=== PATIENT | male | born 1940 | race Caucasian/White ===

== ENCOUNTER 2017-06-01 12:03 | Day surgery (SDC) | payer OTHER, MEDICARE ==
[2017-05-09 10:53] VITALS: BMI 32.0
--- NOTE | 2017-05-09 11:21 | PAT Medication Instructions ---
Service Date May 09, 2017. Current Home Medication List Allopurinol (Zyloprim), 100 MG PO QAM Aspirin Enteric Coated (Ecotrin Or Generic *), 81 MG PO QPM Atenolol (Tenormin), 12.5 MG PO QPM Hydrochlorothiazide (Hctz *), 25 MG PO QAM Latanoprost 0.005% Oph (Xalatan 0.005% Oph), 1 DROP OPR HS Lisinopril (Zestril), 20 MG PO QPM Potassium Citrate (Urocit-K), Unknown Dose PO QAM Ranitidine (Zantac), 150 MG PO PRN PRN for Indigestion Simvastatin (Zocor), 40 MG PO QPM Sulindac (Sulindac), 200 MG PO QAM PRN for RN [eye drop ], 1 DROP OPR BID Medication Instructions For Your Scheduled Surgery - Hold the following medications 24 hours prior to surgery: Lisinopril (Zestril), 20 MG PO QPM Aspirin Enteric Coated (Ecotrin Or Generic *), 81 MG PO QPM (per surgeons instructions) - Hold the following medications the morning of surgery: Sulindac (Sulindac), 200 MG PO QAM PRN (otherwise okay to continue per surgeon) Hydrochlorothiazide (Hctz *), 25 MG PO QAM Potassium Citrate (Urocit-K), Unknown Dose PO QAM - Take the following medications the morning of surgery with a sip of water OTHERWISE NOTHING TO EAT OR DRINK AFTER MIDNIGHT: Allopurinol (Zyloprim), 100 MG PO QAM Ranitidine (Zantac), 150 MG PO PRN PRN for Indigestion - Take the following medications as scheduled the night before surgery: [eye drop ], 1 DROP OPR BID Atenolol (Tenormin), 12.5 MG PO QPM Simvastatin (Zocor), 40 MG PO QPM Latanoprost 0.005% Oph (Xalatan 0.005% Oph), 1 DROP OPR HS If you have any questions please call us at [phone] or [phone] or [phone]
--- NOTE | 2017-05-09 11:54 | DIAGNOSTIC IMAGING REPORT ---
TWO VIEW CHEST CLINICAL HISTORY: Preoperative examination. FINDINGS: PA and lateral chest radiographs are compared to study dated 06/06/2016. The cardiomediastinal silhouette is unremarkable. There is atherosclerotic calcification of the thoracic aorta. Chronic interstitial thickening is unchanged. The lungs and pleural spaces are clear. There is no pneumothorax. The skeletal structures are osteopenic. Degenerative change is seen throughout the thoracic spine. A right shoulder arthroplasty is noted. IMPRESSION: No active disease in the chest. Electronically signed by: Bala Adrian M.D. 05/09/2017 11:52 AM Dictated Date/Time: 05/09/2017 11:52 AM
[2017-05-09 11:55] LABS: BASO % 0.9 %; BASO ABS # 0.06 K/uL (0-0.2); COMPLETE YES; EOS % 3.8 %; HEMATOCRIT 45.8 % (42-52); IG% 0.2 %; LYMPH % 39.2 %; LYMPH ABS # 2.51 K/uL (1.2-3.4); MEAN CELL VOLUME 95.4 fL (80-100); MEAN CORPUSCULAR HEMOGLOBIN 32.5 pg (25-34); MEAN CORPUSCULAR HGB CONC 34.1 g/dl (32-36); MEAN PLATELET VOLUME 9.8 fL (7.4-10.4); NEUT % 47.9 %; PLATELET COUNT 167 K/uL (130-400)
[2017-05-09 11:58] LABS: URINE APPEARANCE CLEAR (CLEAR); URINE BILIRUBIN NEG (NEG); URINE COLOR YELLOW; URINE EPITHELIAL CELL AUTO 0-5 /lpf (0-5); URINE NITRITE NEG (NEG); UROBILINOGEN NEG (NEG)
[2017-05-09 11:59] LABS: MANUAL MICROSCOPIC REQUIRED? NO; REVIEW REQ? NO
[2017-05-09 12:16] LABS: BUN/CREATININE RATIO 21.7 (10-20); CALCIUM 9.5 mg/dl (8.5-10.1); CREATININE 1.3 mg/dl (0.60-1.40); POTASSIUM 4.2 mmol/L (3.5-5.1)
[~2017-06-01] VITALS: Ht 185.4 cm; Wt 112.2 kg
[~2017-06-01 12:03] MED LIST: ALLO100T PO; ASPEC81 PO; ATEN-173 PO; CEFAZOLIN 2000 MG/60 ML D5W IV SCH; CLN200 PO; HYDC25 PO; LACTATED RINGER'S 1000ML 500 ML IV SCH; LATA0.009 OPR; LISI-725 PO; POTA1080 PO; SIMV40TA2 PO; ZNTT/150 PO; eye drop OPR
[2017-06-01 12:35] VITALS: BMI 32.0
[2017-06-01 12:46] VITALS: Ht 185.4 cm; Wt 112.2 kg
--- NOTE | 2017-06-01 14:03 | History & Physical Bridge Note ---
H&P Re-Evaluation Bridge Note: I have examined the patient, reviewed the History & Physical and in the interval since the performance of the History & Physical I have noted the following changes of clinical significance: No changes noted
--- NOTE | 2017-06-01 14:04 | History and Physical ---
History & Physical Date Jun 01, 2017. Chief Complaint Chronic back pain History of Present Illness The patient is a 76 year old male with complaints of Past Medical/Surgical History Medical Problems: (1) Rotator cuff arthropathy Additional History Hepatic Disease: No Endocrine Disorder: No Kidney Disease: No Hypertension: Yes Heart Disease: No Bleeding Tendencies: No Infectious Diseases: No Allergies Coded Allergies: Latex (Verified Allergy, Severe, red rash, blisters, 06/01/17) Oxycodone (Verified Adverse Reaction, Severe, severe n/v, 05/09/17) Ibuprofen (Verified Adverse Reaction, Mild, NAUSEA, 07/07/16) Uncoded Allergies: BACK BRACE (Allergy, Severe, rash, 05/09/17) back brace/binder used following temporary stimulator implant by Dr. Young - patient reports got severe rash around where binder/brace was located - needed prednisone to treat Home Medications Scheduled Allopurinol (Zyloprim), 100 MG PO QAM Aspirin Enteric Coated (Ecotrin Or Generic *), 81 MG PO QPM Atenolol (Tenormin), 12.5 MG PO QPM Hydrochlorothiazide (Hctz *), 25 MG PO QAM Lisinopril (Zestril), 20 MG PO QPM Potassium Citrate (Urocit-K), Unknown Dose PO QAM Simvastatin (Zocor), 40 MG PO QPM [eye drop ], 1 DROP OPR BID Scheduled PRN Ranitidine (Zantac), 150 MG PO PRN PRN for Indigestion Sulindac (Sulindac), 200 MG PO QAM PRN for RN Physical Examination Skin: warm/dry, no rash Eyes: normal inspection, EOMI, sclerae normal ENT: normal ENT inspection, pharynx normal Head: normocephalic, atraumatic Neck: supple, no adenopathy, trachea midline Respiratory/Chest: lungs clear, normal breath sounds, no respiratory distress Cardiovascular: regular rate, rhythm, no edema, no murmur Abdomen / GI: normal bowel sounds, non tender Back: normal inspection Extremities: normal inspection, normal range of motion Neurologic/Psych: no motor/sensory deficits, alert, normal reflexes, oriented x 3 Diagnosis Chronic back pain Plan of Treatment Placement of spinal cord stimulator
[2017-06-01] MEDS ORDERED: MIDAZOLAM HCL 1 MG/ML 2ML VIAL ONE (14:08)
[2017-06-01] MEDS ORDERED: FENTANYL CITRATE INJ 50 MCG/1 ML 2 ML VIAL ONE (14:08)
[2017-06-01] MEDS ORDERED: BUPIVACAINE/EPINEPHRINE 0.5% MPF 1:200,000 10 ML VIAL ONE (14:30)
[2017-06-01] MEDS ORDERED: HYDROmorphone INJ 2 MG/ML SYR/VIAL ONE (14:51)
[2017-06-01] MEDS ORDERED: LIDOCAINE HCL 2% 2 ML VIAL (20MG/ML) ONE (15:06)
[2017-06-01] MEDS ORDERED: DEXAMETHASONE SOD INJ 4 MG/ML VIAL ONE (15:06)
[2017-06-01] MEDS ORDERED: NEOSTIGMINE METHYLSULFATE 1 MG/ML 10ML VIAL ONE (15:07)
[2017-06-01] MEDS ORDERED: PROPOFOL IV EMULSION 10 MG/ML 20 ML VIAL IV ONE (15:07)
[2017-06-01] MEDS ORDERED: GLYCOPYRROLATE INJ 0.2 MG/ML VIAL ONE (15:07)
[2017-06-01] MEDS ORDERED: ROCURONIUM BROMIDE 10 MG/ML 5 ML VIAL ONE (15:07)
[2017-06-01] MEDS ORDERED: ONDANSETRON INJ 2 MG/ML 2 ML VIAL ONE (15:07)
[2017-06-01] MEDS ORDERED: FLOSEAL HEMOSTATIC MATRIX 5ML TOP ONE (15:35)
[2017-06-01] MEDS ORDERED: HYDR-5688 PO (15:36)
--- NOTE | 2017-06-01 15:37 | Discharge Instructions ---
Discharge Instructions Date of Service Jun 01, 2017. Admission Reason for Admission: Lumbar Post Laminectomy Syndrome Discharge Discharge Diagnosis / Problem: chronic back pain Discharge Goals Goal(s): Improve function Activity Recommendations Activity Limitations: per Instructions/Follow-up section . Instructions / Follow-Up Instructions / Follow-Up ACTIVITY RECOMMENDATIONS: SELF CARE INSTRUCTIONS AFTER A LAMINECTOMY 1. No prolonged sitting (less than 30 minutes for the first 3 weeks after surgery). 2. No bending, lifting more than 5 pounds, or twisting (roll like a log when turning in bed). 3. You may shower 3 days after surgery if no drainage from wound. Thoroughly dry wound. Do not soak in the tub. 4. Please walk as much as you can for exercise. Gradually increase the distance that you walk as your endurance increases. 5. You may drive in 7-10 days if you are comfortable and no longer requiring pain medications. SPECIAL CARE INSTRUCTIONS: VERY IMPORTANT TO READ AND REVIEW A. Your surgical incision has been closed with a cosmetic suture under the skin that will dissolve in about 6 weeks. In 14 days, you can use a pair of clean scissors and cut the suture that is left outside of the skin at the ends of your incision. B. Complications are uncommon, but please contact us if you have any signs or symptoms of: 1. wound infection (fever higher than 102.5 degrees F, redness, separation of wound, drainage, or increasing pain from the incision) 2. blood clots in legs (pain, swelling, redness and warmth in legs) 3. urinary tract infection (fever higher than 102.5 degrees, burning upon urination or increased frequency of urination) 4. nerve problems (inability to walk on your toes or heels, numbness, loss of bowel or bladder control) 5. any other symptoms that concern you. C. Please call the office at if you have any concerns or questions about your operation or recovery. MANAGING PAIN AFTER SPINAL SURGERY 1. Narcotic medication is intended for short-term use and will be provided for surgical pain. Surgical pain usually lasts for a period of 4-6 weeks. Narcotic medication includes Percocet, Vicodin, Darvocet, Tylenol #3 or Lortab. 2. Longer-term pain is more appropriately treated with non-narcotic medication such as Tylenol ES. 3. Muscle spasm is not appropriately treated with narcotics. Muscle relaxers such as Soma, Flexeril or Skelaxin can be used along with Tylenol ES. 4. Remember that we all live with some "aches and pains". This is not unusual or uncommon after an injury or as we get older. 5. We will provide appropriate medication within the normal guidelines of their prescribed use. We will also be very cautious and aware of potential abuse and extended duration of patients' medication needs. 6. Please allow 2-3 days to process refills. Prescriptions will not be mailed but must be picked up at the office. FOLLOW UP VISIT: Keep your scheduled follow-up appointment. Any questions, please call the office at . Current Hospital Diet Patient's current hospital diet: Discharge Diet Recommended Diet: Regular Diet Procedures Procedures Performed: Placement of spinal cord stimulator Pending Studies Studies pending at discharge: no Medical Emergencies . Who to Call and When: Medical Emergencies: If at any time you feel your situation is an emergency, please call 911 immediately. . Non-Emergent Contact Non-Emergency issues call your: Primary Care Provider . "Provider Documentation" section prepared by Naresh Chaves. . VTE Core Measure Inpt VTE Proph given/why not?: Rito Torres, SCD's
--- NOTE | 2017-06-01 15:43 | [facility] Operative Report ---
Operative Report Operative Date Jun 01, 2017. Pre-Operative Diagnosis Chronic back pain Post-Operative Diagnosis saem as preop Procedure(s) Performed #1 T10 laminotomy. #2 placement of 16-lead dorsal column centimeter paddle # 3 implantation of a returnable battery. Surgeon Dr. Chaves Director Of It Operations Surgeon(s) Henri Rothman PA-C Estimated Blood Loss 100 ML Findings None Specimens none Description of Procedure Patient was met with preoperatively case discussed all questions are dressed with a point patient was taken back to the operative suite after undergoing successful intubation placed in a prone position the Keshawn table on a Kurtis frame. The thoracal lumbar spines prepped draped nostril fashion. Sharp dissection decisions Bovie cautery performed onto an exposing the interlaminar space at T10 11. A midline laminotomy was created at T10. I then successfully placed a 16-lead dorsal column centimeter paddle proximally. Verified our position to lie between the T8 and T10 pedicle centrally. I then tied the leads into place. A pocket was created of the left flank. The leads were passed to this pocket via trocar. Attached the battery. The battery was tested to ensure appropriate function. The battery was then buried in the pocket. Incisions were then copiously irrigated and closed with 2 Vicryl in the fascia for Monocryl for final skin closure. Steri-Strips sterile dressing placed patient we can taken to PACU stable condition. I attest to the content of the Intraoperative Record and any orders documented therein. Any exceptions are noted below.
[2017-06-01] MEDS ORDERED: HYDROCODONE/ACETAMOPHEN 5/325MG TAB PO PRN (15:45)
[2017-06-01] MEDS ORDERED: HYDROmorphone INJ 1 MG/ML SYR IV PRN ×2 (15:45)
[2017-06-01] MEDS ORDERED: ACETAMINOPHEN 325 MG TAB PO PRN ×2 (15:45)
[2017-06-01] MEDS ORDERED: ACETAMINOPHEN 650 MG SUPP PR PRN ×2 (15:45)
[2017-06-01] MEDS ORDERED: BACITRACIN 50000 UNIT VIAL ONE (15:45)
--- NOTE | 2017-06-01 15:49 | DIAGNOSTIC IMAGING REPORT ---
SPINE ONE VIEW, ANY LEVEL HISTORY: Back pain. Stimulator placement.. FLUOROSCOPY TIME: 5.4 seconds. FINDINGS: Intraoperative fluoroscopy was provided for the lumbar spine. 1 fluoroscopic spot images were obtained. IMPRESSION: Fluoroscopy provided for a spine bio stimulator placement. The above report was generated using voice recognition software. It may contain grammatical, syntax or spelling errors. Electronically signed by: Pa Tan M.D. 06/01/2017 3:48 PM Dictated Date/Time: 06/01/2017 3:47 PM
[2017-06-01] MEDS ORDERED: FENTANYL CITRATE INJ 50 MCG/1 ML 2 ML VIAL IV PRN (16:00)
[2017-06-01] MEDS ORDERED: ATROPINE SULFATE 0.1 MG/ML 5ML SYR IV PRN (16:00)
[2017-06-01] MEDS ORDERED: ONDANSETRON INJ 2 MG/ML 2 ML VIAL IV PRN (16:00)
[2017-06-01] MEDS ORDERED: EpHEDrine SULFATE INJ 50 MG/ML AMP IV PRN (16:00)
[2017-06-01] MEDS ORDERED: MEPERIDINE HCL 25 MG/ML CARP ONE (16:12)
[2017-06-01] MEDS ORDERED: HydrALAZINE HCL 20 MG/ML VIAL ONE (16:12)
[2017-06-01] MEDS ORDERED: NURSING VERBAL MED ORDER ONE (16:15)
--- NOTE | 2017-06-01 16:33 | Anesthesiology Progress Note ---
Anesthesia Post Op Note Date & Time Jun 01, 2017 at 16:33 Vital Signs Pain Intensity: 0 Vital Signs Past 12 Hours Date Time Temp Pulse Resp B/P (MAP) Pulse Ox O2 Delivery O2 Flow Rate FiO2 06/01/17 16:23 63 16 06/01/17 16:23 68 16 100 06/01/17 16:21 182/94 06/01/17 16:18 61 20 06/01/17 16:18 67 20 98 06/01/17 16:16 202/100 06/01/17 16:13 65 17 06/01/17 16:13 67 17 100 06/01/17 16:10 197/96 06/01/17 16:08 66 17 179/109 97 06/01/17 16:08 66 17 06/01/17 16:06 188/96 06/01/17 16:04 181/95 06/01/17 16:03 36.3 64 16 181/95 100 Mask 10 06/01/17 16:03 63 19 149/128 100 06/01/17 16:03 63 19 Notes Mental Status: alert / awake / arousable, participated in evaluation Pt Amnestic to Procedure: Yes Nausea / Vomiting: adequately controlled Pain: adequately controlled Airway Patency, RR, SpO2: stable & adequate BP & HR: stable & adequate Hydration State: stable & adequate Anesthetic Complications: no major complications apparent
[2017-06-01 16:55] VITALS: BP 176/90; PULSE 66; TEMP 36.8; O2SAT 94
[2017-06-01 17:25] VITALS: BP 180/86; PULSE 71; TEMP 36.8; O2SAT 93
[2017-06-01 17:55] VITALS: BP 164/84; PULSE 71; TEMP 36.8; O2SAT 93
--- NOTE | 2017-06-06 13:13 | EDITING REQUIRED CODING QUERY ---
SUPPORTING DIAGNOSIS NEEDED DATE OF SERVICE: 06/01/17 A supporting diagnosis is required for the test/procedure performed on this patient in order for us to be reimbursed by the patient's insurance. Please provide a supporting diagnosis for the following test/procedure listed below next to the test name along with your signature. *If there is no additional diagnosis for this patient that would support the following test/procedure please document that below next to the test/procedure. SUPPORTING DIAGNOSIS NEEDED: On the History & Physical you stated that the patient had back pain: *What was the cause of the back pain: post-laminectomy syndrome disc disease other *What was the cause of the Chronic pain: due to trauma due to postprocedural pain other Provider Signature: Date: Thank you Mable Hay [facility] Information Management Once completed, please kindly fax back to [phone] For questions please call [phone]
== END 2017-06-01 18:10 | disposition home or self-care (01) ==
LOC: C.ACU 12:03
PROVIDERS: ATTEND Orthopaedic Surgery Orthopaedic Surgery of the Spine
DX: M96.1 Postlaminectomy syndrome, not elsewhere classified (principal); M54.5 Low back pain; G89.28 Other chronic postprocedural pain; M54.40 Lumbago with sciatica, unspecified side; M47.814 Spondylosis without myelopathy or radiculopathy, thoracic region; I10 Essential (primary) hypertension; E78.00 Pure hypercholesterolemia, unspecified; Z96.659 Presence of unspecified artificial knee joint; Z96.649 Presence of unspecified artificial hip joint; Z96.619 Presence of unspecified artificial shoulder joint; G47.33 Obstructive sleep apnea (adult) (pediatric); K21.9 Gastro-esophageal reflux disease without esophagitis; Z87.442 Personal history of urinary calculi

== ENCOUNTER → 2017-10-02 | Outpatient (CLI) | payer OTHER, MEDICARE ==
[~2017-10-02] MED LIST changes: -CEFAZOLIN 2000 MG/60 ML D5W IV SCH; -LACTATED RINGER'S 1000ML 500 ML IV SCH; -LATA0.009 OPR; +RANI150T85 PO; -ZNTT/150 PO
--- NOTE | 2017-10-02 12:38 | DIAGNOSTIC IMAGING REPORT ---
KUB HISTORY: Follow-up study in a patient with nephrolithiasis. N20.0 [id number] COMPARISON: K be 09/22/2016. FINDINGS: The bowel gas pattern is non-obstructive. There is no organomegaly. Evaluate battery pack overlies the left kidney which limits evaluation for nephrolithiasis. No urolith identified. Stimulator leads overlie the thoracic spine extending superiorly outside the [id number]. Probable phleboliths of the pelvis. Left hip arthroplasty. At least moderate right hip osteoarthritis. Multilevel degenerative changes of the spine. Left hip arthroplasty. No pneumoperitoneum or pneumatosis. No fracture. IMPRESSION: No definite renal or ureteral calculi identified. Electronically signed by: Julian Smalls M.D. 10/02/2017 12:37 PM Dictated Date/Time: 10/02/2017 12:35 PM
[2017-10-02 13:48] LABS: BLOOD UREA NITROGEN 18 mg/dl (7-18); CALCIUM 9.3 mg/dl (8.5-10.1); CARBON DIOXIDE 29 mmol/L (21-32); GLUCOSE 124 mg/dl (70-99); POTASSIUM 3.9 mmol/L (3.5-5.1); SODIUM 139 mmol/L (136-145); URIC ACID 6.3 mg/dl (2.6-7.2)
== END | disposition home or self-care (01) ==
LOC: C.RAD 11:32
PROVIDERS: ATTEND Urology
DX: N20.0 Calculus of kidney (principal); N40.1 Benign prostatic hyperplasia with lower urinary tract symptoms

== ENCOUNTER 2018-02-05 09:34 | Inpatient (IN) | payer OTHER, MEDICARE ==
[2018-01-15 09:51] VITALS: BMI 34.0
--- NOTE | 2018-01-15 10:13 | PAT Medication Instructions ---
Service Date Jan 15, 2018. Current Home Medication List Allopurinol (Zyloprim), 100 MG PO QAM Aspirin (Aspirin Ec), 81 MG PO QPM Atenolol (Tenormin), 12.5 MG PO QPM Dorzolamide Hcl-Timolol Maleat (Cosopt Oph), 1 DROPS OPR BID Hydrochlorothiazide (Hctz), 25 MG PO QAM Lisinopril (Zestril), 20 MG PO QPM Sildenafil Citrate (Viagra), 100 MG PO PRN Simvastatin (Zocor), 40 MG PO QPM Sulindac (Sulindac), 200 MG PO BID [Potassium Citrate], 1 TAB PO QAM Medication Instructions For Your Scheduled Surgery - Check with surgeon for instructions: Sulindac (Sulindac), 200 MG PO BID - Hold the following medications 24 hours prior to surgery: Lisinopril (Zestril), 20 MG PO QPM - Hold the following medications the morning of surgery: [Potassium Citrate], 1 TAB PO QAM Sildenafil Citrate (Viagra), 100 MG PO PRN Hydrochlorothiazide (Hctz), 25 MG PO QAM - Take the following medications the morning of surgery with a sip of water: Allopurinol (Zyloprim), 100 MG PO QAM Dorzolamide Hcl-Timolol Maleat (Cosopt Oph), 1 DROPS OPR BID - Take the following medications as scheduled the night before surgery: Sildenafil Citrate (Viagra), 100 MG PO PRN (if needed) Simvastatin (Zocor), 40 MG PO QPM Dorzolamide Hcl-Timolol Maleat (Cosopt Oph), 1 DROPS OPR BID Aspirin (Aspirin Ec), 81 MG PO QPM Atenolol (Tenormin), 12.5 MG PO QPM If you have any questions please call us at [phone] or [phone] or [phone]
[2018-01-15 11:03] LABS: BASO % 0.6 %; BASO ABS # 0.05 K/uL (0-0.2); EOS % 2.3 %; HEMOGLOBIN 15.1 g/dL (14.0-18.0); IG# 0.02 K/uL (0.00-0.02); LYMPH % 26.9 %; LYMPH ABS # 2.31 K/uL (1.2-3.4); MEAN CELL VOLUME 96.1 fL (80-100); MEAN CORPUSCULAR HGB CONC 34.3 g/dl (32-36); MEAN PLATELET VOLUME 9.6 fL (7.4-10.4); MONO % 4.5 %; MONO ABS # 0.39 K/uL (0.11-0.59); NEUT % 65.5 %; NEUT ABS # 5.63 K/uL (1.4-6.5); PLATELET COUNT 190 K/uL (130-400); RED CELL DISTRIBUTION WIDTH CV 13.7 % (11.5-14.5); RED CELL DISTRIBUTION WIDTH SD 48.5 fL (36.4-46.3)
[2018-01-15 11:13] LABS: PTT PATIENT 24.8 SECONDS (21.0-31.0)
[2018-01-15 11:25] LABS: CALCIUM 9.2 mg/dl (8.5-10.1); CREATININE 1.32 mg/dl (0.60-1.40); POTASSIUM 4.5 mmol/L (3.5-5.1)
--- NOTE | 2018-02-04 19:24 | HISTORY & PHYSICAL EXAMINATION ---
DATE OF ADMISSION: 02/05/2018 CHIEF COMPLAINT: Primary osteoarthritis of the right hip. HISTORY OF PRESENT ILLNESS: Leonel is a pleasant 77-year-old male who has been dealing with a several year history of increasing right hip pain. The left hip replaced by Dr. Dawn 4 years ago in 2013 and he did well with that. Unfortunately, he is having a lot of right hip pain. X-rays and clinical examination or diagnostics for primary osteoarthritis of the right hip and after failing conservative treatment, he is elected to proceed with a right total hip arthroplasty. PAST MEDICAL HISTORY: Significant for osteoarthritis and hypertension. PAST SURGICAL HISTORY: Significant for a left total hip arthroplasty [place] [address] Dawn, a left total knee arthroplasty by Dr. Burns, a right reverse shoulder arthroplasty in June [address] Alejandro and a spinal cord stimulator placement in May 2017. ALLERGIES: None. MEDICATIONS: Include atenolol, Zocor, lisinopril and aspirin. FAMILY HISTORY: Denies. SOCIAL HISTORY: He is , lives in a house with some stairs and he rents the upstairs room to his granddaughter who can help take care of him. REVIEW OF SYSTEMS: He complains mostly of right hip pain. All other pertinent review of systems is negative. PHYSICAL EXAMINATION: CONSTITUTIONAL: Awake, alert and oriented, in no apparent distress. He is very pleasant. HEENT: Pupils are equal, round, reactive to light. Extraocular movements are intact. Oral mucosa pink and moist. HEART: Regular rate per radial pulse. LUNGS: [place] symmetrically bilaterally with no audible breath sounds. ABDOMEN: Soft, nontender, nondistended. MUSCULOSKELETAL: On physical examination of his hip, his leg lengths are equal. He does walk with a slightly antalgic gait. He has reproducible groin pain with forced internal and external rotation of the hip. Mild pain over the greater trochanteric bursa. He is neurovascularly intact. IMAGING DATA: X-rays of the right hip do show advanced osteoarthritis with joint space narrowing, osteophyte formation and [id number] articulation. IMPRESSION: Primary osteoarthritis of the right hip. PLAN: We will proceed with an anterior right total hip arthroplasty. Postoperatively, he will be kept overnight in the hospital for postoperative medical management. We will use aspirin for DVT prophylaxis.
[~2018-02-05] VITALS: Ht 185.4 cm; Wt 116.6 kg
[2018-02-05] VITALS (8 sets, daily range): BP systolic 131–157; BP diastolic 78–89; PULSE 64–89; TEMP 36.5–36.8; O2SAT 95–100; Ht 185.4 cm; Wt 116.6 kg
[~2018-02-05 09:34] MED LIST changes: -ASPEC81 PO; +ASPI81TA28 PO; +BUPIVACAINE 0.5 % 5 MG/1 ML PF 10ML VIAL ONE; +DORZ1SOL6 OPR; -HYDC25 PO; +HYDR25TA4 PO; +LACTATED RINGER'S 1000ML IV SCH; -POTA1080 PO; +POTASSIUM CITRATE PO; -RANI150T85 PO; +ROPIVACAINE 5MG/ML 30 ML 150 MG, BUPIVACAINE 0.5% MPF INJ 30 ML, EpINEphrine HCL INJ 0.... INFIL SCH; +SILD100T PO; -eye drop OPR
[2018-02-05] MEDS: FAMOTIDINE 20 MG TAB PO SCH ×2 (10:51→16:01)
[2018-02-05] MEDS: GABAPENTIN 300 MG CAP PO SCH ×2 (10:51→16:00)
[2018-02-05] MEDS: ACETAMINOPHEN 500 MG TAB PO SCH ×2 (10:51→16:01)
[2018-02-05] MEDS: LACTATED RINGER'S 1000ML 1,000 ML IV SCH ×2 (10:52→16:00)
[2018-02-05] MEDS ORDERED: EpHEDrine SULFATE INJ 50 MG/ML AMP IV PRN (11:45)
[2018-02-05] MEDS ORDERED: FENTANYL CITRATE INJ 50 MCG/1 ML 2 ML VIAL IV PRN (11:45)
[2018-02-05] MEDS ORDERED: ATROPINE SULFATE 0.1 MG/ML 5ML SYR IV PRN (11:45)
[2018-02-05] MEDS ORDERED: ONDANSETRON INJ 2 MG/ML 2 ML VIAL IV PRN ×2 (11:45→14:30)
[2018-02-05] MEDS ORDERED: MIDAZOLAM HCL 1 MG/ML 2ML VIAL ONE (11:56)
[2018-02-05] MEDS ORDERED: PROPOFOL IV EMULSION 10 MG/ML 20 ML VIAL IV ONE (11:56)
[2018-02-05] MEDS ORDERED: DEXAMETHASONE SOD INJ 4 MG/ML VIAL ONE (11:56)
[2018-02-05] MEDS ORDERED: LIDOCAINE HCL 2% 2 ML VIAL (20MG/ML) ONE (11:56)
[2018-02-05] MEDS ORDERED: ONDANSETRON INJ 2 MG/ML 2 ML VIAL ONE (11:56)
[2018-02-05] MEDS ORDERED: FENTANYL CITRATE INJ 50 MCG/1 ML 2 ML VIAL ONE ×2 (11:56→13:42)
[2018-02-05] MEDS ORDERED: BACITRACIN 50000 UNIT VIAL ONE (12:13)
[2018-02-05] MEDS ORDERED: ORTHO JOINT ANESTHETIC ONE (12:13)
[2018-02-05] MEDS: TRANEXAMIC ACID INJ 1,000 MG x 2 Bags IV SCH ×4 (12:20→16:00)
[2018-02-05] MEDS: CEFAZOLIN 2000MG IV PUSH 15 ML IV SCH ×3 (12:26→16:01)
--- NOTE | 2018-02-05 14:19 | [facility] Post Operative Brief Note ---
Immediate Operative Summary Operative Date Feb 05, 2018. Pre-Operative Diagnosis Primary Osteoarthritis of the Right Hip Post-Operative Diagnosis Same as preoperative. Procedure(s) Performed Right Total Anterior Hip Arthroplasty, Uncemented Surgeon Dr. Joni Alejandro Director Of Promotions Surgeon(s) Andrez Chavez PA-C Estimated Blood Loss 250ml Findings Consistent with Post-Op Diagnosis Specimens A.) Right Femoral Head Anesthesia Type General Complication(s) none Disposition Disposition: Recovery Room / PACU
[2018-02-05] MEDS ORDERED: MoRPHine SULFATE 2 MG/ML CARP IV PRN (14:30)
[2018-02-05] MEDS ORDERED: MAGNESIUM HYDROXIDE SUSP 30 ML UDC PO PRN (14:30)
[2018-02-05] MEDS ORDERED: BISACODYL 10 MG SUPP PR PRN (14:30)
[2018-02-05] MEDS ORDERED: SOD PHOSPHATE/SOD BIPHOSPHATE ENEMA 132 ML BTL PR PRN (14:30)
[2018-02-05] MEDS ORDERED: METOCLOPRAMIDE HCL INJ 5 MG/ML 2 ML VIAL IV PRN (14:30)
--- NOTE | 2018-02-05 14:44 | DIAGNOSTIC IMAGING REPORT ---
R HIP UNILATERAL 1 VIEW CLINICAL HISTORY: 77 years-old Male presenting with RT ANTERIOR HIP. TECHNIQUE: 2 fluoroscopic image(s) recorded as part of an intraoperative procedure. COMPARISON: 01/02/2018. FINDINGS/IMPRESSION: Interval total right hip arthroplasty. No malalignment. No gross hardware complication. Please see surgical report for further details. Fluoroscopy dosage (mGy): 5.90. Fluoroscopy time: 38.5 seconds. Number of fluoroscopic spot images: 0. Electronically signed by: Carrillo Lino M.D. 02/05/2018 2:43 PM Dictated Date/Time: 02/05/2018 2:42 PM
--- NOTE | 2018-02-05 15:02 | Anesthesiology Progress Note ---
Anesthesia Post Op Note Date & Time Feb 05, 2018 at 15:02 Vital Signs Pain Intensity: 0 Vital Signs Past 12 Hours Date Time Temp Pulse Resp B/P (MAP) Pulse Ox O2 Delivery O2 Flow Rate FiO2 02/05/18 15:00 81 16 132/89 99 4 02/05/18 14:50 79 16 150/95 99 Oxymask 10 02/05/18 14:40 79 12 184/109 99 Oxymask 10 02/05/18 14:31 37.1 80 12 160/64 100 Oxymask 10 02/05/18 10:20 36.8 64 18 157/84 95 Room Air Notes Mental Status: alert / awake / arousable, participated in evaluation Pt Amnestic to Procedure: Yes Nausea / Vomiting: adequately controlled Pain: adequately controlled Airway Patency, RR, SpO2: stable & adequate BP & HR: stable & adequate Hydration State: stable & adequate Anesthetic Complications: no major complications apparent
--- NOTE | 2018-02-05 15:08 | OPERATIVE REPORT ---
DATE OF OPERATION: 02/05/2018 PREOPERATIVE DIAGNOSIS: Primary osteoarthritis of the right hip. POSTOPERATIVE DIAGNOSIS: Same. PROCEDURE: Right anterior total hip arthroplasty. SURGEON: Dr. Joni Alejandro. SUPERVISING AIRPLANE PILOT: Max Chavez PA-C, whose assistance was necessary for retraction and closure. ANESTHESIA: General. COMPLICATIONS: None. CONDITION: Stable to PACU. IMPLANTS USED: I used a [employer] Taperloc total hip arthroplasty system with a size 14 press-fit Taperloc standard offset stem, a 58 mm G7 cup, a 40 mm neutral E-poly liner, a 40 mm head with a +3 neck and a 6.5 x 30 mm screw. INDICATIONS: Leonel is a pleasant 77-year-old male who presented to my office with chronic right hip pain. X-rays and clinical examination were diagnostic for primary osteoarthritis of the right hip. After failing conservative treatment, he elected to undergo a right total hip arthroplasty. OPERATION AND FINDINGS: On 02/05/2018, he arrived at [facility] for the above procedure. He was seen in preoperative holding and the operative extremity was identified and signed. He was given a preoperative antibiotic and taken back to the operating room, laid on table in supine position prone under general anesthesia. He did not get a spinal anesthetic because of a spine stimulator. The right leg was then placed in a purist leg positioner. The right hip was then prepped and draped in sterile fashion. Time-out was done and the patient and extremity was properly identified. An anterior approach was used. Dissection was taken down through the fascia and the tensor muscle belly was retracted laterally and the rectus was retracted medially. The circumflex vessels were ligated. The capsule was then incised and tagged for later repair. The femoral neck was then resected. The head was removed. Time was spent doing a complete circumferential labral release of the acetabulum. Sequential reaming of the acetabulum up to a 57 reamer was done. This gave good circumferential bleeding bone. The final reamings were done under fluoroscopy to ensure appropriate version. A 58 mm G7 cup was then impacted into place and was able to get an excellent pressfit. A single 30 mm screw was placed and a neutral E-poly liner was snapped into place. The surrounding soft tissues were then injected with 100 mL of an orthopedic pain control cocktail. The proximal femur was then exposed. Sequential broaching up to a size 14 broach was done. A standard head and neck assembly were applied. The hip was reduced and fluoroscopic images showed appropriate sizing of the components, but slight shortening of the leg. The hip was then dislocated. The broach was removed. The final size 14 standard offset pressfit stem was then impacted into place. A 40 mm ceramic head with a +3 neck was then impacted in place. The hip was then reduced. Final fluoroscopic images showed anatomic alignment. The wound was then irrigated with 3 L normal saline solution bacitracin. The capsule was then closed with #1 Vicryl suture. The fascia was closed with #1 PDS. Skin was closed with 2-0 Vicryl and roland. A Prevena VAC dressing was placed. He was then extubated, transferred to a litter and taken to the postanesthesia care unit in stable condition. He tolerated the procedure well. I attest to the content of the Intraoperative Record and any orders documented therein. Any exception s are noted below.
--- NOTE | 2018-02-05 16:51 | DIAGNOSTIC IMAGING REPORT ---
SINGLE VIEW PELVIS; SINGLE VIEW RIGHT HIP CLINICAL HISTORY: Postoperative examination. FINDINGS: 2 AP portable views of the hips and pelvis with 2 crosstable lateral portable views of the right hip are obtained. No prior studies are available for comparison at the time of dictation. A bipolar right hip arthroplasty is in near-anatomic alignment. A single cortical lag screw transfixes the acetabular cup. No acute fracture is identified. There are expected postoperative changes overlying the right hip including skin clips, subcutaneous gas, a surgical drain, and soft tissue swelling. A left hip arthroplasty is in place. IMPRESSION: Expected postoperative findings status post right hip arthroplasty. No acute fracture is seen. Electronically signed by: Bala Adrian M.D. 02/05/2018 4:49 PM Dictated Date/Time: 02/05/2018 4:49 PM
[2018-02-05] MEDS: SODIUM CHLORIDE 0.9% 1000ML 1,000 ML IV SCH (17:05)
[2018-02-05] MEDS: KETOROLAC TROMETHAMINE 15 MG/ML VIAL IV. SCH (17:51)
[2018-02-05] MEDS: CEFAZOLIN IV 2,000 MG in SYRINGE 0 ML IV SCH (20:29)
[2018-02-05] MEDS: LISINOPRIL 20 MG TAB PO SCH (20:30)
[2018-02-05] MEDS: ASPIRIN 325 MG ECTAB PO SCH (20:30)
[2018-02-05] MEDS: DOCUSATE SODIUM 100 MG CAP PO SCH (20:31)
[2018-02-05] MEDS: SIMVASTATIN 40 MG TAB PO SCH (20:32)
[2018-02-05] MEDS: SENNA 8.6 MG TAB PO SCH (20:32)
[2018-02-05] MEDS ORDERED: NURSING VERBAL MED ORDER ONE (21:30)
[2018-02-06] MEDS: KETOROLAC TROMETHAMINE 15 MG/ML VIAL IV. SCH ×2 (00:26→05:40)
[2018-02-06] MEDS: SODIUM CHLORIDE 0.9% 1000ML 1,000 ML IV SCH ×2 (02:22→12:16)
[2018-02-06] MEDS: CEFAZOLIN IV 2,000 MG in SYRINGE 0 ML IV SCH (04:12)
[2018-02-06 04:15] VITALS: BP 116/70; PULSE 74; TEMP 36.6; O2SAT 93
[2018-02-06 06:45] LABS: HEMATOCRIT 38.2 % (42-52); MEAN CELL VOLUME 96.2 fL (80-100); MEAN CORPUSCULAR HEMOGLOBIN 32.7 pg (25-34); MEAN PLATELET VOLUME 9.5 fL (7.4-10.4); PLATELET COUNT 171 K/uL (130-400); RED CELL DISTRIBUTION WIDTH CV 13.3 % (11.5-14.5); RED CELL DISTRIBUTION WIDTH SD 46.7 fL (36.4-46.3)
[2018-02-06 07:11] LABS: BASO % 0.1 %; BASO ABS # 0.01 K/uL (0-0.2); IG# 0.03 K/uL (0.00-0.02); LYMPH % 9.6 %; LYMPH ABS # 1.24 K/uL (1.2-3.4); MONO % 6.7 %; MONO ABS # 0.87 K/uL (0.11-0.59); NEUT % 83.4 %; NEUT ABS # 10.75 K/uL (1.4-6.5)
[2018-02-06 07:26] LABS: CALCIUM 8.5 mg/dl (8.5-10.1); CREATININE 1.76 mg/dl (0.60-1.40)
--- NOTE | 2018-02-06 08:35 | PROGRESS NOTE ---
DATE: CHIEF COMPLAINT: Status post right total hip arthroplasty, postoperative day number 1. PROGRESS: Leonel was seen and examined at bedside today. Overall, he is doing fairly well. He was sitting up in a chair at bedside. He was able to ambulate around the room last night. He has mild soreness in the hip, but it is not bad. He has no complaints. PHYSICAL EXAMINATION: RIGHT HIP: Prevena VAC dressing is to suction. His leg lengths are equal. He has active dorsiflexion and plantar flexion of his right ankle. Sensation is intact throughout. LABORATORY DATA: He has an H and H today of 13.0 and 38.2. His glucose is 126. His creatinine is 1.76. X-rays postoperatively of the right hip show the prosthesis to be in anatomic alignment without any evidence of fracture, dislocation, or loosening. IMPRESSION: Status post right total hip arthroplasty, postoperative day number 1. PLAN: Overall, he is doing very well. I will stop the ketorolac because of the slight rise in his creatinine. He can be up and ambulating well with physical therapy. We will continue aspirin for DVT prophylaxis. [facility] tomorrow.
[2018-02-06] MEDS: MULTIVITAMIN TAB PO SCH (08:42)
[2018-02-06] MEDS: ASPIRIN 325 MG ECTAB PO SCH ×2 (08:42→20:29)
[2018-02-06] MEDS: ALLOPURINOL 100 MG TAB PO SCH (08:43)
[2018-02-06] MEDS: DOCUSATE SODIUM 100 MG CAP PO SCH ×2 (08:43→20:29)
[2018-02-06] MEDS: HYDROCHLOROTHIAZIDE 25 MG TAB PO SCH (08:43)
[2018-02-06] MEDS: HYDROCODONE/ACETAMIN 5/325MG TAB PO PRN ×3 (08:52→22:53)
[2018-02-06] MEDS ORDERED: DORZOLAMIDE/TIMOLOL 22.3/6.8MG/ML 10 ML BTL OPR SCH (09:00)
[2018-02-06 09:13] VITALS: BP 127/70; PULSE 67; TEMP 36.7; O2SAT 95
--- NOTE | 2018-02-06 10:54 | Anesthesiology Progress Note ---
Anesthesia Post Op Note Date & Time Feb 06, 2018 at 10:53 Vital Signs Vital Signs Past 12 Hours Date Time Temp Pulse Resp B/P (MAP) Pulse Ox O2 Delivery O2 Flow Rate FiO2 02/06/18 09:13 36.7 67 18 127/70 (89) 95 Room Air 02/06/18 06:50 Room Air 02/06/18 04:15 36.6 74 16 116/70 (85) 93 Room Air 02/06/18 00:25 Room Air 02/05/18 23:28 36.5 78 16 144/78 (100) 95 Notes Mental Status: alert / awake / arousable, participated in evaluation Pt Amnestic to Procedure: Yes Nausea / Vomiting: adequately controlled Pain: adequately controlled Airway Patency, RR, SpO2: stable & adequate BP & HR: stable & adequate Hydration State: stable & adequate Anesthetic Complications: no major complications apparent
[2018-02-06 12:04] VITALS: BP 125/74; PULSE 61; TEMP 36.4; O2SAT 96
[2018-02-06 15:40] VITALS: BP 138/81; PULSE 72; TEMP 36.6; O2SAT 97
[2018-02-06] MEDS: DORZOLAMIDE HCL 2% OPH SOLN 10 ML BTL OPR SCH ×2 (15:59→20:29)
[2018-02-06] MEDS: TIMOLOL MALEATE 0.5% OP SOLN 5 ML BTL OPR SCH ×2 (15:59→20:29)
[2018-02-06 20:30] VITALS: BP 145/79; PULSE 75
[2018-02-06] MEDS: SENNA 8.6 MG TAB PO SCH (20:59)
[2018-02-06] MEDS: SIMVASTATIN 40 MG TAB PO SCH (20:59)
[2018-02-06] MEDS: LISINOPRIL 20 MG TAB PO SCH (20:59)
[2018-02-06 23:48] VITALS: BP 138/77; PULSE 71; TEMP 36.7; O2SAT 98
[2018-02-07] MEDS: HYDROCODONE/ACETAMIN 5/325MG TAB PO PRN ×3 (07:26→22:38)
[2018-02-07] MEDS ORDERED: HYDR-5688 PO (07:32)
--- NOTE | 2018-02-07 08:04 | Discharge Instructions ---
Discharge Instructions Date of Service Feb 07, 2018. Admission Reason for Admission: Right Hip Degenerative Joint Disease Discharge Discharge Diagnosis / Problem: SAME ABOVE Discharge Goals Goal(s): Decrease discomfort, Improve function, Increase independence Activity Recommendations Activity Limitations: as noted below Lifting Limitations: gradually increase as tolerated Exercise/Sports Limitations: gradually increase as tolerated Driving or Machine Use: WHEN AMBULATING INDEPENDENTLY AND OFF OF PAIN MEDICATION . Instructions / Follow-Up Instructions / Follow-Up Activity and Therapy Recommendations: * If you are using [facility] then Physical Therapy will be provided until they feel you are ready to start Outpatient Physical Therapy. If you are not using a Home Health agency then Outpatient Physical Therapy should start about 3-5 days from your day of surgery. Therapy will last about 3-6 weeks * You were shown a series of exercises in the hospital. Do these exercises three times each day including the exercises you were shown in physical therapy. * Get up and walk several times each day.~ For the first four weeks, try not to stand or walk for more than one hour at a time. If you do stand or walk for more than one hour, you will not hurt anything, but your leg will likely swell.~ ~ * As you feel comfortable, you may change from the walker or crutches to a cane and~then to independent walking. Medications: * Narcotic You will likely be sent home from the hospital with a prescription for the narcotic pain medication that worked best throughout your stay. * Aspirin Most patients will be required to take Aspirin 325mg twice a day for 6 weeks after surgery. This is obtained [id number] and a prescription is not necessary. * Other medications may be prescribed for specific circumstances. If you have any questions, please call the office at . * Resume previous home medications unless otherwise instructed TEDs/Elastic Stockings: The white elastic stockings help limit swelling and prevent blood clots from forming in your legs. The more you wear them, the more they work. Wear them for six weeks. Dressing Care: You will likely have a purple VAC dressing after surgery. This dressing will keep the incision dry and promote early healing. After about 8 days the batteries will wear out and the VAC will lose suction. Simply remove the dressing at that time and throw everything away, including the small suction machine. Then, you may leave the roland open to air or cover them with a dry dressing so they do not rub on your pants. The roland will be removed at your 2 week follow-up appointment. Showering: You may shower immediately with the purple VAC dressing. Let the shower spray hit your opposite side and slowly pat the plastic dry. Do not soak the dressing. After the dressing is removed you may shower normally with the roland exposed. Let soapy water run over the roland and pat them dry. Things To Watch For: * Drainage from the incision site that occurs more than one week after your surgery. * Increased redness at the incision site. * Fever above 102 degrees Fahrenheit. * Unusual chest pain or shortness of breath. * Call [facility] at with any of the above problems Follow-Up Visit: Follow-up with Dr. Alejandro 2 weeks after your day of surgery. An appointment was probably scheduled when you signed-up for surgery in the office. If you have any questions call Office Instructions: More detailed instructions as well as Frequently Asked Questions were provided in a folder by our office when you signed-up for surgery. Please review these instructions when you get home. If you have any further questions or concerns, please feel free to call the office at [phone] Current Hospital Diet Patient's current hospital diet: Regular Diet Discharge Diet Recommended Diet: Regular Diet Fluid Restriction: None Procedures Procedures Performed: Right Total Anterior Hip Arthroplasty, Uncemented Pending Studies Studies pending at discharge: no Medical Emergencies . Who to Call and When: Medical Emergencies: If at any time you feel your situation is an emergency, please call 911 immediately. . Non-Emergent Contact Non-Emergency issues call your: Primary Care Provider Call Non-Emergent contact if: you have a fever, temperature is above 101.5 . "Provider Documentation" section prepared by Max Chavez. .
[2018-02-07] MEDS: TIMOLOL MALEATE 0.5% OP SOLN 5 ML BTL OPR SCH ×2 (08:42→20:49)
[2018-02-07] MEDS: DORZOLAMIDE HCL 2% OPH SOLN 10 ML BTL OPR SCH ×2 (08:42→20:49)
[2018-02-07] MEDS: ALLOPURINOL 100 MG TAB PO SCH (08:43)
[2018-02-07] MEDS: MULTIVITAMIN TAB PO SCH (08:43)
[2018-02-07] MEDS: HYDROCHLOROTHIAZIDE 25 MG TAB PO SCH (08:43)
[2018-02-07] MEDS: ASPIRIN 325 MG ECTAB PO SCH ×2 (09:13→20:51)
[2018-02-07] MEDS: DOCUSATE SODIUM 100 MG CAP PO SCH ×2 (09:13→20:51)
[2018-02-07 15:02] VITALS: BP 120/71; PULSE 76; TEMP 36.8; O2SAT 96
[2018-02-07 16:00] VITALS: O2SAT 96
--- NOTE | 2018-02-07 16:41 | Discharge Summary ---
Orthopedic Discharge Summary Admission Date/Reason Feb 05, 2018 at 11:15 Right Hip Degenerative Joint Disease. Discharge Date/Disposition Feb 07, 2018 Rehab Diagnosis Principal Diagnosis: RIGHT HIP DEGENERATIVE JOINT DISEASE Procedure(s) Performed RIGHT ANTERIOR TOTAL HIP ARTHROPLASTY Consultations NONE Medication Reconciliation New Medications: Hydrocodone/Acetaminophen 5MG/325MG (Spurgeon 5MG/325MG) Tab 1 TABLET PO Q6 PRN for Pain, #60 TAB PRN PAIN Continued Medications: Allopurinol (Zyloprim) 100 Mg Tab 100 MG PO QAM for 200 Days, #200 TAB Aspirin (Aspirin Ec) 81 Mg Tab 81 MG PO QPM Atenolol (Tenormin) 25 Mg Tab 12.5 MG PO QPM, 0 Refills Dorzolamide Hcl-Timolol Maleat (Cosopt Oph) 1 Aysha Aysha 1 DROPS OPR BID, #10 ML 3 Refills Hydrochlorothiazide (Hctz) 25 Mg Tab 25 MG PO QAM, TAB Lisinopril (Zestril) 20 Mg Tab 20 MG PO QPM, 0 Refills Sildenafil Citrate (Viagra) 100 Mg Tab 100 MG PO PRN, TAB Simvastatin (Zocor) 40 Mg Tab 40 MG PO QPM, 0 Refills Sulindac (Sulindac) 200 Mg Tab 200 MG PO BID [Potassium Citrate] () 1 TAB PO QAM Admission Physical Exam As per Admitting History & Physical. Hospital Course Leonel is a pleasant 77-year-old male who presented to the office with chronic right groin pain. X-rays and clinical examination were diagnostic for primary osteoarthritis of the right hip. After failing conservative treatment, he elected to undergo a right total hip arthroplasty. On 02/05/2018 he arrived at [facility] and underwent a right total hip replacement without complications. He was given Ancef for antibiotic prophylaxis. It was done through a direct anterior approach. Postoperatively, he was placed on Aspirin 325mg BID for DVT prophylaxis. Hospital course was uneventful. On postop day #1 his H\T\H was stable as well as his vital signs. He was ambulating well with physical therapy. His pain was controlled with oral medication. On postop day #2 he was sitting in his chair ready to be discharged to [facility]. His pain was controlled with oral medication. He had mild muscle discomfort from therapy the previous day. He was tolerating therapy well, and was walking around the nurses station comfortably. He was given printed discharge instructions. He is to take ASA 325mg BID as well as wear his ELIJAH stocking for DVT prophylaxis. He was given a script for oral pain medication. He will be discharged to [facility] once there is a bed available. He is to return to the office in 10-14 days post- operatively. He can call the office at [phone] if he has any questions or concerns. Discharge Instructions Please refer to the electronic Patient Visit Report (Discharge Instructions) for additional information.
--- NOTE | 2018-02-07 17:51 | PROGRESS NOTE ---
DATE: 02/07/2018 CHIEF COMPLAINT: Status post anterior total hip arthroplasty postop day #2. PROGRESS: Leonel was seen and examined at bedside today. Overall, he is doing very well. He has been ambulating well with physical therapy. He has had some soreness in his hip, it is not too bad. He was scheduled to go to [facility] today but they were unable to take him. PHYSICAL EXAMINATION: HIP: The Prevena VAC dressing is to suction. He is sitting comfortably in the chair. His leg lengths are equal. IMPRESSION: Status post right total hip arthroplasty postop day #2. PLAN: Will continue aspirin for DVT prophylaxis. He can be up and ambulating. We will wait for discharge to [facility] tomorrow.
[2018-02-07] MEDS: SENNA 8.6 MG TAB PO SCH (20:51)
[2018-02-07] MEDS: SIMVASTATIN 40 MG TAB PO SCH (20:51)
[2018-02-07] MEDS: LISINOPRIL 20 MG TAB PO SCH (20:51)
[2018-02-07 22:46] VITALS: BP 144/81; PULSE 75; TEMP 36.7; O2SAT 95
[2018-02-08 07:30] VITALS: BP 108/67; PULSE 81; TEMP 36.8; O2SAT 94
[2018-02-08] MEDS: ASPIRIN 325 MG ECTAB PO SCH (08:35)
[2018-02-08] MEDS: DORZOLAMIDE HCL 2% OPH SOLN 10 ML BTL OPR SCH (08:35)
[2018-02-08] MEDS: ALLOPURINOL 100 MG TAB PO SCH (08:35)
[2018-02-08] MEDS: DOCUSATE SODIUM 100 MG CAP PO SCH (08:35)
[2018-02-08] MEDS: MULTIVITAMIN TAB PO SCH (08:35)
[2018-02-08] MEDS: TIMOLOL MALEATE 0.5% OP SOLN 5 ML BTL OPR SCH (08:35)
[2018-02-08] MEDS: HYDROCHLOROTHIAZIDE 25 MG TAB PO SCH (08:35)
[2018-02-08] MEDS: HYDROCODONE/ACETAMIN 5/325MG TAB PO PRN (11:18)
[2018-02-08 11:22] VITALS: BP 108/67; PULSE 81; TEMP 36.8; O2SAT 94
--- NOTE | 2018-02-08 17:58 | PROGRESS NOTE ---
DATE: 02/08/2018 CHIEF COMPLAINT: Status post right total hip arthroplasty, postop day #3. PROGRESS: Leonel was seen and examined at bedside today. Overall, he is doing very well. He is up walking around easily with a walker. He has mild soreness in his hip, but it is not bad. He has no complaints. PHYSICAL EXAMINATION: Examination of the right hip, the Prevena VAC dressing is to suction. His leg lengths are equal. He is neurovascularly intact. IMPRESSION: Status post right total hip arthroplasty postop day #3. PLAN: At this point, we are just waiting for rehab placement. He should have a bed available at [facility] later today. He is orthopedically stable for discharge. He will continue aspirin for DVT prophylaxis.
== END 2018-02-08 13:30 | DRG 470 ==
LOC: C.ACU 09:34 → C.3E 11:15 → ENRESERV 15:26
PROVIDERS: ADMIT Orthopaedic Surgery; ATTEND Orthopaedic Surgery
PROC: 0SR904Z Replacement of Right Hip Joint with Ceramic on Polyethylene Synthetic Substitute, Open Approach (ICD-10-PCS; principal; 2018-02-05 13:00)
DX: M16.11 Unilateral primary osteoarthritis, right hip (principal); I10 Essential (primary) hypertension; Z96.642 Presence of left artificial hip joint; Z96.652 Presence of left artificial knee joint; Z96.611 Presence of right artificial shoulder joint; Z96.89 Presence of other specified functional implants

== ENCOUNTER → 2018-06-04 | Outpatient (CLI) | payer OTHER, MEDICARE ==
[~2018-06-04] MED LIST changes: -BUPIVACAINE 0.5 % 5 MG/1 ML PF 10ML VIAL ONE; +HYDR-5688 PO; -LACTATED RINGER'S 1000ML IV SCH; -ROPIVACAINE 5MG/ML 30 ML 150 MG, BUPIVACAINE 0.5% MPF INJ 30 ML, EpINEphrine HCL INJ 0.... INFIL SCH
[2018-06-04 13:17] LABS: BLOOD UREA NITROGEN 30 mg/dl (7-18); CREATININE 1.49 mg/dl (0.60-1.40)
== END | disposition home or self-care (01) ==
LOC: C.LABPBG 09:11
PROVIDERS: ATTEND Orthopaedic Surgery
DX: S46.019A Strain of muscle(s) and tendon(s) of the rotator cuff of unspecified shoulder, initial encounter (principal); X58.XXXA Exposure to other specified factors, initial encounter

== ENCOUNTER → 2018-06-17 | Outpatient (CLI) | payer OTHER, MEDICARE ==
[2018-06-17 12:30] LABS: BASO ABS # 0.09 K/uL (0-0.2); EOS % 16.5 %; EOS ABS # 1.49 K/uL (0-0.5); HEMATOCRIT 43.4 % (42-52); HEMOGLOBIN 14.7 g/dL (14.0-18.0); IG# 0.02 K/uL (0.00-0.02); LYMPH % 33.6 %; LYMPH ABS # 3.03 K/uL (1.2-3.4); MEAN CELL VOLUME 92.7 fL (80-100); MEAN CORPUSCULAR HEMOGLOBIN 31.4 pg (25-34); MEAN CORPUSCULAR HGB CONC 33.9 g/dl (32-36); MONO % 6.5 %; MONO ABS # 0.59 K/uL (0.11-0.59); NEUT % 42.2 %; NEUT ABS # 3.81 K/uL (1.4-6.5); PLATELET COUNT 182 K/uL (130-400); RED CELL DISTRIBUTION WIDTH CV 14.3 % (11.5-14.5); RED CELL DISTRIBUTION WIDTH SD 47.8 fL (36.4-46.3); WHITE BLOOD COUNT 9.03 K/uL (4.8-10.8)
[2018-06-17 12:45] LABS: BLOOD UREA NITROGEN 22 mg/dl (7-18); CALCIUM 9.2 mg/dl (8.5-10.1); CARBON DIOXIDE 28 mmol/L (21-32); CREATININE 1.29 mg/dl (0.60-1.40); GLUCOSE 103 mg/dl (70-99); POTASSIUM 3.8 mmol/L (3.5-5.1); SODIUM 138 mmol/L (136-145)
== END | disposition home or self-care (01) ==
LOC: C.CPL 09:22
PROVIDERS: ATTEND Orthopaedic Surgery
DX: Z01.812 Encounter for preprocedural laboratory examination (principal); Z01.810 Encounter for preprocedural cardiovascular examination; M75.122 Complete rotator cuff tear or rupture of left shoulder, not specified as traumatic

== ENCOUNTER 2020-10-15 17:54 | Inpatient (IN) ==
[2020-10-15] MEDS ORDERED: fentaNYL citrate 100 MCG/2 ML VIAL IV STA ×2 (20:10→22:22)
--- NOTE | 2020-10-15 20:16 | Emergency Department Note ---
Impression & Plan Fall, Closed fracture of radial styloid, Multiple fractures of ribs of left side ED Provider Note Provider: Reed Messer MD DATE OF SERVICE:10/15/2020 CHIEF COMPLAINT: Fall HISTORY OF PRESENT ILLNESS: Patient is a 80-year-old male with a history of PE/DVT on Coumadin, hypertension, arthritis presenting today after a fall. Occurred around 2 PM this afternoon. Patient states he was out cleaning up the driveway implying to his camp when he slipped on the ground and fell on his left side. Patient denies prodromal symptoms of syncope, chest pain, shortness of breath, palpitations. Patient denies loss of consciousness states he does not believe he hit his head. Patient states healing predominately on his left wrist and left chest wall having significant pain in the left chest wall and left upper abdomen. Denies nausea. Patient states pain is worse with deep breath. Denies any right-sided symptoms or pain in the abdomen or chest. Denies significant injury to the lower extremities or into the right upper arm. Patient states that he scraped his left knee yesterday but denies significant pain here. Patient does report some discomfort of his left wrist but states he is able to move it and denies any numbness in the extremities at this time. Patient does not take anything for pain at home. Patient states he is on Coumadin. Patient denies visual change or nausea or vomiting. Patient states the pain is fairly severe and again worse with touch of the left chest wall and left upper abdomen or deep breath. REVIEW OF SYSTEMS: A total of 10 review of systems was obtained and negative except as stated above in the HPI. PAST MEDICAL HISTORY: As noted above MEDICATIONS: Reviewed home medications SOCIAL HISTORY: , non-smoker PHYSICAL EXAM: GENERAL: alert and oriented sitting in wheelchair appears uncomfortable Head: normocephalic and atraumatic EYES: No injection, discharge or icterus. NECK: Trachea midline without significant posterior midline tenderness ENT: Mucous membranes pink and moist. Pharynx without erythema or exudate. LUNGS: Airway patent. No retractions. Breath sounds clear but limited inspiration secondary to pain HEART: Regular mildly tachycardic rate and rhythm. Left chest wall pain is noted without crepitus ABDOMEN: Soft with some tenderness in the left upper quadrant but not peritoneal diffusely. BACK: No significant thoracic midline tenderness but tenderness over the left flank. SKIN: Acyanotic, warm, dry. There is no bruising over the abdomen or chest wall. No significant bruising of the left upper extremity. Partially healed abrasion over the left knee. EXTREMITIES: Patient with a slight abrasion over the left knee but no sig nificant tenderness and well-healed prior midline surgical scar. Patient left wrist with some slight left radial head tenderness but able to range fairly well without significant snuffbox tenderness. Soft left forearm compartments. NEUROLOGICAL: No focal deficits. No aphasia. No facial droop or slurred speech. Normal strength and tone in the extremities. Sensation to gross touch normal. EK bpm appears to be in normal sinus rhythm although the significant artifact from spinal stimulator present. No significant ectopy is noted with narrow QRS complexes. No obvious ST elevation but significant limitations in evaluation secondary to artifact. monitor worker: Per my order cardiac monitoring is obtained and shows normal sinus rhythm at 95 bpm PDMP was checked without noted issue. GCS 15. Patient's laboratory studies and imaging reviewed. Differential includes Fracture, dislocation, contusion, intra-abdominal, pneumothorax, intrathoracic, intracranial, neurologic, compartment syndrome, rhabdomyolysis, as well as other pathologies. IMPRESSION/MEDICAL DECISION MAKING: Patient presents after a subsequent chemical fall landing on his left wrist and left chest wall and left upper abdomen. Is on blood thinner. Denies striking his head or LOC but some concern given traumatic mechanism in the anticoagulation CT of the head and cervical spine were completed as well as CT of the chest and abdomen pelvis to look for traumatic injuries. Basic labs were obtained including INR. Lower suspicion at this time for acute ACS. I doubt acute PE given anticoagulation status and does not seem consistent acute aortic dissection. X-ray of left wrist was obtained although low suspicion for fracture at this time as he is moving it quite well. No evidence of compartment syndrome in the left forearm. No significant evidence of injury to the lower extremities aside slight abrasion overlying the left knee and do not feel we need x-rays at this time and the patient was in agreement. Given initially some fentanyl for pain control here with mild to moderate effect of improvement. Laboratory studies with borderline leukocyte is 11.1 but no significant anemia. INR therapeutic at 2.2. Kidney function somewhat elevated compared to recent baseline 1.66 today but no evidence of significant hepatic dysfunction and no troponin elevation. EKG of limited help due to artifact from spinal stimulator. Left wrist questions and age-indeterminate radial styloid fracture given his tenderness here will splint. CT the head and cervical spine without acute traumatic injury noted per radiology report. CT report of the chest abdomen pelvis shows approximately 5 left-sided rib fractures with trace hemothorax. No pneumothorax. No other significant intra-abdominal bleeding noted per the rad iology report. Patient is significant pain given multiple doses of fentanyl as well as some Tylenol here. Discussed with him given his age and significant pain further observation here overnight and patient agreed with this. Incentive spirometry ordered. Hospitalist contacted. DIAGNOSIS: Fall, left-sided chest pain, left radial styloid fracture, multiple left rib fractures DISPOSITION: Hospitalist will evaluate Patient was agreeable with this plan. 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 oxycodone AdvReac Severe severe n/v Verified 10/15/20 22:28 ibuprofen AdvReac Mild NAUSEA Verified 10/15/20 22:28 Home Meds Home Medications Medication Instructions Recorded Confirmed lisinopril 20 mg PO DAILY #0 06/26/08 07/13/20 simvastatin 40 mg PO DAILY #0 06/26/08 07/13/20 sulindac 200 mg PO BID #0 06/06/16 07/13/20 hydrochlorothiazide 25 mg PO DAILY #0 tab 01/15/18 07/13/20 sildenafil 100 mg PO DAILY #0 tab 01/15/18 07/13/20 brimonidine 1 drp OPR BID 03/22/20 07/13/20 duloxetine 30 mg PO DAILY 03/22/20 07/13/20 glucosamine-chondroitin [Osteo 2 tab PO DAILY PRN 03/22/20 07/13/20 Bi-Flex] losartan 100 mg PO DAILY 03/22/20 07/13/20 warfarin 4 mg tablet 4 mg PO DAILY 05/06/20 07/13/20 Previous Rx's Medication Instructions Recorded potassium citrate 10 mEq (1,080 1,080 mg PO DAILY #90 tab 11/06/19 mg) tablet,extended release allopurinol 100 mg tablet 100 mg PO BID #180 tab 05/06/20 finasteride 5 mg tablet 5 mg PO DAILY #90 tab 05/06/20 finasteride 5 mg tablet 5 mg PO DAILY #90 tab 05/06/20 amoxicillin-pot clavulanate 1 tab PO BID #10 tab 06/24/20 [Augmentin] Results & Data (ED) Vital Signs Vital Signs - 24 hr 10/15/20 17:56 Temperature 36.5 C Temperature Source Oral Pulse Rate 110 H Respiratory Rate 20 Blood Pressure 132/83 Blood Pressure Mean 99 Pulse Oximetry 96 Oxygen Delivery Method Room Air Sepsis Recent Fever Within 48 Hours No Sepsis New/Unexplained Change in Mental Status No Sepsis Action Taken by Nursing No Action Required Laboratory Data Result diagrams: 10/15/20 20:40 10/15/20 20:40 Lab Results 10/15/20 10/15/20 10/15/20 Range/Units 20:40 20:40 20:40 WBC 11.18 H (4.8-10.8) K/uL RBC 4.67 L (4.7-6.1) M/uL Hgb 14.7 (14.0-18.0) g/dL Hct 44.4 (42-52) % MCV 95.1 (80-100) fL MCH 31.5 (25-34) pg MCHC 33.1 (32-36) g/dL RDW Std Deviation 50.4 H (36.4-46.3) fL RDW Coeff of Francesco 14.5 (11.5-14.5) % Plt Count 236 (130-400) K/uL MPV 9.5 (7.4-10.4) fL Immature Gran % (Auto) 0.4 % Neut % (Auto) 68.8 % Lymph % (Auto) 19.3 % Cobb % (Auto) 11.1 % Eos % (Auto) 0.2 % Baso % (Auto) 0.2 % Neut # (Auto) 7.70 H (1.4-6.5) K/uL Lymph # (Auto) 2.16 (1.2-3.4) K/uL Cobb # (Auto) 1.24 H (0.11-0.59) K/uL Eos # (Auto) 0.02 (0-0.5) K/uL Baso # (Auto) 0.02 (0-0.2) K/uL Immature Gran # (Auto) 0.04 H (0.00-0.02) K/uL PT 22.5 H (9.0-12.0) Seconds INR 2.2 H (0.9-1.1) Sodium 142 (136-145) mmol/L Potassium 4.0 (3.5-5.1) mmol/L Chloride 109 H (98-107) mmol/L Carbon Dioxide 27 (21-32) mmol/L Anion Gap 6.0 (3-11) BUN 31 H (7-18) mg/dl Creatinine 1.66 H (0.6-1.4) mg/dl Est Cr Clr Drug Dosing 39.4 ml/min Est GFR ( Amer) 44.1 Est GFR (Non-Af Amer) 38.1 BUN/Creatinine Ratio 18.4 (10-20) Glucose 104 H (70-99) mg/dl Calcium 9.5 (8.5-10.1) mg/dl Total Bilirubin 0.4 (0.2-1) mg/dl AST 28 (15-37) U/L ALT 38 (12-78) U/L Alkaline Phosphatase 78 (45-117) U/L Troponin I < 0.015 (0-0.045) ng/ml Total Protein 8.0 (6.4-8.2) gm/dl Albumin 4.3 (3.4-5.0) gm/dl Globulin 3.7 (2.5-4.0) gm/dl Albumin/Globulin Ratio 1.2 (0.9-2) Administered Medications Discontinued Medications Fentanyl Citrate (Fentanyl Citrate 100 Mcg/2 Ml Vial) 50 mcg IV NOW STA Stop: 10/15/20 20:11 Last Admin: 10/15/20 20:41 Dose: 50 mcg Documented by: [id number] Ioversol (Ioversol 100ml) 93 ml IV ONCE ONE Stop: 10/15/20 21:16 Last Admin: 10/15/20 21:16 Dose: 93 ml Documented by: [id number] Discharge Plan Visit Data Chief Complaint: Rib Injury/Pain Stated Complaint: RIB PAIN ED Provider: Reed Messer Discharge Problem: Fall, Closed fracture of radial styloid, Multiple fractures of ribs of left side Forms Stand Alone Forms: My [facility] [place] [employer] Prescriptions Prescriptions: No Action simvastatin 40 mg Tablet 40 mg PO HS Qty: 0 RF: 0 allopurinol 100 mg tablet 100 mg PO BID Qty: 180 RF: 3 finasteride 5 mg tablet 5 mg PO DAILY Qty: 90 RF: 3 warfarin [Coumadin] 4 mg tablet 4 mg PO DAILY RF: 0 losartan 100 mg tablet 100 mg PO HS RF: 0 duloxetine 30 mg capsule,delayed release(DR/EC) 30 mg PO DAILY RF: 0 warfarin 5 mg tablet See Rx Instructions .ROUTE .COMPLEX RF: 0 furosemide 20 mg tablet 20 mg PO DAILY PRN (Reason: Edema) RF: 0 timolol maleate 0.5 % drops 1 drp OPR QAM RF: 0 Discharge Problem: Fall Qualifiers: Encounter type: initial encounter Qualified Code(s): W19.XXXA - Unspecified fall, initial encounter Closed fracture of radial styloid Qualifiers: Encounter type: initial encounter Fracture alignment: nondisplaced Laterality: left Qualified Code(s): S52.515A - Nondisplaced fracture of left radial styloid process, initial encounter for closed fracture Multiple fractures of ribs of left side Qualifiers: Encounter type: initial encounter Fracture type: closed Qualified Code(s): S22.42XA - Multiple fractures of ribs, left side, initial encounter for closed fracture
[2020-10-15 20:50] LABS: Basophils # (auto) 0.02 K/uL (0-0.2); Basophils % (auto) 0.2 %; Eosinophils # (auto) 0.02 K/uL (0-0.5); Eosinophils % (auto) 0.2 %; Hematocrit (blood only) 44.4 % (42-52); Hemoglobin 14.7 g/dL (14.0-18.0); Immature Granulocytes # (auto) 0.04 K/uL (0.00-0.02); Immature Granulocytes % (auto) 0.4 %; Lymphocytes # (auto) 2.16 K/uL (1.2-3.4); Lymphocytes % (auto) 19.3 %; Mean Corpuscular Hemoglobin 31.5 pg (25-34); Mean Corpuscular Hgb Conc 33.1 g/dL (32-36); Mean Corpuscular Volume 95.1 fL (80-100); Mean Platelet Volume 9.5 fL (7.4-10.4); Monocytes # (auto) 1.24 K/uL (0.11-0.59); Monocytes % (auto) 11.1 %; Neutrophils % (auto) 68.8 %; Platelet Count 236 K/uL (130-400); RDW Coefficient of Variation 14.5 % (11.5-14.5); RDW Standard Deviation 50.4 fL (36.4-46.3); Red Blood Count 4.67 M/uL (4.7-6.1); White Blood Count 11.18 K/uL (4.8-10.8)
--- NOTE | 2020-10-15 20:59 | XRay Report ---
XR wrist LT min 3V routine CLINICAL HISTORY: Left wrist pain status post trauma COMPARISON: DISCUSSION: There is chondrocalcinosis. There are moderately advanced arthritic changes the level the first carpal metacarpal joint. There is a suspected age-indeterminate radial styloid fracture. IMPRESSION: 1. Degenerative changes with chondrocalcinosis 2. Suspected age-indeterminate radial styloid fracture. Correlation with the patient's site of pain i s advocated ACT 112: Negative or not required by law. Electronically signed by: Jon Grant M.D. 10/15/2020 8:58 PM
[2020-10-15 21:07] LABS: INR 2.2 (0.9-1.1); Prothrombin Time 22.5 Seconds (9.0-12.0)
[2020-10-15 21:14] LABS: Alanine Aminotransferase 38 U/L (12-78); Albumin Level 4.3 gm/dl (3.4-5.0); Aspartate Aminotransferase 28 U/L (15-37); BUN Creatinine Ratio 18.4 (10-20); Blood Urea Nitrogen 31 mg/dl (7-18); Calcium 9.5 mg/dl (8.5-10.1); Carbon Dioxide 27 mmol/L (21-32); Chloride 109 mmol/L (98-107); Creatinine Clr Calc Pharmacy 39.4 ml/min; Est GFR (African American) 44.1; Est GFR (Non-African American) 38.1; Glucose 104 mg/dl (70-99); Sodium 142 mmol/L (136-145)
[2020-10-15] MEDS ORDERED: OPTIRAY 320 100ml IV ONE (21:15)
[2020-10-15 21:18] LABS: Albumin Globulin Ratio 1.2 (0.9-2); Alkaline Phosphatase 78 U/L (45-117); Bilirubin,Total 0.4 mg/dl (0.2-1); Globulin 3.7 gm/dl (2.5-4.0); Troponin I < 0.015 ng/ml (0-0.045)
--- NOTE | 2020-10-15 21:51 | CT Scan Report ---
CT head/brain wo con CLINICAL HISTORY: 80 years-old Male with fall on coumadin. Acute head and neck trauma status post fa ll TECHNIQUE: Multiple axial CT images of the head were obtained without contrast. A dose lowering tech nique was utilized adhering to the principles of ALARA. COMPARISON: CT cervical spine of same day, head CT 03/16/2007. FINDINGS: No acute intracranial hemorrhage, midline shift, intracranial mass, hydrocephalus, territorial ischem ia or abnormal extra-axial collection. Progressive age-related involutional changes with patchy white matter hypodensities suggestive of chronic microvascular ischemic disease. The calvarium is intact. Right-sided scleral banding. Prior bilateral lens replacement. The paranasal sinuses, mastoid air cells, and middle ear cavities are clear. IMPRESSION: No acute intracranial abnormality or calvarial fracture. ACT 112: Negative or not required by law. The above report was generated using voice recognition software. It may contain grammatical, syntax o r spelling errors. Electronically signed by: Julian Smalls M.D. 10/15/2020 9:50 PM
--- NOTE | 2020-10-15 21:59 | CT Scan Report ---
CT cervical spine wo con CLINICAL HISTORY: 80 years-old Male with fall. Acute head and neck injury status post fall COMPARISON: CT cervical spine 03/16/2007 TECHNIQUE: Multiple axial CT images of the cervical spine were obtained without contrast. A dose low ering technique was utilized adhering to the principles of ALARA. FINDINGS: Demineralized appearance the bones. Progressively worsened degenerative changes include multilevel in tervertebral disc space narrowing, moderate to severe at C5-C6, C6-C7 and C7-T1 with moderate spondyl itic spurring and posterior disc osteophyte complex formations also noted at these levels. There is s evere multilevel facet arthrosis with bony fusion of the facets at T2-C4. Partial bony fusion involve s the C3-C4 vertebral bodies. Grade 1 anterolisthesis C4 on C5 is likely on a degenerative basis. Sev ere degeneration at C1-C2. No acute fracture or subluxation. No pneumothorax. No paravertebral edema. Calcified plaque of the carotid bulbs. IMPRESSION: No acute fracture or subluxation. ACT 112: Negative or not required by law. The above report was generated using voice recognition software. It may contain grammatical, syntax o r spelling errors. Electronically signed by: Julian Smalls M.D. 10/15/2020 9:57 PM
--- NOTE | 2020-10-15 22:15 | CT Scan Report ---
CHEST CT WITH CONTRAST; CT ABDOMEN AND PELVIS WITH IV CONTRAST ONLY CT DOSE: 5363.72 mGy.cm HISTORY: Acute left-sided chest and abdominal pain status post fall fall, L chest pain TECHNIQUE: Multiaxial CT images of the chest, abdomen and pelvis were performed following the IV admi nistration of 93 cc of Optiray 320. A dose lowering technique was utilized adhering to the principl es of DIANDRA. COMPARISON: CT abdomen and pelvis 03/22/2020, 09/04/2011. FINDINGS: . CT CHEST: Mild cardiomegaly. Extensive coronary artery calcifications. Mild myocardial thinning of the left precious tricular apex. No thoracic aortic aneurysm or acute aortic injury. No mediastinal hematoma. Unremarka ble pulmonary artery. Respiratory motion artifact and upper extremity positioning limits the study. N o large thyroid nodule or adenopathy. Trace left pleural effusion. There is no pneumothorax. Multiple subpleural bleb formation of the lung apices with mild dependent bibasilar atelectasis. The central airways are patent. Unremarkable soft tissues. A spinal stimulator device is noted overlying the central canal at the lev el of T8-T9. The imaged portion of the leads appear intact. Small right shoulder joint effusion with arthroplasty. Degenerative changes of the spine and left shoulder. There are clinical acute nondispla nubia fractures of the lateral left fifth, sixth and seventh ribs. Acute nondisplaced fractures are als o noted involving the lateral left eighth and ninth ribs. No acute displaced rib fracture identified. CT ABDOMEN/PELVIS: No pneumatosis or pneumoperitoneum. Streak artifact from bilateral hip arthroplasties limits evaluati on of the pelvis. The spleen, pancreas, glands, and gallbladder appear unremarkable. Probable hepatic steatosis. Right hemidiaphragmatic elevation. Patency of the hepatic and portal veins. Nonspecific bilateral perinephric stranding. No hydronephrosis. 10 mm intermediate hypodensity of the posterior inferior pole right kidney is stable from comparison and is technically indeterminate, pos sibly reflective of a complex cyst. In retrospect, this previously measured approximately 4 mm in 201 1. Visualized urinary bladder is unremarkable. Calcifications of the prostate. No aortic aneurysm or adenopathy. No retroperitoneal hematoma. No bowel obstruction or bowel wall thickening. Colonic diverticulosis. The appendix is not diagnostic ally visualized. No secondary signs of acute appendicitis. Diastases recti with tiny fat filled periu mbilical hernia. Unremarkable soft tissues. Acute left-sided rib fractures as above. Spinal stimulato r leads appear intact. IMPRESSION: 1. Acute nondisplaced left-sided rib fractures as above. 2. No pneumothorax or acute solid organ injury. 3. Trace left-sided hemothorax. 4. Additional findings as above. ACT 112: Negative or not required by law. Electronically signed by: Julian Smalls M.D. 10/15/2020 10:13 PM
[2020-10-15] MEDS ORDERED: ACETAMINOPHEN 500 MG TAB PO STA (22:22)
[2020-10-15] MEDS ORDERED: LIDOCAINE 5% 1 PATCH TD ONE ×2 (22:44→23:00)
[2020-10-15 22:46] LABS: Magnesium 2.1 mg/dl (1.8-2.4)
[2020-10-15 22:56] LABS: Creatine Kinase 277 U/L (39-308)
[2020-10-15] MEDS ORDERED: TERAZOSIN HCL 1 MG CAP PO ONE (23:11)
[2020-10-15] MEDS ORDERED: HYDROmorphone INJ 0.5 MG/0.5 ML SYR IV STA (23:35)
[2020-10-15] MEDS ORDERED: PROMETHAZINE HCL 6.25 MG in SODIUM CHLORIDE 0.9% 50 ML IV PRN (23:36)
--- NOTE | 2020-10-15 23:37 | History & Physical Report ---
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 Traumatic left wrist pain Hypertensive urgency secondary discomfort CAD status post stent/PVD as per records hyperlipidemia on statin Rx ARF on CRI past tobacco abuse Medical telemetry Appropriate to hold Coumadin for now given traumatic hemothorax. Follow H&H, may need INR reversal if with significant hemoglobin drop. Will request a.m. provider to touchbase with either Pulmonology or [facility] CT surgery regarding follow-up evaluation/management of hemothorax and timing of anticoagulation resumption. Analgesia Lidoderm patch Facilitate nighttime Terazosin Consider amlodipine if BP still uncontrolled while ARB and spironolactone on hold due to kidney dysfunction Baseline UA, monitor creatinine response to IVF Appropriate to hold ARB, spironolactone until creatinine back to baseline DVT prophylaxis. SCDs if INR less than 2 while Coumadin on hold RE hemothorax Full code Text document was generated using [employer] voice recognition software. It may contain grammatical or spelling errors. Kindly contact undersigned for clarification of any documentation item in qu estion. History of Present Illness Chief Complaint: Fall, left-sided chest pain, L wrist pain Primary Care Provider: Maday Arzate DO History obtained from patient and records. Medical history significant for saddle PE on Coumadin, CAD status post stent, PVD as per records, hypertension, hyperlipidemia, CRI (baseline creatinine 1.4), past tobacco abuse. Last confinement 2017 under orthopedic service for elective right total hip arthroplasty. Patient was clearing out the snow at [facility] today when he slipped on the ground falling on the left side. Pleuritic left-sided chest pain with shortness of breath without hemoptysis post fall. Patient also noted achy left wrist pain. No head trauma, no LOC. Patient brought to the ER for evaluation. 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 ibuprofen AdvReac Mild NAUSEA Verified 10/15/20 22:28 oxycodone AdvReac Mild upset Verified 10/16/20 05:37 stomach Home Medications Medication Instructions Recorded Confirmed Type simvastatin 40 mg PO HS #0 06/26/08 10/15/20 History duloxetine 30 mg PO DAILY 03/22/20 10/15/20 History losartan 100 mg PO HS 03/22/20 10/15/20 History allopurinol 100 mg tablet 100 mg PO BID #180 tab 05/06/20 10/15/20 Rx furosemide 20 mg PO DAILY PRN 10/15/20 10/15/20 History spironolactone 25 mg PO DAILY 10/15/20 10/15/20 History terazosin 2 mg PO DAILY 10/15/20 10/15/20 History timolol maleate 1 drp OPR QAM 10/15/20 10/15/20 History warfarin See Rx Instructions .ROUTE .COMPLEX 10/15/20 10/15/20 History Past Med/Surg History Medical History (Updated 10/16/20 @ 02:47 by Jass Salvador MD) Dyslipidemia HTN (hypertension) Surgical History S/P insertion of spinal cord stimulator Status post left hip replacement Status post replacement of right shoulder joint Status post total left knee replacement Social History Smoking Status: Former smoker Hx Alcohol Use: No Hx Substance Use: No Preferred Language: Georgian Communication Ability: Effective Life Care Planner Required: No Beliefs That Will Affect Care: None marital status: / Current Living Situation: Alone current occupational status: retired Other Information That Helps Us Care for You: No Feels Safe at Home: Yes Safety Concerns: Feels Safe At This Time Assistive Devices: None Review of Systems Review of Systems: As per HPI, all 10 systems reviewed, all other ROS negative Physical Exam Physical Exam: GENERAL: Slightly uncomfortable, pleasant, no respiratory distress SKIN: Normal color, warm HEENT: [place] palpebral conjunctivae, no ptosis, dry buccal mucosa NECK : Supple, no tenderness CHEST : Decreased breath sounds, left chest wall tenderness HEART : RRR, no obvious murmurs ABDOMEN: Some distention, nontender EXTREMITIES : No LE swelling/tenderness, splint over left forearm, no other conspicuous deformities noted NEUROLOGIC : Coherent, no facial asymmetry, no other gross focality Results & Data Results & Data ([facility]) Vital Signs (Past 12 Hours) Vital Signs Temp Pulse Pulse Resp BP BP Pulse Ox 10/15/20 22:47 79 18 185/122 H 97 10/15/20 17:56 36.5 C 110 H 20 132/83 96 Laboratory Results Laboratory Results WBC 11.18 K/uL (4.8-10.8) H 10/15/20 20:40 RBC 4.67 M/uL (4.7-6.1) L 10/15/20 20:40 Hgb 14.7 g/dL (14.0-18.0) 10/15/20 20:40 Hct 44.4 % (42-52) 10/15/20 20:40 MCV 95.1 fL (80-100) 10/15/20 20:40 MCH 31.5 pg (25-34) 10/15/20 20:40 MCHC 33.1 g/dL (32-36) 10/15/20 20:40 RDW Std Deviation 50.4 fL (36.4-46.3) H 10/15/20 20:40 RDW Coeff of Francesco 14.5 % (11.5-14.5) 10/15/20 20:40 Plt Count 236 K/uL (130-400) 10/15/20 20:40 MPV 9.5 fL (7.4-10.4) 10/15/20 20:40 Immature Gran % (Auto) 0.4 % 10/15/20 20:40 Neut % (Auto) 68.8 % 10/15/20 20:40 Lymph % (Auto) 19.3 % 10/15/20 20:40 [place] % (Auto) 11.1 % 10/15/20 20:40 Eos % (Auto) 0.2 % 10/15/20 20:40 Baso % (Auto) 0.2 % 10/15/20 20:40 Neut # (Auto) 7.70 K/uL (1.4-6.5) H 10/15/20 20:40 Lymph # (Auto) 2.16 K/uL (1.2-3.4) 10/15/20 20:40 [place] # (Auto) 1.24 K/uL (0.11-0.59) H 10/15/20 20:40 Eos # (Auto) 0.02 K/uL (0-0.5) 10/15/20 20:40 Baso # (Auto) 0.02 K/uL (0-0.2) 10/15/20 20:40 Immature Gran # (Auto) 0.04 K/uL (0.00-0.02) H 10/15/20 20:40 PT 22.5 Seconds (9.0-12.0) H 10/15/20 20:40 INR 2.2 (0.9-1.1) H 10/15/20 20:40 Sodium 142 mmol/L (136-145) 10/15/20 20:40 Potassium 4.0 mmol/L (3.5-5.1) 10/15/20 20:40 Chloride 109 mmol/L (98-107) H 10/15/20 20:40 Carbon Dioxide 27 mmol/L (21-32) 10/15/20 20:40 Anion Gap 6.0 (3-11) 10/15/20 20:40 BUN 31 mg/dl (7-18) H 10/15/20 20:40 Creatinine 1.66 mg/dl (0.6-1.4) H 10/15/20 20:40 Est Cr Clr Drug Dosing 39.4 ml/min 10/15/20 20:40 Est GFR ( Amer) 44.1 10/15/20 20:40 Est GFR (Non-Af Amer) 38.1 10/15/20 20:40 BUN/Creatinine Ratio 18.4 (10-20) 10/15/20 20:40 Glucose 104 mg/dl (70-99) H 10/15/20 20:40 Calcium 9.5 mg/dl (8.5-10.1) 10/15/20 20:40 Magnesium 2.1 mg/dl (1.8-2.4) 10/15/20 20:40 Total Bilirubin 0.4 mg/dl (0.2-1) 10/15/20 20:40 AST 28 U/L (15-37) 10/15/20 20:40 ALT 38 U/L (12-78) 10/15/20 20:40 Alkaline Phosphatase 78 U/L (45-117) 10/15/20 20:40 Total Creatine Kinase 277 U/L (39-308) 10/15/20 20:40 Troponin I < 0.015 ng/ml (0-0.045) 10/15/20 20:40 Total Protein 8.0 gm/dl (6.4-8.2) 10/15/20 20:40 Albumin 4.3 gm/dl (3.4-5.0) 10/15/20 20:40 Globulin 3.7 gm/dl (2.5-4.0) 10/15/20 20:40 Albumin/Globulin Ratio 1.2 (0.9-2) 10/15/20 20:40 Procalcitonin < 0.05 ng/ml (0-0.5) 10/15/20 20:40 TSH 6.510 uIu/ml (0.300-4.500) H 10/15/20 20:40 SARS-CoV-2 Ag (Rapid) Negative (Negative) 10/15/[address] head: No acute intracranial abnormality or calvarial fracture. CT cervical spine: No acute fracture or subluxation. CT chest: 1. Acute nondisplaced left-sided rib fractures as above. 2. No pneumothorax or acute solid organ injury. 3. Trace left-sided hemothorax. CT abdomen pelvis: No pneumatosis or pneumoperitoneum. Streak artifact from bilateral hip arthroplasties limits evaluation of the pelvis. The spleen, pancreas, glands, and gallbladder appear unremarkable. Probable hepatic steatosis. Right hemidiaphragmatic elevation. Patency of the hepatic and portal veins. Nonspecific bilateral perinephric stranding. No hydronephrosis. 10 mm intermediate hypodensity of the posterior inferior pole right kidney is stable from comparison and is technically indeterminate, possibly reflective of a complex cyst. In retrospect, this previously measured approximately 4 mm in 2011. Visualized urinary bladder is unremarkable. Calcifications of the prostate. No aortic aneurysm or adenopathy. No retroperitoneal hematoma. No bowel obstruction or bowel wall thickening. Colonic diverticulosis. The appendix is not diagnostically visualized. No secondary signs of acute appendicitis. Diastases recti with tiny fat filled periumbilical hernia. Unremarkable soft tissues. Acute left-sided rib fractures as above. Spinal stimulator leads appear intact. Left wrist x-ray: 1. Degenerative changes with chondrocalcinosis 2. Suspected age-indeterminate radial styloid fracture. Correlation with the patient's site of pain is advocated EKG pending at time of dictation
[2020-10-16 00:45] LABS: Hematocrit (blood only) 44.7 % (42-52); Hemoglobin 14.7 g/dL (14.0-18.0)
[2020-10-16] MEDS ORDERED: SODIUM CHLORIDE 0.45 % 1,000 ML IV ONE (00:51)
[2020-10-16] MEDS ORDERED: HYDROmorphone INJ 0.5 MG/0.5 ML SYR IV PRN ×2 (02:33→05:38)
[2020-10-16] MEDS ORDERED: ACETAMINOPHEN 325 MG TAB PO PRN (02:33)
[2020-10-16] MEDS ORDERED: amLODIPine BESYLATE 5 MG TAB PO ONE (04:39)
[2020-10-16] MEDS ORDERED: HYDROmorphone INJ 0.5 MG/0.5 ML SYR IV STA (05:37)
[2020-10-16 07:03] LABS: Basophils # (auto) 0.02 K/uL (0-0.2); Basophils % (auto) 0.2 %; Eosinophils # (auto) 0.05 K/uL (0-0.5); Eosinophils % (auto) 0.6 %; Hematocrit (blood only) 41.2 % (42-52); Hemoglobin 13.6 g/dL (14.0-18.0); Immature Granulocytes # (auto) 0.04 K/uL (0.00-0.02); Immature Granulocytes % (auto) 0.5 %; Lymphocytes # (auto) 1.87 K/uL (1.2-3.4); Lymphocytes % (auto) 21.6 %; Mean Corpuscular Hemoglobin 31.3 pg (25-34); Mean Corpuscular Volume 94.9 fL (80-100); Mean Platelet Volume 9.2 fL (7.4-10.4); Monocytes # (auto) 0.73 K/uL (0.11-0.59); Monocytes % (auto) 8.4 %; Neutrophils # (auto) 5.95 K/uL (1.4-6.5); Neutrophils % (auto) 68.7 %; Platelet Count 179 K/uL (130-400); RDW Coefficient of Variation 14.3 % (11.5-14.5); RDW Standard Deviation 49.8 fL (36.4-46.3); Red Blood Count 4.34 M/uL (4.7-6.1); White Blood Count 8.66 K/uL (4.8-10.8)
[2020-10-16 07:35] LABS: BUN Creatinine Ratio 23.4 (10-20); Calcium 8.6 mg/dl (8.5-10.1); Est GFR (Non-African American) 55.3; Potassium 3.9 mmol/L (3.5-5.1)
[2020-10-16 07:55] LABS: INR 1.9 (0.9-1.1); Partial Thromboplastin Ratio 1.3; Partial Thromboplastin Time 35.9 Seconds (21.0-31.0); Prothrombin Time 19.6 Seconds (9.0-12.0)
[2020-10-16] MEDS ORDERED: PNEUMOCOCCAL ADMINISTRATION CHARGE ONE (08:00)
[2020-10-16] MEDS ORDERED: PNEUMOCOCCAL POLYSACCHARIDES 25 MCG/0.5 ML VIAL/SYR IM ONE (08:00)
[2020-10-16] MEDS: ACETAMINOPHEN 325 MG TAB PO SCH ×2 (10:22→17:00)
[2020-10-16] MEDS: TIMOLOL MALEATE 0.5% OP SOLN 5 ML BTL OPR SCH (10:23)
[2020-10-16] MEDS: allopurinoL 100 MG TAB PO SCH ×2 (10:24→21:52)
[2020-10-16] MEDS: DULoxetine HCL 30 MG CAP PO SCH (10:24)
--- NOTE | 2020-10-16 10:45 | Electrocardiogram Report ---
Test Reason : Blood Pressure : / mmHG Vent. Rate : 084 BPM Atrial Rate : 084 BPM P-R Int : 334 ms QRS Dur : 170 ms QT Int : 614 ms P-R-T Axes : 030 253 210 degrees QTc Int : 725 ms Poor data quality, interpretation may be adversely affected Sinus rhythm Confirmed by Alonso Krause ([id number]) on 10/16/2020 10:45:25 AM Referred By: REFERRED SELF Confirmed By:Corey Krause
[2020-10-16 13:16] LABS: Hematocrit (blood only) 42.5 % (42-52); Hemoglobin 14.2 g/dL (14.0-18.0)
--- NOTE | 2020-10-16 13:31 | Orthopedic Consultation ---
Date of Consultation October 16, 2020 Assessment & Plan (1) Closed fracture of radial styloid: This can be treated in the provided removable thumb spica wrist extension brace. I instructed him to use it for 2-3 weeks, as needed for comfort. He can take off when at rest and perform gentle range of motion. This can essentially be treated like a high-grade sprain. I told him to evaluate response to the brace and rest over the next 6 weeks. If he has persistent symptoms, he can follow-up with us as an outpatient. Follow- up and [place] placed in the discharge instructions. Please contact for any further issues. Present on Admission?: Yes History of Present Illness Reason for Consultation: Left wrist injury Attending Physician: Tyler House MD History of Present Illness 80-year-old male sustained a fall onto a clenched left fist when he also sustained a traumatic hemopneumothorax and rib fractures. Reports his left wrist has been mildly painful. He does not think he has any reduced motion. He states that it feels like he "stoved it". He denies any numbness or tingling. Denies any progressive swelling since admission. Denies any previous history of injuries to this wrist. Allergies Allergy/AdvReac Type Severity Reaction Status Date / Time latex Allergy Severe red rash, Verified 10/15/20 22:28 blisters adhesive Allergy Intermediate RASH FROM Verified 10/15/20 22:28 TAPE APPLIED FOR 7 DAYS. ibuprofen AdvReac Mild NAUSEA Verified 10/15/20 22:28 oxycodone AdvReac Mild upset Verified 10/16/20 05:37 stomach Home Medications Medication Instructions Recorded Confirmed Type simvastatin 40 mg PO HS #0 06/26/08 10/15/20 History duloxetine 30 mg PO DAILY 03/22/20 10/15/20 History losartan 100 mg PO HS 03/22/20 10/15/20 History allopurinol 100 mg tablet 100 mg PO BID #180 tab 05/06/20 10/15/20 Rx furosemide 20 mg PO DAILY PRN 10/15/20 10/15/20 History spironolactone 25 mg PO DAILY 10/15/20 10/15/20 History terazosin 2 mg PO DAILY 10/15/20 10/15/20 History timolol maleate 1 drp OPR QAM 10/15/20 10/15/20 History warfarin See Rx Instructions .ROUTE .COMPLEX 10/15/20 10/15/20 History Patient History Medical History Dyslipidemia HTN (hypertension) Surgical History S/P insertion of spinal cord stimulator Status post left hip replacement Status post replacement of right shoulder joint Status post total left knee replacement Social History Smoking Status: Former smoker Hx Alcohol Use: No Hx Substance Use: No Preferred Language: Icelandic Communication Ability: Effective Industrial Relations Counselor Required: No Beliefs That Will Affect Care: None marital status: Single Current Living Situation: Alone current occupational status: retired Other Information That Helps Us Care for You: No Feels Safe at Home: Yes Safety Concerns: Feels Safe At This Time Assistive Devices: Denture - Upper, Denture - Lower and Glasses Review of Systems Review of Systems: All systems reviewed & are unremarkable except as noted in HPI & below Physical Exam Physical Exam: Left upper extremity: There was a thumb spica wrist extension brace in place that was removed. The skin is intact. There is no evidence of ecchymosis or edema. He has near full active range of motion of his wrist with pain on terminal extension and radial deviation. He has mild tenderness over the radial styloid. He has no tenderness over Vaughn's tubercle nor the ulnar styloid. There is no crepitus on passive range of motion. He can make it composite fist and has 5 out of 5 strength. Sensation is grossly intact to light touch in the fingers are well-perfused. Constitutional: well developed and well nourished; no acute distress and not intoxicated appearing ENMT: external ear and nose normal, oropharynx normal Respiratory: normal respiratory effort; no respiratory distress Cardiovascular: Extremities: normal capillary refill; no edema Skin: no rashes, warm and dry Psychiatric: A+Ox3, euthymic affect Results & Data ([facility]) Vital Signs (Past 12 Hours) Vital Signs Temp Pulse Pulse Resp BP BP Pulse Ox 10/16/20 11:42 73 10/16/20 11:34 36.7 C 65 20 144/83 H 96 10/16/20 09:26 36.3 C L 80 20 167/81 H 97 12/19/20 08:31 86 22 130/93 95 10/16/20 05:02 75 15 141/94 H 94 10/16/20 04:59 36.5 C 91 H 20 141/94 H 94 10/16/20 03:03 73 18 182/102 H 97 10/16/20 01:57 83 18 150/84 H 93 Diagnostic Findings Left wrist x-rays: AP lateral oblique views were evaluated and agree with the radiologist. There is evidence of chondrocalcinosis throughout the joint. There is subtle peripheral cortical disruption of the radial styloid. He is only mild tenderness in this area. This is certainly a stable fracture. There is no intra-articular involvement. PG Care Time/CCT Total # of Minutes Spent Total Time Spent with Patient: Total time spent is greater than 50% in coordination of care (as documented) at patient's floor/unit and/or counseling patient: Coding Level of Care Code 59213 Initial Inpt Care Lvl 3 Diagnoses Closed fracture of radial styloid S52.515A Encounter type: initial encounter Fracture alignment: nondisplaced Laterality: left (1) Closed fracture of radial styloid Encounter type: initial encounter Fracture alignment: nondisplaced Laterality: left Qualified Code(s): S52.515A - Nondisplaced fracture of left radial styloid process, initial encounter for closed fracture
[2020-10-16 14:10] LABS: Appearance Urine Clear (Clear); Bacteria Urine Automated Negative (Negative); Bilirubin Urine Negative (Negative); Blood Urine Trace (Negative); Color Urine Yellow; Epithelial Cell Urine Auto 20-30 /lpf (0-5); Glucose Urine UA Negative (Negative); Ketones Urine Negative (Negative); Leukocyte Esterase Urine 2+ (Negative); Nitrite Urine Negative (Negative); Protein Urine Negative (Negative); RBC Urine Automated 0-4 /hpf (0-4); Specific Gravity Urine 1.031 (1.000-1.030); Urobilinogen Urine Negative (Negative); WBC Urine Automated >30 /hpf (0-5)
[2020-10-16] MEDS: traMADol HCL 50 MG TABLET PO PRN (15:23)
--- NOTE | 2020-10-16 19:50 | Hospitalist Progress Note ---
Date of Service October 16, 2020 Assessment & Plan (1) Hemothorax on left: Left rib fractures: 5-9 Incentive spirometry Continue Tylenol, as needed Dilaudid Possible hemothorax, on Coumadin for saddle PE history/DVT history Hemoglobin stable Chest x-ray this admission trace left-sided pleural effusion, no pneumothorax INR 1.9, hold Coumadin Repeat H&H tomorrow Pulmonary service consulted Left forearm pain X-ray: Possible age-indeterminate radial fracture? Ortho consulted CAD No cardiac symptoms Hypertension Resume losartan Hold spironolactone Acute renal failure on CKD stage III Resolved with IV fluids DVT prophylaxis. SCDs if INR less than 2 while Coumadin on hold RE hemothorax Full code Admission and Anticipated Discharge Date Admission Date: October 15, 2020 Subjective Follow-up for left ribs fracture, status post fall, etc. Seen resting in bedside chair, comfortable, no distress States he feels somewhat improved compared to yesterday Still having left rib pain, but no shortness of breath or cough or hemoptysis Still having pain on the right wrist area but able to move fingers fully, no tingling or numbness No headache, dizziness, nausea vomiting, chest pain, abdominal pain, nausea vomiting or problems with urination or bowel movement No other pain in his body Review of Systems Review of Systems: All systems reviewed & are unremarkable except as noted in Subjective Physical Exam Physical Exam: General- oriented x 3, not in distress, speaks in sentences with no effort or accessory muscle use Head- atraumatic Eyes- PERRL, EOMI, anicteric ENT- oropharynx clear Neck- supple, no JVD, no adenopathy, no thyromegaly; carotids +2/2, no bruits appreciated Lungs- clear to auscultation bilaterally, no rales/wheezes Positive tenderness on the lateral aspect of the left ribs 5-9 Heart- normal rate, regular rhythm; no murmur, no gallop, no rub appreciated Abdomen- normal bowel sounds, nondistended, soft, nontender, no masses or hepatosplenomegaly Extremities- Left forearm on a splint-no edema/warmth/tenderness in the hand, range of motion with wrist and fingers no pretibial edema, no calf tenderness; peripheral pulses intact Neuro- alert, oriented x 3; CN 2-12 grossly intact; motor 5/5 bilaterally;sensation 100% on all extremities; no other gross focal neurologic deficits Skin- warm & dry Results & Data Results & Data ([facility]) Vital Signs (Past 12 Hours) Vital Signs Temp Pulse Pulse Resp BP Pulse Ox 10/16/20 18:54 36.7 C 79 20 136/71 93 10/16/20 16:53 80 10/16/20 15:52 36.3 C L 73 20 136/77 94 10/16/20 11:42 73 10/16/20 11:34 36.7 C 65 20 144/83 H 96 10/16/20 09:26 36.3 C L 80 20 167/81 H 97 10/16/20 08:31 86 22 130/93 95 Laboratory Results Laboratory Results - last 24 hr 10/15/20 10/15/20 10/15/20 20:40 20:40 20:40 WBC 11.18 H RBC 4.67 L Hgb 14.7 Hct 44.4 MCV 95.1 MCH 31.5 MCHC 33.1 RDW Std Deviation 50.4 H RDW Coeff of Francesco 14.5 Plt Count 236 MPV 9.5 Immature Gran % (Auto) 0.4 Neut % (Auto) 68.8 Lymph % (Auto) 19.3 [place] % (Auto) 11.1 Eos % (Auto) 0.2 Baso % (Auto) 0.2 Neut # (Auto) 7.70 H Lymph # (Auto) 2.16 [place] # (Auto) 1.24 H Eos # (Auto) 0.02 Baso # (Auto) 0.02 Immature Gran # (Auto) 0.04 H PT 22.5 H INR 2.2 H APTT PTT Ratio Sodium 142 Potassium 4.0 Chloride 109 H Carbon Dioxide 27 Anion Gap 6.0 BUN 31 H Creatinine 1.66 H Est Cr Clr Drug Dosing 39.4 Est GFR ( Amer) 44.1 Est GFR (Non-Af Amer) 38.1 BUN/Creatinine Ratio 18.4 Glucose 104 H Calcium 9.5 Magnesium 2.1 Total Bilirubin 0.4 AST 28 ALT 38 Alkaline Phosphatase 78 Total Creatine Kinase 277 Troponin I < 0.015 Total Protein 8.0 Albumin 4.3 Globulin 3.7 Albumin/Globulin Ratio 1.2 Procalcitonin TSH 6.510 H Urine Color Urine Appearance Urine pH Ur Specific [place] Urine Protein Urine Glucose (UA) Urine Ketones Urine Blood Urine Nitrite Urine Bilirubin Urine Urobilinogen Ur Leukocyte Esterase Urine WBC (Auto) Urine RBC (Auto) U Hyaline Cast (Auto) U Epithel Cells (Auto) Urine Bacteria (Auto) SARS-CoV-2 Ag (Rapid) Blood Type Antibody Screen 10/15/20 10/15/20 10/16/20 20:40 Unknown 00:16 WBC RBC Hgb Hct MCV MCH MCHC RDW Std Deviation RDW Coeff of Francesco Plt Count MPV Immature Gran % (Auto) Neut % (Auto) Lymph % (Auto) [place] % (Auto) Eos % (Auto) Baso % (Auto) Neut # (Auto) Lymph # (Auto) [place] # (Auto) Eos # (Auto) Baso # (Auto) Immature Gran # (Auto) PT INR APTT PTT Ratio Sodium Potassium Chloride Carbon Dioxide Anion Gap BUN Creatinine Est Cr Clr Drug Dosing Est GFR ( Amer) Est GFR (Non-Af Amer) BUN/Creatinine Ratio Glucose Calcium Magnesium Total Bilirubin AST ALT Alkaline Phosphatase Total Creatine Kinase Troponin I Total Protein Albumin Globulin Albumin/Globulin Ratio Procalcitonin < 0.05 TSH Urine Color Urine Appearance Urine pH Ur Specific [place] Urine Protein Urine Glucose (UA) Urine Ketones Urine Blood Urine Nitrite Urine Bilirubin Urine Urobilinogen Ur Leukocyte Esterase Urine WBC (Auto) Urine RBC (Auto) U Hyaline Cast (Auto) U Epithel Cells (Auto) Urine Bacteria (Auto) SARS-CoV-2 Ag (Rapid) Negative Blood Type O Positive Antibody Screen NEGATIVE 10/16/20 10/16/20 10/16/20 00:16 06:52 06:52 WBC 8.66 RBC 4.34 L Hgb 14.7 13.6 L Hct 44.7 41.2 L MCV 94.9 MCH 31.3 MCHC 33.0 RDW Std Deviation 49.8 H RDW Coeff of Francesco 14.3 Plt Count 179 MPV 9.2 Immature Gran % (Auto) 0.5 Neut % (Auto) 68.7 Lymph % (Auto) 21.6 [place] % (Auto) 8.4 Eos % (Auto) 0.6 Baso % (Auto) 0.2 Neut # (Auto) 5.95 Lymph # (Auto) 1.87 [place] # (Auto) 0.73 H Eos # (Auto) 0.05 Baso # (Auto) 0.02 Immature Gran # (Auto) 0.04 H PT INR APTT PTT Ratio Sodium 138 Potassium 3.9 Chloride 109 H Carbon Dioxide 24 Anion Gap 5.0 BUN 29 H Creatinine 1.22 D Est Cr Clr Drug Dosing 63.0 Est GFR ( Amer) 64.0 Est GFR (Non-Af Amer) 55.3 BUN/Creatinine Ratio 23.4 H Glucose 123 H Calcium 8.6 Magnesium Total Bilirubin AST ALT Alkaline Phosphatase Total Creatine Kinase Troponin I Total Protein Albumin Globulin Albumin/Globulin Ratio Procalcitonin TSH Urine Color Urine Appearance Urine pH Ur Specific [place] Urine Protein Urine Glucose (UA) Urine Ketones Urine Blood Urine Nitrite Urine Bilirubin Urine Urobilinogen Ur Leukocyte Esterase Urine WBC (Auto) Urine RBC (Auto) U Hyaline Cast (Auto) U Epithel Cells (Auto) Urine Bacteria (Auto) SARS-CoV-2 Ag (Rapid) Blood Type Antibody Screen 10/16/20 10/16/20 10/16/20 06:52 12:52 Unknown WBC RBC Hgb 14.2 Hct 42.5 MCV MCH MCHC RDW Std Deviation RDW Coeff of Francesco Plt Count MPV Immature Gran % (Auto) Neut % (Auto) Lymph % (Auto) [place] % (Auto) Eos % (Auto) Baso % (Auto) Neut # (Auto) Lymph # (Auto) [place] # (Auto) Eos # (Auto) Baso # (Auto) Immature Gran # (Auto) PT 19.6 H INR 1.9 H APTT 35.9 H PTT Ratio 1.3 Sodium Potassium Chloride Carbon Dioxide Anion Gap BUN Creatinine Est Cr Clr Drug Dosing Est GFR ( Amer) Est GFR (Non-Af Amer) BUN/Creatinine Ratio Glucose Calcium Magnesium Total Bilirubin AST ALT Alkaline Phosphatase Total Creatine Kinase Troponin I Total Protein Albumin Globulin Albumin/Globulin Ratio Procalcitonin TSH Urine Color Yellow Urine Appearance Clear Urine pH 5.0 Ur Specific [place] 1.031 H Urine Protein Negative Urine Glucose (UA) Negative Urine Ketones Negative Urine Blood Trace H Urine Nitrite Negative Urine Bilirubin Negative Urine Urobilinogen Negative Ur Leukocyte Esterase 2+ H Urine WBC (Auto) >30 H Urine RBC (Auto) 0-4 U Hyaline Cast (Auto) 1-5 U Epithel Cells (Auto) 20-30 H Urine Bacteria (Auto) Negative SARS-CoV-2 Ag (Rapid) Blood Type Antibody Screen
--- NOTE | 2020-10-16 19:51 | XRay Report ---
SINGLE VIEW CHEST CLINICAL HISTORY: Follow-up hemothorax. FINDINGS: An AP, portable, upright chest radiograph is compared to study dated 10/13/2019 and correla ang with chest CT dated 10/15/2020. The heart is enlarged noting atherosclerotic calcification of the thoracic aorta. The pulmonary vasculature is noncongested. There is trace pleural fluid left lung ba se with left basilar atelectasis. The right lung appears clear. No pneumothorax is seen. The skeletal structures are osteopenic. No left-sided rib fractures are not well-visualized. Intrathecal leads pr oject over the thoracic spine. A right shoulder arthroplasty is in place. IMPRESSION: 1. Trace pleural fluid is seen at the left lung base with associated left basilar atelectasis. 2. Cardiomegaly without radiographic evidence of congestive failure. ACT 112: Negative or not required by law. Electronically signed by: Bala Adrian M.D. 10/16/2020 7:50 PM
[2020-10-16] MEDS ORDERED: SIMVASTATIN 40 MG TAB PO SCH (21:00)
[2020-10-16] MEDS ORDERED: LOSARTAN POTASSIUM 50 MG TAB PO SCH (21:00)
[2020-10-16] MEDS ORDERED: LIDOCAINE 5% 1 PATCH TD SCH (21:00)
[2020-10-16] MEDS ORDERED: TERAZOSIN HCL 1 MG CAP PO SCH (21:00)
[2020-10-17] MEDS: ACETAMINOPHEN 325 MG TAB PO SCH ×3 (01:07→16:21)
[2020-10-17] MEDS: traMADol HCL 50 MG TABLET PO PRN ×3 (01:32→16:21)
[2020-10-17] MEDS: allopurinoL 100 MG TAB PO SCH (09:36)
[2020-10-17] MEDS: DULoxetine HCL 30 MG CAP PO SCH (09:36)
[2020-10-17] MEDS: TIMOLOL MALEATE 0.5% OP SOLN 5 ML BTL OPR SCH (09:37)
[2020-10-17 11:51] LABS: Basophils # (auto) 0.01 K/uL (0-0.2); Basophils % (auto) 0.1 %; Eosinophils # (auto) 0.11 K/uL (0-0.5); Eosinophils % (auto) 1.4 %; Hematocrit (blood only) 43.1 % (42-52); Hemoglobin 14.2 g/dL (14.0-18.0); Immature Granulocytes # (auto) 0.02 K/uL (0.00-0.02); Immature Granulocytes % (auto) 0.2 %; Lymphocytes # (auto) 1.86 K/uL (1.2-3.4); Lymphocytes % (auto) 23.2 %; Mean Corpuscular Hemoglobin 31.4 pg (25-34); Mean Corpuscular Hgb Conc 32.9 g/dL (32-36); Mean Corpuscular Volume 95.4 fL (80-100); Mean Platelet Volume 9.3 fL (7.4-10.4); Monocytes # (auto) 0.63 K/uL (0.11-0.59); Monocytes % (auto) 7.8 %; Neutrophils % (auto) 67.3 %; Platelet Count 195 K/uL (130-400); RDW Coefficient of Variation 14.5 % (11.5-14.5); RDW Standard Deviation 50.8 fL (36.4-46.3); Red Blood Count 4.52 M/uL (4.7-6.1); White Blood Count 8.03 K/uL (4.8-10.8)
[2020-10-17 12:20] LABS: INR 1.5 (0.9-1.1); Prothrombin Time 15.2 Seconds (9.0-12.0)
[2020-10-17 12:28] LABS: BUN Creatinine Ratio 24.9 (10-20); Calcium 8.9 mg/dl (8.5-10.1); Est GFR (Non-African American) 44.8
--- NOTE | 2020-10-17 13:53 | XRay Report ---
XR chest 1V portable HISTORY: 80 years-old Male follow up hemothorax follow-up study in a patient with left-sided pleural effusion COMPARISON: Chest radiograph 10/16/2020 TECHNIQUE: Portable AP view of the chest FINDINGS: Cardiac silhouette is mildly enlarged, unchanged. Chronic interstitial coarsening. No pneumothorax. T race left pleural effusion is unchanged along with mild subsegmental bibasilar densities. Right shoul marissa total joint arthroplasty Degenerative changes of the spine and left shoulder. Partially imaged sp inal stimulator leads appear unremarkable. IMPRESSION: 1. Unchanged trace left pleural effusion with mild bibasilar densities suggestive of atelectasis. 2. Cardiomegaly. ACT 112: Negative or not required by law. The above report was generated using voice recognition software. It may contain grammatical, syntax o r spelling errors. Electronically signed by: Julian Smalls M.D. 10/17/2020 1:52 PM
--- NOTE | 2020-10-17 15:01 | Pulmonary Consultation ---
Date of Consultation October 17, 2020 Assessment & Plan (1) Hemothorax on left: It appears that the patient has a trace hemothorax on the left likely related to the trauma of the fall. I doubt that the hemothorax represents injury to the intercostal arteries. Likely, this may be hemothorax related to pulmonary contusion. The effusion is too small to consider evacuation with thoracentesis or chest tube drainage. Serial chest x-rays did not demonstrate increase in size of effusion. I would recommend adequate pain control to prevent splinting and atelectasis. He is using his incentive spirometer frequently. Recommend ambulation as tolerated. He should be evaluated by PT and OT. He may be a fall risk. I will defer the decision for further anticoagulation with warfarin to the primary team. It is unclear why he has still on anticoagulation at this time as this DVT and PE, per my understanding, was a singular event. Some thought can be considered to stopping anticoagulation at this time and monitoring his symptoms. He does appear to have extensive lower extremity edema of unclear etiology. (2) Multiple fractures of ribs of left side: Encounter type: initial encounter Fracture type: closed Qualified Code(s): S22.42XA - Multiple fractures of ribs, left side, initial encounter for closed fracture (3) History of DVT (deep vein thrombosis): (4) History of pulmonary embolism: (5) On warfarin therapy: History of Present Illness Reason for Consultation: Traumatic hemothorax Requesting Physician: Dr. Antonio Attending Physician: Tyler House MD History of Present Illness 80-year-old male with a past medical history of osteoarthritis, glaucoma, hypertension, moderate obstructive sleep apnea and history of pulm onary embolism on Coumadin presenting to the hospital on 10/15/2020 due to a fall. Patient notes that he slipped on ice while camping and fell on his left side. He noted pain and shortness of breath after the fall. He also had a wrist on the left side that was causing him discomfort. He was evaluated by orthopedic surgery and was determined to have a closed fracture of the radial styloid. CT chest on presentation demonstrated acute nondisplaced left-sided rib fractures and a trace left-sided hemothorax. Serial chest x-rays demonstrated trace left pleural effusion with atelectasis. INR on admission was 2.2 and is currently 1.5. Hemoglobin has been stable and is currently 14.2. Platelet count is also stable. 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 He has been on warfarin ever since that time. I am not certain what work-up has been completed to evaluate for a hypercoagulable state. He was previously a smoker and quit at the age of 29. 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 He lives in apartment with a brother who was in his 50s and has Down syndrome. Allergies Allergy/AdvReac Type Severity Reaction Status Date / Time latex Allergy Severe red rash, Verified 10/15/20 22:28 blisters adhesive Allergy Intermediate RASH FROM Verified 10/15/20 22:28 TAPE APPLIED FOR 7 DAYS. ibuprofen AdvReac Mild NAUSEA Verified 10/15/20 22:28 oxycodone AdvReac Mild upset Verified 10/16/20 05:37 stomach Home Medications Medication Instructions Recorded Confirmed Type simvastatin 40 mg PO HS #0 06/26/08 10/15/20 History duloxetine 30 mg PO DAILY 03/22/20 10/15/20 History losartan 100 mg PO HS 03/22/20 10/15/20 History allopurinol 100 mg tablet 100 mg PO BID #180 tab 05/06/20 10/15/20 Rx furosemide 20 mg PO DAILY PRN 10/15/20 10/15/20 History spironolactone 25 mg PO DAILY 10/15/20 10/15/20 History terazosin 2 mg PO DAILY 10/15/20 10/15/20 History timolol maleate 1 drp OPR QAM 10/15/20 10/15/20 History warfarin See Rx Instructions .ROUTE .COMPLEX 10/15/20 10/15/20 History Patient History Medical History (Updated 10/17/20 @ 14:57 by Damon Blas MD) Dyslipidemia History of DVT (deep vein thrombosis) History of pulmonary embolism HTN (hypertension) On warfarin therapy Surgical History S/P insertion of spinal cord stimulator Status post left hip replacement Status post replacement of right shoulder joint Status post total left knee replacement Social History Smoking Status: Former smoker Hx Alcohol Use: No Hx Substance Use: No Preferred Language: Syriac Communication Ability: Effective [place] Required: No Beliefs That Will Affect Care: None marital status: Single Current Living Situation: Alone current occupational status: retired Other Information That Helps Us Care for You: No Feels Safe at Home: Yes Safety Concerns: Feels Safe At This Time Assistive Devices: Denture - Upper, Denture - Lower and Glasses Review of Systems Review of Systems: All systems reviewed & are unremarkable except as noted in HPI & below Physical Exam Constitutional: WD/WN, vitals as above Eyes: PERRL, conjunctivae normal, anicteric sclerae ENMT: external ear and nose normal, oropharynx normal Neck: normal visual inspection Respiratory: normal respiratory effort, lungs clear to auscultation Cardiovascular: Rate/Rhythm: regular rate Heart Sounds: normal S1 and normal S2 Extremities: + edema Gastrointestinal (Abdomen): normal bowel sounds, soft, nontender, no hepatosplenomegaly Musculoskeletal: His left arm is in a splint. He has pain on palpation of the left anterior ribs. Skin: no rashes, warm and dry Neurologic: PERRL, EOMI, accommodation nl, no face palsy, no dysarthria Psychiatric: A+Ox3, euthymic affect Results & Data Results & Data ([facility]) Vital Signs (Past 12 Hours) Vital Signs Temp Pulse Pulse Resp BP BP Pulse Ox 10/17/20 11:54 97.9 F 80 20 108/63 91 10/17/20 08:00 78 10/17/20 07:56 97.7 F 73 20 100/63 93 10/17/20 04:24 98.4 F 84 20 95/61 L 94 I reviewed the vital signs, labs and imaging PG Care Time/CCT Total # of Minutes Spent Total Time Spent with Patient: Total time spent is greater than 50% in coordination of care (as documented) at patient's floor/unit and/or counseling patient: Coding Level of Care Code 65770 Inpt Consult Level 5 Diagnoses Hemothorax on left J94.2 Multiple fractures of ribs of left side S22.42XA Encounter type: initial encounter Fracture type: closed History of DVT (deep vein thrombosis) Z86.718 History of pulmonary embolism Z86.711 On warfarin therapy Z79.01
--- NOTE | 2020-10-20 18:03 | Hospitalist Progress Note ---
Date of Service delayed entry date of service 10/17/20 October 20, 2020 Assessment & Plan (1) Hemothorax on left: Left rib fractures: 5-9 pain improving Incentive spirometry Continue Tylenol, as needed Dilaudid Possible hemothorax, on Coumadin for saddle PE history/DVT history Hemoglobin stable Chest x-ray this admission trace left-sided pleural effusion, no pneumothorax INR 1.9, Coumadin held H&H stable, CXR stable Pulmonary service consulted- no further interventions, may resume coumadin recommend to d/c coumadin as patient's remote PE was apparently provoked follows with [facility] Pulmonary service Left Radial Styloid Fracture Ortho consulted, recommendations: "This can be treated in the provided removable thumb spica wrist extension brace. I instructed him to use it for 2-3 weeks, as needed for comfort. He can take off when at rest and perform gentle range of motion. This can essentially be treated like a high-grade sprain. I told him to evaluate response to the brace and rest over the next 6 weeks. If he has persistent symptoms, he can follow-up with us as an outpatient. Follow- up and [place] placed in the discharge instructions." CAD No cardiac symptoms Hypertension Resume losartan, spironolactone Acute renal failure on CKD stage III Resolved with IV fluids Disposition d/c home ff up with PCP in 1 week ff up with Pulm in 1 week Admission and Anticipated Discharge Date Admission Date: October 15, 2020 Subjective ff up for rib fractures, etc seen resting in bedside chair, comfortable not in distress rib pain well controlled no dyspnea, cough, hemoptysis R wrist pain also improving denies headache, dizziness, abdominal pain no any other pain in his body no other symptoms states that he is ready and would like to be discharged Review of Systems Review of Systems: All systems reviewed & are unremarkable except as noted in Subjective Physical Exam Physical Exam: General- oriented x 3, not in distress, speaks in sentences with no effort or accessory muscle use Eyes- anicteric Neck- no JVD Lungs- clear breath sounds bilaterally no wheezing no crackles Heart- normal rate, regular rhythm; no murmurs Abdomen- normal bowel sounds, nondistended, soft, nontender Extremities- no pretibial edema, no calf tenderness R forearm: wrist in place, no edema/erythema/warmth full ROM Neuro- alert, oriented x 3; no gross focal neurologic deficits Skin- warm & dry Results & Data Results & Data ([facility]) Laboratory Results all noted and reviewed
--- NOTE | 2020-10-20 18:07 | Discharge Summary ---
Date of Service October 20, 2020 Admission HPI Per Admitting Provider History obtained from patient and records. Medical history significant for saddle PE on Coumadin, CAD status post stent, PVD as per records, hypertension, hyperlipidemia, CRI (baseline creatinine 1.4), past tobacco abuse. Last confinement 2017 under orthopedic service for elective right total hip arthroplasty. Patient was clearing out the snow at [facility] today when he slipped on the ground falling on the left side. Pleuritic left-sided chest pain with shortness of breath without hemoptysis post fall. Patient also noted achy left wrist pain. No head trauma, no LOC. Patient brought to the ER for evaluation. 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 Admission Exam Per Admitting Provider GENERAL: Slightly uncomfortable, pleasant, no respiratory distress SKIN: Normal color, warm HEENT: [place] palpebral conjunctivae, no ptosis, dry buccal mucosa NECK : Supple, no tenderness CHEST : Decreased breath sounds, left chest wall tenderness HEART : RRR, no obvious murmurs ABDOMEN: Some distention, nontender EXTREMITIES : No LE swelling/tenderness, splint over left forearm, no other conspicuous deformities noted NEUROLOGIC : Coherent, no facial asymmetry, no other gross focality Principal Diagnosis Left Rib Fractures 5- 9 Left Wrist Fracture s/p Fall Discharge Exam General- oriented x 3, not in distress, speaks in sentences with no effort or accessory muscle use Eyes- anicteric Neck- no JVD Lungs- clear breath sounds bilaterally no wheezing no crackles Heart- normal rate, regular rhythm; no murmurs Abdomen- normal bowel sounds, nondistended, soft, nontender Extremities- no pretibial edema, no calf tenderness R forearm: wrist in place, no edema/erythema/warmth full ROM Neuro- alert, oriented x 3; no gross focal neurologic deficits Skin- warm & dry Discharge Data Allergies Allergy/AdvReac Type Severity Reaction Status Date / Time latex Allergy Severe red rash, Verified 10/15/20 22:28 blisters adhesive Allergy Intermediate RASH FROM Verified 10/15/20 22:28 TAPE APPLIED FOR 7 DAYS. ibuprofen AdvReac Mild NAUSEA Verified 10/15/20 22:28 oxycodone AdvReac Mild upset Verified 10/16/20 05:37 stomach Consultations 10/15/20 22:31 ED Decision to Admit Stat 10/16/20 02:33 Consult Orthopedic Surgery Routine 10/16/20 09:01 Consult Pulmonology Routine Ordered Studies 10/15/20 20:09 CT CHEST: Mild cardiomegaly. Extensive coronary artery calcifications. Mild myocardial thinning of the left ventricular apex. No thoracic aortic aneurysm or acute aortic injury. No mediastinal hematoma. Unremarkable pulmonary artery. Respiratory motion artifact and upper extremity positioning limits the study. No large thyroid nodule or adenopathy. Trace left pleural effusion. There is no pneumothorax. Multiple subpleural bleb formation of the lung apices with mild dependent bibasilar atelectasis. The central airways are patent. Unremarkable soft tissues. A spinal stimulator device is noted overlying the central canal at the level of T8-T9. The imaged portion of the leads appear intact. Small right shoulder joint effusion with arthroplasty. Degenerative changes of the spine and left shoulder. There are clinical acute nondisplaced fractures of the lateral left fifth, sixth and seventh ribs. Acute nondisplaced fractures are also noted involving the lateral left eighth and ninth ribs. No acute displaced rib fracture identified. CT ABDOMEN/PELVIS: No pneumatosis or pneumoperitoneum. Streak artifact from bilateral hip arthroplasties limits evaluation of the pelvis. The spleen, pancreas, glands, and gallbladder appear unremarkable. Probable hepatic steatosis. Right hemidiaphragmatic elevation. Patency of the hepatic and portal veins. Nonspecific bilateral perinephric stranding. No hydronephrosis. 10 mm intermediate hypodensity of the posterior inferior pole right kidney is stable from comparison and is technically indeterminate, possibly reflective of a complex cyst. In retrospect, this previously measured approximately 4 mm in 2011. Visualized urinary bladder is unremarkable. Calcifications of the prostate. No aortic aneurysm or adenopathy. No retroperitoneal hematoma. No bowel obstruction or bowel wall thickening. Colonic diverticulosis. The appe ndix is not diagnostically visualized. No secondary signs of acute appendicitis. Diastases recti with tiny fat filled periumbilical hernia. Unremarkable soft tissues. Acute left-sided rib fractures as above. Spinal stimulator leads appear intact. IMPRESSION: 1. Acute nondisplaced left-sided rib fractures as above. 2. No pneumothorax or acute solid organ injury. 3. Trace left-sided hemothorax. 4. Additional findings as above. CT cervical spine wo con Stat Demineralized appearance the bones. Progressively worsened degenerative changes include multilevel intervertebral disc space narrowing, moderate to severe at C5-C6, C6-C7 and C7-T1 with moderate spondylitic spurring and posterior disc osteophyte complex formations also noted at these levels. There is severe multilevel facet arthrosis with bony fusion of the facets at T2-C4. Partial bony fusion involves the C3-C4 vertebral bodies. Grade 1 anterolisthesis C4 on C5 is likely on a degenerative basis. Severe degeneration at C1-C2. No acute fracture or subluxation. No pneumothorax. No paravertebral edema. Calcified plaque of the carotid bulbs. IMPRESSION: No acute fracture or subluxation. CT head/brain wo con Stat No acute intracranial hemorrhage, midline shift, intracranial mass, hydrocephalus, territorial ischemia or abnormal extra-axial collection. Progressive age-related involutional changes with patchy white matter hypodensities suggestive of chronic microvascular ischemic disease. The calvarium is intact. Right-sided scleral banding. Prior bilateral lens replacement. The paranasal sinuses, mastoid air cells, and middle ear cavities are clear. IMPRESSION: No acute intracranial abnormality or calvarial fracture. Hospital Course (1) Hemothorax on left: Left rib fractures: 5-9 pain improving Incentive spirometry Continue Tylenol, as needed Dilaudid Possible hemothorax, on Coumadin for saddle PE history/DVT history Hemoglobin stable Chest x-ray this admission trace left-sided pleural effusion, no pneumothorax INR 1.9, Coumadin held H&H stable, CXR stable Pulmonary service consulted- no further interventions, may resume coumadin recommend to d/c coumadin as patient's remote PE was apparently provoked follows with [facility] Pulmonary service Left Radial Styloid Fracture Ortho consulted, recommendations: "This can be treated in the provided removable thumb spica wrist extension brace. I instructed him to use it for 2-3 weeks, as needed for comfort. He can take off when at rest and perform gentle range of motion. This can essentially be treated like a high-grade sprain. I told him to evaluate response to the brace and rest over the next 6 weeks. If he has persistent symptoms, he can follow-up with us as an outpatient. Follow- up and Wild placed in the discharge instructions." Abnormal CT abdomen/Pelvis findings please refer to full report above 10 mm intermediate hypodensity of the posterior inferior pole right kidney is stable from comparison and is technically indeterminate, possibly reflective of a complex cyst. In retrospect, this previously measured approximately 4 mm in 2010. -- further work up and management as outpatient CAD No cardiac symptoms Hypertension Resume losartan, spironolactone Acute renal failure on CKD stage III Resolved with IV fluids Disposition d/c home ff up with PCP in 1 week ff up with Pulm in 1 week Total Time Total Time Spent Total Time Spent (In Minutes): > 30 minutes Discharge Plan Discharge Items Patient Disposition: Home - Self-Care Reason For Visit: HEMOTHORAX,HTN URGENCY Discharge Diagnosis: LEFT RIB FRACTURES - 5 TO 9 RIGHT WRIST FRACTURE Activity: Resume your previous activity Activity Comment: Gradually as tolerated Lifting: Wait until after follow-up appointment Exercise/Sports: Wait until after follow-up appointment Driving/Machine Use: NO DRIVING UNTIL RE-EVALUATED BY PRIMARY CARE PHYSICIAN Non-emergency contact: Primary Care Provider Call non-emergency contact if: you have any medication questions, your symptoms worsen, your pain is not controlled, your pain is worsening, your pain is unusual for you, your pain is concerning for you and you have a fever Follow-up/Referrals: Ray Hull MD [Surgeon] - Maday Arzate DO [Primary Care Provider] - Diet: Heart Healthy Addtl Attending Provider Instructions: Continue to use the Incentive Spirometry frequently at home. Ambulate frequently but please be careful. Please review your medication list and follow instructions carefully. Tramadol- for pain control Tylenol- for pain control Take pain medications as prescribed. Do not take more than 3,000mg of Tylenol per day. Do not drive while taking Tramadol if it makes you drowsy. Resume your usual coumadin dosing starting tomorrow. [facility] will be calling you soon for the appointment. Proceed to the ER immediately if you sustain any head trauma, even if you do not have any symptoms. Do not wait. Left wrist: The left wrist should be treated like a sprain. The provided removable brace should be used for comfort. It is recommended to use for all activities for 2-3 weeks, depending on level of pain. If pain persists past 6 weeks, please present to the orthopedic clinic for further care. Call your Primary Care Physician or return to the ER immediately if you are having worsening of symptoms including chest pain, shortness of breath, cough, fever/chills, increasing arm or leg swelling. Follow up with Primary Care Physician next week. The clinic will be calling you for an appointment. Follow up with Orthopedic Doctor in 4 weeks. Pending Studies at Discharge: No Stand-Alone Forms: [facility], Smoking Cessation Medications and DC Order Prescriptions: New tramadol 50 mg Tablet 50 mg PO Q4H PRN (Reason: pain) Qty: 15 RF: 0 Continued simvastatin 40 mg Tablet 40 mg PO HS Qty: 0 RF: 0 allopurinol 100 mg tablet 100 mg PO BID Qty: 180 RF: 3 losartan 100 mg tablet 100 mg PO HS RF: 0 duloxetine 30 mg capsule,delayed release(DR/EC) 30 mg PO DAILY RF: 0 warfarin 5 mg tablet See Rx Instructions .ROUTE .COMPLEX RF: 0 furosemide 20 mg tablet 20 mg PO DAILY PRN (Reason: Edema) RF: 0 timolol maleate 0.5 % drops 1 drp OPR QAM RF: 0 spironolactone 25 mg tablet 25 mg PO DAILY RF: 0 terazosin 2 mg capsule 2 mg PO DAILY RF: 0 Discharge Orders: Discharge Order (Routine); Ordered 10/17/20 Ordered By: Tyler House Admission Data Admit Date/Time: 10/15/20 23:41 Attending Provider: Tyler House Admit Provider: Jass Salvador Primary Care Provider: Maday Arzate Other Providers: Damon Blas ; Ray Hull Other Interventions: Discharge Summary Assessment (RN) Last Done: 10/17/20 16:26
== END 2020-10-17 17:52 | disposition home or self-care (01) | DRG 183 ==
LOC: ED 17:54 → EDINP 23:41 → 2N 10-16 06:05

== ENCOUNTER 2021-03-04 05:03 | Observation (INO) ==
--- NOTE | 2021-01-28 11:48 | PAT Medication Instructions ---
Medication Instructions Date of Service January 28, 2021 Home Medications Medication Instructions Recorded allopurinol 100 mg tablet 100 mg PO BID #180 tab 01/18/21 finasteride 5 mg tablet 5 mg PO DAILY #90 tab 01/18/21 simvastatin 40 mg PO HS losartan 100 mg PO HS timolol maleate 1 drp OPR QAM warfarin See Rx Instructions allopurinol 100 mg tablet 100 mg PO BID finasteride 5 mg tablet 5 mg PO DAILY duloxetine 30 mg PO QAM omeprazole 20 mg PO DAILY PRN ASK your prescriber and surgeon warfarin See Rx Instructions Take morning of surgery With a small sip of water, OTHERWISE NOTHING TO EAT OR DRINK AFTER MIDNIGHT: allopurinol 100 mg tablet 100 mg PO BID finasteride 5 mg tablet 5 mg PO DAILY duloxetine 30 mg PO QAM omeprazole 20 mg PO DAILY PRN (if needed) timolol maleate 1 drp OPR QAM Take evening before surgery simvastatin 40 mg PO HS losartan 100 mg PO HS allopurinol 100 mg tablet 100 mg PO BID Other Notes If you have any questions please call us at [phone] or [phone] or [phone] or [phone]
--- NOTE | 2021-02-01 09:25 | Anesthesiology Consultation ---
Date of Service February 01, 2021 Assessment & Plan (1) Encounter for pre-operative examination: COVID Status: As of 02/01 assessment, patient denies travel to endemic area, known exposure/sick contacts, or symptoms of COVID19. Patient instructed that they and their household members must follow strict social distancing guidelines, wear a mask in public and avoid travel/events/gatherings for 14 days prior to surgery. Preoperative COVID19 testing to be completed prior to surgery per surgeon's arrangements (pt aware, 02/28). Patient made aware to self-isolate as much as possible between COVID testing and surgery. Patient is fully vaccinated. Patient has a spinal cord stimulator. Discussed plan of care will most likely be general anesthesia with regional nerve block. At [facility], patient was unable to fully turn off his spinal cord stimulator with his remote. When stimulator was turned down to the lowest setting, able to get normal EKG. Patient was advised to contact spinal cord stimulator company and inquire about inability to turn off stimulator/possible malfunction. Aware to bring remote AM DOS. Chart Review Chart Review: Acceptable Risk for Surgery and Patient seen in Pre Admission Testing Teaching & Discussion Instructed NPO after midnight before surgery, except medications with 15 cc of water. Medication instructions provided according to the [facility] guidelines. History Surgery Operation Date: 03/04/21 09:00 Proposed Procedures p Right Total Knee Arthroplasty - Joni Alejandro, Height/Weight Height: 6 ft 2 in Weight: 117.9 kg Allergies Allergy/AdvReac Type Severity Reaction Status Date / Time adhesive Allergy Intermediate RASH FROM Verified 01/19/21 12:18 TAPE APPLIED FOR 7 DAYS. latex Allergy Intermediate red rash, Verified 01/19/21 12:18 blisters ibuprofen AdvReac Mild NAUSEA Verified 01/19/21 12:18 oxycodone AdvReac Mild upset Verified 01/19/21 12:18 stomach Medications Home Medications Medication Instructions Recorded Confirmed Last Taken simvastatin 40 mg PO HS #0 06/26/08 01/19/21 10/14/20 losartan 100 mg PO HS 03/22/20 01/19/21 10/14/20 timolol maleate 1 drp OPR QAM 10/15/20 01/19/21 10/15/20 warfarin See Rx Instructions .ROUTE .COMPLEX 10/15/20 01/19/21 10/15/20 allopurinol 100 mg tablet 100 mg PO BID #180 tab 01/18/21 01/19/21 Unknown finasteride 5 mg tablet 5 mg PO DAILY #90 tab 01/18/21 01/19/21 Unknown duloxetine 30 mg PO QAM 01/19/21 01/19/21 Unknown omeprazole 20 mg PO DAILY PRN 01/19/21 01/19/21 Unknown Past Medical History Medical History BPH (benign prostatic hyperplasia) Degenerative disc disease Dyslipidemia GERD (gastroesophageal reflux disease) Glaucoma History of DVT (deep vein thrombosis) 2 YEARS AGO (REASON FOR COUMADIN) ? REASON FOR DVT History of kidney stones History of pulmonary embolism 2 YEARS AGO (REASON FOR COUMADIN) HTN (hypertension) Hx of fracture of rib September 2020 broke five ribs falling on ice. No longer hurting. On warfarin therapy Osteoarthritis Sleep apnea NO DEVICE (COULD NOT WEAR DEVICE) Exercise / Class Metabolic Activity II 4-5 Yardwork/Stairs/Walk up hill Past Family History Family History Other No family history of adverse response to anesthesia Past Surgical History Surgical History H/O eye surgery RT [facility] FOR [facility] History of colonoscopy History of esophagogastroduodenoscopy (EGD) History of heart artery stent 2000>1 STENT PLACED AT [facility] (FOLLOWED BY DR. SOTELO) History of tooth extraction History of total hip arthroplasty RT/LEFT History of total knee replacement LEFT History of total shoulder replacement RT Hx of cystoscopy WITH STENTS S/P insertion of spinal cord stimulator BACK STIMULATOR (AWARE TO BRING REMOTE) Past Anesthesia History No Hx of Anesthesia Complications and No Family Hx of Anesthesia Complications History of PONV No Hx of PONV and No Hx of Motion Sickness Social History Smoking Status: Former smoker tobacco type: cigarettes Do You Dip or Chew Tobacco: No Smoking End Date: QUIT AT AGE 29 Hx Alcohol Use: No Hx Substance Use: No Review of Systems Pt denies any recent chest pain, shortness of breath, palpitations, cough, fever, URI, or uncontrolled acid reflux. Physical Exam Vital Signs BP: 137/84 P: 65bpm SPO2: 95% RA T: 98.2 F R: 16 ENMT Mouth: + dentures and + edentulous Thyromental Distance: > or= 3.5 Finger Breadths Mallampati Class: I Neck normal visual inspection; neck extension not limited Respiratory normal respiratory effort, lungs clear to auscultation Cardiovascular RRR, no murmur, no edema Testing Laboratory Results 02/01/21 09:52 02/01/21 09:52 PT 19.2 Seconds (9.0-12.0) H 02/01/21 09:52 INR 2.0 (0.9-1.1) H 02/01/21 09:52 APTT 34.4 Seconds (21.0-31.0) H 02/01/21 09:52 Blood Type O Positive 02/01/21 09:52 Antibody Screen NEGATIVE 02/01/21 09:52 Electrocardiogram Date: 02/01/21 Findings: + NSR @ (62bpm) Chest X-Ray Date: 10/15/20 FINDINGS: Cardiac silhouette is mildly enlarged, unchanged. Chronic interstitial coarsen ing. No pneumothorax. Trace left pleural effusion is unchanged along with mild subsegmental bibasilar densities. Right shoulder total joint arthroplasty Degenerative changes of the spine and left shoulder. Partially imaged spinal stimulator leads appear unremarkable. IMPRESSION: 1. Unchanged trace left pleural effusion with mild bibasilar densities suggestive of atelectasis. 2. Cardiomegaly.
[2021-02-01 11:20] LABS: Partial Thromboplastin Ratio 1.3; Partial Thromboplastin Time 34.4 Seconds (21.0-31.0); Prothrombin Time 19.2 Seconds (9.0-12.0)
[2021-02-01 11:35] LABS: Basophils # (auto) 0.04 K/uL (0-0.2); Basophils % (auto) 0.6 %; Eosinophils # (auto) 0.21 K/uL (0-0.5); Eosinophils % (auto) 3.1 %; Hematocrit (blood only) 40.6 % (42-52); Hemoglobin 13.5 g/dL (14.0-18.0); Immature Granulocytes # (auto) 0.01 K/uL (0.00-0.02); Immature Granulocytes % (auto) 0.1 %; Lymphocytes # (auto) 2.06 K/uL (1.2-3.4); Lymphocytes % (auto) 30.5 %; Mean Corpuscular Hemoglobin 32.7 pg (25-34); Mean Corpuscular Hgb Conc 33.3 g/dL (32-36); Mean Corpuscular Volume 98.3 fL (80-100); Mean Platelet Volume 9.4 fL (7.4-10.4); Monocytes # (auto) 0.64 K/uL (0.11-0.59); Monocytes % (auto) 9.5 %; Neutrophils # (auto) 3.79 K/uL (1.4-6.5); Neutrophils % (auto) 56.2 %; Platelet Count 197 K/uL (130-400); RDW Coefficient of Variation 14.5 % (11.5-14.5); RDW Standard Deviation 52.3 fL (36.4-46.3); Red Blood Count 4.13 M/uL (4.7-6.1); White Blood Count 6.75 K/uL (4.8-10.8)
[2021-02-01 11:42] LABS: BUN Creatinine Ratio 16.6 (10-20); Calcium 8.8 mg/dl (8.5-10.1); Creatinine Clr Calc Pharmacy 61.8 ml/min; Est GFR (African American) 60.4; Est GFR (Non-African American) 52.1; Potassium 4.4 mmol/L (3.5-5.1)
--- NOTE | 2021-02-01 14:41 | Electrocardiogram Report ---
Test Reason : Blood Pressure : / mmHG Vent. Rate : 062 BPM Atrial Rate : 062 BPM P-R Int : 160 ms QRS Dur : 086 ms QT Int : 442 ms P-R-T Axes : 059 -10 039 degrees QTc Int : 448 ms Normal sinus rhythm Normal ECG When compared with ECG of 15-OCT-2020 20:25, No significant change Confirmed by Tyler Culver ([id number]) on 02/01/2021 2:41:31 PM Referred By: Joni Alejandro Confirmed By:Tyler Culver
[2021-03-04 05:56] LABS: INR 1.1 (0.9-1.1); Partial Thromboplastin Ratio 1.2; Partial Thromboplastin Time 30.8 Seconds (21.0-31.0); Prothrombin Time 10.7 Seconds (9.0-12.0)
[2021-03-04] MEDS ORDERED: ACETAMINOPHEN 500 MG TAB PO SCH (06:00)
[2021-03-04] MEDS ORDERED: ceFAZolin 2000MG 2,000 MG/15 ML SYR IV SCH (06:00)
[2021-03-04] MEDS ORDERED: LR 60ML/HR IV SCH (06:00)
[2021-03-04] MEDS ORDERED: dexAMETHasone 4 MG TAB PO SCH (06:00)
[2021-03-04] MEDS ORDERED: TRANEXAMIC ACID 1,000 MG **IV Intra-op IV SCH (06:00)
[2021-03-04] MEDS ORDERED: GABAPENTIN 300 MG CAP PO SCH (06:00)
[2021-03-04] MEDS ORDERED: ROPIVACAINE 0.5% HCL/PF 150 MG, BUPIVACAINE 0.75% MPF 20 ML, EPINEPHrine 30MG/30ML (OR ... INSTIL SCH (06:00)
[2021-03-04] MEDS ORDERED: LR 500ML BOLUS IV SCH (06:00)
[2021-03-04] MEDS ORDERED: FAMOTIDINE 20 MG TAB PO SCH (06:00)
[2021-03-04] MEDS ORDERED: TRANEXAMIC ACID 1,000 MG **IV Pre-op IV SCH (06:00)
[2021-03-04] MEDS ORDERED: BUPIVACAINE 0.5 % 5 MG/1 ML PF 10ML VIAL ONE ×2 (06:12)
--- NOTE | 2021-03-04 06:18 | History & Physical Report ---
Date of Service March 04, 2021 Assessment & Plan (1) Right knee DJD: We will proceed with a right total knee arthroplasty. Postoperatively we will start him back on Coumadin for DVT prophylaxis and keep him overnight for postoperative medical management. [facility] plans [facility] discharge. History of Present Illness Chief Complaint: Osteoarthritis right knee. Primary Care Provider: Maday Arzate DO Leonel is a pleasant 80-year-old male who is been dealing with chronic increasing right knee pain. X-rays and clinical examination have been diagnostic for advanced osteoarthritis of the right knee. After failing extensive conservative treatment, he has elected to proceed with a right total knee arthroplasty. He does have a history of a left knee replacement done by Dr. Burns about 6 years ago.. Allergies Allergy/AdvReac Type Severity Reaction Status Date / Time adhesive Allergy Intermediate RASH FROM Verified 03/04/21 05:30 TAPE APPLIED FOR 7 DAYS. latex Allergy Intermediate red rash, Verified 03/04/21 05:30 blisters ibuprofen AdvReac Mild NAUSEA Verified 03/04/21 05:30 oxycodone AdvReac Mild upset Verified 03/04/21 05:30 stomach Home Medications Medication Instructions Recorded Confirmed Type simvastatin 40 mg PO HS #0 06/26/08 03/04/21 History losartan 100 mg PO HS 03/22/20 03/04/21 History timolol maleate 1 drp OPR QAM 10/15/20 03/04/21 History warfarin See Rx Instructions .ROUTE .COMPLEX 10/15/20 03/04/21 History allopurinol 100 mg tablet 100 mg PO BID #180 tab 01/18/21 03/04/21 Rx duloxetine 30 mg PO QAM 01/19/21 03/04/21 History omeprazole 20 mg PO DAILY PRN 01/19/21 03/04/21 History finasteride [Proscar] 5 mg PO DAILY 03/04/21 03/04/21 History Past Med/Surg History Medical History BPH (benign prostatic hyperplasia) Degenerative disc disease Dyslipidemia GERD (gastroesophageal reflux disease) Glaucoma History of DVT (deep vein thrombosis) 2 YEARS AGO (REASON FOR COUMADIN) ? REASON FOR DVT History of kidney stones History of pulmonary embolism 2 YEARS AGO (REASON FOR COUMADIN) HTN (hypertension) Hx of fracture of rib September 2020 broke five ribs falling on ice. No longer hurting. On warfarin therapy Osteoarthritis Sleep apnea NO DEVICE (COULD NOT WEAR DEVICE) Surgical History H/O eye surgery RT EYE FOR GLAU[facility] History of colonoscopy History of esophagogastroduodenoscopy (EGD) History of heart artery stent 2000>1 STENT PLACED AT [facility] (FOLLOWED BY DR. SOTELO) History of tooth extraction History of total hip arthroplasty RT/LEFT History of total knee replacement LEFT History of total shoulder replacement RT Hx of cystoscopy WITH STENTS S/P insertion of spinal cord stimulator BACK STIMULATOR (AWARE TO BRING REMOTE) Family History Other No family history of adverse response to anesthesia Social History Smoking Status: Former smoker Smoking End Date: QUIT AT AGE 29; Second Hand Exposure: No; Do You Dip or Chew Tobacco: No; Tobacco Cessation Education Requested by Patient: No Hx Alcohol Use: No Hx Substance Use: No Preferred Language: Turkmen Communication Ability: Effective 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 Physical Exam On physical examination the right knee, he has range of motion from 10 to 120 degrees. He has no instability. He has tenderness palpation over the distal femoral condyles and over the medial joint line.. Constitutional WD/WN, vitals as above Eyes PERRL, conjunctivae normal, anicteric sclerae ENMT external ear and nose normal, oropharynx normal Neck trachea midline, no thyromegaly Respiratory normal respiratory effort Cardiovascular RRR, no murmur, no edema Gastrointestinal (Abdomen) normal bowel sounds, soft, nontender, no hepatosplenomegaly Psychiatric A+Ox3, euthymic affect Results & Data Results & Data Laboratory Results . Diagnostic Findings X-rays of the right knee do show advanced osteoarthritis with joint space narrowing, osteophyte formation, and [id number] articulation. PG Care Time/CCT Total # of Minutes Spent Total Time Spent with Patient: Total time spent is greater than 50% in coordination of care (as documented) at patient's floor/unit and/or counseling patient: Coding Level of Care Code None Diagnoses Right knee DJD M17.11
[2021-03-04] MEDS ORDERED: ORTHO JOINT ANESTHETIC ONE (06:30)
[2021-03-04] MEDS ORDERED: PROPOFOL IV EMULSION 10 MG/ML 20 ML VIAL IV ONE (06:37)
[2021-03-04] MEDS ORDERED: LIDOCAINE HCL 2% 2 ML VIAL/AMP(20MG/ML) INFIL ONE (06:37)
[2021-03-04] MEDS ORDERED: fentaNYL citrate 100 MCG/2 ML VIAL ONE ×2 (06:37→07:29)
[2021-03-04] MEDS ORDERED: MIDAZOLAM HCL 1 MG/ML 2ML VIAL ONE (06:37)
[2021-03-04] MEDS ORDERED: ONDANSETRON INJ 2 MG/ML 2 ML VIAL ONE (06:37)
[2021-03-04] MEDS ORDERED: ONDANSETRON INJ 2 MG/ML 2 ML VIAL IV PRN ×2 (06:38→09:29)
[2021-03-04] MEDS ORDERED: ePHEDrine sulfate 50 MG/ML AMP IV PRN (06:38)
[2021-03-04] MEDS ORDERED: fentaNYL citrate 100 MCG/2 ML VIAL IV PRN (06:38)
[2021-03-04] MEDS ORDERED: ROPIVACAINE 0.5% 5 MG/ML 30 ML VIAL ONE (06:38)
[2021-03-04] MEDS ORDERED: ATROPINE SULFATE 0.1 MG/ML 10ML SYR IV PRN (06:38)
--- NOTE | 2021-03-04 08:11 | Operative Report ---
PG Post Operative Report Pre & Post Diagnosis Operation Date: 03/04/21 07:00 Pre-Op Diagnosis: Right Knee Degenerative Joint Disease Post-Op Diagnosis: Right Knee Degenerative Joint Disease I identified the patient and participated in the time-out.: Yes Procedure Operation Date: 03/04/21 07:00 Actual Procedures p Right Total Knee Arthroplasty, Cemented(Right) - Joni Alejandro DO Surgeon Joni Alejandro DO [employer] Joni Fried PAC Estimated Blood Loss 10 Findings Consistent with Post-Op Diagnosis Specimens Right femoral and tibial bone Complications none Disposition Disposition: Recovery Room Indications Leonel is a pleasant 80-year-old male who is been dealing with chronic increasing right knee pain. X-rays and clinical examination were diagnostic for advanced osteoarthritis of the right knee. After failing conservative treatment, he elec ang proceed with a right total knee arthroplasty. Description of Procedure Implants used: I used a [employer] Person[employer] total knee arthroplasty system with a size 10 standard femur, G tibia, 35 patella, and a size 11 medial congruent polyethylene bearing. All components were cemented in place with Simplex HV cement. Leonel arrived [facility] for the above procedure. He was seen in the preoperative holding area and the operative extremity was identified and signed. He was given a preoperative antibiotic, TXA, and an adductor nerve block. He was taken back to the operating room and laid on the table in supine position. He was given general anesthesia. The operative knee was then prepped and draped in sterile fashion. A timeout was done, and the patient and the operative extremity was properly identified. A midline incision was made directly over the patella. Dissection was taken down to the extensor mechanism. A subvastus arthrotomy was used. The medial retinaculum was released and the fat pad was mostly excised. The knee was flexed and the ACL, PCL, and meniscus were removed. A drill was sent down the center of the femoral canal followed by an intramedullary baljinder. Off that baljinder a distal femoral cutting block was placed. 9 mm was resected off the distal femur at 5 of valgus. A posterior referencing AP sizing guide was then placed on the distal femur. The femur measured to be a size 10. 2 drill holes were placed in 3 of external rotation. A 4-in-1 cutting block was then impacted into place. Anterior, posterior, and chamfer cuts were then made. The proximal tibia was then exposed. An external tibial alignment guide was placed. A tibial cut guide was then anchored in place and t he proximal tibia was then resected. The posterior aspect of the knee was then opened up and any additional meniscus fragments and osteophytes were removed. The tibia measured to be a size G. The tibial plate was then placed in the appropriate rotation and the tibia was drilled and punched. Trial components were then placed. I used a size 11 medial congruent polyethylene insert. The knee was brought through a full range of motion and felt to be stable. The peg holes for the femoral component were then drilled. The patella was then everted and 9 mm was resected off the posterior aspect of the patella. The patella measured to be a size 35. 3 peg holes were then drilled. A trial patella was placed. The knee was once again brought through a full range of motion and felt to be stable. Trial components were then removed. The surrounding soft tissues were injected with 100 cc of an orthopedic pain control cocktail. All components were then cemented into place with Simplex HV cement. The final polyethylene insert was then snapped into place. Once cement was dry the tourniquet was deflated. Hemostasis was obtained. A dilute betadyne lavage was then done for 3 minutes. The joint was then irrigated with normal saline solution. The subvastus arthrotomy was then closed with #1 Vicryl suture. The skin was closed with 2-0 Vicryl, 3-0V lock suture, and roland. A Silverlon and a soft compressive dressing were placed. He was then transferred to a hospital bed and taken to the postanesthesia care unit in stable condition. He tolerated the procedure well. Joni Fried PA-C, was present for the entire procedure. He was critical for patient positioning, prepping, draping, retraction exposure, wound closure and application of sterile dressing. I attest to the content of the Intraoperative Record and any orders documented therein. Any exceptions are noted below.
--- NOTE | 2021-03-04 08:54 | Anesthesiology Progress Note ---
Date of Service March 04, 2021 Anesthesia Post Procedure Vital Signs Vital Signs: Temp Pulse Pulse Resp BP Pulse Ox 03/04/21 08:50 97.7 F 88 14 136/90 97 03/04/21 08:40 88 14 144/91 H 97 03/04/21 08:30 85 14 157/95 H 96 03/04/21 08:23 97.9 F 86 14 158/119 H 98 03/04/21 05:38 98.2 F 81 20 167/97 H 97 Pain Intensity Right Knee: Pain Intensity: 0 Transfer of Care Handoff Completed per policy Notes Mental Status: alert / awake / arousable and participated in evaluation Patient Amnestic to Procedure: Yes Nausea / Vomiting: adequately controlled Pain: adequately controlled Airway Patency, RR, SpO2: stable & adequate BP & HR: stable & adequate Hydration State: stable & adequate Anesthetic Complications: no major complications apparent and Pt Satisfied with anesthetic care
--- NOTE | 2021-03-04 08:57 | XRay Report ---
XR knee RT 1 or 2V routine CLINICAL HISTORY: Surgical Post Op COMPARISON: Right knee radiographs February 01, 2021. FINDINGS: Alignment of the total right knee arthroplasty is anatomic. There is no periprosthetic fra cture. No unexpected radiopaque foreign bodies are present. There are skin roland. IMPRESSION: Expected findings following total right knee arthroplasty. ACT 112: Negative or not required by law. Electronically signed by: Noah Mary M.D. 03/04/2021 8:56 AM
[2021-03-04] MEDS ORDERED: oxyCODONE HCL IR 5 MG TAB (IMMEDIATE RELEASE) PO PRN (09:29)
[2021-03-04] MEDS ORDERED: bisacodyL 10 MG SUPP PR PRN (09:29)
[2021-03-04] MEDS ORDERED: HYDROmorphone INJ 0.5 MG/0.5 ML SYR IV PRN (09:29)
[2021-03-04] MEDS ORDERED: METOCLOPRAMIDE HCL INJ 5 MG/ML 2 ML VIAL IV PRN (09:29)
[2021-03-04] MEDS ORDERED: MAGNESIUM HYDROXIDE SUSP 30 ML UDC PO PRN (09:29)
[2021-03-04] MEDS ORDERED: NALOXONE HCL 0.4 MG/1 ML VIAL/CARP IV PRN (09:29)
[2021-03-04] MEDS: SODIUM CHLORIDE 0.9% 1000ML 1,000 ML IV SCH ×2 (09:45→18:24)
[2021-03-04] MEDS: FINASTERIDE 5 MG TAB PO SCH (10:50)
[2021-03-04] MEDS: DULoxetine HCL 30 MG CAP PO SCH (10:50)
[2021-03-04] MEDS: allopurinoL 100 MG TAB PO SCH ×2 (10:50→20:26)
[2021-03-04] MEDS: MULTIVITAMIN TAB PO SCH (10:51)
[2021-03-04] MEDS: DOCUSATE SODIUM 100 MG CAP PO SCH ×2 (10:51→20:26)
[2021-03-04] MEDS: ACETAMINOPHEN 500 MG TAB PO SCH ×2 (13:25→22:13)
[2021-03-04] MEDS: ceFAZolin 2000MG 2,000 MG/15 ML SYR IV SCH ×2 (13:26→22:13)
[2021-03-04] MEDS: WARFARIN SOD 5 MG TAB PO SCH (16:02)
[2021-03-04] MEDS ORDERED: SIMVASTATIN 40 MG TAB PO SCH (21:00)
[2021-03-04] MEDS ORDERED: LOSARTAN POTASSIUM 50 MG TAB PO SCH (21:00)
[2021-03-04] MEDS ORDERED: SENNA 8.6 MG TAB PO SCH (21:00)
[2021-03-05] MEDS: ACETAMINOPHEN 500 MG TAB PO SCH ×2 (05:26→12:46)
[2021-03-05 06:04] LABS: Hemoglobin 11.6 g/dL (14.0-18.0); Mean Corpuscular Hemoglobin 32.7 pg (25-34); Mean Corpuscular Hgb Conc 33.1 g/dL (32-36); Mean Corpuscular Volume 98.6 fL (80-100); Mean Platelet Volume 9.7 fL (7.4-10.4); Platelet Count 170 K/uL (130-400); RDW Coefficient of Variation 13.2 % (11.5-14.5); RDW Standard Deviation 47.6 fL (36.4-46.3); Red Blood Count 3.55 M/uL (4.7-6.1); White Blood Count 12.74 K/uL (4.8-10.8)
[2021-03-05 06:31] LABS: BUN Creatinine Ratio 19.6 (10-20); Calcium 8.4 mg/dl (8.5-10.1); Creatinine Clr Calc Pharmacy 59.7 ml/min; Est GFR (African American) 58.2; Est GFR (Non-African American) 50.2; Potassium 4.8 mmol/L (3.5-5.1)
[2021-03-05] MEDS: FINASTERIDE 5 MG TAB PO SCH (07:40)
[2021-03-05] MEDS: allopurinoL 100 MG TAB PO SCH (07:40)
[2021-03-05] MEDS: MULTIVITAMIN TAB PO SCH (07:40)
[2021-03-05] MEDS: DOCUSATE SODIUM 100 MG CAP PO SCH (07:40)
[2021-03-05] MEDS: DULoxetine HCL 30 MG CAP PO SCH (07:40)
--- NOTE | 2021-03-05 07:50 | Orthopedic Progress Note ---
Date of Service March 05, 2021 Assessment & Plan (1) Status post right knee replacement: Overall is doing well. Is not having too much pain in the knee. He will be seen by physical therapy today for ambulation and range of motion exercises. He is on Coumadin for DVT prophylaxis. The dressing can be changed after physical therapy today. [facility]. He will follow-up with orthopedics in 2 weeks. Be Carroll was seen and examined at bedside this morning. Overall is doing very well. He is having a little bit of soreness in the knee with sent to bed. He has been up and ambulating to the bathroom. He has no complaints.. Review of Systems All systems reviewed & are unremarkable except as noted in HPI & below. Physical Exam On physical examination of the right knee, the dressing is clean and dry. He is sit in a chair at bedside. He has active dorsiflexion and plantarflexion of his right ankle.. Results & Data Results & Data Laboratory Results . Diagnostic Findings Postoperative x-rays of the right knee show the prosthesis to be in anatomic alignment without any evidence of fracture, dislocation, or loosening. PG Care Time/CCT Total # of Minutes Spent Total Time Spent with Patient: Total time spent is greater than 50% in c oordination of care (as documented) at patient's floor/unit and/or counseling patient: Coding Level of Care Code 48259 Post Operative Follow-Up Diagnoses Status post right knee replacement Z96.651
--- NOTE | 2021-03-05 07:51 | Discharge Summary ---
Date of Service March 05, 2021 Admission HPI (Per Admitting) Leonel is a pleasant 80-year-old male who is been dealing with chronic increasing right knee pain. X-rays and clinical examination have been diagnostic for advanced osteoarthritis of the right knee. After failing extensive conservative treatment, he has elected to proceed with a right total knee arthroplasty. He does have a history of a left knee replacement done by Dr. Burns about 6 years ago.. Admission Exam (Per Admitting) On physical examination the right knee, he has range of motion from 10 to 120 degrees. He has no instability. He has tenderness palpation over the distal femoral condyles and over the medial joint line.. Principal Diagnosis Same as "Discharge Diagnosis" noted below under Discharge Instructions. Discharge Exam On physical examination of the right knee, the dressing is clean and dry. He is sit in a chair at bedside. He has active dorsiflexion and plantarflexion of his right ankle.. Discharge Data Procedures Performed Operation Date: 03/04/21 07:00 Actual Procedures p Right Total Knee Arthroplasty, Cemented(Right) - Joni Alejandro DO Ordered Studies 03/04/21 05:00 US - OR guided needle placemen Routine Hospital Course (1) Status post right knee replacement: On March 04, 2021 Glen arrived at [facility] and underwent a left total knee replacement without complication. He had a spinal anesthetic. Postoperatively he was started back on Coumadin for DVT prophylaxis and transferred to the general orthopedic floors. His hospital course was uneventful. On postop day #1 his vital signs were stable and his pain was well controlled. He was able to participate well with physical therapy doing ambulation and range of motion exercises. [facility]. He will follow-up with orthopedics in 2 weeks. PG Care Time/CCT Total # of Minutes Spent Total Time Spent with Patient: Total time spent is greater than 50% in coordination of care (as documented) at patient's floor/unit and/or counseling patient: Discharge Plan Discharge Items Patient Disposition: Transfer Inpatient Rehab Fac Reason For Visit: Right Knee Degenerative Joint Disease Discharge Diagnosis: Right knee replacement Activity: As commented below Non-emergency contact: Surgeon Call non-emergency contact if: your wound has increased redness and your wound has increased drainage Follow-up/Referrals: Maday Arzate DO [Primary Care Provider] - Diet: Regular Addtl Attending Provider Instructions: Activity and Therapy Recommendations: * If you are using [facility] then therapy will be provided at your home until they feel you have accomplished all of your goals. * If you are using [facility] then Physical Therapy will be provided until they feel you are ready to start Outpatient Physical Therapy. * If you are not using home therapy then Outpatient Physical Therapy should start about 3-5 days from your day of surgery. Therapy will last about 6-10 weeks * It is important not to put a pillow under your knee when you are relaxing or sleeping. It is just as important to make sure you are getting your knee perfectly straight as it is to regain your knee bend. * You were shown a series of exercises in the hospital. Do these exercises three times each day including the exercises you were shown in physical therapy. * Get up and walk several times each day. For the first four weeks, try not to stand or walk for more than one hour at a time. If you do stand or walk for more than one hour, you will not hurt anything, but your leg will likely swell. * As you feel comfortable, you may change from the walker or crutches to a cane and then to independent walking. Medications: * Narcotic You will likely be sent home from the hospital with a prescription for the narcotic pain medication that worked best throughout your stay. * Aspirin Most patients will be required to take Aspirin 81mg twice a day for 6 weeks after surgery. This is obtained [id number] and a prescription is not necessary. * Other medications may be prescribed for specific circumstances. If you have any questions, please call the office at . * Resume previous home medications unless otherwise instructed TEDs/Elastic Stockings: The white elastic stockings help limit swelling and prevent blood clots from forming in your legs.~ The more you wear them, the more they work. Wear them for six weeks. Dressing Care: You may change the dressing after physical therapy on postop day #1. Then do daily dry dressing changes. If the incision is not draining then you may leave the roland open to air. If there is a little bit of drainage or if the roland are getting stuck on your clothing then cover the incision with a dry dressing. The roland will be removed at your 2 week follow-up appointment. Showering: You may shower 5 days after the day of surgery. You may shower with the roland exposed. Let soapy water run over the roland and pat them dry. Do not scrub or soak the incision. Things To Watch For: * Drainage from the incision site that occurs more than one week after your surgery. * Increased redness at the incision site. * Fever above 102 degrees Fahrenheit. * Unusual chest pain or shortness of breath. * Call [facility] at with any of the above problems Follow-Up Visit: Follow-up with Dr. Alejandro's PA (Joni Fried) 2-3 weeks after your day of surgery. He will remove your roland and answer any questions. If you have any additional questions or concerns, Dr Alejandro is usually in the office at the same time and will be available An appointment was probably scheduled when you signed-up for surgery in the office. If you have any questions call Office Instructions: More detailed instructions as well as Frequently Asked Questions were provided in a folder by our office when you signed-up for surgery. Please review these instructions when you get home. If you have any further questions or concerns, please feel free to call the office at [phone] Pending Studies at Discharge: No Stand-Alone Forms: My [facility] Skilled Items Patient informed of condition?: Yes DNR: No Discharge Level of Care: Acute rehab Communicable Disease: No Discharge Prognosis: Improving Lines: None Urinary Catheter: No Medications and DC Order Prescriptions: New oxycodone 5 mg Tablet 5 mg PO Q4H PRN (Reason: pain) Qty: 40 RF: 0 Continued simvastatin 40 mg Tablet 40 mg PO HS Qty: 0 RF: 0 allopurinol 100 mg tablet 100 mg PO BID Qty: 180 RF: 3 losartan 100 mg tablet 100 mg PO HS RF: 0 omeprazole 20 mg Capsule,Delayed Release(Dr/Ec) 20 mg PO DAILY PRN (Reason: UPSET STOMACH) RF: 0 duloxetine 30 mg Capsule,Delayed Release(Dr/Ec) 30 mg PO QAM RF: 0 finasteride [Proscar] 5 mg tablet 5 mg PO DAILY RF: 0 warfarin 5 mg tablet See Rx Instructions .ROUTE .COMPLEX RF: 0 timolol maleate 0.5 % drops 1 drp OPR QAM RF: 0 Discharge Orders: Discharge Order (Routine); Ordered 03/05/21 Ordered By: Joni Alejandro Admission Data Admit Date/Time: 03/04/21 08:26 Attending Provider: Joni Alejandro Admit Provider: Joni Alejandro Primary Care Provider: Maday Arzate
[2021-03-05] MEDS ORDERED: TIMOLOL MALEATE 0.5% OP SOLN 5 ML BTL OP SCH (09:00)
[2021-03-05] MEDS: WARFARIN SOD 5 MG TAB PO SCH (15:17)
== END 2021-03-05 16:05 ==
LOC: 3E 05:03 → ASU 05:03

== ENCOUNTER 2022-03-24 19:30 | Observation (INO) ==
[2022-03-24] MEDS ORDERED: SODIUM CHLORIDE 0.9% 500 ML IV SCH (20:00)
--- NOTE | 2022-03-24 20:15 | Emergency Department Note ---
Impression & Plan Weakness, Falling, Acute head trauma, Slurred speech, Coagulopathy ED Provider Note NAME: CARL JACKSON AGE: 81 SEX: M : 1940 ARRIVES VIA: Ambulance INFORMANT: [Patient][son] ED PROVIDER(S): [Bala Cisneros MD] CHIEF COMPLAINT: Fall, weakness HISTORY OF PRESENT ILLNESS: The patient is an 81-year-old male who states that today, he felt weak. He fell once going up the stairs, he fell again in the shower. The second fall was because of weakness. His legs just gave out. He did strike his head but did not lose consciousness. The patient is on Coumadin. The son is at bedside, he felt his father had some slurred speech today. No confusion. No arm or leg weakness. The patient himself noticed his speech was a bit slurred as well. There has been no fever, no respiratory complaints. No chest pain or abdominal pain. He denies any real injuries from his falls except for a little bit of soreness to the back of his head. No urinary complaints. The patient did not have any sick contacts. Of note, the patient recently had what he thought was bronchitis. He was on steroids and an antibiotic. He just finished his meds within the last few days REVIEW OF SYSTEMS: See HPI for pertinent positives and negatives. A total of ten systems were reviewed and were otherwise negative. PMHx/PSHx: See Below SOCIAL HISTORY: See Below. PHYSICAL EXAM: GENERAL: Patient is in no acute distress. HEENT: No acute trauma, normocephalic atraumatic, mucous membranes dry, no nasal congestion, no scleral icterus. NECK: No stridor, no adenopathy, nontender cervical spine, trachea is midline. LUNGS: A few crackles at the left base, no wheezing, no respiratory distress, breath sounds equal. HEART: Slightly irregular rhythm, no obvious murmur, normal rate. ABDOMEN: Soft, nontender, bowel sounds positive, no peritonitis. EXTREMITIES: No cyanosis or edema, full range of motion of all the joints without pain or difficulty, no signs for acute trauma. NEUROLOGIC: Oriented x 3, no acute motor or sensory deficits, no focal weakness. No speech slur or facial droop. SKIN: No rash, no jaundice, no diaphoresis. DIFFERENTIAL DIAGNOSIS: Infection, dehydration, UTI, COVID-19, influenza, metabolic abnormality, hypo/hyperglycemia, electrolyte disturbance, anemia, hypoxia, cardiac sources, intracerebral event, toxicologic issues, stroke, TIA, as well as other pathologies. EMERGENCY DEPARTMENT COURSE/PROCEDURES: ECG: Indication was weakness. The ECG shows a normal sinus rhythm with a rate of 95. There is no ST elevation, no PVCs. The QTc is 477. Continuous Cardiac Monitoring: An order was placed for continuous cardiac monitoring. The monitor shows a rate of 95 with normal sinus rhythm. MEDICAL DECISION MAKING: There is a mild leukocytosis, this could be consistent with infection or from his recent steroid use. A very mild anemia was noted. Platelet count was normal. INR was 2.4, consistent with his Coumadin use. No renal failure or significant electrolyte abnormality. No liver enzyme elevation. ECG shows a normal sinus rhythm, no obvious ischemia. Cardiac enzyme testing x1 is not consistent with acute cardiac injury. The patient appeared to be in a euthyroid state. Urinalysis does not show infection. COVID, influenza and RSV test were negative. Chest x-ray does not show pneumonia or CHF. Brain CT shows no acute bleed or mass-effect. C-spine CT shows no acute fracture. On exam, there were no focal neurologic deficits. The patient was awake and interactive. He was not febrile or toxic. I did not notice any speech slur. Patient received IV saline, 1 L. He has been resting comfortably. The cause for his weakness and frequent falls is unclear. He does seem fatigued. He does live alone and I do not think he is safe for discharge. Further work-up and care in the hospital is warranted. I spoke with the patient and case management. The on-call hospitalist was consulted. Past Med/Surg History Medical History BPH (benign prostatic hyperplasia) Degenerative disc disease Dyslipidemia GERD (gastroesophageal reflux disease) Glaucoma History of DVT (deep vein thrombosis) 2 YEARS AGO (REASON FOR COUMADIN) ? REASON FOR DVT History of kidney stones History of pulmonary embolism 2 YEARS AGO (REASON FOR COUMADIN) HTN (hypertension) Hx of fracture of rib August/September 2020 broke five ribs falling on ice. No longer hurting. On warfarin therapy Osteoarthritis Sleep apnea NO DEVICE (COULD NOT WEAR DEVICE) Surgical History H/O eye surgery RT EYE FOR GLAUCOMA History of colonoscopy History of esophagogastroduodenoscopy (EGD) History of heart artery stent 2000>1 STENT PLACED AT [place] (FOLLOWED BY DR. SOTELO) History of tooth extraction History of total hip arthroplasty RT/LEFT History of total knee replacement LEFT History of total shoulder replacement RT Hx of cystoscopy WITH STENTS S/P insertion of spinal cord stimulator BACK STIMULATOR (AWARE TO BRING REMOTE) Status post right knee replacement (~02/2021) Family History Other No family history of adverse response to anesthesia Social History Smoking Status: Former smoker Second Hand Exposure: No; Hx Alcohol Use: No Hx Substance Use: No Preferred Language: Croatian Communication Ability: Effective Family Reunification Specialist Required: No Beliefs That Will Affect Care: None marital status: Single Current Living Situation: Alone current occupational status: retired Feels Safe at Home: Yes Assistive Devices: Denture - Lower and Walker Allergies Allergies Allergy/AdvReac Type Severity Reaction Status Date / Time adhesive Allergy Intermediate RASH FROM Verified 03/24/22 21:36 TAPE APPLIED FOR 7 DAYS. latex Allergy Intermediate red rash, Verified 03/24/22 21:36 blisters ibuprofen AdvReac Mild NAUSEA Verified 03/24/22 21:36 oxycodone AdvReac Mild upset Verified 03/24/22 21:36 stomach Home Meds Home Medications Medication Instructions Recorded Confirmed simvastatin 40 mg tablet 40 mg PO HS #0 06/26/08 03/24/22 losartan 100 mg tablet 100 mg PO HS 03/22/20 03/24/22 timolol maleate 0.5 % eye drops 1 drp OPR QAM 10/15/20 03/24/22 warfarin 5 mg tablet See Rx Instructions .ROUTE .COMPLEX 10/15/20 03/24/22 albuterol sulfate 90 mcg/actuation 2 puff INHALATION Q4 PRN 03/24/22 03/24/22 aerosol inhaler fluticasone furoate 200 1 ea INHALATION QAM 03/24/22 03/24/22 mcg-vilanterol 25 mcg/dose inhalation powder (Breo Ellipta) furosemide 20 mg tablet 20 mg PO QAM 03/24/22 03/24/22 levothyroxine 25 mcg tablet 25 mcg PO DAILYBB 03/24/22 03/24/22 terazosin 5 mg capsule 5 mg PO HS 03/24/22 03/24/22 venlafaxine 37.5 mg tablet 37.5 mg PO QAM 03/24/22 03/24/22 Previous Rx's Medication Instructions Recorded allopurinol 100 mg tablet 100 mg PO DAILY #90 tab 01/19/22 finasteride 5 mg tablet (Proscar) 5 mg PO DAILY #90 tab 01/19/22 Results & Data (ED) Vital Signs Vital Signs - 24 hr 03/24/22 19:38 03/24/22 20:16 Temperature 36.8 C Temperature Source Oral Pulse Rate 94 H 82 Respiratory Rate 18 18 Respiratory Effort / Characteristics Non-Labored Respiratory Depth Normal Blood Pressure 156/81 H Blood Pressure Mean 106 Blood Pressure Position Sitting Pulse Oximetry 95 96 Oxygen Delivery Method Room Air Room Air Sepsis Recent Fever Within 48 Hours No Sepsis New/Unexplained Change in Mental Status No Sepsis Action Taken by Nursing No Action Required Home Medications Current Medication List: was personally reviewed by me Laboratory Data Attestation: I reviewed the patient's lab results. Result diagrams: 03/24/22 20:20 03/24/22 20:20 Lab Results 03/24/22 03/24/22 03/24/22 Range/Units 20:15 20:20 20:20 WBC (4.8-10.8) K/uL RBC (4.7-6.1) M/uL Hgb (14.0-18.0) g/dL Hct (42-52) % MCV (80-100) fL MCH (25-34) pg MCHC (32-36) g/dL RDW Std Deviation (36.4-46.3) fL RDW Coeff of Francesco (11.5-14.5) % Plt Count (130-400) K/uL MPV (7.4-10.4) fL Immature Gran % (Auto) % Neut % (Auto) % Lymph % (Auto) % Dixon % (Auto) % Eos % (Auto) % Baso % (Auto) % Neut # (Auto) (1.4-6.5) K/uL Lymph # (Auto) (1.2-3.4) K/uL Dixon # (Auto) (0.11-0.59) K/uL Eos # (Auto) (0-0.5) K/uL Baso # (Auto) (0-0.2) K/uL Immature Gran # (Auto) (0.00-0.02) K/uL PT 24.0 H (9.0-12.0) Seconds INR 2.4 H (0.9-1.1) APTT 42.4 H (21.0-31.0) Seconds PTT Ratio 1.5 Sodium 137 (136-145) mmol/L Potassium 3.8 (3.5-5.1) mmol/L Chloride 105 (98-107) mmol/L Carbon Dioxide 24 (21-32) mmol/L Anion Gap 8 (3-11) BUN 25 H (6-23) mg/dl Creatinine 1.24 (0.6-1.4) mg/dl Est Cr Clr Drug Dosing Not Reportable Est GFR ( Amer) 62.4 ml/min Est GFR (Non-Af Amer) 53.8 ml/min BUN/Creatinine Ratio 20.2 H (10-20) Glucose 94 (70-99(Fasting)) mg/dl Calcium 9.0 (8.5-10.1) mg/dl Magnesium 1.9 (1.7-2.4) mg/dl Total Bilirubin 1.0 (0.2-1.0) mg/dl AST 19 (13-39) U/L ALT 26 (7-52) U/L Alkaline Phosphatase 60 (34-104) U/L Troponin I High Sens 15.6 (0-20) pg/ml Total Protein 6.5 (6.0-8.3) gm/dl Albumin 4.1 (3.4-5.0) gm/dl Globulin 2.4 L (2.5-4.0) gm/dl Albumin/Globulin Ratio 1.7 (0.9-2) TSH (0.300-4.500) uIu/ml Urine Color Urine Appearance (Clear) Urine pH (4.5-7.5) Ur Specific [place] (1.000-1.030) Urine Protein (Negative) Urine Glucose (UA) (Negative) Urine Ketones (Negative) Urine Blood (Negative) Urine Nitrite (Negative) Urine Bilirubin (Negative) Urine Urobilinogen (Negative) Ur Leukocyte Esterase (Negative) Urine WBC (Auto) (0-5) /hpf Urine RBC (Auto) (0-4) /hpf U Hyaline Cast (Auto) (0-5) /lpf U Epithel Cells (Auto) (0-5) /lpf Urine Bacteria (Auto) (Negative) SARS-CoV-2 (PCR) NEGATIVE (Negative) Influenza Type A (PCR) Negative (Neg) Influenza Type B (PCR) Negative (Neg) RSV (RT-PCR) Negative (Neg) 03/24/22 03/24/22 03/24/22 Range/Units 20:20 20:20 21:30 WBC 13.39 H (4.8-10.8) K/uL RBC 4.20 L (4.7-6.1) M/uL Hgb 13.4 L (14.0-18.0) g/dL Hct 40.8 L (42-52) % MCV 97.1 (80-100) fL MCH 31.9 (25-34) pg MCHC 32.8 (32-36) g/dL RDW Std Deviation 52.1 H (36.4-46.3) fL RDW Coeff of Francesco 14.6 H (11.5-14.5) % Plt Count 207 (130-400) K/uL MPV 9.3 (7.4-10.4) fL Immature Gran % (Auto) 0.3 % Neut % (Auto) 73.3 % Lymph % (Auto) 12.2 % Dixon % (Auto) 7.1 % Eos % (Auto) 6.9 % Baso % (Auto) 0.2 % Neut # (Auto) 9.82 H (1.4-6.5) K/uL Lymph # (Auto) 1.63 (1.2-3.4) K/uL Dixon # (Auto) 0.95 H (0.11-0.59) K/uL Eos # (Auto) 0.92 H (0-0.5) K/uL Baso # (Auto) 0.03 (0-0.2) K/uL Immature Gran # (Auto) 0.04 H (0.00-0.02) K/uL PT (9.0-12.0) Seconds INR (0.9-1.1) APTT (21.0-31.0) Seconds PTT Ratio Sodium (136-145) mmol/L Potassium (3.5-5.1) mmol/L Chloride (98-107) mmol/L Carbon Dioxide (21-32) mmol/L Anion Gap (3-11) BUN (6-23) mg/dl Creatinine (0.6-1.4) mg/dl Est Cr Clr Drug Dosing Est GFR ( Amer) ml/min Est GFR (Non-Af Amer) ml/min BUN/Creatinine Ratio (10-20) Glucose (70-99(Fasting)) mg/dl Calcium (8.5-10.1) mg/dl Magnesium (1.7-2.4) mg/dl Total Bilirubin (0.2-1.0) mg/dl AST (13-39) U/L ALT (7-52) U/L Alkaline Phosphatase (34-104) U/L Troponin I High Sens (0-20) pg/ml Total Protein (6.0-8.3) gm/dl Albumin (3.4-5.0) gm/dl Globulin (2.5-4.0) gm/dl Albumin/Globulin Ratio (0.9-2) TSH 1.159 (0.300-4.500) uIu/ml Urine Color Yellow Urine Appearance Clear (Clear) Urine pH 5.5 (4.5-7.5) Ur Specific [place] 1.019 (1.000-1.030) Urine Protein Negative (Negative) Urine Glucose (UA) Negative (Negative) Urine Ketones Trace H (Negative) Urine Blood 1+ H (Negative) Urine Nitrite Negative (Negative) Urine Bilirubin Negative (Negative) Urine Urobilinogen Negative (Negative) Ur Leukocyte Esterase 1+ H (Negative) Urine WBC (Auto) 5-10 H (0-5) /hpf Urine RBC (Auto) 5-10 H (0-4) /hpf U Hyaline Cast (Auto) 1-5 (0-5) /lpf U Epithel Cells (Auto) 10-20 H (0-5) /lpf Urine Bacteria (Auto) Negative (Negative) SARS-CoV-2 (PCR) (Negative) Influenza Type A (PCR) (Neg) Influenza Type B (PCR) (Neg) RSV (RT-PCR) (Neg) Administered Medications Discontinued Medications Sodium Chloride (Nss) 500 mls @ 999 mls/hr IV .Q31M EMILEE Stop: 03/24/22 20:30 Last Infusion: 03/24/22 21:01 Dose: 0 mls/hr Documented by: [id number] Admin: 03/24/22 20:17 Dose: 999 mls/hr Documented by: [id number] Sodium Chloride (Nss 1000ml) 500 mls @ 999 mls/hr IV .Q31M ONE Stop: 03/24/22 22:42 Last Infusion: 03/24/22 22:52 Dose: 0 mls/hr Documented by: [id number] Admin: 03/24/22 22:34 Dose: 999 mls/hr Documented by: [id number] Imaging Data Radiologist's Impression: Cervical Spine CT 03/24/22 19:56 CT OF THE CERVICAL SPINE WITHOUT CONTRAST CLINICAL HISTORY: fall COMPARISON STUDY: Cervical spine CT March 02, 2022. TECHNIQUE: Helical axial images of the cervical spine were obtained without IV contrast. Sagittal and coronal reconstructions were viewed. Automated exposure control was utilized for the study. A dose lowering technique was utilized adhering to the principles of ALARA. FINDINGS: Alignment of the cervical spine is anatomic. Vertebral body heights are maintained. No acute cervical spine fracture or subluxation is present. There is no prevertebral edema. Facet joints are intact. Severe multilevel facet arthrosis is noted. There is also severe multilevel disc space narrowing and osteophytosis. The appearance of the cervical spine is unchanged. Evaluation of the lower cervical spine is mildly compromised by artifact. IMPRESSION: Exam mildly compromised by artifact. No acute cervical spine fracture or subluxation. ACT 112: Negative or not required by law. Electronically signed by: Noah Mary M.D. 03/24/2022 8:[address] 03/24/22 19:56 CT OF THE HEAD WITHOUT CONTRAST CLINICAL HISTORY: fall, coumadin COMPARISON STUDY: Head CT March 02, 2022. CT DOSE: 1413.65 mGy.cm TECHNIQUE: Helical axial images of the head were obtained without IV contrast. Automated exposure control was utilized for the study. A dose lowering technique was utilized adhering to the principles of ALARA. FINDINGS: No acute intracranial hemorrhage, midline shift or mass effect is present. White matter hypodensities represent small vessel disease. The ventricular system is unremarkable. The basal cisterns are patent. No extra- axial collections are present. There are no findings to suggest acute dural sinus thrombosis or acute territorial infarct. No significant calvarial abnormalities are present. Visualized portions of the sinuses and mastoid air cells are clear. Right-sided scleral banding is noted. IMPRESSION: 1. No acute intracranial findings. 2. No acute calvarial fracture. ACT 112: Negative or not required by law. Electronically signed by: Noah Mary M.D. 03/24/2022 8:54 PM Chest X-Ray 03/24/22 19:57 XR chest 1V portable CLINICAL HISTORY: weakness COMPARISON STUDY: Chest CT October 15, 2020. Chest radiograph October 17, 2020. FINDINGS: Lung volumes are normal. Lungs are clear. There is no pneumothorax or pleural effusion. Cardiomegaly is noted. Mediastinal contours are normal. There is no evidence for pulmonary edema. Total right shoulder arthroplasty is partially imaged. IMPRESSION: No acute cardiopulmonary findings. Cardiomegaly. ACT 112: Negative or not required by law. Electronically signed by: Noah Mary M.D. 03/24/2022 8:23 PM Discharge Plan Visit Data Chief Complaint: Fall Stated Complaint: FALLS/HIT HEAD/FATIGUE ED Provider: Bala Cisneros Discharge Problem: Weakness, Falling, Acute head trauma, Slurred speech, Coagulopathy Patient Disposition: Admitted As Inpatient Condition: Fair Forms Stand Alone Forms: My [facility] Prescriptions Prescriptions: No Action simvastatin 40 mg Tablet 40 mg PO HS Qty: 0 RF: 0 finasteride [Proscar] 5 mg tablet 5 mg PO DAILY Qty: 90 RF: 3 allopurinol 100 mg tablet 100 mg PO DAILY Qty: 90 RF: 3 losartan 100 mg tablet 100 mg PO HS RF: 0 warfarin 5 mg tablet See Rx Instructions .ROUTE .COMPLEX RF: 0 timolol maleate 0.5 % drops 1 drp OPR QAM RF: 0 levothyroxine 25 mcg tablet 25 mcg PO DAILYBB RF: 0 furosemide 20 mg tablet 20 mg PO QAM RF: 0 venlafaxine 37.5 mg tablet 37.5 mg PO QAM RF: 0 albuterol sulfate 90 mcg/actuation HFA aerosol inhaler 2 puff INHALATION Q4 PRN (Reason: cough,sob,wheeze) RF: 0 Breo Ellipta 200-25 mcg/dose blister with device 1 ea INHALATION QAM RF: 0 terazosin 5 mg capsule 5 mg PO HS RF: 0 Referrals Referrals: Maday Arzate DO [Primary Care Provider] -
--- NOTE | 2022-03-24 20:25 | XRay Report ---
XR chest 1V portable CLINICAL HISTORY: weakness COMPARISON STUDY: Chest CT October 15, 2020. Chest radiograph October 17, 2020. FINDINGS: Lung volumes are normal. Lungs are clear. There is no pneumothorax or pleural effusion. Car diomegaly is noted. Mediastinal contours are normal. There is no evidence for pulmonary edema. Total right shoulder arthroplasty is partially imaged. IMPRESSION: No acute cardiopulmonary findings. Cardiomegaly. ACT 112: Negative or not required by law. Electronically signed by: Noah Mary M.D. 03/24/2022 8:23 PM
[2022-03-24 20:34] LABS: Basophils # (auto) 0.03 K/uL (0-0.2); Basophils % (auto) 0.2 %; Eosinophils # (auto) 0.92 K/uL (0-0.5); Eosinophils % (auto) 6.9 %; Hematocrit (blood only) 40.8 % (42-52); Hemoglobin 13.4 g/dL (14.0-18.0); Immature Granulocytes # (auto) 0.04 K/uL (0.00-0.02); Immature Granulocytes % (auto) 0.3 %; Lymphocytes # (auto) 1.63 K/uL (1.2-3.4); Lymphocytes % (auto) 12.2 %; Mean Corpuscular Hemoglobin 31.9 pg (25-34); Mean Corpuscular Hgb Conc 32.8 g/dL (32-36); Mean Corpuscular Volume 97.1 fL (80-100); Mean Platelet Volume 9.3 fL (7.4-10.4); Monocytes # (auto) 0.95 K/uL (0.11-0.59); Monocytes % (auto) 7.1 %; Neutrophils # (auto) 9.82 K/uL (1.4-6.5); Neutrophils % (auto) 73.3 %; Platelet Count 207 K/uL (130-400); RDW Coefficient of Variation 14.6 % (11.5-14.5); RDW Standard Deviation 52.1 fL (36.4-46.3); White Blood Count 13.39 K/uL (4.8-10.8)
[2022-03-24 20:45] LABS: INR 2.4 (0.9-1.1); Partial Thromboplastin Ratio 1.5; Partial Thromboplastin Time 42.4 Seconds (21.0-31.0)
--- NOTE | 2022-03-24 20:55 | CT Scan Report ---
CT OF THE HEAD WITHOUT CONTRAST CLINICAL HISTORY: fall, coumadin COMPARISON STUDY: Head CT March 02, 2022. CT DOSE: 1413.65 mGy.cm TECHNIQUE: Helical axial images of the head were obtained without IV contrast. Automated exposure con trol was utilized for the study. A dose lowering technique was utilized adhering to the principles o f ALARA. FINDINGS: No acute intracranial hemorrhage, midline shift or mass effect is present. White matter hyp odensities represent small vessel disease. The ventricular system is unremarkable. The basal cisterns are patent. No extra-axial collections are present. There are no findings to suggest acute dural sin us thrombosis or acute territorial infarct. No significant calvarial abnormalities are present. Visua lized portions of the sinuses and mastoid air cells are clear. Right-sided scleral banding is noted. IMPRESSION: 1. No acute intracranial findings. 2. No acute calvarial fracture. ACT 112: Negative or not required by law. Electronically signed by: Noah Mary M.D. 03/24/2022 8:54 PM
--- NOTE | 2022-03-24 20:59 | CT Scan Report ---
CT OF THE CERVICAL SPINE WITHOUT CONTRAST CLINICAL HISTORY: fall COMPARISON STUDY: Cervical spine CT March 02, 2022. TECHNIQUE: Helical axial images of the cervical spine were obtained without IV contrast. Sagittal a nd coronal reconstructions were viewed. Automated exposure control was utilized for the study. A do se lowering technique was utilized adhering to the principles of ALARA. FINDINGS: Alignment of the cervical spine is anatomic. Vertebral body heights are maintained. No acut e cervical spine fracture or subluxation is present. There is no prevertebral edema. Facet joints are intact. Severe multilevel facet arthrosis is noted. There is also severe multilevel disc space narr owing and osteophytosis. The appearance of the cervical spine is unchanged. Evaluation of the lower c ervical spine is mildly compromised by artifact. IMPRESSION: Exam mildly compromised by artifact. No acute cervical spine fracture or subluxation. ACT 112: Negative or not required by law. Electronically signed by: Noah Mary M.D. 03/24/2022 8:58 PM
[2022-03-24 21:01] LABS: Alanine Aminotransferase 26 U/L (7-52); Albumin Globulin Ratio 1.7 (0.9-2); Albumin Level 4.1 gm/dl (3.4-5.0); Alkaline Phosphatase 60 U/L (34-104); Anion Gap 8 (3-11); Aspartate Aminotransferase 19 U/L (13-39); BUN Creatinine Ratio 20.2 (10-20); Blood Urea Nitrogen 25 mg/dl (6-23); Carbon Dioxide 24 mmol/L (21-32); Chloride 105 mmol/L (98-107); Est GFR (African American) 62.4 ml/min; Est GFR (Non-African American) 53.8 ml/min; Globulin 2.4 gm/dl (2.5-4.0); Glucose 94 mg/dl (70-99(Fasting)); Magnesium 1.9 mg/dl (1.7-2.4); Potassium 3.8 mmol/L (3.5-5.1); Sodium 137 mmol/L (136-145); Total Protein 6.5 gm/dl (6.0-8.3)
[2022-03-24 21:07] LABS: Troponin I High Sensitivity 15.6 pg/ml (0-20)
[2022-03-24 21:21] LABS: Influenza A virus by PCR Negative (Neg); Influenza B virus by PCR Negative (Neg); RSV by PCR Negative (Neg); SARS CoV2 RNA(COVID-19) InHosp NEGATIVE (Negative)
[2022-03-24] MEDS ORDERED: SODIUM CHLORIDE 0.9% 1000ML 500 ML IV ONE (22:12)
[2022-03-24 22:22] LABS: Appearance Urine Clear (Clear); Bacteria Urine Automated Negative (Negative); Bilirubin Urine Negative (Negative); Blood Urine 1+ (Negative); Color Urine Yellow; Glucose Urine UA Negative (Negative); Ketones Urine Trace (Negative); Leukocyte Esterase Urine 1+ (Negative); Nitrite Urine Negative (Negative); Protein Urine Negative (Negative); Specific Gravity Urine 1.019 (1.000-1.030); Urobilinogen Urine Negative (Negative); pH Urine 5.5 (4.5-7.5)
[2022-03-25] MEDS ORDERED: SODIUM CHLORIDE 0.9% 1000ML 1,000 ML IV SCH (00:44)
[2022-03-25] MEDS ORDERED: PHARMACIST DISCHARGE MED REC CONSULT PRN (00:44)
[2022-03-25] MEDS ORDERED: NITROGLYCERIN SL 0.4 MG/TAB TAB SL PRN (00:44)
[2022-03-25] MEDS ORDERED: ALBUTEROL HFA 8 GM INHALER INH PRN (00:44)
[2022-03-25] MEDS ORDERED: ACETAMINOPHEN 325 MG TAB PO PRN (00:44)
[2022-03-25] MEDS: WARFARIN SOD 5 MG TAB PO SCH ×2 (01:30→16:53)
[2022-03-25] MEDS: cefTRIAXone SODIUM 2,000 MG in DEXTROSE 5% 50 ML IV SCH (01:45)
[2022-03-25] MEDS: LEVOTHYROXINE SODIUM 25 MCG TABLET PO SCH (06:00)
--- NOTE | 2022-03-25 06:17 | History and Physical Report ---
DATE OF ADMISSION: 03/24/2022. CHIEF COMPLAINT: Fall. HISTORY OF PRESENT ILLNESS: This is an 81-year-old male with past medical history significant for hyperlipidemia, obstructive sleep apnea, not using CPAP machine, history of moderate persistent asthma, atherosclerotic cardiovascular disease, history of CA, history of chronic diastolic congestive heart failure, hypertension, history of chronic saddle pulmonary embolism, history of CAD s/p stent, carotid artery plaque bilateral, GERD, chronic kidney disease stage III, osteoarthritis, history of glaucoma, Sicca syndrome, status post insertion of spinal cord stimulator, presents with falls. The patient fell a couple of times today, first was when he was camping he tripped and fell on the grass, and second when he was taking shower. He does not know how he fell in shower .Both the times he hit his head, first time on the grass and second time on the hard floor. Says has small bump on the back of the head, but no loss of consciousness. First time when he fell on the camp, his son says when he got up and was sitting he had a slurred speech for a brief period of time. Denies any dizziness. No blurred visions, no earache, no runny nose, no sore throat, no cough, no difficulty swallowing. Appetite is okay. No fevers, no chest pain, no shortness of breath. No nausea, no vomiting, no abdominal pain. Normal bowel and bladder movements. No blood in the stools or black stools, no hematuria, no burning micturition. Has chronic somewhat mild swelling in the legs. Currently, hemodynamically stable. ALLERGIES: OXYCODONE, TAPE, IBUPROFEN, LATEX. PAST MEDICAL HISTORY: As mentioned above. PAST SURGICAL HISTORY: Left knee arthroplasty, left hand carpal tunnel surgery, left heart catheterization, stent placement, colonoscopy, coronary artery dilatation, dental surgery, EGDs, surgery for varicoceole on the left, surgery for blocked lacrimal ducts bilaterally, foot surgery for left foot hammertoe, total hip replacement, repair of nasal septum, reverse total shoulder arthroplasty. MEDICATIONS: The patient is on albuterol 2 puffs inhalation q. 4 hours p.r.n., allopurinol 100 mg p.o. daily, finasteride 5 mg p.o. daily, Breo Ellipta one inhalation daily, furosemide 20 mg p.o. a.m., levothyroxine 25 mcg p.o. daily, losartan 100 mg p.o. at bedtime, simvastatin 40 mg p.o. at bedtime, terazosin 5 mg p.o. at bedtime, timolol maleate one drop ophthalmic in the a.m., venlafaxine 37.5 mg in the Am, Coumadin as directed. FAMILY HISTORY: Significant for brother has Down syndrome, heart disorder; mother has hypertension; brother has back surgeries; maternal grandmother has stroke. SOCIAL HISTORY: . Former smoker, who quit in 1968. Smoked half pack a day for 10 years. Alcohol rare, no drug use. REVIEW OF SYSTEMS: As per HPI. Rest of review of systems is negative. PHYSICAL EXAMINATION: GENERAL: The patient is alert and oriented, not in acute distress. VITAL SIGNS: Temperature 36.2, pulse 82, respiratory rate 18, blood pressure 156/81, oxygen 96% on room air. HEENT: Pupils equal, round and reactive to light. Oral mucosa somewhat dry. NECK: No JVD, no neck masses. CARDIOVASCULAR: S1 and S2 heard. Regular rate and rhythm. No murmur, no gallop. RESPIRATORY SYSTEM: Normal AP diameter. No accessory muscle use. No wheezing, no crackles. ABDOMEN: Soft. Bowel sounds are present, nontender, no distention. CENTRAL NERVOUS SYSTEM: Cranial nerves II through XII are grossly intact. Extraocular muscles intact. No facial droop. Power 5/5 in all extremities. Coordination of movements normal. No pronator drift. Sensation is intact. Position sense intact. EXTREMITIES: Bilateral pedal edema present, no erythema seen. LABORATORY: WBC 13.39, hemoglobin 13.4, hematocrit 40.8, platelets 207. PT 24, INR 2.4, APTT 24.4. Sodium 137, potassium 3.8, chloride 105, bicarb 24, BUN 25, creatinine 1.25, serum glucose 94, calcium 9, magnesium 1.9, total bilirubin 1, AST 19, ALT 26, alkaline phosphatase 60. Troponin I high sensitivity 15.6. TSH is 1.5. Urinalysis, +1 leukocyte esterase. SARS-CoV-2 PCR negative. Influenza A and B PCR negative. RSV PCR negative. IMAGING DATA: Chest x-ray, no acute cardiopulmonary findings. CT of the head without contrast, no acute findings. CT of cervical spine without contrast, no acute findings. EKG: Normal sinus rhythm at a rate of 95, possible left atrial enlargement. No acute ST changes seen. ASSESSMENT AND PLAN: This is an 81-year-old male who presents with frequent falls and questionable transient slurred speech. 1. Questionable transient slurred speech: Possible transient ischemic attack. Initial CT of the head is okay. Will do stroke workup with MRI scan, carotid Dopplers, echocardiogram,tele monitoring. Speech evaluation, neuro evaluation in the a.m. PT, OT evaluation. Closely monitor. The patient is on a statin, will start aspirin. Follow the results. 2. Frequent falls: Could be from transient ischemic attack, will check orthostatics. Follow the echocardiogram. Monitor in tele. Gentle fluids. Also could be possibly from urinary tract infection 3. Leukocytosis: Recently received prednisone for bronchitis, also possible urinary tract infection. Empirically started on Rocephin. Follow the urine cultures. 4. History of pulmonary embolism, on Coumadin. INR therapeutic. Follow the PT/INR. 5. History of benign prostatic hypertrophy: The patient is on finasteride and terazosin. 6. History of depression: On venlafaxine. 7. History of hyperlipidemia: On statin. 8. History of hypertension: On losartan and terazosin. Will monitor the blood pressure. 9. History of chronic diastolic congestive heart failure: On Lasix. Will monitor for volume overload. 10. Chronic kidney disease stage III: Presents with creatinine of 1.2. Will follow the labs. 11. History of coronary artery disease, status post stent: On statin and losartan. 12. History of sleep apnea: Noncompliant with CPAP. During the stay in the hospital, may do a nocturnal pulse ox study. 13. History of moderate persistent asthma, currently stable: Continue his albuterol. 14. History of carotid stenosis: Follow the carotid Doppler. 15. Deep venous thrombosis prophylaxis: Placed on sequential compression devices. DISPOSITION: Closely monitor in the med tele. PT/OT prior to discharge. Social service to help with discharge planning. Job ID: [id number] [facility]
[2022-03-25 06:38] LABS: Basophils # (auto) 0.04 K/uL (0-0.2); Basophils % (auto) 0.3 %; Eosinophils # (auto) 1.01 K/uL (0-0.5); Eosinophils % (auto) 8.4 %; Hematocrit (blood only) 37.8 % (42-52); Hemoglobin 12.2 g/dL (14.0-18.0); Immature Granulocytes # (auto) 0.04 K/uL (0.00-0.02); Immature Granulocytes % (auto) 0.3 %; Lymphocytes % (auto) 14.1 %; Mean Corpuscular Hemoglobin 31.4 pg (25-34); Mean Corpuscular Hgb Conc 32.3 g/dL (32-36); Mean Corpuscular Volume 97.4 fL (80-100); Mean Platelet Volume 9.6 fL (7.4-10.4); Monocytes # (auto) 1.04 K/uL (0.11-0.59); Monocytes % (auto) 8.6 %; Neutrophils % (auto) 68.3 %; Platelet Count 206 K/uL (130-400); RDW Coefficient of Variation 14.6 % (11.5-14.5); RDW Standard Deviation 52.1 fL (36.4-46.3); Red Blood Count 3.88 M/uL (4.7-6.1); White Blood Count 12.03 K/uL (4.8-10.8)
[2022-03-25 06:58] LABS: INR 2.1 (0.9-1.1); Prothrombin Time 21.8 Seconds (9.0-12.0)
[2022-03-25 07:11] LABS: BUN Creatinine Ratio 19.8 (10-20); Calcium 8.3 mg/dl (8.5-10.1); Chol HDL Ratio 2.6 (0-5); Creatinine Clr Calc Pharmacy 69.5 ml/min; Est GFR (African American) 71.3 ml/min; Est GFR (Non-African American) 61.5 ml/min; Magnesium 1.9 mg/dl (1.7-2.4); Potassium 3.6 mmol/L (3.5-5.1)
[2022-03-25 08:12] LABS: Estimated Average Glucose 128 mg/dl; Hemoglobin A1C 6.1 % (4.5-5.6)
[2022-03-25] MEDS: FLUTICASONE/VILANTEROL 200/25MCG 14 PUFFS/INHALER INH SCH (08:48)
[2022-03-25] MEDS: TIMOLOL MALEATE 0.5% OP SOLN 5 ML BTL OPR SCH (08:48)
[2022-03-25] MEDS: allopurinoL 100 MG TAB PO SCH (08:49)
[2022-03-25] MEDS: FINASTERIDE 5 MG TAB PO SCH (08:49)
[2022-03-25] MEDS: FUROSEMIDE 20 MG TAB PO SCH (08:49)
[2022-03-25] MEDS: VENLAFAXINE HCL 37.5 MG TAB PO SCH (08:50)
[2022-03-25] MEDS: ASPIRIN 81 MG ECTAB PO SCH (08:50)
--- NOTE | 2022-03-25 08:52 | Ultrasound Report ---
BILATERAL CAROTID DOPPLER STUDY HISTORY: Transient ischemic attack. COMPARISON: None. TECHNIQUE: Real-time, grayscale, and color Doppler sonography of the carotid arteries was performed. Imaging reviewed in the transverse and longitudinal planes. All measurements were calculated based on NASCET criteria. FINDINGS: Antegrade flow is seen in the bilateral vertebral arteries. Mild calcified plaque within the right carotid bulb. The peak systolic velocity within the right ICA is 106 cm/s. The right systolic ratio is 1.4. The peak systolic velocity within the left ICA is 86 cm/s. The left systolic ratio is 1.0. IMPRESSION: No hemodynamically significant stenosis seen within the carotid arteries. ACT 112: Negative or not required by law. Electronically signed by: Ochoa Fry M.D. 03/25/2022 8:51 AM
[2022-03-25] MEDS ORDERED: cefTRIAXone SODIUM 1,000 MG in DEXTROSE 5% 50 ML IV SCH (09:00)
--- NOTE | 2022-03-25 09:18 | Electrocardiogram Report ---
Test Reason : Blood Pressure : / mmHG Vent. Rate : 095 BPM Atrial Rate : 095 BPM P-R Int : 148 ms QRS Dur : 090 ms QT Int : 380 ms P-R-T Axes : 047 -15 039 degrees QTc Int : 477 ms Normal sinus rhythm Normal ECG When compared with ECG of 01-FEB-2021 09:59, Vent. rate has increased BY 33 BPM Confirmed by Adonis Ruff ([id number]) on 03/25/2022 9:17:47 AM Referred By: REFERRED SELF Confirmed By:Adonis Ruff
--- NOTE | 2022-03-25 11:31 | Consultation Report ---
REASON FOR CONSULTATION: Possible transient ischemic attack. HISTORY OF PRESENT ILLNESS: The patient is an 81-year-old male with hyperlipidemia, obstructive sleep apnea, not using CPAP, moderate persistent asthma, atherosclerotic heart disease, history of HI, history of chronic diastolic congestive heart failure, hypertension, chronic saddle pulmonary embolus, on Coumadin, history of coronary artery disease, status post stents, history of carotid artery plaque, reflux, chronic kidney disease, osteoarthritis, glaucoma, sicca syndrome and status post insertion of a spinal cord stimulator 5 or 6 years ago, presenting with falls. Earlier in the month, the patient fell when he was trying to get up from a rolling chair. He struck the back of his head and otherwise did well, although several days later came to the hospital for imaging which was noncontributory. Yesterday, he was at his camp and he was walking up a set of steps. He believes he caught his right foot and then fell down forward on his knees without hitting his head. He attempted to stand up and then fell backwards and could not get up. When his sons found him, he was sitting and he had slurred speech for a brief period of time. The patient denies any other symptoms such as lightheadedness, vertigo, change in vision, unilateral weakness, numbness, facial droop. He has otherwise been well. Later in the day, he was showering and his [id number] came by to check on him. He indicates without prodrome he fell out of the shower and could not get up. When his [id number] found him, he had some slurred speech, which was brief. Several weeks ago, he took prednisone for bronchitis which seems to be improving. He stopped that about a week ago and was recently started on some nonsteroidal per his description, although I am not sure of what that is. Otherwise, there was no change in medications. He has been well. There have not been fevers, chills, sweats, weight loss, vomiting, nausea, abdominal pain, change in bowel or bladder habits. He has chronic and unchanged back pain. In general, he does not otherwise feel weak, does not have numbness in his feet. No incontinence of bowel or bladder, and generally otherwise does not fall. PAST MEDICAL HISTORY: As above. PAST SURGICAL HISTORY: Left knee arthroplasty, left carpal tunnel, cardiac catheterization, stent placement, colonoscopy, coronary artery dilatation, dental surgery, EGD, surgery for varicocele on the last, surgery for blocked lacrimal ducts, foot surgery for left foot hammertoe, left total hip, repair of nasal septum, and reverse right total shoulder arthroplasty. HOME MEDICINES: Albuterol, allopurinol, finasteride, Breo Ellipta, furosemide, levothyroxine, losartan, simvastatin, terazosin, timolol eyedrops, venlafaxine, and Coumadin as directed. FAMILY HISTORY: Brother has Down syndrome and heart disease; mother, hypertension; brother, back surgeries; maternal grandmother had stroke. SOCIAL HISTORY: . Stopped smoking in 1968. Alcohol, rare. No drug use. LABORATORY DATA: White count on admission 13.39, today 12.03, H and H 13.4/40.8, platelet count 207. PT 24, INR 2.4. Electrolytes unremarkable. BUN 25/1.24. Transaminases normal. LDL 33, glucose 87. Urinalysis notable for trace ketones, 1+ blood, +1 leukocyte esterase, 5-10 white cells and 5-10 red cells, 10-20 epithelial cells, bacteria negative. COVID negative. Influenza negative. Urine clean catch, positive group F beta strep. IMAGING DATA: CT of the head, which I reviewed, shows chronic vascular changes without acute abnormalities and no hemorrhage. Carotid ultrasound shows antegrade flow in the vertebrals and no significant stenosis seen within the carotids. Cervical spine CT mildly compromised by artifact. No acute cervical spine fracture or subluxation. ELECTROCARDIOGRAM: Normal sinus rhythm, normal ECG. PHYSICAL EXAMINATION: VITAL SIGNS: When orthostatics were checked, no significant orthostatic changes were noted in pulse or blood pressure. Current vitals 133/71, 93%, pulse 90, temperature 37.1. GENERAL: On exam, the patient is awake and alert. Speech and language are normal and affect is appropriate. He is oriented x3. There are no carotid bruits, no heart murmurs. HEART: Regular rate and rhythm. NEUROLOGIC: Pupils are postsurgical. Optic nerves are grossly normal. There is normal motility, visual faith, facial sensation, and facial symmetry. Tongue is midline and speech is nondysarthric. Motor, full strength in the upper and lowers. No drift. Minimal tremor on intention. [id number]-bf-[id number] is normal. Reflexes are symmetric. Ankle jerks are absent. Toes are downgoing. Vibration is present at the toes. Gait was fairly unremarkable for age. Romberg was negative. IMPRESSION: Two episodes of falls, accompanied by dysarthria, raising the question of transient ischemia, orthostatic lightheadedness, arrhythmia. PLAN: The patient is to have an MRI of the brain. We will add an MRA of the head. Recommend checking an echo. He does not appear to be orthostatic. Recommend cardiac monitoring for arrhythmia. Query episodes related to infection, although recent bronchitis , query transient ischemic attack. Plan as above. Evaluate vascular risk. The patient already taking Coumadin and antiplatelet therapy with aspirin. Will follow with you. Job ID: [id number] [facility]
[2022-03-25] MEDS ORDERED: GADOBUTROL 65ML VIAL IV ONE (11:36)
--- NOTE | 2022-03-25 11:43 | Magnetic Resonance Report ---
Brain MRI WITH AND WITHOUT CONTRAST HISTORY: Weakness. Slurred speech. Fall. TECHNIQUE: Multiplanar multisequence MRI of the brain was performed both before and after the intrave nous administration of contrast. COMPARISON STUDY: Head CT 03/24/2022 FINDINGS: There is no mass, hematoma, midline shift, or acute infarct. The paranasal sinuses are naomi r. The mastoid air cells are clear. The ventricles and sulci demonstrate mild age-related involutiona l changes. Scattered foci of T2 hyperintensity seen within the periventricular and subcortical white matter are nonspecific but suggestive of mild microvascular ischemic changes. The major vascular flow voids at the skull base are well-maintained. No abnormal enhancement. IMPRESSION: No acute intracranial abnormality. Scattered foci of T2 hyperintensity seen within the periventricula r and subcortical white matter are nonspecific but favor microvascular ischemic change. ACT 112: Negative or not required by law. Electronically signed by: Ochoa Fry M.D. 03/25/2022 11:42 AM
--- NOTE | 2022-03-25 11:47 | Magnetic Resonance Report ---
Brain MRA HISTORY: Multiple falls. Slurred speech. tia TECHNIQUE: 3-D [id number] MRA of the brain was performed without contrast. COMPARISON STUDY: None. FINDINGS: Mild motion artifact. This results in suboptimal evaluation of bilateral MCAs. Visualized i ntracranial internal carotid arteries, distal vertebral arteries, and basilar artery are widely paten t. There is no significant stenosis, occlusion, or aneurysm seen within the bilateral ACAs, MCAs, or geriatrician. IMPRESSION: Mild motion artifact. However, no significant stenosis, occlusion, or aneurysm within the viejas of [place] ill[place]. ACT 112: Negative or not required by law. Electronically signed by: Ochoa Fry M.D. 03/25/2022 11:46 AM
--- NOTE | 2022-03-25 15:14 | Hospitalist Progress Note ---
Date of Service March 25, 2022 Assessment & Plan (1) Falling: (2) Slurred speech: Plan: 81-year-old male who presents with frequent falls and questionable transient slurred speech 03/24 to our ED. He is being managed for the following: #. Frequent falls #. Questionable transient slurred speech Patient was camping and had 2 falls around 2 hours apart on the day of arrival. First fall - patient believes he tripped over and fell on the grass. Second fall was while taking shower he fell on his back on hard floor. Both time he hit his head. Denies loss of consciousness. After the first fall, he was noted to have some slurred speech for a minute or 2. Did not have slurred speech after the second fall per patient. Orthostatic vitals negative, admitting EKG with NSR. Admitting MRA head and carotid Doppler with no acute/significant findings. Admitting C-spine CT and head CT with no acute findings. Admitting CXR with no acute findings. Admitting brain MRI with no acute intracranial abnormality. Nonspecific changes suggestive of microvascular ischemic changes in periventricular and subcortical white matter. Patient status post IV fluid at admission, will continue to monitor over telemetry. TIA versus arrhythmia versus recent bronchitis/UTI Neurology evaluated, appreciate recs Await echo. Continue to monitor. Continue with home meds. Continue to treat UTI. #. Leukocytosis: Likely secondary to prednisone received recently for bronchitis versus UTI #. UTI WBC elevated at 13.3 9K at presentation, UA suggestive of UTI, await urine culture Continue with Rocephin 03/25. Follow-up with urine culture. #. History of PE Per patient, he had RLE DVT and PE 3 years ago which seems unprovoked per patient's description and since then he has been on Coumadin. Patient on Coumadin at home, continue same. #. Other chronic medical conditions: BPH, depression, HLD, HTN, CKD stage III, chronic diastolic congestive heart failure, sleep apnea, moderate persistent asthma currently stable, carotid restenosis. Continue with/resume home meds as and when appropriate. #. DVT prophylaxis: On warfarin DISPOSITION: Closely monitor in the med tele. PT/OT prior to discharge. Social service to help with discharge planning. Admission and Anticipated Discharge Date Admission Date: March 25, 2022 Subjective Patient seen and examined at bedside as a follow-up of fall, questionable transient slurred speech and rule out TIA versus arrhythmia. Patient was sitting up in chair, on room air, NAD, no new issues overnight. Patient denies any headache/lightheadedness/dizziness/chest pain/palpitatio n/sore throat/cough/belly pain/acute changes in his bowel or bladder habit. Physical Exam Physical Exam: GENERAL: Alert and oriented x3. NAD, on RA. HEENT: No pallor, no icterus. Pupils equal, round and reactive to light. Oral mucosa moist. NECK: No JVD, no neck masses. HEART: S1 and S2 heard. Regular rate and rhythm. No murmur, no gallop. RESPIRATORY SYSTEM: Normal AP diameter. No accessory muscle use. No wheezing, no crackles. ABDOMEN: Soft, bowel sounds present, nontender, no distention. CENTRAL NERVOUS SYSTEM: No facial droop. Speech is clear. Obeys simple commands. Moves extremities. EXTREMITIES: 1+ BLE edema, no erythema seen. Results & Data Results & Data ([facility]) Vital Signs (Past 12 Hours) Vital Signs Temp Pulse Pulse Resp BP Pulse Ox 03/25/22 11:48 37.0 C 87 20 158/88 H 96 03/25/22 08:00 90 03/25/22 07:15 37.1 C 90 17 133/71 93 03/25/22 03:11 36.8 C 101 H 18 132/70 94
[2022-03-25] MEDS ORDERED: TERAZOSIN HCL 5 MG CAP PO SCH (21:00)
[2022-03-25] MEDS ORDERED: SIMVASTATIN 40 MG TAB PO SCH (21:00)
[2022-03-25] MEDS ORDERED: LOSARTAN POTASSIUM 50 MG TAB PO SCH (21:00)
[2022-03-26] MEDS: cefTRIAXone SODIUM 2,000 MG in DEXTROSE 5% 50 ML IV SCH (01:00)
[2022-03-26] MEDS: LEVOTHYROXINE SODIUM 25 MCG TABLET PO SCH (05:49)
[2022-03-26 06:19] LABS: Basophils # (auto) 0.03 K/uL (0-0.2); Basophils % (auto) 0.3 %; Eosinophils # (auto) 0.73 K/uL (0-0.5); Eosinophils % (auto) 6.6 %; Hemoglobin 11.9 g/dL (14.0-18.0); Immature Granulocytes # (auto) 0.03 K/uL (0.00-0.02); Immature Granulocytes % (auto) 0.3 %; Lymphocytes # (auto) 1.72 K/uL (1.2-3.4); Lymphocytes % (auto) 15.5 %; Mean Corpuscular Hemoglobin 32.4 pg (25-34); Mean Corpuscular Hgb Conc 33.1 g/dL (32-36); Mean Corpuscular Volume 98.1 fL (80-100); Mean Platelet Volume 9.4 fL (7.4-10.4); Monocytes % (auto) 6.3 %; Neutrophils # (auto) 7.92 K/uL (1.4-6.5); Platelet Count 190 K/uL (130-400); RDW Coefficient of Variation 14.3 % (11.5-14.5); RDW Standard Deviation 51.6 fL (36.4-46.3); Red Blood Count 3.67 M/uL (4.7-6.1); White Blood Count 11.13 K/uL (4.8-10.8)
[2022-03-26 06:37] LABS: BUN Creatinine Ratio 19.7 (10-20); Calcium 8.4 mg/dl (8.5-10.1); Creatinine Clr Calc Pharmacy 65.8 ml/min; Est GFR (African American) 66.9 ml/min; Est GFR (Non-African American) 57.7 ml/min; Magnesium 1.9 mg/dl (1.7-2.4); Phosphorus 2.9 mg/dl (2.5-4.9); Potassium 3.8 mmol/L (3.5-5.1)
[2022-03-26 07:00] LABS: INR 2.1 (0.9-1.1); Prothrombin Time 21.9 Seconds (9.0-12.0)
[2022-03-26] MEDS: ASPIRIN 81 MG ECTAB PO SCH (08:54)
[2022-03-26] MEDS: FUROSEMIDE 20 MG TAB PO SCH (08:54)
[2022-03-26] MEDS: allopurinoL 100 MG TAB PO SCH (08:54)
[2022-03-26] MEDS: FINASTERIDE 5 MG TAB PO SCH (08:54)
[2022-03-26] MEDS: TIMOLOL MALEATE 0.5% OP SOLN 5 ML BTL OPR SCH (08:55)
[2022-03-26] MEDS: VENLAFAXINE HCL 37.5 MG TAB PO SCH (08:55)
[2022-03-26] MEDS: FLUTICASONE/VILANTEROL 200/25MCG 14 PUFFS/INHALER INH SCH (08:55)
--- NOTE | 2022-03-26 11:20 | Progress Notes ---
DATE OF NOTE: 03/26/2022 SUBJECTIVE: I am seeing the patient in followup of 2 falls with some mild slurred speech thereafter. MRI of the brain, which I have reviewed is unremarkable showing no acute abnormality. An MRA of th e head, which I have also reviewed, showed mild motion artifact; however, no significant stenosis, oc clusion or aneurysm within the c[place] de[place] of [place]. The patient's echo, moderate LVH, ejection fraction 60-65%, mild aortic valve sclerosis, no evidence of an atrial septal defect, but resolution does not allow assessment for a PFO. No shunt detected by the administration of agitated saline. Great vess els are unremarkable. Left atrial size is normal. The patient's white count is continuing to declin e, likely as time passes from his prednisone use. His hemoglobin A1c is 6.1 and his LDL is 33. OBJECTIVE: Patient is awake and alert. Speech and language are normal and affect is appropriate. IMPRESSION: This patient sustained several falls, the etiology of which is unknown. There is mild d ysarthria, which is otherwise nonlocalizing. Hypotension arrhythmia among other things could cause t he same. PLAN: I would not change his anticoagulant or antiplatelet therapy as I believe that would put him a t more risk for bleeding complications when the etiology of the spell is not known. I would recommen d the patient wear a 2-week security monitor after discharge. The patient can see us back as needed. Job ID: [id number]
[2022-03-26] MEDS ORDERED: STROKE PATIENT DISCHARGE STA (12:59)
--- NOTE | 2022-03-26 12:59 | Discharge Summary ---
Date of Service March 26, 2022 Admission HPI Per Admitting Provider HISTORY OF PRESENT ILLNESS: This is an 81-year-old male with past medical history significant for hyperlipidemia, obstructive sleep apnea, not using CPAP machine, history of moderate persistent asthma, atherosclerotic cardiovascular disease, history of UT, history of chronic diastolic congestive heart failure, hypertension, history of chronic saddle pulmonary embolism, history of CAD s/p stent, carotid artery plaque bilateral, GERD, chronic kidney disease stage III, osteoarthritis, history of glaucoma, Sicca syndrome, status post insertion of spinal cord stimulator, presents with falls. The patient fell a couple of times today, first was when he was camping he tripped and fell on the grass, and second when he was taking shower. He does not know how he fell in shower .Both the times he hit his head, first time on the grass and second time on the hard floor. Says has small bump on the back of the head, but no loss of consciousness. First time when he fell on the camp, his son says when he got up and was sitting he had a slurred speech for a brief period of time. Denies any dizziness. No blurred visions, no earache, no runny nose, no sore throat, no cough, no difficulty swallowing. Appetite is okay. No fevers, no chest pain, no shortness of breath. No nausea, no vomiting, no abdominal pain. Normal bowel and bladder movements. No blood in the stools or black stools, no hematuria, no burning micturition. Has chronic somewhat mild swelling in the legs. Currently, hemodynamically stable. ALLERGIES: OXYCODONE, TAPE, IBUPROFEN, LATEX. PAST MEDICAL HISTORY: As mentioned above. PAST SURGICAL HISTORY: Left knee arthroplasty, left hand carpal tunnel surgery, left heart catheterization, stent placement, colonoscopy, coronary artery dilatation, dental surgery, EGDs, surgery for varicoceole on the left, surgery for blocked lacrimal ducts bilaterally, foot surgery for left foot hammertoe, total hip replacement, repair of nasal septum, reverse total shoulder arthroplasty. MEDICATIONS: The patient is on albuterol 2 puffs inhalation q. 4 hours p.r.n., allopurinol 100 mg p.o. daily, finasteride 5 mg p.o. daily, Breo Ellipta one inhalation daily, furosemide 20 mg p.o. a.m., levothyroxine 25 mcg p.o. daily, losartan 100 mg p.o. at bedtime, simvastatin 40 mg p.o. at bedtime, terazosin 5 mg p.o. at bedtime, timolol maleate one drop ophthalmic in the a.m., venlafaxine 37.5 mg in the Am, Coumadin as directed. FAMILY HISTORY: Significant for brother has Down syndrome, heart disorder; mother has hypertension; brother has back surgeries; maternal grandmother has stroke. SOCIAL HISTORY: . Former smoker, who quit in 1968. Smoked half pack a day for 10 years. Alcohol rare, no drug use. REVIEW OF SYSTEMS: As per HPI. Rest of review of systems is negative. Admission Exam Per Admitting Provider GENERAL: The patient is alert and oriented, not in acute distress. VITAL SIGNS: Temperature 36.2, pulse 82, respiratory rate 18, blood pressure 156/81, oxygen 96% on room air. HEENT: Pupils equal, round and reactive to light. Oral mucosa somewhat dry. NECK: No JVD, no neck masses. CARDIOVASCULAR: S1 and S2 heard. Regular rate and rhythm. No murmur, no gallop. RESPIRATORY SYSTEM: Normal AP diameter. No accessory muscle use. No wheezing, no crackles. ABDOMEN: Soft. Bowel sounds are present, nontender, no distention. CENTRAL NERVOUS SYSTEM: Cranial nerves II through XII are grossly intact. Extraocular muscles intact. No facial droop. Power 5/5 in all extremities. Coordination of movements normal. No pronator drift. Sensation is intact. Position sense intact. EXTREMITIES: Bilateral pedal edema present, no erythema seen. Principal Diagnosis Fall, question of TIA versus arrhythmia UTI Discharge Exam GENERAL: Alert and oriented x3. NAD, on RA. HEENT: No pallor, no icterus. Pupils equal, round and reactive to light. Oral mucosa moist. NECK: No JVD, no neck masses. HEART: S1 and S2 heard. Regular rate and rhythm. No murmur, no gallop. RESPIRATORY SYSTEM: Normal AP diameter. No accessory muscle use. No wheezing, no crackles. ABDOMEN: Soft, bowel sounds present, nontender, no distention. CENTRAL NERVOUS SYSTEM: No facial droop. Speech is clear. Obeys simple commands. Moves extremities. EXTREMITIES: 1+ BLE edema, no erythema seen. Discharge Data Allergies Allergy/AdvReac Type Severity Reaction Status Date / Time adhesive Allergy Intermediate RASH FROM Verified 03/24/22 21:36 TAPE APPLIED FOR 7 DAYS. latex Allergy Intermediate red rash, Verified 03/24/22 21:36 blisters ibuprofen AdvReac Mild NAUSEA Verified 03/24/22 21:36 oxycodone AdvReac Mild upset Verified 03/24/22 21:36 stomach Consultations 03/25/22 08:00 Consult Neurology Routine Ordered Studies 03/24/22 19:56 CT cervical spine wo con Stat CT head/brain wo con Stat 03/25/22 00:44 MR brain wo/w con Urgent US carotid doppler BI Routine 03/25/22 10:31 MR angio head wo con Routine Hospital Course (1) Falling: (2) Slurred speech: 81-year-old male who presents with frequent falls and questionable transient slurred speech 03/24 to our ED. He is being managed for the following: #. Frequent falls #. Questionable transient slurred speech Patient was camping and had 2 falls around 2 hours apart on the day of arrival. First fall - patient believes he tripped over and fell on the grass. Second fall was while taking shower he fell on his back on hard floor. Both time he hit his head. Denies loss of consciousness. After the first fall, he was noted to have some slurred speech for a minute or 2. Did not have slurred speech after the second fall per patient. Orthostatic vitals negative, admitting EKG with NSR. Admitting MRA head and carotid Doppler with no acute/significant findings. Admitting C-spine CT and head CT with no acute findings. Admitting CXR with no acute findings. Admitting brain MRI with no acute intracranial abnormality. Nonspecific changes suggestive of microvascular ischemic changes in periventricular and subcortical white matter. Patient status post IV fluid at admission, was monitored over telemetry while in hospital. TIA versus arrhythmia versus recent bronchitis/UTI Neurology evaluated, appreciate recs. Patient will need Zio patch monitoring as an outpatient, patient to follow-up with PCP to set up for this. 03/25 echo reviewed. Continue with home meds, no change in anticoagulation/antiplatelet therapy. Continue to treat UTI. Patient to follow-up with final urine culture results with PCP as an outpatient, patient would like to go home today. #. Leukocytosis: Likely secondary to prednisone received recently for bronchitis versus UTI #. UTI WBC elevated at 13.3 9K at presentation, UA suggestive of UTI, await urine culture Continue with Rocephin 03/25. Follow-up with urine culture. Patient to follow-up with final urine culture report with PCP as an outpatient, patient made aware. #. History of PE Per patient, he had RLE DVT and PE 3 years ago which seems unprovoked per patient's description and since then he has been on Coumadin. Patient on Coumadin at home, continue same. #. Other chronic medical conditions: BPH, depression, HLD, HTN, CKD stage III, chronic diastolic congestive heart failure, sleep apnea, moderate persistent asthma currently stable, carotid restenosis. Continue with/resume home meds as and when appropriate. Patient does have diagnosis of sleep apnea in the past, patient is intolerant to mask and hence does not use any CPAP/BiPAP at home per Pt. Overnight nocturnal oximetry done, he had multiple desaturations [36 overnight], needed 2 L nasal cannula oxygen. Patient reported in AM that he fell asleep very well in a long time. Patient to follow-up with his sleep doctor or pulmonology as an outpatient to have further discussion on the management of his sleep apnea. Patient being discharged with nocturnal oxygen 2 L during sleep. Patient made aware. #. DVT prophylaxis: On warfarin By CMS guidelines, a determination that the admission or continued stay is not medically necessary has been made by a member of the Utilization Review committee and a physician for this hospital stay. Therefore, a Code 44 will be completed and the inpatient admission will be changed to outpatient. Patient being discharged home with following instruction at the point of discharge: Follow-up with your primary care physician within a week time upon discharge. Follow-up with neurology as an outpatient. As discussed at the bedside, you will need to follow-up with your PCP for final results on the urine culture to make sure you are getting appropriate antibiotic. You will be discharged on antibiotic to complete the course for your UTI. Also as discussed at the bedside, you will need to follow-up with your PCP within a week time for setting up with Zio patch monitoring for 2-week. Because your oxygen level dropped while sleeping, you will need 2 L oxygen at night or during sleep. Will recommend following up with your sleep doctor or lung doctor as an outpatient for further discussion on the management of your sleep apnea. Take your medications as prescribed. Total Time Total Time Spent Total Time Spent (In Minutes): 35 Discharge Plan Discharge Items Patient Disposition: Home - Self-Care Reason For Visit: FALL Discharge Diagnosis: Fall, question of TIA versus arrhythmia UTI Condition on Discharge: Fair Activity: Resume your previous activity Non-emergency contact: Primary Care Provider Call non-emergency contact if: you have any medication questions, your symptoms worsen and your temperature is above 101 Follow-up/Referrals: Maday Arzate DO [Primary Care Provider] - Diet: Heart Healthy Addtl Attending Provider Instructions: Follow-up with your primary care physician within a week time upon discharge. Follow-up with neurology as an outpatient. As discussed at the bedside, you will need to follow-up with your PCP for final results on the urine culture to make sure you are getting appropriate antibiotic. You will be discharged on antibiotic to complete the course for your UTI. Also as discussed at the bedside, you will need to follow-up with your PCP within a week time for setting up with Zio patch monitoring for 2-week to monitor your heart rhythm. Because your oxygen level dropped while sleeping, you will need 2 L oxygen at night or during sleep. Will recommend following up with your sleep doctor or lung doctor as an outpatient for further discussion on the management of your sleep apnea. Take your medications as prescribed. Pending Studies at Discharge: Yes (Admitting urine culture final results.) Stand-Alone Forms: My [facility], Smoking Cessation Medications and DC Order Prescriptions: New cefdinir 300 mg capsule 300 mg PO BID 5 Days Qty: 10 RF: 0 Probiotic 3 billion cell capsule 3,000 mmu cells PO DAILY 7 Days Qty: 7 RF: 0 Continued simvastatin 40 mg Tablet 40 mg PO HS Qty: 0 RF: 0 finasteride [Proscar] 5 mg tablet 5 mg PO DAILY Qty: 90 RF: 3 allopurinol 100 mg tablet 100 mg PO DAILY Qty: 90 RF: 3 losartan 100 mg tablet 100 mg PO HS RF: 0 warfarin 5 mg tablet See Rx Instructions .ROUTE .COMPLEX RF: 0 timolol maleate 0.5 % drops 1 drp OPR QAM RF: 0 levothyroxine 25 mcg tablet 25 mcg PO DAILYBB RF: 0 furosemide 20 mg tablet 20 mg PO QAM RF: 0 venlafaxine 37.5 mg tablet 37.5 mg PO QAM RF: 0 albuterol sulfate 90 mcg/actuation HFA aerosol inhaler 2 puff INHALATION Q4 PRN (Reason: cough,sob,wheeze) RF: 0 Breo Ellipta 200-25 mcg/dose blister with device 1 ea INHALATION QAM RF: 0 terazosin 5 mg capsule 5 mg PO HS RF: 0 Discharge Orders: Discharge Order (Routine); Ordered 03/26/22 Ordered By: Rogelio Rios/Other Patient Handouts: Prediabetes, 5 Steps for Eating Healthier Admission Data Admit Date/Time: 03/25/22 00:00 Attending Provider: Rogelio Sánchez Admit Provider: Arnoldo Spence Primary Care Provider: Maday Arzate Other Providers: Rani López
[2022-03-27] MEDS ORDERED: WARFARIN SOD 7.5 MG TAB PO SCH (16:00)
== END 2022-03-26 14:59 | disposition home or self-care (01) ==
LOC: ED 19:30 → SUATTDRO 03-25 → INTOOBSV 03-25 → 2E 03-25

== ENCOUNTER 2022-04-01 12:29 | Inpatient (IN) ==
[2022-04-01] MEDS ORDERED: ACETAMINOPHEN 325 MG TAB PO STA (12:52)
[2022-04-01] MEDS ORDERED: SODIUM CHLORIDE 0.9% 1000ML 2,000 ML IV ONE (12:52)
--- NOTE | 2022-04-01 13:01 | Emergency Department Note ---
Impression & Plan SIRS (systemic inflammatory response syndrome), Fall, Acute hyponatremia ED Provider Note NAME: CARL JACKSON AGE: 81 SEX: M : 1940 ARRIVES VIA: Ambulance INFORMANT: Patient ED PROVIDER(S): Johnathon Walker DO CHIEF COMPLAINT: weak and fall HPI: Patient is an 81-year-old male who presents the ER for fall and weakness. He notes he got up to go the bathroom this morning around 3 AM. He tried to get off the toilet and was too weak and fell down on his buttocks. He did not hit his back. Denies hitting his head or neck. No head pain or neck pain. No chest pain or shortness of breath. Denies any belly pain. He admits to chronic back pain which was exacerbated by sitting on the floor. He had to wait till his son came at around 11 AM to get up. Denies any dysuria urgency or frequency. No other exacerbating or remitting factors. Admits that he was sent home with oxygen over a week ago but never received it. He wonders if that is why he is feeling so weak. ROS: See above HPI for pertinent positives & negatives. A total of 10 systems reviewed and were otherwise negative. PAST MEDICAL HISTORY:See Below PAST SURGICAL HISTORY:See Below FAMILY HISTORY:See Below SOCIAL HISTORY:See Below HOME MEDICATIONS:See Below ALLERGIES:See Below VITALS:See Below PHYSICAL EXAMINATION: GENERAL: Sitting up in bed, alert, well appearing, well nourished, no distress, non-toxic HEAD: NC/AT EYE EXAM: normal conjunctiva. PERRL and EOM's grossly intact. OROPHARYNX: no exudate, no erythema, lips, buccal mucosa, and tongue normal and mucous membranes are moist NECK: supple, no nuchal rigidity, no adenopathy, non-tender LUNGS: Clear to auscultation. Normal chest wall mechanics HEART: no murmurs, S1 normal and S2 normal ABDOMEN: abdomen soft, non-tender, normo-active bowel sounds, no masses, no rebound or guarding. BACK: Back is symmetrical on inspection and there is no deformity, no midline tenderness, no CVA tenderness. Old midline incision in the thoracic region UPPER EXTREMITIES: upper extremities are grossly normal. LOWER EXTREMITIES: No pitting edema. NEURO EXAM: Normal sensorium, cranial nerves II-XII grossly intact, normal speech, no gross weakness of arms, no gross weakness of legs. No drift. Finger to nose intact. Gross sensation intact. MEDICAL DECISION MAKING: Patient is an 81-year-old male who presents ER for the above-stated complaint. IV was established blood work is obtained. Labs show no significant leukocytosis. Hemoglobin 13.8. INR 1.6 and was slightly subtherapeutic. BMP with mild hyponatremia at 134. Lactate was normal. LFTs bilirubin were unremarkable. Troponin was elevated at 26.5. CK slightly up at 200. Pro-Markie normal. UA just with a small amount of hematuria. Lyme IgG was positive but IgM was negative. He was given a gram of Rocephin. He was given IV fluids. He was updated bedside discussed with hospitalist for further evaluation. CT head and neck were not performed as she adamantly denied any head or neck pain. He notes he did not hit his head. Triage Nursing notes reviewed. Limited review of prior medical records performed Vital Signs: reviewed and remarkable for febrile, tachycardic Differential diagnosis: Infection, dehydration, metabolic abnormality, hypo/hyperglycemia, electrolyte disturbance, anemia, hypoxia, cardiac sources, intracerebral event, toxicologic, neurologic, as well as other pathologies. ER treatment provided: See below Diagnostics interpreted by me: ECG: Sinus tachycardia rate of 115 Left axis QTC 445 Cardiac Monitoring: An order was placed for continuous cardiac monitoring. The monitor shows a rate of 118 with sinus rhythm. Laboratory studies: As stated above and show below. Imaging studies: Portable AP upright 1 view of the chest was unremarkable Consultation(s): D/w the hospitalist for further evaluation Procedures: none Critical Care: None Past Med/Surg History Medical History BPH (benign prostatic hyperplasia) Degenerative disc disease Dyslipidemia GERD (gastroesophageal reflux disease) Glaucoma History of DVT (deep vein thrombosis) 2 YEARS AGO (REASON FOR COUMADIN) ? REASON FOR DVT History of kidney stones History of pulmonary embolism 2 YEARS AGO (REASON FOR COUMADIN) HTN (hypertension) Hx of fracture of rib September 2020 broke five ribs falling on ice. No longer hurting. On warfarin therapy Osteoarthritis Sleep apnea NO DEVICE (COULD NOT WEAR DEVICE) Surgical History H/O eye surgery RT EYE FOR GLAUCOMA History of colonoscopy History of esophagogastroduodenoscopy (EGD) History of heart artery stent 2000>1 STENT PLACED AT [facility] (FOLLOWED BY DR. SOTELO) History of tooth extraction History of total hip arthroplasty RT/LEFT History of total knee replacement LEFT History of total shoulder replacement RT Hx of cystoscopy WITH STENTS S/P insertion of spinal cord stimulator BACK STIMULATOR (AWARE TO BRING REMOTE) Status post right knee replacement (~02/2021) Family History Other No family history of adverse response to anesthesia Social History Smoking Status: Former smoker Second Hand Exposure: No; Hx Alcohol Use: No Hx Substance Use: No Preferred Language: Portuguese Communication Ability: Effective Palm And Back Forger Required: No Beliefs That Will Affect Care: None marital status: Single Current Living Situation: Alone Current Living Situation Comment: apartment current occupational status: retired Feels Safe at Home: Yes Assistive Devices: Cane and Walker Allergies Allergies Allergy/AdvReac Type Severity Reaction Status Date / Time adhesive Allergy Intermediate RASH FROM Verified 04/01/22 14:47 TAPE APPLIED FOR 7 DAYS. latex Allergy Intermediate red rash, Verified 04/01/22 14:47 blisters ibuprofen AdvReac Mild NAUSEA Verified 04/01/22 14:47 oxycodone AdvReac Mild upset Verified 04/01/22 14:47 stomach Home Meds Home Medications Medication Instructions Recorded Confirmed simvastatin 40 mg tablet 40 mg PO HS #0 06/26/08 04/01/22 losartan 100 mg tablet 100 mg PO HS 03/22/20 04/01/22 timolol maleate 0.5 % eye drops 1 drp OPR QAM 10/15/20 04/01/22 warfarin 5 mg tablet See Rx Instructions .ROUTE .COMPLEX 10/15/20 04/01/22 albuterol sulfate 90 mcg/actuation 2 puff INHALATION Q4 PRN 03/24/22 04/01/22 aerosol inhaler fluticasone furoate 200 1 ea INHALATION QAM 03/24/22 04/01/22 mcg-vilanterol 25 mcg/dose inhalation powder (Breo Ellipta) furosemide 20 mg tablet 20 mg PO QAM 03/24/22 04/01/22 levothyroxine 25 mcg tablet 25 mcg PO DAILYBB 03/24/22 04/01/22 terazosin 5 mg capsule 5 mg PO HS 03/24/22 04/01/22 venlafaxine 37.5 mg tablet 37.5 mg PO QAM 03/24/22 04/01/22 L.acidophilus,rhamnosus-B.breve-S.thermophilus 1 tab PO DAILY 04/01/22 04/01/22 3 billion cell chew tab cefdinir 300 mg capsule 300 mg PO BID 04/01/22 04/01/22 Previous Rx's Medication Instructions Recorded allopurinol 100 mg tablet 100 mg PO DAILY #90 tab 01/19/22 finasteride 5 mg tablet (Proscar) 5 mg PO DAILY #90 tab 01/19/22 lactobacillus combination no.4 3 3,000 mmu cells PO DAILY 7 Days #7 03/26/22 billion cell capsule (Probiotic) cap Results & Data (ED) Vital Signs Vital Signs - 24 hr 04/01/22 12:17 04/01/22 12:38 04/01/22 12:40 Temperature 38.0 C H Temperature Source Oral Pulse Rate 122 H 115 H 116 H Pulse Rate [Finger] 122 H Pulse Rate from SpO2 Sensor 115 H Respiratory Rate 20 23 28 H Respiratory Effort / Characteristics Respiratory Depth Respiratory Pattern Blood Pressure 174/101 H Blood Pressure [Left Arm] 174/101 H Blood Pressure Mean 125 Blood Pressure Mean [Left Arm] 125 Blood Pressure Position [Left Arm] Pulse Oximetry 97 96 Oxygen Delivery Method Nasal Cannula Oxygen Flow Rate Sepsis Recent Fever Within 48 Hours No Sepsis New/Unexplained Change in Mental Status No Sepsis Action Taken by Nursing No Action Required 04/01/22 12:50 04/01/22 12:52 04/01/22 13:00 Temperature Temperature Source Pulse Rate 115 H 116 H 121 H Pulse Rate [Finger] Pulse Rate from SpO2 Sensor 117 H 121 H Respiratory Rate 34 H 20 26 H Respiratory Effort / Characteristics Respiratory Depth Respiratory Pattern Blood Pressure Blood Pressure [Left Arm] Blood Pressure Mean Blood Pressure Mean [Left Arm] Blood Pressure Position [Left Arm] Pulse Oximetry 98 95 97 Oxygen Delivery Method Nasal Cannula Oxygen Flow Rate 2 Sepsis Recent Fever Within 48 Hours Sepsis New/Unexplained Change in Mental Status Sepsis Action Taken by Nursing 04/01/22 13:10 04/01/22 13:20 04/01/22 13:30 Temperature Temperature Source Pulse Rate 117 H 110 H 111 H Pulse Rate [Finger] Pulse Rate from SpO2 Sensor 120 H 111 H 108 H Respiratory Rate 27 H 22 21 Respiratory Effort / Characteristics Respiratory Depth Respiratory Pattern Blood Pressure Blood Pressure [Left Arm] Blood Pressure Mean Blood Pressure Mean [Left Arm] Blood Pressure Position [Left Arm] Pulse Oximetry 97 96 95 Oxygen Delivery Method Oxygen Flow Rate Sepsis Recent Fever Within 48 Hours Sepsis New/Unexplained Change in Mental Status Sepsis Action Taken by Nursing 04/01/22 13:40 04/01/22 13:44 04/01/22 13:50 Temperature Temperature Source Pulse Rate 113 H 109 H Pulse Rate [Finger] 116 H Pulse Rate from SpO2 Sensor 113 H 106 H Respiratory Rate 26 H 21 21 Respiratory Effort / Characteristics Respiratory Depth Respiratory Pattern Blood Pressure Blood Pressure [Left Arm] 108/63 Blood Pressure Mean Blood Pressure Mean [Left Arm] 78 Blood Pressure Position [Left Arm] Pulse Oximetry 97 96 95 Oxygen Delivery Method Oxygen Flow Rate Sepsis Recent Fever Within 48 Hours Sepsis New/Unexplained Change in Mental Status Sepsis Action Taken by Nursing 04/01/22 14:00 04/01/22 14:01 04/01/22 14:02 Temperature Temperature Source Pulse Rate 114 H Pulse Rate [Finger] 112 H Pulse Rate from SpO2 Sensor 106 H Respiratory Rate 29 H 20 Respiratory Effort / Characteristics Non-Labored Respiratory Depth Respiratory Pattern Blood Pressure Blood Pressure [Left Arm] 123/67 Blood Pressure Mean Blood Pressure Mean [Left Arm] 85 Blood Pressure Position [Left Arm] Pulse Oximetry 97 94 95 Oxygen Delivery Method Nasal Cannula Nasal Cannula Oxygen Flow Rate 2 2 Sepsis Recent Fever Within 48 Hours Sepsis New/Unexplained Change in Mental Status Sepsis Action Taken by Nursing 04/01/22 14:10 04/01/22 14:20 04/01/22 14:30 Temperature Temperature Source Pulse Rate 102 H 107 H 108 H Pulse Rate [Finger] Pulse Rate from SpO2 Sensor 114 H 108 H 108 H Respiratory Rate 23 25 H 21 Respiratory Effort / Characteristics Respiratory Depth Respiratory Pattern Blood Pressure Blood Pressure [Left Arm] Blood Pressure Mean Blood Pressure Mean [Left Arm] Blood Pressure Position [Left Arm] Pulse Oximetry 95 95 95 Oxygen Delivery Method Oxygen Flow Rate Sepsis Recent Fever Within 48 Hours Sepsis New/Unexplained Change in Mental Status Sepsis Action Taken by Nursing 04/01/22 14:40 04/01/22 14:50 04/01/22 15:00 Temperature Temperature Source Pulse Rate 105 H 108 H 105 H Pulse Rate [Finger] Pulse Rate from SpO2 Sensor 107 H 104 H 100 H Respiratory Rate 19 22 18 Respiratory Effort / Characteristics Respiratory Depth Respiratory Pattern Blood Pressure Blood Pressure [Left Arm] Blood Pressure Mean Blood Pressure Mean [Left Arm] Blood Pressure Position [Left Arm] Pulse Oximetry 96 95 95 Oxygen Delivery Method Oxygen Flow Rate Sepsis Recent Fever Within 48 Hours Sepsis New/Unexplained Change in Mental Status Sepsis Action Taken by Nursing 04/01/22 15:08 Temperature Temperature Source Pulse Rate Pulse Rate [Finger] 91 H Pulse Rate from SpO2 Sensor Respiratory Rate 21 Respiratory Effort / Characteristics Non-Labored Spontaneous Respiratory Depth Normal Respiratory Pattern Regular Blood Pressure Blood Pressure [Left Arm] 111/60 Blood Pressure Mean Blood Pressure Mean [Left Arm] 77 Blood Pressure Position [Left Arm] Lying Pulse Oximetry 97 Oxygen Delivery Method Nasal Cannula Oxygen Flow Rate 2 Sepsis Recent Fever Within 48 Hours Sepsis New/Unexplained Change in Mental Status Sepsis Action Taken by Nursing Laboratory Data Result diagrams: 04/01/22 12:49 04/01/22 12:49 Lab Results 04/01/22 04/01/22 04/01/22 Range/Units 12:49 12:49 12:49 WBC 6.04 (4.8-10.8) K/uL RBC 4.20 L (4.7-6.1) M/uL Hgb 13.8 L (14.0-18.0) g/dL Hct 40.5 L (42-52) % MCV 96.4 (80-100) fL MCH 32.9 (25-34) pg MCHC 34.1 (32-36) g/dL RDW Std Deviation 48.0 H (36.4-46.3) fL RDW Coeff of Francesco 13.6 (11.5-14.5) % Plt Count 186 (130-400) K/uL MPV 9.0 (7.4-10.4) fL Immature Gran % (Auto) 0.5 % Neut % (Auto) 86.9 % Lymph % (Auto) 8.8 % Harrison % (Auto) 3.6 % Eos % (Auto) 0.0 % Baso % (Auto) 0.2 % Neut # (Auto) 5.25 (1.4-6.5) K/uL Lymph # (Auto) 0.53 L (1.2-3.4) K/uL Harrison # (Auto) 0.22 (0.11-0.59) K/uL Eos # (Auto) 0.00 (0-0.5) K/uL Baso # (Auto) 0.01 (0-0.2) K/uL Immature Gran # (Auto) 0.03 H (0.00-0.02) K/uL PT 16.8 H (9.0-12.0) Seconds INR 1.6 H (0.9-1.1) APTT 35.4 H (21.0-31.0) Seconds PTT Ratio 1.3 Sodium 134 L (136-145) mmol/L Potassium 4.1 (3.5-5.1) mmol/L Chloride 98 (98-107) mmol/L Carbon Dioxide 26 (21-32) mmol/L Anion Gap 10 (3-11) BUN 20 (6-23) mg/dl Creatinine 1.42 H (0.6-1.4) mg/dl Est Cr Clr Drug Dosing 54.2 ml/min Est GFR ( Amer) 52.9 ml/min Est GFR (Non-Af Amer) 45.7 ml/min BUN/Creatinine Ratio 14.1 (10-20) Glucose 143 H (70-99(Fasting)) mg/dl Lactate (0.4-2.0) mmol/L Calcium 9.0 (8.5-10.1) mg/dl Magnesium 1.7 (1.7-2.4) mg/dl Total Bilirubin 0.7 (0.2-1.0) mg/dl AST 24 (13-39) U/L ALT 23 (7-52) U/L Alkaline Phosphatase 60 (34-104) U/L Total Creatine Kinase 232 H (30-223) U/L Troponin I High Sens 26.5 H D (0-20) pg/ml Total Protein 7.0 (6.0-8.3) gm/dl Albumin 4.0 (3.4-5.0) gm/dl Globulin 3.0 (2.5-4.0) gm/dl Albumin/Globulin Ratio 1.3 (0.9-2) Procalcitonin (0-0.5) ng/ml Urine Color Urine Appearance (Clear) Urine pH (4.5-7.5) Ur Specific [place] (1.000-1.030) Urine Protein (Negative) Urine Glucose (UA) (Negative) Urine Ketones (Negative) Urine Blood (Negative) Urine Nitrite (Negative) Urine Bilirubin (Negative) Urine Urobilinogen (Negative) Ur Leukocyte Esterase (Negative) Urine WBC (Auto) (0-5) /hpf Urine RBC (Auto) (0-4) /hpf U Hyaline Cast (Auto) (0-5) /lpf U Epithel Cells (Auto) (0-5) /lpf Urine Bacteria (Auto) (Negative) Anaplasma Smear See Comment Babesia Smear See Comment Lyme Disease IgG Ab (Negative) Lyme Disease IgM Ab (Negative) SARS-CoV-2, RNA, NAAT (NEGATIVE) 04/01/22 04/01/22 04/01/22 Range/Units 12:49 12:49 12:49 WBC (4.8-10.8) K/uL RBC (4.7-6.1) M/uL Hgb (14.0-18.0) g/dL Hct (42-52) % MCV (80-100) fL MCH (25-34) pg MCHC (32-36) g/dL RDW Std Deviation (36.4-46.3) fL RDW Coeff of Francesco (11.5-14.5) % Plt Count (130-400) K/uL MPV (7.4-10.4) fL Immature Gran % (Auto) % Neut % (Auto) % Lymph % (Auto) % Harrison % (Auto) % Eos % (Auto) % Baso % (Auto) % Neut # (Auto) (1.4-6.5) K/uL Lymph # (Auto) (1.2-3.4) K/uL Harrison # (Auto) (0.11-0.59) K/uL Eos # (Auto) (0-0.5) K/uL Baso # (Auto) (0-0.2) K/uL Immature Gran # (Auto) (0.00-0.02) K/uL PT (9.0-12.0) Seconds INR (0.9-1.1) APTT (21.0-31.0) Seconds PTT Ratio Sodium (136-145) mmol/L Potassium (3.5-5.1) mmol/L Chloride (98-107) mmol/L Carbon Dioxide (21-32) mmol/L Anion Gap (3-11) BUN (6-23) mg/dl Creatinine (0.6-1.4) mg/dl Est Cr Clr Drug Dosing ml/min Est GFR ( Amer) ml/min Est GFR (Non-Af Amer) ml/min BUN/Creatinine Ratio (10-20) Glucose (70-99(Fasting)) mg/dl Lactate 1.5 (0.4-2.0) mmol/L Calcium (8.5-10.1) mg/dl Magnesium (1.7-2.4) mg/dl Total Bilirubin (0.2-1.0) mg/dl AST (13-39) U/L ALT (7-52) U/L Alkaline Phosphatase (34-104) U/L Total Creatine Kinase (30-223) U/L Troponin I High Sens (0-20) pg/ml Total Protein (6.0-8.3) gm/dl Albumin (3.4-5.0) gm/dl Globulin (2.5-4.0) gm/dl Albumin/Globulin Ratio (0.9-2) Procalcitonin (0-0.5) ng/ml Urine Color Urine Appearance (Clear) Urine pH (4.5-7.5) Ur Specific [place] (1.000-1.030) Urine Protein (Negative) Urine Glucose (UA) (Negative) Urine Ketones (Negative) Urine Blood (Negative) Urine Nitrite (Negative) Urine Bilirubin (Negative) Urine Urobilinogen (Negative) Ur Leukocyte Esterase (Negative) Urine WBC (Auto) (0-5) /hpf Urine RBC (Auto) (0-4) /hpf U Hyaline Cast (Auto) (0-5) /lpf U Epithel Cells (Auto) (0-5) /lpf Urine Bacteria (Auto) (Negative) Anaplasma Smear Cancelled Babesia Smear Cancelled Lyme Disease IgG Ab Positive A (Negative) Lyme Disease IgM Ab Negative (Negative) SARS-CoV-2, RNA, NAAT (NEGATIVE) 04/01/22 04/01/22 04/01/22 Range/Units 12:57 13:03 14:55 WBC (4.8-10.8) K/uL RBC (4.7-6.1) M/uL Hgb (14.0-18.0) g/dL Hct (42-52) % MCV (80-100) fL MCH (25-34) pg MCHC (32-36) g/dL RDW Std Deviation (36.4-46.3) fL RDW Coeff of Francesco (11.5-14.5) % Plt Count (130-400) K/uL MPV (7.4-10.4) fL Immature Gran % (Auto) % Neut % (Auto) % Lymph % (Auto) % Harrison % (Auto) % Eos % (Auto) % Baso % (Auto) % Neut # (Auto) (1.4-6.5) K/uL Lymph # (Auto) (1.2-3.4) K/uL Harrison # (Auto) (0.11-0.59) K/uL Eos # (Auto) (0-0.5) K/uL Baso # (Auto) (0-0.2) K/uL Immature Gran # (Auto) (0.00-0.02) K/uL PT (9.0-12.0) Seconds INR (0.9-1.1) APTT (21.0-31.0) Seconds PTT Ratio Sodium (136-145) mmol/L Potassium (3.5-5.1) mmol/L Chloride (98-107) mmol/L Carbon Dioxide (21-32) mmol/L Anion Gap (3-11) BUN (6-23) mg/dl Creatinine (0.6-1.4) mg/dl Est Cr Clr Drug Dosing ml/min Est GFR ( Amer) ml/min Est GFR (Non-Af Amer) ml/min BUN/Creatinine Ratio (10-20) Glucose (70-99(Fasting)) mg/dl Lactate (0.4-2.0) mmol/L Calcium (8.5-10.1) mg/dl Magnesium (1.7-2.4) mg/dl Total Bilirubin (0.2-1.0) mg/dl AST (13-39) U/L ALT (7-52) U/L Alkaline Phosphatase (34-104) U/L Total Creatine Kinase (30-223) U/L Troponin I High Sens (0-20) pg/ml Total Protein (6.0-8.3) gm/dl Albumin (3.4-5.0) gm/dl Globulin (2.5-4.0) gm/dl Albumin/Globulin Ratio (0.9-2) Procalcitonin 0.29 (0-0.5) ng/ml Urine Color Yellow Urine Appearance Clear (Clear) Urine pH 5.0 (4.5-7.5) Ur Specific [place] 1.019 (1.000-1.030) Urine Protein 1+ H (Negative) Urine Glucose (UA) Negative (Negative) Urine Ketones Negative (Negative) Urine Blood 1+ H (Negative) Urine Nitrite Negative (Negative) Urine Bilirubin Negative (Negative) Urine Urobilinogen Negative (Negative) Ur Leukocyte Esterase Negative (Negative) Urine WBC (Auto) 1-5 (0-5) /hpf Urine RBC (Auto) 5-10 H (0-4) /hpf U Hyaline Cast (Auto) 1-5 (0-5) /lpf U Epithel Cells (Auto) 5-10 H (0-5) /lpf Urine Bacteria (Auto) Negative (Negative) Anaplasma Smear Babesia Smear Lyme Disease IgG Ab (Negative) Lyme Disease IgM Ab (Negative) SARS-CoV-2, RNA, NAAT NEGATIVE (NEGATIVE) Administered Medications Discontinued Medications Acetaminophen (Acetaminophen 325 Mg Tab) 650 mg PO NOW STA Stop: 04/01/22 12:53 Last Admin: 04/01/22 13:08 Dose: 650 mg Documented by: [id number] Sodium Chloride (Nss 1000ml) 2,000 mls @ 999 mls/hr IV .Q2H1M ONE Stop: 04/01/22 14:52 Last Infusion: 04/01/22 15:23 Dose: 0 mls/hr Documented by: [id number] Admin: 04/01/22 13:07 Dose: 999 mls/hr Documented by: [id number] Ceftriaxone Sodium (Rocephin) 1,000 mg in 50 mls @ 100 mls/hr IV NOW STA Stop: 04/01/22 14:46 Last Infusion: 04/01/22 15:16 Dose: 0 mls/hr Documented by: [id number] Admin: 04/01/22 14:45 Dose: 100 mls/hr Documented by: [id number] Imaging Data Radiologist's Impression: Chest X-Ray 04/01/22 12:52 XR chest 1V portable HISTORY: 81 years-old Male SEPSIS acute sepsis COMPARISON: Chest radiograph 03/24/2022 TECHNIQUE: Double AP view of the chest FINDINGS: The cardiac silhouette is enlarged. Atherosclerosis of the thoracic aorta. No pneumothorax, pleural effusion, airspace consolidation or overt pulmonary edema. Mild blunting of the lateral left costophrenic angle suggests probable atelectasis. Degenerative changes of the spine and left shoulder. Reverse right shoulder total joint arthroplasty. Spinal stimulator leads overlie the midthoracic spine. IMPRESSION: Cardiomegaly without acute process. ACT 112: Negative or not required by law. The above report was generated using voice recognition software. It may contain grammatical, syntax or spelling errors. Electronically signed by: Luciano Smalls M.D. 04/01/2022 1:15 PM Discharge Plan Visit Data Chief Complaint: Fall ED Provider: Johnathon Walker Discharge Problem: SIRS (systemic inflammatory response syndrome), Fall, Acute hyponatremia Forms Stand Alone Forms: [facility] Prescriptions Prescriptions: No Action simvastatin 40 mg Tablet 40 mg PO HS Qty: 0 RF: 0 finasteride [Proscar] 5 mg tablet 5 mg PO DAILY Qty: 90 RF: 3 allopurinol 100 mg tablet 100 mg PO DAILY Qty: 90 RF: 3 losartan 100 mg tablet 100 mg PO HS RF: 0 warfarin 5 mg tablet See Rx Instructions .ROUTE .COMPLEX RF: 0 timolol maleate 0.5 % drops 1 drp OPR QAM RF: 0 levothyroxine 25 mcg tablet 25 mcg PO DAILYBB RF: 0 furosemide 20 mg tablet 20 mg PO QAM RF: 0 venlafaxine 37.5 mg tablet 37.5 mg PO QAM RF: 0 albuterol sulfate 90 mcg/actuation HFA aerosol inhaler 2 puff INHALATION Q4 PRN (Reason: cough,sob,wheeze) RF: 0 fluticasone furoate-vilanterol [Breo Ellipta] 200-25 mcg/dose blister with device 1 ea INHALATION QAM RF: 0 terazosin 5 mg capsule 5 mg PO HS RF: 0 Probiotic 3 billion cell capsule 3,000 mmu cells PO DAILY 7 Days Qty: 7 RF: 0 cefdinir 300 mg capsule 300 mg PO BID RF: 0 Probiotic 3 billion cell Tablet,Chewable 1 tab PO DAILY RF: 0 Referrals Referrals: Maday Arzate DO [Primary Care Provider] -
--- NOTE | 2022-04-01 13:16 | XRay Report ---
XR chest 1V portable HISTORY: 81 years-old Male SEPSIS acute sepsis COMPARISON: Chest radiograph 03/24/2022 TECHNIQUE: Double AP view of the chest FINDINGS: The cardiac silhouette is enlarged. Atherosclerosis of the thoracic aorta. No pneumothorax, pleural e ffusion, airspace consolidation or overt pulmonary edema. Mild blunting of the lateral left costophre jakub angle suggests probable atelectasis. Degenerative changes of the spine and left shoulder. Reverse right shoulder total joint arthroplasty. Spinal stimulator leads overlie the midthoracic spine. IMPRESSION: Cardiomegaly without acute process. ACT 112: Negative or not required by law. The above report was generated using voice recognition software. It may contain grammatical, syntax o r spelling errors. Electronically signed by: Luciano Smalls M.D. 04/01/2022 1:15 PM
[2022-04-01 13:22] LABS: Basophils # (auto) 0.01 K/uL (0-0.2); Basophils % (auto) 0.2 %; Hematocrit (blood only) 40.5 % (42-52); Hemoglobin 13.8 g/dL (14.0-18.0); Immature Granulocytes # (auto) 0.03 K/uL (0.00-0.02); Immature Granulocytes % (auto) 0.5 %; Lymphocytes # (auto) 0.53 K/uL (1.2-3.4); Lymphocytes % (auto) 8.8 %; Mean Corpuscular Hemoglobin 32.9 pg (25-34); Mean Corpuscular Hgb Conc 34.1 g/dL (32-36); Mean Corpuscular Volume 96.4 fL (80-100); Monocytes # (auto) 0.22 K/uL (0.11-0.59); Monocytes % (auto) 3.6 %; Neutrophils # (auto) 5.25 K/uL (1.4-6.5); Neutrophils % (auto) 86.9 %; Platelet Count 186 K/uL (130-400); RDW Coefficient of Variation 13.6 % (11.5-14.5); White Blood Count 6.04 K/uL (4.8-10.8)
[2022-04-01 13:29] LABS: INR 1.6 (0.9-1.1); Partial Thromboplastin Ratio 1.3; Partial Thromboplastin Time 35.4 Seconds (21.0-31.0); Prothrombin Time 16.8 Seconds (9.0-12.0)
[2022-04-01 13:42] LABS: Troponin I High Sensitivity 26.5 pg/ml (0-20)
[2022-04-01 14:02] LABS: Albumin Globulin Ratio 1.3 (0.9-2); BUN Creatinine Ratio 14.1 (10-20); Bilirubin,Total 0.7 mg/dl (0.2-1.0); Creatinine Clr Calc Pharmacy 54.2 ml/min; Est GFR (African American) 52.9 ml/min; Est GFR (Non-African American) 45.7 ml/min; Magnesium 1.7 mg/dl (1.7-2.4); Potassium 4.1 mmol/L (3.5-5.1)
[2022-04-01 14:03] LABS: Appearance Urine Clear (Clear); Bacteria Urine Automated Negative (Negative); Bilirubin Urine Negative (Negative); Blood Urine 1+ (Negative); Color Urine Yellow; Glucose Urine UA Negative (Negative); Ketones Urine Negative (Negative); Leukocyte Esterase Urine Negative (Negative); Nitrite Urine Negative (Negative); Protein Urine 1+ (Negative); Specific Gravity Urine 1.019 (1.000-1.030); Urobilinogen Urine Negative (Negative)
[2022-04-01] MEDS ORDERED: cefTRIAXone SODIUM 1,000 MG/50 ML BAG IV STA ×2 (14:17→16:37)
[2022-04-01] MEDS ORDERED: SODIUM CHLORIDE 0.9% 1000ML 1,000 ML IV ONE (14:28)
--- NOTE | 2022-04-01 14:39 | History & Physical Report ---
Date of Service April 01, 2022 Assessment & Plan (1) Sepsis: Plan: Pt now with a fever and tachycardia. There is a concern for sepsis of uncertain source. Will continue with empiric antibiotics for now. Will add probiotics per patient choice. Will await blood cultures. UA appears clear, CXR unremarkable and no UTI symptoms, cough, or chills present at home. Patient doesn't remember any insect bites but was lying on the ground after falling just one week ago and may have been bitten. He reports a history of Lyme disease that was treated with antibiotics in the past. There are no rashes or lesions that are of obvious concern at this point. He was recently treated for a UTI with clear UA. Lactate is normal and procalcitonin is pending. Cont with Rocephin at this time. (2) Falling: Plan: Recurrent falls likely related to hypoxia/sleep related hypoxia/untreated EVA. Patient has historically been unable to tolerate any kind of mask. Discussed UPPP as a treatment option for this and nasal mask, also. He is getting set up for repeat PSG as outpatient. Admits to daytime fatigue and poor sleep quality. Recent recurrent falling in the last couple of weeks. Repeat overnight oximetry study tonight and discussed process for test tonight. Oxygen is currently in place and will need to ensure he has a repeat prescription written at discharge for home oxygen as the last prescription was not honored for the Dx of EVA. Would need to update this with nocturnal hypoxia. Ensure patient needs only 2LPM because the test during last admission revealed desaturations despite 2LPM, so patient may need more. Outpatient PSG as soon as able. Outpatient Zio patch per plan from last discharge from the hospital. (3) Nocturnal hypoxia: Plan: Plan as above. (4) NAVEED (acute kidney injury): Plan: Given 2 L IVF in the ER. Dry mucous membranes on examination and patient reports feeling dehydrated. Hold further IVF at this time and allow him to drink to thirst. Repeat BMP in am. Hold losartan and lasix for the time being. (5) Elevated troponin: Plan: Likely demand ischemia related to sepsis (6) BPH (benign prostatic hyperplasia): Plan: chronic, stable. Cont home medications. (7) Hypertension: Plan: chronic, stable. Holding lasix and losartan in setting of NAVEED. (8) On warfarin therapy: Plan: h/o unprovoked DVT/PE 3 years ago. He is typically compliant with warfarin and reports a therapeutic INR between 2-3 most of the time. Today his INR is 1.6. Cont coumadin, needs dose today, and trend INR in am. Cover with heparin while hospitalized until therapeutic. (9) History of pulmonary embolism: Plan: coumadin/heparin as above. (10) DVT prophylaxis: Plan: coumadin/heparin while INR subtherapeutic Full Code Dispo-to home when symptoms have improved and workup for sepsis is complete. Lizeth Loco DO [facility] Hospitalist History of Present Illness Chief Complaint: fall at home Primary Care Provider: Maday Arzate DO 81 yo M presents today after a fall at home. Was recently admitted to [facility] 03/25-03/26 for falls with a questionable TIA and UTI. He fell again today while on the way to the restroom at home. He left the hospital last Sunday, and started his course of Cefdinir on , completing 4 days of it. Normal lactate. Patient was camping a couple of weeks ago and had fallen at that time lying on the ground for some time. He also mows the yard; uncertain if he was bitten by anything in particular. Infectious workup currently is unremarkable including no leukocytosis, a normal UA and a normal appearing CXR. Denies headache, fevers, chills +chronic neck stiffness from arthritis, denies headache or blurry vision. +butt hurts laid on floor from 0300 until 1100a-son found him on the floor never lost consciousness and no loss of control of bowels of bladder denies chest pain denies SOB +reports right hand with intermittent tingling in thumb, first and middle finger-no history of carpal tunnel-has severe arthritis He had a sleep study a couple of years ago but couldn't complete the diagnostic test because of claustrophobia with the mask. He also was diagnosed with nocturnal hypoxia last admission but there was an insurance issue related to the diagnosis on the prescription, and he was never given supplemental oxygen The overnight pulse oximetry test performed last admission recorded that despite 2LPM oxygen being applied, he continued to desaturate beyond this indicating he may need additional oxygen. Will repeat the overnight oximetry test again tonight. Reviewed UPPP as another treatment for EVA with the patient and his family at bedside Discussed the importance of treating EVA as arrhythmias if found, may also be t he result of poor ventilation while sleeping. Patient has not yet had time to obtain Zio patch. Allergies Allergy/AdvReac Type Severity Reaction Status Date / Time adhesive Allergy Intermediate RASH FROM Verified 04/01/22 14:47 TAPE APPLIED FOR 7 DAYS. latex Allergy Intermediate red rash, Verified 04/01/22 14:47 blisters ibuprofen AdvReac Mild NAUSEA Verified 04/01/22 14:47 oxycodone AdvReac Mild upset Verified 04/01/22 14:47 stomach Home Medications Medication Instructions Recorded Confirmed Type simvastatin 40 mg tablet 40 mg PO HS #0 06/26/08 04/01/22 History losartan 100 mg tablet 100 mg PO HS 03/22/20 04/01/22 History timolol maleate 0.5 % eye drops 1 drp OPR QAM 10/15/20 04/01/22 History warfarin 5 mg tablet See Rx Instructions .ROUTE .COMPLEX 10/15/20 04/01/22 History allopurinol 100 mg tablet 100 mg PO DAILY #90 tab 01/19/22 04/01/22 Rx finasteride 5 mg tablet (Proscar) 5 mg PO DAILY #90 tab 01/19/22 04/01/22 Rx albuterol sulfate 90 mcg/actuation 2 puff INHALATION Q4 PRN 03/24/22 04/01/22 History aerosol inhaler fluticasone furoate 200 1 ea INHALATION QA 03/24/22 04/01/22 History mcg-vilanterol 25 mcg/dose inhalation powder (Breo Ellipta) furosemide 20 mg tablet 20 mg PO QAM 03/24/22 04/01/22 History levothyroxine 25 mcg tablet 25 mcg PO DAILYBB 03/24/22 04/01/22 History terazosin 5 mg capsule 5 mg PO HS 03/24/22 04/01/22 History venlafaxine 37.5 mg tablet 37.5 mg PO QAM 03/24/22 04/01/22 History lactobacillus combination no.4 3 3,000 mmu cells PO DAILY 7 Days #7 03/26/22 04/01/22 Rx billion cell capsule (Probiotic) cap L.acidophilus,rhamnosus-B.breve-S.thermophilus 1 tab PO DAILY 04/01/22 04/01/22 History 3 billion cell chew tab cefdinir 300 mg capsule 300 mg PO BID 04/01/22 04/01/22 History Past Med/Surg History Medical History BPH (benign prostatic hyperplasia) Degenerative disc disease Dyslipidemia GERD (gastroesophageal reflux disease) Glaucoma History of DVT (deep vein thrombosis) 2 YEARS AGO (REASON FOR COUMADIN) ? REASON FOR DVT History of kidney stones History of pulmonary embolism 2 YEARS AGO (REASON FOR COUMADIN) HTN (hypertension) Hx of fracture of rib September 2020 broke five ribs falling on ice. No longer hurting. On warfarin therapy Osteoarthritis Sleep apnea NO DEVICE (COULD NOT WEAR DEVICE) Surgical History H/O eye surgery RT EYE FOR GLAUCOMA History of colonoscopy History of esophagogastroduodenoscopy (EGD) History of heart artery stent 2000>1 STENT PLACED AT [facility] (FOLLOWED BY DR. SOTELO) History of tooth extraction History of total hip arthroplasty RT/LEFT History of total knee replacement LEFT History of total shoulder replacement RT Hx of cystoscopy WITH STENTS S/P insertion of spinal cord stimulator BACK STIMULATOR (AWARE TO BRING REMOTE) Status post right knee replacement (~02/2021) Family History Other No family history of adverse response to anesthesia Social History Smoking Status: Former smoker Second Hand Exposure: No; Hx Alcohol Use: No Hx Substance Use: No Preferred Language: Cymraes Communication Ability: Effective Technology Auditor Required: No Beliefs That Will Affect Care: None marital status: Single Current Living Situation: Alone Current Living Situation Comment: apartment current occupational status: retired Feels Safe at Home: Yes Assistive Devices: Cane and Walker Review of Systems Review of Systems: All systems were reviewed and negative except as indicated on HPI above. Physical Exam Physical Exam: CONSTITUTIONAL: WNWD, vitals as above, generally ill-appearing and fatigued. NAD EYES: EOMI bilaterally, PERRL, normal conjunctivae, no scleral icterus, ENT: external ear and nose normal, oropharynx clear, mucous membranes are dry. NECK: trachea midline RESPIRATORY: clear to auscultation bilaterally, no crackles, rales or wheezes, normal respiratory effort CARDIOVASCULAR: regular rate and rhythm, S1 and 2 heard without murmurs, davison ps or rubs, no JVD, no peripheral edema, CHEST: inspection of chest was normal GASTROINTESTINAL: soft, nontender, ND, no guarding MUSCULOSKELETAL: strength 5/5 throughout, head is normocephalic and atraumatic, SKIN: warm and dry, no rashes visualized NEUROLOGIC: patellar DTRs 2+ bilat. brachioradialis 2+ bilaterally, no facial palsy, no dysarthria. CN 2-12 grossly intact, no sensory deficit, normal cognition, normal speech, no tremor. No gross focal deficits. PSYCHIATRIC: alert cooperative and oriented to person, place and time. Euthymic mood, makes good eye contact, language grossly intact, recent and remote memory grossly intact. Results & Data Results & Data ([facility]) Vital Signs (Past 12 Hours) Vital Signs Temp Pulse Pulse Resp BP BP Pulse Ox 04/01/22 14:02 95 04/01/22 14:01 112 H 20 123/67 94 04/01/22 13:44 116 H 21 108/63 96 04/01/22 12:52 116 H 20 95 04/01/22 12:17 38.0 C H 122 H 122 H 20 174/101 H 174/101 H 97 Laboratory Results Short CBC 04/01/22 Range/Units 12:49 WBC 6.04 (4.8-10.8) K/uL Hgb 13.8 L (14.0-18.0) g/dL Hct 40.5 L (42-52) % Plt Count 186 (130-400) K/uL BMP 04/01/22 12:49 Sodium 134 L Potassium 4.1 Chloride 98 Carbon Dioxide 26 BUN 20 Creatinine 1.42 H Glucose 143 H Calcium 9.0 Cardiac Enzymes 04/01/22 Range/Units 12:49 Total Creatine Kinase 232 H (30-223) U/L Liver Function 04/01/22 Range/Units 12:49 Total Bilirubin 0.7 (0.2-1.0) mg/dl AST 24 (13-39) U/L ALT 23 (7-52) U/L Alkaline Phosphatase 60 (34-104) U/L Albumin 4.0 (3.4-5.0) gm/dl Urine 04/01/22 Range/Units 12:57 Urine Color Yellow Urine Appearance Clear (Clear) Urine pH 5.0 (4.5-7.5) Ur Specific [place] 1.019 (1.000-1.030) Urine Protein 1+ H (Negative) Urine Glucose (UA) Negative (Negative) Diagnostic Findings Chest X-Ray 04/01/22 12:52 XR chest 1V portable HISTORY: 81 years-old Male SEPSIS acute sepsis COMPARISON: Chest radiograph 03/24/2022 TECHNIQUE: Double AP view of the chest FINDINGS: The cardiac silhouette is enlarged. Atherosclerosis of the thoracic aorta. No pneumothorax, pleural effusion, airspace consolidation or overt pulmonary edema. Mild blunting of the lateral left costophrenic angle suggests probable atelectasis. Degenerative changes of the spine and left shoulder. Reverse right shoulder total joint arthroplasty. Spinal stimulator leads overlie the midthoracic spine. IMPRESSION: Cardiomegaly without acute process. ACT 112: Negative or not required by law. The above report was generated using voice recognition software. It may contain grammatical, syntax or spelling errors. Electronically signed by: Luciano Smalls M.D. 04/01/2022 1:15 PM
[2022-04-01 15:43] LABS: Lyme Ab IgM w/WB Rflx Negative (Negative)
[2022-04-01 16:17] LABS: Lyme Ab IgG w/WB Rflx Positive (Negative)
[2022-04-01] MEDS ORDERED: ACETAMINOPHEN 325 MG TAB PO PRN (17:51)
[2022-04-01] MEDS ORDERED: POLYETHYLENE (MIRALAX) 17 GM PACK PO PRN (17:51)
[2022-04-01] MEDS ORDERED: ALBUTEROL HFA 8 GM INHALER INH PRN (17:51)
[2022-04-01] MEDS ORDERED: SODIUM CHLORIDE 0.9% 1000ML 1,000 ML IV SCH (18:30)
[2022-04-01] MEDS: Heparin IV Adult Wt-Based Standard *NO* Bolus Protocol IV SCH (20:15)
[2022-04-01] MEDS: TIMOLOL MALEATE 0.5% OP SOLN 5 ML BTL OP SCH (20:16)
[2022-04-01] MEDS: VENLAFAXINE HCL 37.5 MG TAB PO SCH (20:17)
[2022-04-01] MEDS: WARFARIN SOD 5 MG TAB PO SCH (20:18)
[2022-04-01] MEDS: ADVANCED PROBIOTIC 1250 MG CAPSULE PO SCH (20:19)
[2022-04-01] MEDS: SIMVASTATIN 40 MG TAB PO SCH (20:19)
[2022-04-01] MEDS: TERAZOSIN HCL 5 MG CAP PO SCH (20:20)
[2022-04-01] MEDS: DOXYCYCLINE HYCLATE 100 MG CAP PO SCH (20:44)
[2022-04-01] MEDS: HEPARIN SODIUM/DEXTROSE 25,000 UNITS/500 ML BAG IV SCH (20:53)
[2022-04-02 05:10] LABS: Basophils # (auto) 0.01 K/uL (0-0.2); Basophils % (auto) 0.2 %; Hematocrit (blood only) 37.1 % (42-52); Hemoglobin 12.2 g/dL (14.0-18.0); Immature Granulocytes # (auto) 0.01 K/uL (0.00-0.02); Immature Granulocytes % (auto) 0.2 %; Lymphocytes # (auto) 0.77 K/uL (1.2-3.4); Lymphocytes % (auto) 16.9 %; Mean Corpuscular Hemoglobin 31.2 pg (25-34); Mean Corpuscular Hgb Conc 32.9 g/dL (32-36); Mean Corpuscular Volume 94.9 fL (80-100); Monocytes # (auto) 0.26 K/uL (0.11-0.59); Monocytes % (auto) 5.7 %; Platelet Count 140 K/uL (130-400); RDW Coefficient of Variation 14.1 % (11.5-14.5); RDW Standard Deviation 49.1 fL (36.4-46.3); Red Blood Count 3.91 M/uL (4.7-6.1); White Blood Count 4.55 K/uL (4.8-10.8)
[2022-04-02 05:25] LABS: BUN Creatinine Ratio 14.6 (10-20); Calcium 8.1 mg/dl (8.5-10.1); Creatinine Clr Calc Pharmacy 51.2 ml/min; Est GFR (African American) 49.1 ml/min; Est GFR (Non-African American) 42.4 ml/min; Potassium 3.9 mmol/L (3.5-5.1)
[2022-04-02 05:38] LABS: INR 1.6 (0.9-1.1); Partial Thromboplastin Ratio > 5.1; Prothrombin Time 16.6 Seconds (9.0-12.0)
[2022-04-02 05:46] LABS: Partial Thromboplastin Time > 139.0 Seconds (21.0-31.0)
[2022-04-02] MEDS: LEVOTHYROXINE SODIUM 25 MCG TABLET PO SCH (06:08)
[2022-04-02] MEDS: FLUTICASONE/VILANTEROL 200/25MCG 14 PUFFS/INHALER INH SCH ×2 (07:39→07:41)
[2022-04-02 07:40] LABS: Partial Thromboplastin Ratio > 5.1
[2022-04-02] MEDS: allopurinoL 100 MG TAB PO SCH (07:40)
[2022-04-02] MEDS: ADVANCED PROBIOTIC 1250 MG CAPSULE PO SCH (07:40)
[2022-04-02] MEDS: DOXYCYCLINE HYCLATE 100 MG CAP PO SCH ×2 (07:40→20:08)
[2022-04-02] MEDS: VENLAFAXINE HCL 37.5 MG TAB PO SCH (07:40)
[2022-04-02] MEDS: FINASTERIDE 5 MG TAB PO SCH (07:40)
[2022-04-02] MEDS: TIMOLOL MALEATE 0.5% OP SOLN 5 ML BTL OP SCH (07:41)
[2022-04-02 08:06] LABS: Partial Thromboplastin Time > 139.0 Seconds (21.0-31.0)
[2022-04-02] MEDS: Heparin IV Adult Wt-Based Standard *NO* Bolus Protocol IV SCH ×3 (08:16→08:18)
--- NOTE | 2022-04-02 08:45 | Electrocardiogram Report ---
Test Reason : Blood Pressure : / mmHG Vent. Rate : 115 BPM Atrial Rate : 115 BPM P-R Int : 156 ms QRS Dur : 084 ms QT Int : 322 ms P-R-T Axes : 043 -12 045 degrees QTc Int : 445 ms Sinus tachycardia Premature atrial complexes Possible Left atrial enlargement Borderline ECG When compared with ECG of 24-MAR-2022 19:43, Nonspecific T wave abnormality now evident in Anterior leads Confirmed by Tyler Culver ([id number]) on 04/02/2022 8:45:06 AM Referred By: REFERRED SELF Confirmed By:Tyler Culver
--- NOTE | 2022-04-02 09:00 | Electrocardiogram Report ---
Test Reason : Blood Pressure : / mmHG Vent. Rate : 104 BPM Atrial Rate : 104 BPM P-R Int : 164 ms QRS Dur : 090 ms QT Int : 354 ms P-R-T Axes : 033 -21 040 degrees QTc Int : 465 ms Sinus tachycardia Otherwise normal ECG When compared with ECG of 01-APR-2022 12:38, (unconfirmed) No significant change was found Confirmed by Tyler Culver ([id number]) on 04/02/2022 9:00:25 AM Referred By: REFERRED SELF Confirmed By:Tyler Culver
[2022-04-02 10:15] LABS: Partial Thromboplastin Ratio 2.1
[2022-04-02 10:17] LABS: Partial Thromboplastin Time 56.6 Seconds (21.0-31.0)
[2022-04-02] MEDS: cefTRIAXone SODIUM 2,000 MG in DEXTROSE 5% 50 ML IV SCH (13:52)
--- NOTE | 2022-04-02 15:06 | Hospitalist Progress Note ---
Date of Service April 02, 2022 Assessment & Plan (1) Sepsis: Plan: SIRS Suspected Sepsis No obvious source of infection Normal lactate, procalcitonin --CXR:Cardiomegaly without acute process. Blood cultures pending UA not suggestive of UTI COVID screen negative Lyme serology pending Empirically on Rocephin, doxycycline PT/OT Fall precautions (2) Falling: Plan: H/O Recurrent Falls ? Related to Nocturnal Hypoxia Unable to tolerate CPAP Retest for nocturnal oximetry Needs supplemental oxygen arranged if qualifies Outpatient Zio patch upon discharge (3) Nocturnal hypoxia: Plan: Management as above (4) NAVEED (acute kidney injury): Plan: Received IV fluids distended hold losartan, Lasix for now Monitor renal function Avoid nephrotoxic agents as able (5) Elevated troponin: Plan: Likely demand ischemia related to renal insufficiency Denies chest pain, dyspnea (6) BPH (benign prostatic hyperplasia): Plan: Continue home medications (7) Hypertension: Plan: BP relatively low Resume losartan, Lasix as able Monitor (8) On warfarin therapy: Plan: H/O unprovoked DVT/PE 3 years ago. Subtherapeutic INR Continue IV heparin, Coumadin Monitor INR 1.6 (9) History of pulmonary embolism: Plan: As Above (10) DVT prophylaxis: Plan: Coumadin/heparin Code Status Full Code Admission and Anticipated Discharge Date Admission Date: April 01, 2022 Subjective Patient is seen and examined at bedside States having generalized weakness and feels tired Also reports chronic back pain Otherwise offers no complaints Denies any chest pain, shortness of breath, dizziness, nausea, abdominal pain Review of Systems Review of Systems: All systems reviewed & are unremarkable except as noted in Subjective Physical Exam Physical Exam: Physical Exam: Vitals signs as noted above General Appearance:Moderately built and nourished, no apparent distress Head: normocephalic, Atraumatic Eyes: normal inspection, EOMI Neck: supple, Trachea midline Respiratory/Chest: Normal breath sounds, CTA, No accessory muscle use Cardiovascular: S1, S2, No murmur Abdomen/GI:Soft, Non tender, Bowel sounds present Extremities/Musculoskeletal:normal inspection, Trace pedal edema Neurologic/Psych:AAOX3, grossly no focal neurological deficits Skin: normal color, warm Results & Data Results & Data ([facility]) Vital Signs (Past 12 Hours) Vital Signs Temp Pulse Pulse Resp BP Pulse Ox Pulse Ox 04/02/22 14:34 98 04/02/22 11:55 36.5 C 92 H 20 111/78 98 04/02/22 07:45 36.5 C 96 H 14 122/81 96 04/02/22 07:10 105 H 04/02/22 04:53 36.6 C 109 H 20 135/83 97 Laboratory Results Short CBC 04/02/22 Range/Units 04:49 WBC 4.55 L (4.8-10.8) K/uL Hgb 12.2 L (14.0-18.0) g/dL Hct 37.1 L (42-52) % Plt Count 140 (130-400) K/uL BMP 04/02/22 04:49 Sodium 132 L Potassium 3.9 Chloride 100 Carbon Dioxide 25 BUN 22 Creatinine 1.51 H Glucose 131 H Calcium 8.1 L
[2022-04-02] MEDS: WARFARIN SOD 5 MG TAB PO SCH (16:36)
[2022-04-02] MEDS: HEPARIN SODIUM/DEXTROSE 25,000 UNITS/500 ML BAG IV SCH (18:44)
[2022-04-02 19:32] LABS: Partial Thromboplastin Ratio 4.1
[2022-04-02 19:57] LABS: Partial Thromboplastin Time 111.6 Seconds (21.0-31.0)
[2022-04-02] MEDS: SIMVASTATIN 40 MG TAB PO SCH (20:08)
[2022-04-02] MEDS: TERAZOSIN HCL 5 MG CAP PO SCH (20:08)
[2022-04-03 03:04] LABS: Hematocrit (blood only) 35.4 % (42-52); Mean Corpuscular Hemoglobin 31.8 pg (25-34); Mean Corpuscular Hgb Conc 33.9 g/dL (32-36); Mean Corpuscular Volume 93.9 fL (80-100); Platelet Count 136 K/uL (130-400); RDW Coefficient of Variation 14.1 % (11.5-14.5); RDW Standard Deviation 48.3 fL (36.4-46.3); Red Blood Count 3.77 M/uL (4.7-6.1); White Blood Count 3.76 K/uL (4.8-10.8)
[2022-04-03 03:05] LABS: Mean Platelet Volume 9.4 fL (7.4-10.4)
[2022-04-03 03:29] LABS: Anion Gap 8 (3-11); BUN Creatinine Ratio 19.5 (10-20); Blood Urea Nitrogen 23 mg/dl (6-23); Calcium 8.1 mg/dl (8.5-10.1); Carbon Dioxide 24 mmol/L (21-32); Chloride 100 mmol/L (98-107); Creatine Kinase 422 U/L (30-223); Creatinine Clr Calc Pharmacy 65.6 ml/min; Est GFR (African American) 66.2 ml/min; Est GFR (Non-African American) 57.1 ml/min; Glucose 116 mg/dl (70-99(Fasting)); Sodium 132 mmol/L (136-145)
[2022-04-03 04:24] LABS: INR 1.6 (0.9-1.1); Prothrombin Time 16.9 Seconds (9.0-12.0)
[2022-04-03 04:30] LABS: Partial Thromboplastin Time 83.6 Seconds (21.0-31.0)
[2022-04-03] MEDS: LEVOTHYROXINE SODIUM 25 MCG TABLET PO SCH (05:17)
[2022-04-03] MEDS: HEPARIN SODIUM/DEXTROSE 25,000 UNITS/500 ML BAG IV SCH ×3 (08:29→12:27)
[2022-04-03] MEDS: TIMOLOL MALEATE 0.5% OP SOLN 5 ML BTL OP SCH (08:30)
[2022-04-03] MEDS: DOXYCYCLINE HYCLATE 100 MG CAP PO SCH (08:30)
[2022-04-03] MEDS: FINASTERIDE 5 MG TAB PO SCH (08:30)
[2022-04-03] MEDS: FLUTICASONE/VILANTEROL 200/25MCG 14 PUFFS/INHALER INH SCH (08:31)
[2022-04-03] MEDS: allopurinoL 100 MG TAB PO SCH (08:31)
[2022-04-03] MEDS: VENLAFAXINE HCL 37.5 MG TAB PO SCH (08:31)
[2022-04-03] MEDS: ADVANCED PROBIOTIC 1250 MG CAPSULE PO SCH (08:31)
[2022-04-03 11:31] LABS: Partial Thromboplastin Ratio 2.8
[2022-04-03 11:59] LABS: Partial Thromboplastin Time 77.1 Seconds (21.0-31.0)
[2022-04-03] MEDS: cefTRIAXone SODIUM 2,000 MG in DEXTROSE 5% 50 ML IV SCH (13:42)
[2022-04-03] MEDS ORDERED: WARFARIN SOD 7.5 MG TAB PO SCH (16:00)
[2022-04-03] MEDS: WARFARIN SOD 7.5 MG TAB PO SCH (16:00)
--- NOTE | 2022-04-03 18:30 | Hospitalist Progress Note ---
Date of Service April 03, 2022 Assessment & Plan (1) Sepsis: Plan: SIRS Suspected Sepsis No obvious source of infection Normal lactate, procalcitonin --CXR:Cardiomegaly without acute process. Blood cultures Negative to date UA not suggestive of UTI COVID screen negative Lyme serology pending Empirically on Rocephin, doxycycline PT/OT Fall precautions Continue current meds, will consider to DC Abx tomorrow (2) Falling: Plan: H/O Recurrent Falls ? Related to Nocturnal Hypoxia Unable to tolerate CPAP Retest for nocturnal oximetry Needs supplemental oxygen arranged if qualifies Outpatient Zio patch upon discharge (3) Nocturnal hypoxia: Plan: Oximetry study suggests need for supplemental oxygen at bedtime Patient plans to get repeat sleep study as outpatient (4) NAVEED (acute kidney injury): Plan: Received IV fluids distended hold losartan, Lasix for now Monitor renal function Avoid nephrotoxic agents as able Cr back to baseline (5) Elevated troponin: Plan: Likely demand ischemia related to renal insufficiency Denies chest pain, dyspnea (6) BPH (benign prostatic hyperplasia): Plan: Continue home medications (7) Hypertension: Plan: Resume losartan, Lasix as able Monitor (8) On warfarin therapy: Plan: H/O unprovoked DVT/PE 3 years ago. Subtherapeutic INR Continue IV heparin, Coumadin Monitor INR 1.6 Increase Coumadin to 7.5 mg today (9) History of pulmonary embolism: Plan: As Above (10) DVT prophylaxis: Plan: Coumadin/heparin Code Status Full Code Admission and Anticipated Discharge Date Admission Date: April 01, 2022 Subjective Patient is seen and examined at bedside Sitting in chair during my encounter States having nausea overnight which currently resolved Also reports having generalized weakness No other complaints Denies any chest pain, shortness of breath, dizziness, abdominal pain Review of Systems Review of Systems: All systems reviewed & are unremarkable except as noted in Subjective Physical Exam Physical Exam: Physical Exam: Vitals signs as noted above General Appearance:Moderately built and nourished, no apparent distress Head: normocephalic, Atraumatic Eyes: normal inspection, EOMI Neck: supple, Trachea midline Respiratory/Chest: Normal breath sounds, CTA, No accessory muscle use Cardiovascular: S1, S2, No murmur Abdomen/GI:Soft, Non tender, Bowel sounds present Extremities/Musculoskeletal:normal inspection, Trace pedal edema Neurologic/Psych:AAOX3, grossly no focal neurological deficits Skin: normal color, warm Results & Data Results & Data ([facility]) Vital Signs (Past 12 Hours) Vital Signs Temp Pulse Pulse Resp BP Pulse Ox 04/03/22 16:47 36.8 C 83 20 153/82 H 92 04/03/22 14:30 82 04/03/22 12:01 36.6 C 86 18 131/72 100 04/03/22 07:53 36.9 C 95 H 20 106/60 97 Laboratory Results Short CBC 04/03/22 Range/Units 02:50 WBC 3.76 L (4.8-10.8) K/uL Hgb 12.0 L (14.0-18.0) g/dL Hct 35.4 L (42-52) % Plt Count 136 (130-400) K/uL BMP 04/03/22 04/03/22 02:50 03:50 Sodium 132 L Potassium TNP 3.7 Chloride 100 Carbon Dioxide 24 BUN 23 Creatinine 1.18 D Glucose 116 H Calcium 8.1 L Cardiac Enzymes 04/03/22 Range/Units 02:50 Total Creatine Kinase 422 H (30-223) U/L
[2022-04-03 19:38] LABS: Partial Thromboplastin Ratio 1.7
[2022-04-03 19:45] LABS: Partial Thromboplastin Time 47.6 Seconds (21.0-31.0)
[2022-04-03] MEDS: TERAZOSIN HCL 5 MG CAP PO SCH (20:52)
[2022-04-03] MEDS: SIMVASTATIN 40 MG TAB PO SCH (20:52)
[2022-04-04] MEDS: LEVOTHYROXINE SODIUM 25 MCG TABLET PO SCH (06:11)
[2022-04-04 06:32] LABS: BUN Creatinine Ratio 18.6 (10-20); Calcium 8.4 mg/dl (8.5-10.1); Creatinine Clr Calc Pharmacy 68.6 ml/min; Est GFR (African American) 69.8 ml/min; Est GFR (Non-African American) 60.2 ml/min; Potassium 3.7 mmol/L (3.5-5.1)
[2022-04-04 06:35] LABS: INR 1.9 (0.9-1.1); Partial Thromboplastin Ratio 2.6; Prothrombin Time 19.6 Seconds (9.0-12.0)
[2022-04-04 06:46] LABS: Partial Thromboplastin Time 72.1 Seconds (21.0-31.0)
[2022-04-04] MEDS: allopurinoL 100 MG TAB PO SCH (08:30)
[2022-04-04] MEDS: FINASTERIDE 5 MG TAB PO SCH (08:30)
[2022-04-04] MEDS: VENLAFAXINE HCL 37.5 MG TAB PO SCH (08:30)
[2022-04-04] MEDS: FLUTICASONE/VILANTEROL 200/25MCG 14 PUFFS/INHALER INH SCH (08:30)
[2022-04-04] MEDS: TIMOLOL MALEATE 0.5% OP SOLN 5 ML BTL OP SCH (08:31)
[2022-04-04] MEDS: ADVANCED PROBIOTIC 1250 MG CAPSULE PO SCH (08:31)
[2022-04-04] MEDS: HEPARIN SODIUM/DEXTROSE 25,000 UNITS/500 ML BAG IV SCH (09:16)
[2022-04-04 13:47] LABS: Partial Thromboplastin Ratio 1.9
[2022-04-04 13:56] LABS: Partial Thromboplastin Time 52.7 Seconds (21.0-31.0)
--- NOTE | 2022-04-04 14:06 | Hospitalist Progress Note ---
Date of Service April 04, 2022 Assessment & Plan (1) Sepsis: Plan: SIRS Suspected Sepsis Possible Lyme's disease: Unsure of Tick bite but lives in [facility] Noted Target like lesion on Right UE No obvious source of infection Normal lactate, procalcitonin --CXR:Cardiomegaly without acute process. Blood cultures Negative to date UA not suggestive of UTI COVID screen negative Lyme serology pending Empirically on Rocephin, doxycycline>>Transition to Doxycycline alone PT/OT Fall precautions Plan to continue Doxycycline until lyme's serology results. (2) Falling: Plan: H/O Recurrent Falls ? Related to Nocturnal Hypoxia Unable to tolerate CPAP Nocturnal oximetry: Qualifies for night Supplemental Oxygen 2L at bedtime Outpatient Zio patch upon discharge Continue supplemental oxygen (3) Nocturnal hypoxia: Plan: Nocturnal oximetry: Qualifies for night Supplemental Oxygen 2L at bedtime Continue supplemental oxygen Patient plans to get repeat sleep study as outpatient (4) NAVEED (acute kidney injury): Plan: Received IV fluids distended hold losartan, Lasix for now Monitor renal function Avoid nephrotoxic agents as able Cr back to baseline (5) Elevated troponin: Plan: Likely demand ischemia related to renal insufficiency Denies chest pain, dyspnea (6) BPH (benign prostatic hyperplasia): Plan: Continue home medications (7) Hypertension: Plan: Resume losartan, Lasix Decrease Losartan to 50mg daily Monitor (8) On warfarin therapy: Plan: H/O unprovoked DVT/PE 3 years ago. Subtherapeutic INR Continue IV heparin, Coumadin Monitor INR 1.9 Give Coumadin to 7.5 mg today (9) History of pulmonary embolism: Plan: As Above (10) DVT prophylaxis: Plan: Coumadin/heparin Code Status Full Code Disposition Rehab Admission and Anticipated Discharge Date Admission Date: April 01, 2022 Subjective Patient is seen and examined at bedside Feels tired and has mild cough Also noted target like lesion on Right Upper extremity No other complaints Denies any chest pain, shortness of breath, dizziness, abdominal pain Plan to discharge to rehab facility today Review of Systems Review of Systems: All systems reviewed & are unremarkable except as noted in Subjective Physical Exam Physical Exam: Physical Exam: Vitals signs as noted above General Appearance:Moderately built and nourished, no apparent distress Head: normocephalic, Atraumatic Eyes: normal inspection, EOMI Neck: supple, Trachea midline Respiratory/Chest: Normal breath sounds, CTA, No accessory muscle use Cardiovascular: S1, S2, No murmur Abdomen/GI:Soft, Non tender, Bowel sounds present Extremities/Musculoskeletal:normal inspection, Trace pedal edema, Right UE erythematous lesions Neurologic/Psych:AAOX3, grossly no focal neurological deficits Skin: normal color, warm Results & Data Results & Data ([facility]) Vital Signs (Past 12 Hours) Vital Signs Temp Pulse Pulse Resp BP Pulse Ox 04/04/22 11:00 36.5 C 80 16 121/84 97 04/04/22 08:00 36.6 C 82 16 119/68 95 04/04/22 07:27 88 04/04/22 03:00 37.0 C 80 18 123/55 L 96 Laboratory Results [facility] 04/04/22 05:59 Sodium 134 L Potassium 3.7 Chloride 103 Carbon Dioxide 25 BUN 21 Creatinine 1.13 Glucose 113 H Calcium 8.4 L
--- NOTE | 2022-04-04 14:27 | Discharge Summary ---
Date of Service April 04, 2022 Admission HPI Per Admitting Provider 81 yo M presents today after a fall at home. Was recently admitted to [facility] 03/25-03/26 for falls with a questionable TIA and UTI. He fell again today while on the way to the restroom at home. He left the hospital last Sunday, and started his course of Cefdinir on , completing 4 days of it. Normal lactate. Patient was camping a couple of weeks ago and had fallen at that time lying on the ground for some time. He also mows the yard; uncertain if he was bitten by anything in particular. Infectious workup currently is unremarkable including no leukocytosis, a normal UA and a normal appearing CXR. Denies headache, fevers, chills +chronic neck stiffness from arthritis, denies headache or blurry vision. +butt hurts laid on floor from 0300 until 1100a-son found him on the floor never lost consciousness and no loss of control of bowels of bladder denies chest pain denies SOB +reports right hand with intermittent tingling in thumb, first and middle finger-no history of carpal tunnel-has severe arthritis He had a sleep study a couple of years ago but couldn't complete the diagnostic test because of claustrophobia with the mask. He also was diagnosed with nocturnal hypoxia last admission but there was an insurance issue related to the diagnosis on the prescription, and he was never given supplemental oxygen The overnight pulse oximetry test performed last admission recorded that despite 2LPM oxygen being applied, he continued to desaturate beyond this indicating he may need additional oxygen. Will repeat the overnight oximetry test again tonight. Reviewed UPPP as another treatment for EVA with the patient and his family at bedside Discussed the importance of treating EVA as arrhythmias if found, may also be the result of poor ventilation while sleeping. Patient has not yet had time to obtain Zio patch. Admission Exam Per Admitting Provider Physical Exam Physical Exam: CONSTITUTIONAL: WNWD, vitals as above, generally ill-appearing and fatigued. NAD EYES: EOMI bilaterally, PERRL, normal conjunctivae, no scleral icterus, ENT: external ear and nose normal, oropharynx clear, mucous membranes are dry. NECK: trachea midline RESPIRATORY: clear to auscultation bilaterally, no crackles, rales or wheezes, normal respiratory effort CARDIOVASCULAR: regular rate and rhythm, S1 and 2 heard without murmurs, gallops or rubs, no JVD, no peripheral edema, CHEST: inspection of chest was normal GASTROINTESTINAL: soft, nontender, ND, no guarding MUSCULOSKELETAL: strength 5/5 throughout, head is normocephalic and atraumatic, SKIN: warm and dry, no rashes visualized NEUROLOGIC: patellar DTRs 2+ bilat. brachioradialis 2+ bilaterally, no facial palsy, no dysarthria. CN 2-12 grossly intact, no sensory deficit, normal cognition, normal speech, no tremor. No gross focal deficits. PSYCHIATRIC: alert cooperative and oriented to person, place and time. Euthy diego mood, makes good eye contact, language grossly intact, recent and remote memory grossly intact. Principal Diagnosis Suspected Sepsis Possible Lyme's disease Nocturnal hypoxemia Recurrent Falls Acute kidney injury Subtherapeutic INR Discharge Data Allergies Allergy/AdvReac Type Severity Reaction Status Date / Time adhesive Allergy Intermediate RASH FROM Verified 04/01/22 14:47 TAPE APPLIED FOR 7 DAYS. latex Allergy Intermediate red rash, Verified 04/01/22 14:47 blisters ibuprofen AdvReac Mild NAUSEA Verified 04/01/22 14:47 oxycodone AdvReac Mild upset Verified 04/01/22 14:47 stomach Hospital Course (1) Sepsis: SIRS Suspected Sepsis Possible Lyme's disease: Unsure of Tick bite but lives in [facility] Noted Target like lesion on Right UE No obvious source of infection Normal lactate, procalcitonin --CXR:Cardiomegaly without acute process. Blood cultures Negative to date UA not suggestive of UTI COVID screen negative Lyme serology pending Empirically on Rocephin, doxycycline>>Transition to Doxycycline alone PT/OT Fall precautions Plan to continue Doxycycline until lyme's serology results. (2) Falling: H/O Recurrent Falls ? Related to Nocturnal Hypoxia Unable to tolerate CPAP Nocturnal oximetry: Qualifies for night Supplemental Oxygen 2L at bedtime Outpatient Zio patch upon discharge Continue supplemental oxygen (3) Nocturnal hypoxia: Nocturnal oximetry: Qualifies for night Supplemental Oxygen 2L at bedtime Continue supplemental oxygen Patient plans to get repeat sleep study as outpatient (4) NAVEED (acute kidney injury): Received IV fluids distended hold losartan, Lasix for now Monitor renal function Avoid nephrotoxic agents as able Cr back to baseline (5) Elevated troponin: Likely demand ischemia related to renal insufficiency Denies chest pain, dyspnea (6) BPH (benign prostatic hyperplasia): Continue home medications (7) Hypertension: Resume losartan, Lasix Decrease Losartan to 50mg daily Monitor (8) On warfarin therapy: H/O unprovoked DVT/PE 3 years ago. Subtherapeutic INR Continue IV heparin, Coumadin Monitor INR 1.9 Give Coumadin to 7.5 mg today (9) History of pulmonary embolism: As Above (10) DVT prophylaxis: Coumadin Code Status Full Code Disposition Rehab Total Time Total Time Spent Total Time Spent (In Minutes): 45 minutes Discharge Plan Discharge Items Patient Disposition: Transfer Inpatient Rehab Fac Reason For Visit: SEPSIS, RECURRENT FALLS AT HOME Discharge Diagnosis: Suspected Sepsis Possible Lyme's disease Nocturnal hypoxemia Recurrent Falls Acute kidney injury Subtherapeutic INR Activity: Per Instructions section Exercise/Sports: Gradually increase as tolerated Non-emergency contact: Primary Care Provider Call non-emergency contact if: you have any medication questions, your symptoms worsen, your pain is concerning for you and you have a fever Follow-up/Referrals: Maday Arzate DO [Primary Care Provider] - Diet: Heart Healthy Addtl Attending Provider Instructions: Follow-up with your primary care physician in 1 week upon discharge from rehab facility. --- Your Lyme serology is pending at the time of discharge. Follow-up with your physician for results. Continue taking doxycycline 100 mg twice a day until Your Serological test for Lyme's finalizes. If negative, can discontinue the medication. ---Your PT/INR IS 1.9 today. Get PT/INR checked tomorrow for further adjustment of Coumadin dose. -- Final blood cultures are pending at the time of discharge. Follow-up with your physician for results. --Use Supplemental Oxygen 2 liters at bedtime via nasal Cannula --Get repeat Sleep study as outpatient as advised --Your Losartan dose is decreased to 50mg daily as your blood pressure is relatively low. Seek immediate medical attention if your symptoms reoccur or worsen Please take all medications as instructed on discharge list below. Please call if you have any questions or problems. You can reach a [facility] hospitalist on duty at [facility] 24 hours a day by calling [phone] Pending Studies at Discharge: Yes Studies:: Lyme's Serology Stand-Alone Forms: My [facility] Skilled Items Patient informed of condition?: Yes DNR: No Discharge Level of Care: Acute rehab Communicable Disease: No Discharge Prognosis: Stable Lines: None Urinary Catheter: No Medications and DC Order Prescriptions: New doxycycline hyclate 100 mg Capsule 100 mg PO BID 11 Days Qty: 22 RF: 0 Continued simvastatin 40 mg Tablet 40 mg PO HS Qty: 0 RF: 0 finasteride [Proscar] 5 mg tablet 5 mg PO DAILY Qty: 90 RF: 3 allopurinol 100 mg tablet 100 mg PO DAILY Qty: 90 RF: 3 warfarin 5 mg tablet See Rx Instructions .ROUTE .COMPLEX RF: 0 timolol maleate 0.5 % drops 1 drp OPR QAM RF: 0 levothyroxine 25 mcg tablet 25 mcg PO DAILYBB RF: 0 furosemide 20 mg tablet 20 mg PO QAM RF: 0 venlafaxine 37.5 mg tablet 37.5 mg PO QAM RF: 0 albuterol sulfate 90 mcg/actuation HFA aerosol inhaler 2 puff INHALATION Q4 PRN (Reason: cough,sob,wheeze) RF: 0 fluticasone furoate-vilanterol [Breo Ellipta] 200-25 mcg/dose blister with device 1 ea INHALATION QAM RF: 0 terazosin 5 mg capsule 5 mg PO HS RF: 0 Probiotic 3 billion cell capsule 3,000 mmu cells PO DAILY 7 Days Qty: 7 RF: 0 Probiotic 3 billion cell Tablet,Chewable 1 tab PO DAILY RF: 0 Changed losartan 100 mg tablet 50 mg PO HS Qty: 0 RF: 0 Discontinued cefdinir 300 mg capsule 300 mg PO BID RF: 0 Discharge Orders: Discharge Order (Routine); Ordered 04/04/22 Ordered By: Gustabo Piña Admission Data Admit Date/Time: 04/01/22 14:48 Attending Provider: Gustabo Piña Admit Provider: Lizeth Loco Primary Care Provider: Maday Arzate Other Providers: [facility],[employer]
[2022-04-04] MEDS ORDERED: DOXYCYCLINE HYCLATE 100 MG CAP PO SCH (14:45)
[2022-04-04] MEDS: WARFARIN SOD 7.5 MG TAB PO SCH (15:47)
--- NOTE | 2022-04-05 06:09 | Electrocardiogram Report ---
Test Reason : Blood Pressure : / mmHG Vent. Rate : 093 BPM Atrial Rate : 093 BPM P-R Int : 148 ms QRS Dur : 090 ms QT Int : 378 ms P-R-T Axes : 051 -19 028 degrees QTc Int : 469 ms Sinus rhythm with Premature supraventricular complexes Otherwise normal ECG When compared with ECG of 02-APR-2022 06:11, Premature supraventricular complexes are now Present Confirmed by Usman Collado ([id number]) on 04/05/2022 6:08:41 AM Referred By: REFERRED SELF Confirmed By:Usman Collado
[2022-04-05 14:22] LABS: 18KDIGG Band REACTIVE; 23KDIGG Band NON-REACTIVE; 23KDIGM Band NON-REACTIVE; 28KDIGG Band REACTIVE; 30KDIGG Band NON-REACTIVE; 39KDIGG Band REACTIVE; 39KDIGM Band NON-REACTIVE; 41KDIGG Band REACTIVE; 41KDIGM Band NON-REACTIVE; 45KDIGG Band NON-REACTIVE; 58KDIGG Band REACTIVE; 66KDIGG Band NON-REACTIVE; 93KDIGG Band NON-REACTIVE; Lyme Antibodies, WB IgG POSITIVE (NEGATIVE); Lyme Antibodies, WB IgM NEGATIVE (NEGATIVE)
[2022-04-05 19:21] LABS: Babesia microti DNA Not Detected (Not Detected)
== END 2022-04-04 16:07 | DRG 872 ==
LOC: ED 12:29 → SUATTDRO 14:48 → 2E 14:48

== ENCOUNTER 2022-11-18 06:37 | Inpatient (IN) ==
[2022-11-18] MEDS ORDERED: SODIUM CHLORIDE 0.9% 1000ML 1,000 ML IV SCH (07:15)
[2022-11-18 07:37] LABS: Influenza A virus by PCR Negative (Neg); Influenza B virus by PCR Negative (Neg); RSV by PCR Negative (Neg)
[2022-11-18 07:46] LABS: SARS CoV2 RNA(COVID-19) Ceph POSITIVE (Negative)
[2022-11-18 07:57] LABS: Basophils # (auto) 0.04 K/uL (0-0.2); Basophils % (auto) 0.6 %; Eosinophils # (auto) 0.08 K/uL (0-0.50); Eosinophils % (auto) 1.1 %; Hematocrit (blood only) 42.5 % (40.1-51.0); Hemoglobin 14.6 g/dl (14.0-18.0); Immature Granulocytes # (auto) 0.02 K/uL (0.00-0.02); Immature Granulocytes % (auto) 0.3 %; Lymphocytes # (auto) 0.97 K/uL (1.2-3.4); Lymphocytes % (auto) 13.8 %; Mean Corpuscular Hemoglobin 32.4 pg (25.0-34.0); Mean Corpuscular Hgb Conc 34.4 g/dL (32.0-36.0); Mean Corpuscular Volume 94.2 fL (80.0-100.0); Mean Platelet Volume 9.5 fL (9.4-12.4); Monocytes # (auto) 0.66 K/uL (0.24-0.82); Monocytes % (auto) 9.4 %; Neutrophils # (auto) 5.25 K/uL (1.4-6.5); Neutrophils % (auto) 74.8 %; Platelet Count 161 K/uL (130-400); RDW Coefficient of Variation 13.4 % (11.5-14.5); RDW Standard Deviation 46.5 fL (36.4-46.3); Red Blood Count 4.51 M/uL (4.63-6.08); White Blood Count 7.02 K/ul (4.8-10.8)
[2022-11-18 08:04] LABS: Appearance Urine Clear (Clear); Bacteria Urine Automated Negative (Negative); Bilirubin Urine Negative (Negative); Blood Urine Negative (Negative); Cast Urine Automated 0 /lpf (0-5); Color Urine Yellow; Epithelial Cell Urine Auto 0-5 /lpf (0-5); Glucose Urine UA Negative (Negative); Ketones Urine Trace (Negative); Leukocyte Esterase Urine Trace (Negative); Nitrite Urine Negative (Negative); Protein Urine Negative (Negative); RBC Urine Automated 0-4 /hpf (0-4); Specific Gravity Urine 1.019 (1.000-1.030); Urobilinogen Urine Negative (Negative)
--- NOTE | 2022-11-18 08:06 | Emergency Department Note ---
Impression & Plan Generalized weakness, COVID-19 ED Provider Note ED Provider Note NAME: CARL JACKSON AGE:82 SEX: Male : 1940 ARRIVES VIA: EMS INFORMANT: Patient ED PROVIDER(s): Amy Drake DO CHIEF COMPLAINT: Weakness HPI: This is an 82-year-old male who presents emerged from due to concern for significant weakness that began this evening. Patient states he also noticed yesterday and today he was very cold and had shaking chills. He states when he went to get up to use the bathroom early this morning he noticed that he was too weak to get out of his recliner and when she sleeps and slid onto the floor in order to be able to crawl and get his phone. He states he called his son who then called 911. Patient states he had similar weakness when he had a urinary tract infection previously. Patient denies any recent sick contacts or change in medications. Patient denies any concern for injury related to the fall. Patient denies noting any change in his urine or stools. He denies abdominal pain, chest pain, cough, trouble breathing, back pain, or fevers. PAST MEDICAL HISTORY:See Below PAST SURGICAL HISTORY:See Below FAMILY HISTORY:See Below SOCIAL HISTORY:See Below HOME MEDICATIONS:See Below ALLERGIES:See Below VITALS:See Below PHYSICAL EXAMINATION: GENERAL: alert, well appearing, well nourished, no distress, non-toxic EYE EXAM: normal conjunctiva, PERRL and EOM's grossly intact OROPHARYNX: no exudate, no erythema, lips, buccal mucosa, and tongue normal and mucous membranes are moist NECK: supple, no nuchal rigidity, no adenopathy, non-tender LUNGS: Clear to auscultation. Normal chest wall mechanics, no w/r/r HEART: no murmurs, S1 normal and S2 normal ABDOMEN: abdomen soft, non-tender, normo-active bowel sounds, no masses, no rebound or guarding. BACK: Back is symmetrical on inspection and there is no deformity, no midline tenderness, no CVA tenderness. SKIN: no rashes, petechiae, orbruising UPPER EXTREMITIES: upper extremities are grossly normal. FROM, nml pulses b/l. LOWER EXTREMITIES: No pitting edema. FROM, nml pulses b/l. NEURO EXAM: Normal sensorium, cranial nerves II-XII grossly intact, normal speech, no facial droop,nogross weakness of arms, no gross weakness of legs. Gross sensation intact. No ataxia. Vital Signs: reviewed and remarkable Differential Diagnosis: Differential Diagnosis includes but is not limited to dehydration, stroke, anemia, hypoglycemia, hyponatremia, hypernatremia, urinary tract infection, pneumonia, bronchitis, sepsis, gastroenteritis, additional abdominal pathology, metabolic abnormalities and infections. MEDICAL DECISION MAKING: This is an 82-year-old male presents to the emergency department due to concern for generalized weakness. Patient concern for UTI which had given him similar symptoms. Patient does admit to shaking chills at home. Vital signs stable on arrival and patient afebrile. Labs drawn and sent, urine collected, EKG and chest x-ray performed, nasal swab sent. EKG interpreted by me and was reassuring. Patient denied any chest pain or shortness of breath despite slight tachycardia on arrival. He did appear clinically dehydrated and stated he had not had anything to eat or drink yet in the morning. Gentle IV fluid rehydration were started. Labs are reassuring, UA unremarkable, however nasal swab positive for COVID. I discussed with patient that the COVID is likely the etiology of his symptoms. After IV fluids, and tolerating p.o. bedside, we did perform an ambulatory trial. Patient still felt weak and unstable. As patient lives home alone he was concern for fall risk which I agree with. Was also noted by nursing staff at 1 point that with sleeping patient did desat into the upper 80s. He was placed on oxygen via nasal cannula. Due to concern for worsening symptoms, social status, other comorbid conditions, and persistent weakness, case discussed with hospitalist for additional evaluation and management. At this point have a low suspicion for additional cardiac or pulmonary manifestations of COVID. No evidence for bacteremia/sepsis. 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 Consultation(s): 1132: Discussed with [facility] hospitalist team. ER Treatment Provided: See below 0850: Updated patient and family at bedside. Diagnostics Interpreted By Me: -ECG: Sinus tachycardia 105, normal QRS and QTc, normal axis, no acute ST/T wave changes -Cardiac Monitoring: An order was placed for continuous cardiac monitoring. The monitor shows a rate of 90 with normal sinus rhythm. -Laboratory studies: As stated above and show below. -Imaging studies: Chest x-ray Triage Nursing Note Reviewed Prior/Outside Records Reviewed Procedures: [] Critical Care: [] Past Med/Surg History Medical History BPH (benign prostatic hyperplasia) BPH (benign prostatic hyperplasia) Degenerative disc disease Dyslipidemia GERD (gastroesophageal reflux disease) Glaucoma History of DVT (deep vein thrombosis) 2 YEARS AGO (REASON FOR COUMADIN) ? REASON FOR DVT History of kidney stones History of pulmonary embolism 2 YEARS AGO (REASON FOR COUMADIN) HLD (hyperlipidemia) HTN (hypertension) Hx of fracture of rib August/September 2020 broke five ribs falling on ice. No longer hurting. Hypoxia On warfarin therapy Osteoarthritis Sleep apnea NO DEVICE (COULD NOT WEAR DEVICE) Surgical History H/O eye surgery RT EYE FOR GLAUCOMA History of colonoscopy History of esophagogastroduodenoscopy (EGD) History of heart artery stent 2000>1 STENT PLACED AT [facility] (FOLLOWED BY DR. SOTELO) History of tooth extraction History of total hip arthroplasty RT/LEFT History of total knee replacement LEFT History of total shoulder replacement RT Hx of cystoscopy WITH STENTS S/P insertion of spinal cord stimulator BACK STIMULATOR (AWARE TO BRING REMOTE) Status post right knee replacement (~02/2021) Family History Other No family history of adverse response to anesthesia Social History Smoking Status: Former smoker Second Hand Exposure: No; Hx Alcohol Use: No Hx Substance Use: No Preferred Language: Mongolian Communication Ability: Effective Customer Care Coordinator Required: No Beliefs That Will Affect Care: None marital status: / Current Living Situation: Alone Current Living Situation Comment: apartment current occupational status: retired Feels Safe at Home: Yes Safety Concerns: Feels Safe At This Time Assistive Devices: Denture - Upper and Denture - Lower Assistive Devices Comment: Dentures in mouth Allergies Allergies Allergy/AdvReac Type Severity Reaction Status Date / Time adhesive Allergy Intermediate RASH FROM Verified 05/30/22 14:22 TAPE APPLIED FOR 7 DAYS. latex Allergy Intermediate red rash, Verified 05/30/22 14:22 blisters ibuprofen AdvReac Mild NAUSEA Verified 05/30/22 14:22 oxycodone AdvReac Mild upset Verified 05/30/22 14:22 stomach Home Meds Home Medications Medication Instructions Recorded Confirmed simvastatin 40 mg tablet 40 mg PO HS ##0 06/26/08 11/18/22 timolol maleate 0.5 % eye drops 1 drp OPR QAM 10/15/20 11/18/22 warfarin 5 mg tablet See Rx Instructions .Route .COMPLEX 10/15/20 11/18/22 fluticasone furoate 200 1 ea inhalation QAM 03/24/22 11/18/22 mcg-vilanterol 25 mcg/dose inhalation powder (Breo Ellipta) furosemide 20 mg tablet 20 mg PO QAM 03/24/22 11/18/22 levothyroxine 25 mcg tablet 25 mcg PO DAILYBB 03/24/22 11/18/22 terazosin 5 mg capsule 5 mg PO HS 03/24/22 11/18/22 Previous Rx's Medication Instructions Recorded allopurinol 100 mg tablet 100 mg PO DAILY #90 tabs 01/19/22 finasteride 5 mg tablet (Proscar) 5 mg PO DAILY #90 tabs 01/19/22 losartan 100 mg tablet 50 mg PO HS #0 tabs 04/04/22 Results & Data (ED) Vital Signs Vital Signs - 24 hr 11/18/22 06:35 11/18/22 06:39 11/18/22 07:15 Temperature 36.9 C Temperature Source Oral Pulse Rate 107 H 101 H Pulse Rate [Apical] Respiratory Rate 20 18 Respiratory Effort / Characteristics Non-Labored Spontaneous Respiratory Depth Normal Respiratory Pattern Blood Pressure 144/110 H Blood Pressure [Right Arm] Blood Pressure Mean 121 Blood Pressure Mean [Right Arm] Blood Pressure Position [Right Arm] Pulse Oximetry 94 94 Oxygen Delivery Method Room Air Room Air Room Air Oxygen Flow Rate 97 Sepsis Recent Fever Within 48 Hours No Sepsis New/Unexplained Change in Mental Status No Sepsis Action Taken by Nursing No Action Required Oxygen Flow Rate - Titration Pulse Oximetry Post Tiitration 11/18/22 07:15 11/18/22 10:16 Temperature Temperature Source Pulse Rate Pulse Rate [Apical] 101 H Respiratory Rate 18 Respiratory Effort / Characteristics Non-Labored Spontaneous Respiratory Depth Normal Respiratory Pattern Regular Blood Pressure Blood Pressure [Right Arm] 157/96 H Blood Pressure Mean Blood Pressure Mean [Right Arm] 116 Blood Pressure Position [Right Arm] Sitting Pulse Oximetry 94 88 L Oxygen Delivery Method Room Air Room Air Oxygen Flow Rate Sepsis Recent Fever Within 48 Hours Sepsis New/Unexplained Change in Mental Status Sepsis Action Taken by Nursing Oxygen Flow Rate - Titration 2 Pulse Oximetry Post Tiitration 95 Laboratory Data 11/18/22 07:34 11/18/22 07:34 Lab Results 11/18/22 11/18/22 11/18/22 Range/Units 06:41 07:08 07:34 WBC 7.02 (4.8-10.8) K/ul RBC 4.51 L (4.63-6.08) M/uL Hgb 14.6 (14.0-18.0) g/dl Hct 42.5 (40.1-51.0) % MCV 94.2 (80.0-100.0) fL MCH 32.4 (25.0-34.0) pg MCHC 34.4 (32.0-36.0) g/dL RDW Std Deviation 46.5 H (36.4-46.3) fL RDW Coeff of Francesco 13.4 (11.5-14.5) % Plt Count 161 (130-400) K/uL MPV 9.5 (9.4-12.4) fL Immature Gran % (Auto) 0.3 % Neut % (Auto) 74.8 % Lymph % (Auto) 13.8 % [place] % (Auto) 9.4 % Eos % (Auto) 1.1 % Baso % (Auto) 0.6 % Neut # (Auto) 5.25 (1.4-6.5) K/uL Lymph # (Auto) 0.97 L (1.2-3.4) K/uL [place] # (Auto) 0.66 (0.24-0.82) K/uL Eos # (Auto) 0.08 (0-0.50) K/uL Baso # (Auto) 0.04 (0-0.2) K/uL Immature Gran # (Auto) 0.02 (0.00-0.02) K/uL Sodium (136-145) mmol/L Potassium (3.5-5.1) mmol/L Chloride (98-107) mmol/L Carbon Dioxide (21-32) mmol/L Anion Gap (3-11) BUN (6-23) mg/dl Creatinine (0.6-1.4) mg/dl Est Cr Clr Drug Dosing ml/min Est GFR ( Amer) ml/min Est GFR (Non-Af Amer) ml/min BUN/Creatinine Ratio (10-20) Glucose (70-99(Fasting)) mg/dl Lactate (0.4-2.0) mmol/L Calcium (8.5-10.1) mg/dl Magnesium (1.7-2.4) mg/dl Total Bilirubin (0.2-1.0) mg/dl Direct Bilirubin (0-0.2) mg/dl AST (13-39) U/L ALT (7-52) U/L Alkaline Phosphatase (34-104) U/L Troponin I High Sens (0-20) pg/ml Total Protein (6.0-8.3) gm/dl Albumin (3.4-5.0) gm/dl Procalcitonin (0-0.5) ng/ml Urine Color Yellow Urine Appearance Clear (Clear) Urine pH 6.0 (4.5-7.5) Ur Specific [place] 1.019 (1.000-1.030) Urine Protein Negative (Negative) Urine Glucose (UA) Negative (Negative) Urine Ketones Trace H (Negative) Urine Blood Negative (Negative) Urine Nitrite Negative (Negative) Urine Bilirubin Negative (Negative) Urine Urobilinogen Negative (Negative) Ur Leukocyte Esterase Trace H (Negative) Urine WBC (Auto) 1-5 (0-5) /hpf Urine RBC (Auto) 0-4 (0-4) /hpf U Hyaline Cast (Auto) 0 (0-5) /lpf U Epithel Cells (Auto) 0-5 (0-5) /lpf Urine Bacteria (Auto) Negative (Negative) SARS-CoV-2 (PCR) POSITIVE A* (Negative) Influenza Type A (PCR) Negative (Neg) Influenza Type B (PCR) Negative (Neg) RSV (RT-PCR) Negative (Neg) 11/18/22 11/18/22 11/18/22 Range/Units 07:34 07:34 08:14 WBC (4.8-10.8) K/ul RBC (4.63-6.08) M/uL Hgb (14.0-18.0) g/dl Hct (40.1-51.0) % MCV (80.0-100.0) fL MCH (25.0-34.0) pg MCHC (32.0-36.0) g/dL RDW Std Deviation (36.4-46.3) fL RDW Coeff of Francesco (11.5-14.5) % Plt Count (130-400) K/uL MPV (9.4-12.4) fL Immature Gran % (Auto) % Neut % (Auto) % Lymph % (Auto) % [place] % (Auto) % Eos % (Auto) % Baso % (Auto) % Neut # (Auto) (1.4-6.5) K/uL Lymph # (Auto) (1.2-3.4) K/uL [place] # (Auto) (0.24-0.82) K/uL Eos # (Auto) (0-0.50) K/uL Baso # (Auto) (0-0.2) K/uL Immature Gran # (Auto) (0.00-0.02) K/uL Sodium 138 (136-145) mmol/L Potassium 4.2 (3.5-5.1) mmol/L Chloride 104 (98-107) mmol/L Carbon Dioxide 27 (21-32) mmol/L Anion Gap 7 (3-11) BUN 24 H (6-23) mg/dl Creatinine 1.35 (0.6-1.4) mg/dl Est Cr Clr Drug Dosing 57.1 ml/min Est GFR ( Amer) 55.9 ml/min Est GFR (Non-Af Amer) 48.2 ml/min BUN/Creatinine Ratio 17.8 (10-20) Glucose 108 H (70-99(Fasting)) mg/dl Lactate 1.1 (0.4-2.0) mmol/L Calcium 9.0 (8.5-10.1) mg/dl Magnesium 1.9 (1.7-2.4) mg/dl Total Bilirubin 0.6 (0.2-1.0) mg/dl Direct Bilirubin 0.1 (0-0.2) mg/dl AST 25 (13-39) U/L ALT 29 (7-52) U/L Alkaline Phosphatase 60 (34-104) U/L Troponin I High Sens 11.7 (0-20) pg/ml Total Protein 6.7 (6.0-8.3) gm/dl Albumin 4.2 (3.4-5.0) gm/dl Procalcitonin < 0.05 (0-0.5) ng/ml Urine Color Urine Appearance (Clear) Urine pH (4.5-7.5) Ur Specific [place] (1.000-1.030) Urine Protein (Negative) Urine Glucose (UA) (Negative) Urine Ketones (Negative) Urine Blood (Negative) Urine Nitrite (Negative) Urine Bilirubin (Negative) Urine Urobilinogen (Negative) Ur Leukocyte Esterase (Negative) Urine WBC (Auto) (0-5) /hpf Urine RBC (Auto) (0-4) /hpf U Hyaline Cast (Auto) (0-5) /lpf U Epithel Cells (Auto) (0-5) /lpf Urine Bacteria (Auto) (Negative) SARS-CoV-2 (PCR) (Negative) Influenza Type A (PCR) (Neg) Influenza Type B (PCR) (Neg) RSV (RT-PCR) (Neg) Administered Medications Fluticasone/Vilanterol (Fluticasone/Vilanterol 200/25mcg 14 Puffs/Inhaler) 1 puffs [facility] [place] Stop: 12/18/22 12:59 Last Admin: 11/18/22 15:27 Dose: 1 puffs Documented By: AM Furosemide (Furosemide 20 Mg Tab) 20 mg PO QAM [facility] Stop: 12/18/22 12:59 Last Admin: 11/18/22 15:23 Dose: 20 mg Documented By: AM Remdesivir 200 mg/ Sodium (Chloride) 250 mls @ 125 mls/hr IV TODAY@1345 [facility]; Protocol Stop: 11/18/22 15:44 Last Admin: 11/18/22 13:55 Dose: 125 mls/hr Documented By: AM Warfarin Sodium (Warfarin Sod 5 Mg Tab) 5 mg PO SuTuWeThFrSa@1600 [facility] Stop: 12/18/22 15:59 Last Admin: 11/18/22 15:25 Dose: 5 mg Documented By: AM Discontinued Medications Cetirizine HCl (Cetirizine Hcl 10 Mg Tablet) 10 mg PO NOW ONE Stop: 11/18/22 08:54 Last Admin: 11/18/22 09:14 Dose: 10 mg Documented By: LUCIA Dexamethasone Sodium Phosphate (DexamethasonePf 10 Mg/Ml Vial) 6 mg IV NOW ONE Stop: 11/18/22 11:14 Last Admin: 11/18/22 11:55 Dose: 6 mg Documented By: KIRAN Sodium Chloride (Nss 1000ml) 1,000 mls @ 999 mls/hr IV .Q1H1M [facility] Stop: 11/18/22 08:15 Last Infusion: 11/18/22 09:21 Dose: 0 mls/hr Documented By: Admin: 11/18/22 08:17 Dose: 999 mls/hr Documented By: LUCIA Acetaminophen (Ofirmev) 1,000 mg in 100 mls @ 400 mls/hr IV NOW STA Stop: 11/18/22 09:07 Last Infusion: 11/18/22 09:44 Dose: 0 mls/hr Documented By: Admin: 11/18/22 09:14 Dose: 400 mls/hr Documented By: LUCIA Imaging Data Radiologist's Impression: Chest X-Ray 11/18/22 07:02 XR chest 1V portable CLINICAL HISTORY: Sepsis TECHNIQUE: Single frontal radiograph of the chest was obtained. Comparison: Comparison is made to chest radiograph 07/13/2022 FINDINGS: Right reverse shoulder arthroplasty and spinal stimulator are seen. Cardiomegaly is noted. The lungs are clear. No evidence of pleural effusion or pneumothorax. IMPRESSION: No acute abnormalities and in particular no evidence of pneumonia. ACT 112: Negative or not required by law. Electronically signed by: Edward Araya M.D. 11/18/2022 8:15 AM Discharge Plan Visit Data Chief Complaint: Weakness Stated Complaint: FALL/WEAKNESS ED Provider: Amy Drake Discharge Problem: Generalized weakness, COVID-19 Patient Disposition: Admitted As Inpatient Discharge Instructions Interventions: ED Discharge Assessment Last Done: 11/18/22 12:54
--- NOTE | 2022-11-18 08:17 | XRay Report ---
XR chest 1V portable CLINICAL HISTORY: Sepsis TECHNIQUE: Single frontal radiograph of the chest was obtained. Comparison: Comparison is made to chest radiograph 07/13/2022 FINDINGS: Right reverse shoulder arthroplasty and spinal stimulator are seen. Cardiomegaly is noted. The lungs are clear. No evidence of pleural effusion or pneumothorax. IMPRESSION: No acute abnormalities and in particular no evidence of pneumonia. ACT 112: Negative or not required by law. Electronically signed by: Edward Araya M.D. 11/18/2022 8:15 AM
[2022-11-18 08:26] LABS: Troponin I High Sensitivity 11.7 pg/ml (0-20)
[2022-11-18 08:32] LABS: Albumin Level 4.2 gm/dl (3.4-5.0); Bilirubin Direct 0.1 mg/dl (0-0.2); Bilirubin,Total 0.6 mg/dl (0.2-1.0); Magnesium 1.9 mg/dl (1.7-2.4); Potassium 4.2 mmol/L (3.5-5.1)
[2022-11-18 08:38] LABS: BUN Creatinine Ratio 17.8 (10-20); Creatinine Clr Calc Pharmacy 57.1 ml/min; Est GFR (African American) 55.9 ml/min; Est GFR (Non-African American) 48.2 ml/min; Total Protein 6.7 gm/dl (6.0-8.3)
[2022-11-18] MEDS ORDERED: ACETAMINOPHEN 1,000 MG/100 ML VIAL IV STA (08:53)
[2022-11-18] MEDS ORDERED: CETIRIZINE HCL 10 MG TABLET PO ONE (08:53)
[2022-11-18] MEDS ORDERED: dexAMETHasone**PF** 10 MG/ML VIAL IV ONE (11:13)
[2022-11-18] MEDS ORDERED: MAGNESIUM HYDROXIDE SUSP 30 ML UDC PO PRN (11:51)
[2022-11-18] MEDS ORDERED: ALUMINUM/MAGNESIUM SUSP 30 ML UDC PO PRN (11:51)
[2022-11-18] MEDS ORDERED: ONDANSETRON INJ 2 MG/ML 2 ML VIAL IV PRN (11:51)
[2022-11-18] MEDS ORDERED: ACETAMINOPHEN 325 MG TAB PO PRN (11:51)
[2022-11-18] MEDS ORDERED: POLYETHYLENE (MIRALAX) 17 GM PACK PO PRN (11:51)
--- NOTE | 2022-11-18 11:51 | History & Physical Report ---
Date of Service November 18, 2022 Assessment & Plan (1) COVID-19: (2) Hypoxia: (3) Weakness: (4) Hypertension: (5) History of pulmonary embolism: (6) History of DVT (deep vein thrombosis): (7) HLD (hyperlipidemia): (8) BPH (benign prostatic hyperplasia): Plan 82-year-old presents with weakness and incidentally found COVID-positive with hypoxia. Remdesivir candidate. History of PE DVT on Coumadin's; subtherapeutic INR 1.8. Challenges with EVA and follows with sleep medicine. Daily Decadron with IV remdesivir and supplemental oxygen. Chest x-ray unremarkable for bacterial involvement; no leukocytosis, lactate, procalcitonin, troponin negative. COVID-19: Hypoxia: Weakness: -Symptoms started on ; vaccinated for COVID with boosters and vaccinated against influenza -87% on room air in ED; currently on 2 L; SPO2 96% -Coarse lung sounds in bases -Chest x-ray unremarkable for pleural effusions or infiltrates; repeat in a.m. -Decadron 6 mg in ED; continue daily x9 days -Consent received for remdesivir; order placed with loading dose -Lactate 1.1, troponin negative, procalcitonin negative -No leukocytosis; suspect viral in nature with exacerbating presentation due to uncontrolled EVA -PT/OT HTN: -Takes losartan, continue -BP in ED 157/96; patient did not take a.m. meds H/O PE: H/O DVT: -spontaneous PE/DVT 2 years ago -On Coumadin, currently subtherapeutic; INR 1.8 -Trend PT/INR in a.m. -Do not suspect PE however need to consider D-dimer or chest CT due to subtherapeutic INR -Consideration placed for borderline creatinine 1.35 EVA: -Follows with sleep medicine to obtain adequate home regimen including CPAP-not compliant with CPAP. -does reports snoring, abrupt awakening and fatigue in the a.m. HLD: -Takes simvastatin; continue -Recent lipid panel triglycerides 177, HDL 40, LDL 60 BPH: -Takes terazosin; continue Hypothyroidism: -Takes levothyroxine; continue Disposition: PCP: Dr. Arzate Code Status: DNR/DNI VTE Prophylaxis: On Coumadin; teds and SCDs for now A total of 86 minutes was spent with greater than 50% of that time personally reviewing all current laboratory work and diagnostic imaging studies obtained in the ED. Additionally, I was able to review the patients past medication reconciliation and history with direct visualization in the patients chart. Included in the time above, a portion of that time was spent assessing the patient while discussing and collaborating with specialists, if necessary, and m aking medical decisions regarding orders to be placed. All of the aforementioned completed while collaborating with Dr. Howard for a full treatment plan. Please see his addendum for further details. History of Present Illness Chief Complaint: SOB/weakness Primary Care Provider: Maday Arzate DO Mr. Chambers is an 82-year-old male that presented to the [facility] with his son and daughter after he has been experiencing weakness and a headache for the past 48 hours. Patient lives alone and this morning felt too weak to stand so slid himself out of his recliner to crawl to the telephone and call his son Aníbal to bring him to the emergency room. Patient states he felt that he had a UTI as he felt similar to symptoms he has had in the past. Patient with sinus congestion and postnasal drip over past 48 hours coupled with fever and chills. In ED SPO2 87% on room air, placed on 2 L return to 96%. Patient has a past medical history that includes history of spontaneous PE/DVT 2 years ago (On Coumadin, currently subtherapeutic), obstructive sleep apnea(follows with sleep medicine but is not compliant with a CPAP machine), gout, hypertension, hyperlipidemia, hypothyroidism, depression. Last echo 2020 EF 60 to 64% no abnormal wall motion, grade 1 diastolic dysfunction. Last cardiology appointment November 02, 2022. PFTs via EMR FEV1 76. In the ED chest x-ray unremarkable for pleural effusions or infiltrates, received Decadron 6 mg and Tylenol IV. Lactic acid 1.1, Pro-Markie negative, no leukocytosis, blood cultures pending. Need to keep recurrent DVT or PE in differentials while patient is on anticoagulation he is currently subtherapeutic. At bedside, patient AAOx4 and able to hold meaningful conversation and speak in complete sentences without dyspnea. Non-smoker, no alcohol or recreational drug use. Patient reports having a headache but otherwise ROS is negative. Patient denies dizziness, visual changes, auditory changes, chest pain, palpitations, shortness of breath, abdominal pain, appetite changes, recent falls or trauma. Patient is vaccinated and received boosters for COVID-19 and is vaccinated against influenza A. Patient will be admitted for further evaluation and management. Please see A/P for further details. Allergies Allergy/AdvReac Type Severity Reaction Status Date / Time adhesive Allergy Intermediate RASH FROM Verified 05/30/22 14:22 TAPE APPLIED FOR 7 DAYS. latex Allergy Intermediate red rash, Verified 05/30/22 14:22 blisters ibuprofen AdvReac Mild NAUSEA Verified 05/30/22 14:22 oxycodone AdvReac Mild upset Verified 05/30/22 14:22 stomach Home Medications Medication Instructions Recorded Confirmed Type simvastatin 40 mg tablet 40 mg PO HS ##0 06/26/08 11/18/22 History timolol maleate 0.5 % eye drops 1 drp OPR QA 10/15/20 11/18/22 History warfarin 5 mg tablet See Rx Instructions .Route .COMPLEX 10/15/20 11/18/22 History allopurinol 100 mg tablet 100 mg PO DAILY #90 tabs 01/19/22 11/18/22 Rx finasteride 5 mg tablet (Proscar) 5 mg PO DAILY #90 tabs 01/19/22 11/18/22 Rx fluticasone furoate 200 1 ea inhalation QA 03/24/22 11/18/22 History mcg-vilanterol 25 mcg/dose inhalation powder (Breo Ellipta) furosemide 20 mg tablet 20 mg PO QAM 03/24/22 11/18/22 History levothyroxine 25 mcg tablet 25 mcg PO DAILYBB 03/24/22 11/18/22 History terazosin 5 mg capsule 5 mg PO HS 03/24/22 11/18/22 History losartan 100 mg tablet 50 mg PO HS #0 tabs 04/04/22 11/18/22 Rx Past Med/Surg History Medical History BPH (benign prostatic hyperplasia) BPH (benign prostatic hyperplasia) Degenerative disc disease Dyslipidemia GERD (gastroesophageal reflux disease) Glaucoma History of DVT (deep vein thrombosis) 2 YEARS AGO (REASON FOR COUMADIN) ? REASON FOR DVT History of kidney stones History of pulmonary embolism 2 YEARS AGO (REASON FOR COUMADIN) HLD (hyperlipidemia) HTN (hypertension) Hx of fracture of rib September 2020 broke five ribs falling on ice. No longer hurting. Hypoxia On warfarin therapy Osteoarthritis Sleep apnea NO DEVICE (COULD NOT WEAR DEVICE) Surgical History H/O eye surgery RT EYE FOR GLAUCOMA History of colonoscopy History of esophagogastroduodenoscopy (EGD) History of heart artery stent 2000>1 STENT PLACED AT [facility] (FOLLOWED BY DR. SOTELO) History of tooth extraction History of total hip arthroplasty RT/LEFT History of total knee replacement LEFT History of total shoulder replacement RT Hx of cystoscopy WITH STENTS S/P insertion of spinal cord stimulator BACK STIMULATOR (AWARE TO BRING REMOTE) Status post right knee replacement (~02/2021) Family History Other No family history of adverse response to anesthesia Social History Smoking Status: Former smoker Second Hand Exposure: No; Hx Alcohol Use: No Hx Substance Use: No Preferred Language: Danish Communication Ability: Effective Panel Installer Required: No Beliefs That Will Affect Care: None marital status: / Current Living Situation: Alone Current Living Situation Comment: apartment current occupational status: retired Feels Safe at Home: Yes Safety Concerns: Feels Safe At This Time Assistive Devices: Denture - Upper and Denture - Lower Assistive Devices Comment: Dentures in mouth Review of Systems Review of Systems: Neuro: (-) Falls, trauma, slurred speech HEENT: (-) ANDREWS, dizziness, dysphagia, visual or auditory changes CV: (-) CP, palpitations, swelling Resp: (-) SOB GI: (-) appetite changes, N/V/D, bowel changes : (-) urinary changes Skin: (-) rashes Psych: (-) anxiety, depression Physical Exam Physical Exam: Neuro: AAOx4, PERRLA, no aphagia, memory changes, CNII-XII grossly intact HEENT: head normocephalic, moist mucus membranes CV: S1/S2, (-) M/G/R, (-) edema, cap refill < 3 seconds Resp: Lungs CTA in all faith. On RA GI: Abdomen S/NT/ND, Ax4 bowel sounds, (-) CVA tenderness Musculoskeletal: 5/5 B/L UE strength, 5/5 B/L LE strength. No gait disturbance Skin: (-) rashes , (-) erythema. Psych: euthymic mood Results & Data Results & Data ([facility]) Vital Signs (Past 12 Hours) Vital Signs Temp Pulse Pulse Resp BP BP Pulse Ox 11/18/22 10:16 88 L 11/18/22 07:15 101 H 18 157/96 H 94 11/18/22 07:15 101 H 18 94 11/18/22 06:39 11/18/22 06:35 36.9 C 107 H 20 144/110 H 94 O2 Del Method O2 Flow Rate 11/18/22 10:16 Room Air 11/18/22 07:15 Room Air 11/18/22 07:15 Room Air 11/18/22 06:39 Room Air 97 11/18/22 06:35 Room Air Laboratory Results Short CBC 11/18/22 Range/Units 07:34 WBC 7.02 (4.8-10.8) K/ul Hgb 14.6 (14.0-18.0) g/dl Hct 42.5 (40.1-51.0) % Plt Count 161 (130-400) K/uL BMP 11/18/22 07:34 Sodium 138 Potassium 4.2 Chloride 104 Carbon Dioxide 27 BUN 24 H Creatinine 1.35 Glucose 108 H Calcium 9.0 Liver Function 11/18/22 Range/Units 07:34 Total Bilirubin 0.6 (0.2-1.0) mg/dl Direct Bilirubin 0.1 (0-0.2) mg/dl AST 25 (13-39) U/L ALT 29 (7-52) U/L Alkaline Phosphatase 60 (34-104) U/L Albumin 4.2 (3.4-5.0) gm/dl Urine 11/18/22 Range/Units 07:08 Urine Color Yellow Urine Appearance Clear (Clear) Urine pH 6.0 (4.5-7.5) Ur Specific [place] 1.019 (1.000-1.030) Urine Protein Negative (Negative) Urine Glucose (UA) Negative (Negative) Diagnostic Findings Chest X-Ray 11/18/22 07:02 XR chest 1V portable CLINICAL HISTORY: Sepsis TECHNIQUE: Single frontal radiograph of the chest was obtained. Comparison: Comparison is made to chest radiograph 07/13/2022 FINDINGS: Right reverse shoulder arthroplasty and spinal stimulator are seen. Cardiomegaly is noted. The lungs are clear. No evidence of pleural effusion or pneumothorax. IMPRESSION: No acute abnormalities and in particular no evidence of pneumonia. ACT 112: Negative or not required by law. Electronically signed by: Edward Araya M.D. 11/18/2022 8:15 AM Code Status & VTE Plan Code Status DNR/DNI in the event of cardiac or respiratory arrest VTE Prophylaxis Plan VTE Prophylaxis will be ordered: Yes Supervising Physician Co-Signing Physician Notes Patient seen and examined Reports cough, post nasal drip, some shortness of breath and generalized weakness that he slid off his recliner and could not get up Notable hypoxia in ER and was put on oxygen Tested positive to COVID CXR does not show obvious infiltrates Normal procalcitonin Acute respiratory failure with hypoxia COVID 19 infection Continue dexa and remdesivir for now Wean off oxygen IS/flutter Has h/o PE. Discussed CT PE with patient but he declined since his Cr is borderline (has CKD3) which I think is reasonable since he is already on warfarin Agree with other plans as detailed by Jyothi BURNHAM
[2022-11-18 12:46] LABS: INR 1.8 (0.9-1.1); Prothrombin Time 18.4 Seconds (9.0-12.0)
[2022-11-18] MEDS ORDERED: REMDESIVIR 200 MG in SODIUM CHLORIDE 0.9% 210 ML IV SCH (13:45)
[2022-11-18] MEDS: FUROSEMIDE 20 MG TAB PO SCH (15:23)
[2022-11-18] MEDS: FLUTICASONE/VILANTEROL 200/25MCG 14 PUFFS/INHALER INH SCH (15:27)
--- NOTE | 2022-11-18 15:30 | Electrocardiogram Report ---
Test Reason : Blood Pressure : / mmHG Vent. Rate : 105 BPM Atrial Rate : 105 BPM P-R Int : 158 ms QRS Dur : 098 ms QT Int : 362 ms P-R-T Axes : 037 -19 041 degrees QTc Int : 478 ms Sinus tachycardia Otherwise normal ECG When compared with ECG of 13-JUL-2022 15:43, Premature supraventricular complexes are no longer Present Confirmed by Haider Mireles ([id number]) on 11/18/2022 3:30:18 PM Referred By: REFERRED SELF Confirmed By:Haider Mireles
[2022-11-18] MEDS ORDERED: WARFARIN SOD 5 MG TAB PO SCH (16:00)
[2022-11-18] MEDS ORDERED: WARFARIN SOD 2.5 MG TAB PO ONE (16:45)
[2022-11-18] MEDS: TERAZOSIN HCL 5 MG CAP PO SCH (20:26)
[2022-11-18] MEDS: LOSARTAN POTASSIUM 50 MG TAB PO SCH (20:27)
[2022-11-18] MEDS: SIMVASTATIN 40 MG TAB PO SCH (20:27)
[2022-11-19] MEDS: LEVOTHYROXINE SODIUM 25 MCG TABLET PO SCH (05:56)
[2022-11-19 07:20] LABS: Hematocrit (blood only) 39.3 % (40.1-51.0); Hemoglobin 13.3 g/dl (14.0-18.0); Mean Corpuscular Hemoglobin 32.2 pg (25.0-34.0); Mean Corpuscular Hgb Conc 33.8 g/dL (32.0-36.0); Mean Corpuscular Volume 95.2 fL (80.0-100.0); Platelet Count 153 K/uL (130-400); RDW Coefficient of Variation 13.4 % (11.5-14.5); RDW Standard Deviation 47.6 fL (36.4-46.3); Red Blood Count 4.13 M/uL (4.63-6.08); White Blood Count 6.38 K/ul (4.8-10.8)
[2022-11-19 07:29] LABS: Prothrombin Time 20.9 Seconds (9.0-12.0)
[2022-11-19] MEDS: FUROSEMIDE 20 MG TAB PO SCH (08:06)
[2022-11-19] MEDS: dexAMETHasone 1 MG TAB PO SCH (08:06)
[2022-11-19] MEDS: allopurinoL 100 MG TAB PO SCH (08:07)
[2022-11-19] MEDS: TIMOLOL MALEATE 0.5% OP SOLN 5 ML BTL OPR SCH (08:07)
[2022-11-19] MEDS: FINASTERIDE 5 MG TAB PO SCH (08:07)
[2022-11-19] MEDS: FLUTICASONE/VILANTEROL 200/25MCG 14 PUFFS/INHALER INH SCH (08:08)
--- NOTE | 2022-11-19 08:14 | XRay Report ---
XR chest 1V portable HISTORY: 82 years-old Male post-operative coughing and wheezing acute cough with wheezing COMPARISON: November 18, 2021 TECHNIQUE: AP view of the chest FINDINGS: Cardiac silhouette is enlarged. Atherosclerosis of the aorta. No pneumothorax, pleural effusion, airs pace consolidation or pulmonary edema. Mild bibasilar atelectasis/scarring. Degenerative changes of t he spine and left shoulder. A spinal stimulator device is noted with distal tip overlying the midthor acic spine. Reverse right shoulder total joint arthroplasty. IMPRESSION: No acute process. ACT 112: Negative or not required by law. The above report was generated using voice recognition software. It may contain grammatical, syntax o r spelling errors. Electronically signed by: Luciano Smalls M.D. 11/19/2022 8:13 AM
[2022-11-19 08:18] LABS: Calcium 8.6 mg/dl (8.5-10.1); Potassium 3.8 mmol/L (3.5-5.1)
[2022-11-19 08:23] LABS: BUN Creatinine Ratio 21.1 (10-20); Creatinine Clr Calc Pharmacy 65.2 ml/min; Est GFR (African American) 68.5 ml/min; Est GFR (Non-African American) 59.1 ml/min
[2022-11-19] MEDS ORDERED: BENZONATATE 100 MG CAPSULE PO PRN (09:26)
[2022-11-19] MEDS: LORATADINE 10 MG TAB PO SCH (10:21)
[2022-11-19] MEDS: guaiFENesin 600 MG TABCR PO SCH ×2 (10:21→21:36)
--- NOTE | 2022-11-19 11:00 | Electrocardiogram Report ---
Test Reason : Blood Pressure : / mmHG Vent. Rate : 072 BPM Atrial Rate : 072 BPM P-R Int : 164 ms QRS Dur : 094 ms QT Int : 426 ms P-R-T Axes : 062 -14 028 degrees QTc Int : 466 ms Normal sinus rhythm Normal ECG When compared with ECG of 18-NOV-2022 07:06, No significant change was found Confirmed by Haider Mireles ([id number]) on 11/19/2022 11:00:11 AM Referred By: REFERRED SELF Confirmed By:Haider Mireles
--- NOTE | 2022-11-19 11:40 | Hospitalist Progress Note ---
Date of Service November 19, 2022 Assessment & Plan (1) COVID-19: (2) Hypoxia: (3) Weakness: (4) Hypertension: (5) History of pulmonary embolism: (6) History of DVT (deep vein thrombosis): (7) HLD (hyperlipidemia): (8) BPH (benign prostatic hyperplasia): Plan 82-year-old presents with weakness and incidentally found COVID-positive with hypoxia. Remdesivir candidate. History of PE DVT on Coumadin's; subtherapeutic INR 1.8. Challenges with EVA and follows with sleep medicine. Daily Decadron with IV remdesivir and supplemental oxygen. Chest x-ray unremarkable for bacterial involvement; no leukocytosis, lactate, procalcitonin, troponin negative. COVID-19: Acute respiratory failure with hypoxia: Weakness: Symptoms started on ; vaccinated for COVID with boosters and vaccinated against influenza 87% on room air in ED; Initially on 2L NC Chest x-ray did not show any acute process Continue dexamethasone and remdesivir Currently weaned off oxygen PT/OT Antitussives Loratadine daily Hypertension: Continue home losartan and monitor H/O PE: H/O DVT: Spontaneous PE/DVT 2 years ago On Coumadin, INR 1.8 on admission. It is 2 today EVA: Follows with sleep medicine to obtain adequate home regimen including CPAP-not compliant with CPAP. Hyperlipidema: Continue simvastatin BPH: Continue terazosin Hypothyroidism: -akes levothyroxine; continue PCP: Dr. Arzate Code Status: DNR/DNI VTE Prophylaxis: On Coumadin Admission and Anticipated Discharge Date Admission Date: November 18, 2022 Subjective Patient seen and examined Reports cough Denied shortness of breath today Still reports weakness Reports congestion and post nasal drip Denied chest pain, dizziness Denied fever, chills Denied nausea, vomiting, abd pain, diarrhea Denied dysuria,freq, urgency Physical Exam Constitutional: + well hydrated; no acute distress Eyes: PERRL, conjunctivae normal, anicteric sclerae ENMT: external ear and nose normal, oropharynx normal Respiratory: normal respiratory effort, lungs clear to auscultation Cardiovascular: Rate/Rhythm: regular rate and regular rhythm S1 S2 Gastrointestinal (Abdomen): normal bowel sounds, soft, nontender, no hepatosplenomegaly Musculoskeletal: No pedal edema Neurologic: PERRL, EOMI, accommodation nl, no face palsy, no dysarthria Psychiatric: A+Ox3, euthymic affect Results & Data Results & Data ([facility]) Vital Signs (Past 12 Hours) Vital Signs Temp Pulse Pulse Resp BP Pulse Ox Pulse Ox 11/19/22 10:42 83 11/19/22 09:30 11/19/22 07:55 36.2 C L 74 18 151/80 H 91 11/19/22 07:02 94 11/19/22 03:24 36.3 C L 79 18 133/75 94 O2 Del Method O2 Del Method 11/19/22 10:42 11/19/22 09:30 Room Air 11/19/22 07:55 Room Air 11/19/22 07:02 Room Air 11/19/22 03:24 Room Air Laboratory Results Abnormal lab results 11/18/22 11/18/22 11/19/22 Range/Units 16:54 19:27 07:05 RBC 4.13 L (4.63-6.08) M/uL Hgb 13.3 L (14.0-18.0) g/dl Hct 39.3 L (40.1-51.0) % RDW Std Deviation 47.6 H (36.4-46.3) fL MPV 9.0 L (9.4-12.4) fL ESR (0-20) mm/hr PT (9.0-12.0) Seconds INR (0.9-1.1) Chloride (98-107) mmol/L BUN (6-23) mg/dl BUN/Creatinine Ratio (10-20) Glucose (70-99(Fasting)) mg/dl POC Glucose 124 H 132 H (70-99) mg/dl 11/19/22 11/19/22 11/19/22 Range/Units 07:05 07:05 07:05 RBC (4.63-6.08) M/uL Hgb (14.0-18.0) g/dl Hct (40.1-51.0) % RDW Std Deviation (36.4-46.3) fL MPV (9.4-12.4) fL ESR 30 H (0-20) mm/hr PT 20.9 H (9.0-12.0) Seconds INR 2.0 H (0.9-1.1) Chloride 108 H (98-107) mmol/L BUN 24 H (6-23) mg/dl BUN/Creatinine Ratio 21.1 H (10-20) Glucose 121 H (70-99(Fasting)) mg/dl POC Glucose (70-99) mg/dl 11/19/22 11/19/22 Range/Units 07:32 11:30 RBC (4.63-6.08) M/uL Hgb (14.0-18.0) g/dl Hct (40.1-51.0) % RDW Std Deviation (36.4-46.3) fL MPV (9.4-12.4) fL ESR (0-20) mm/hr PT (9.0-12.0) Seconds INR (0.9-1.1) Chloride (98-107) mmol/L BUN (6-23) mg/dl BUN/Creatinine Ratio (10-20) Glucose (70-99(Fasting)) mg/dl POC Glucose 123 H 106 H (70-99) mg/dl
[2022-11-19] MEDS: REMDESIVIR 100 MG in SODIUM CHLORIDE 0.9% 230 ML IV SCH (12:01)
[2022-11-19] MEDS ORDERED: WARFARIN SOD 7.5 MG TAB PO SCH (16:00)
[2022-11-19] MEDS: SIMVASTATIN 40 MG TAB PO SCH (21:35)
[2022-11-19] MEDS: LOSARTAN POTASSIUM 50 MG TAB PO SCH (21:35)
[2022-11-19] MEDS: TERAZOSIN HCL 5 MG CAP PO SCH (21:35)
[2022-11-20] MEDS: LEVOTHYROXINE SODIUM 25 MCG TABLET PO SCH (04:50)
[2022-11-20 07:00] LABS: Hematocrit (blood only) 41.8 % (40.1-51.0); Hemoglobin 14.4 g/dl (14.0-18.0); Mean Corpuscular Hemoglobin 32.1 pg (25.0-34.0); Mean Corpuscular Hgb Conc 34.4 g/dL (32.0-36.0); Mean Corpuscular Volume 93.1 fL (80.0-100.0); Mean Platelet Volume 9.6 fL (9.4-12.4); Platelet Count 183 K/uL (130-400); RDW Coefficient of Variation 13.4 % (11.5-14.5); RDW Standard Deviation 46.1 fL (36.4-46.3); Red Blood Count 4.49 M/uL (4.63-6.08); White Blood Count 8.96 K/ul (4.8-10.8)
[2022-11-20 07:18] LABS: INR 2.5 (0.9-1.1); Prothrombin Time 25.3 Seconds (9.0-12.0)
[2022-11-20 07:24] LABS: Albumin Globulin Ratio 1.5 (0.9-2); Albumin Level 3.9 gm/dl (3.4-5.0); BUN Creatinine Ratio 28.6 (10-20); Bilirubin,Total 0.3 mg/dl (0.2-1.0); Creatinine Clr Calc Pharmacy 66.2 ml/min; Est GFR (Non-African American) 60.4 ml/min; Globulin 2.6 gm/dl (2.5-4.0); Potassium 4.1 mmol/L (3.5-5.1); Total Protein 6.5 gm/dl (6.0-8.3)
[2022-11-20] MEDS: FINASTERIDE 5 MG TAB PO SCH (08:00)
[2022-11-20] MEDS: allopurinoL 100 MG TAB PO SCH (08:00)
[2022-11-20] MEDS: dexAMETHasone 1 MG TAB PO SCH (08:00)
[2022-11-20] MEDS: FLUTICASONE/VILANTEROL 200/25MCG 14 PUFFS/INHALER INH SCH (08:01)
[2022-11-20] MEDS: TIMOLOL MALEATE 0.5% OP SOLN 5 ML BTL OPR SCH (08:02)
[2022-11-20] MEDS: LORATADINE 10 MG TAB PO SCH (08:02)
[2022-11-20] MEDS: guaiFENesin 600 MG TABCR PO SCH ×2 (08:02→20:28)
[2022-11-20] MEDS: FUROSEMIDE 20 MG TAB PO SCH (08:02)
--- NOTE | 2022-11-20 11:10 | Hospitalist Progress Note ---
Date of Service November 20, 2022 Assessment & Plan (1) COVID-19: (2) Hypoxia: (3) Weakness: (4) Hypertension: (5) History of pulmonary embolism: (6) History of DVT (deep vein thrombosis): (7) HLD (hyperlipidemia): (8) BPH (benign prostatic hyperplasia): Plan 82-year-old presents with weakness and incidentally found COVID-positive with hypoxia. Remdesivir candidate. History of PE DVT on Coumadin's; subtherapeutic INR 1.8. Challenges with EVA and follows with sleep medicine. Daily Decadron with IV remdesivir and supplemental oxygen. Chest x-ray unremarkable for bacterial involvement; no leukocytosis, lactate, procalcitonin, troponin negative. COVID-19: Acute respiratory failure with hypoxia: Weakness: Symptoms started on ; vaccinated for COVID with boosters and vaccinated against influenza 87% on room air in ED; Initially on 2L NC Chest x-ray did not show any acute process Continue dexamethasone and remdesivir Has been weaned off oxygen PT/OT Continue antitussives and Loratadine Hypertension: Continue home losartan and monitor H/O PE: H/O DVT: Spontaneous PE/DVT 2 years ago On Coumadin, INR 1.8 on admission. It is 2.5 today EVA: Follows with sleep medicine to obtain adequate home regimen including CPAP-not compliant with CPAP. Hyperlipidema: Continue simvastatin BPH: Continue terazosin Hypothyroidism: Takes levothyroxine; continue PCP: Dr. Arzate Code Status: DNR/DNI VTE Prophylaxis: On Coumadin Possible dc in 24-48h Admission and Anticipated Discharge Date Admission Date: November 18, 2022 Subjective Patient seen and examined Reports feeling better today Reports cough and weakness are improving Denied shortness of breath Reports congestion and post nasal drip are improving Denied chest pain, dizziness Denied fever, chills Denied nausea, vomiting, abd pain, diarrhea Denied dysuria,freq, urgency Physical Exam Constitutional: + well hydrated; no acute distress Eyes: PERRL, conjunctivae normal, anicteric sclerae ENMT: external ear and nose normal, oropharynx normal Respiratory: normal respiratory effort, lungs clear to auscultation Cardiovascular: Rate/Rhythm: regular rate and regular rhythm S1 S2 Gastrointestinal (Abdomen): normal bowel sounds, soft, nontender, no hepatosplenomegaly Musculoskeletal: No pedal edema Neurologic: PERRL, EOMI, accommodation nl, no face palsy, no dysarthria Psychiatric: A+Ox3, euthymic affect Results & Data Results & Data ([facility]) Vital Signs (Past 12 Hours) Vital Signs Temp Pulse Pulse Resp BP BP Pulse Ox 11/20/22 05:59 69 11/20/22 07:00 11/20/22 07:29 36.4 C L 63 18 138/82 96 11/20/22 03:10 36.4 C L 72 18 136/81 95 11/19/22 23:17 36.3 C L 73 18 129/70 92 11/19/22 23:51 74 11/19/22 23:46 Pulse Ox O2 Del Method O2 Del Method 11/20/22 05:59 11/20/22 07:00 93 Room Air 11/20/22 07:29 Room Air 11/20/22 03:10 Room Air 11/19/22 23:17 Room Air 11/19/22 23:51 11/19/22 23:46 Room Air Laboratory Results Abnormal lab results 11/19/22 11/19/22 11/20/22 Range/Units 16:01 21:09 06:30 RBC (4.63-6.08) M/uL PT 25.3 H (9.0-12.0) Seconds INR 2.5 H (0.9-1.1) BUN (6-23) mg/dl BUN/Creatinine Ratio (10-20) Glucose (70-99(Fasting)) mg/dl POC Glucose 119 H 120 H (70-99) mg/dl 11/20/22 11/20/22 11/20/22 Range/Units 06:30 06:30 07:27 RBC 4.49 L (4.63-6.08) M/uL PT (9.0-12.0) Seconds INR (0.9-1.1) BUN 32 H (6-23) mg/dl BUN/Creatinine Ratio 28.6 H (10-20) Glucose 113 H (70-99(Fasting)) mg/dl POC Glucose 103 H (70-99) mg/dl
[2022-11-20] MEDS: REMDESIVIR 100 MG in SODIUM CHLORIDE 0.9% 230 ML IV SCH (12:02)
[2022-11-20] MEDS ORDERED: WARFARIN SOD 5 MG TAB PO SCH (16:00)
[2022-11-20] MEDS ORDERED: WARFARIN SOD 7.5 MG TAB PO SCH (16:00)
--- NOTE | 2022-11-20 18:21 | Electrocardiogram Report ---
Test Reason : Blood Pressure : / mmHG Vent. Rate : 067 BPM Atrial Rate : 067 BPM P-R Int : 154 ms QRS Dur : 092 ms QT Int : 430 ms P-R-T Axes : 044 -11 015 degrees QTc Int : 454 ms Normal sinus rhythm Normal ECG When compared with ECG of 19-NOV-2022 05:59, No significant change was found Confirmed by Alonso Krause ([id number]) on 11/20/2022 6:21:34 PM Referred By: REFERRED SELF Confirmed By:Corey Krause
[2022-11-20] MEDS: TERAZOSIN HCL 5 MG CAP PO SCH (20:28)
[2022-11-20] MEDS: SIMVASTATIN 40 MG TAB PO SCH (20:28)
[2022-11-20] MEDS: LOSARTAN POTASSIUM 50 MG TAB PO SCH (20:28)
[2022-11-21] MEDS: LEVOTHYROXINE SODIUM 25 MCG TABLET PO SCH (05:41)
[2022-11-21 08:13] LABS: Hematocrit (blood only) 42.1 % (40.1-51.0); Hemoglobin 14.5 g/dl (14.0-18.0); Mean Corpuscular Hemoglobin 32.5 pg (25.0-34.0); Mean Corpuscular Hgb Conc 34.4 g/dL (32.0-36.0); Mean Corpuscular Volume 94.4 fL (80.0-100.0); Mean Platelet Volume 9.5 fL (9.4-12.4); Platelet Count 178 K/uL (130-400); RDW Coefficient of Variation 13.4 % (11.5-14.5); Red Blood Count 4.46 M/uL (4.63-6.08); White Blood Count 8.02 K/ul (4.8-10.8)
[2022-11-21 08:28] LABS: Calcium 8.9 mg/dl (8.5-10.1); Potassium 3.9 mmol/L (3.5-5.1)
[2022-11-21 08:29] LABS: INR 2.7 (0.9-1.1); Prothrombin Time 27.7 Seconds (9.0-12.0)
[2022-11-21 08:34] LABS: BUN Creatinine Ratio 27.4 (10-20); Creatinine Clr Calc Pharmacy 65.6 ml/min; Est GFR (African American) 69.3 ml/min; Est GFR (Non-African American) 59.8 ml/min
[2022-11-21] MEDS: FUROSEMIDE 20 MG TAB PO SCH (08:44)
[2022-11-21] MEDS: FINASTERIDE 5 MG TAB PO SCH (08:44)
[2022-11-21] MEDS: guaiFENesin 600 MG TABCR PO SCH (08:44)
[2022-11-21] MEDS: FLUTICASONE/VILANTEROL 200/25MCG 14 PUFFS/INHALER INH SCH (08:44)
[2022-11-21] MEDS: allopurinoL 100 MG TAB PO SCH (08:45)
[2022-11-21] MEDS: dexAMETHasone 1 MG TAB PO SCH (08:45)
[2022-11-21] MEDS: LORATADINE 10 MG TAB PO SCH (08:45)
[2022-11-21] MEDS: TIMOLOL MALEATE 0.5% OP SOLN 5 ML BTL OPR SCH (08:45)
[2022-11-21] MEDS: REMDESIVIR 100 MG in SODIUM CHLORIDE 0.9% 230 ML IV SCH (13:17)
--- NOTE | 2022-11-21 13:41 | Discharge Summary ---
Discharge Summary Date of Service November 21, 2022 Notes For Next Care Provider Please aid patient in resolving CPAP issues Continue management of chronic medical problems Medication Changes From Visit Guaifenesin 1200mg bid Tessalon perles prn cough Loratadine 10mg daily for 5 days Admission HPI Per Admitting Provider Mr. Chambers is an 82-year-old male that presented to the [facility] with his son and daughter after he has been experiencing weakness and a headache for the past 48 hours. Patient lives alone and this morning felt too weak to stand so slid himself out of his recliner to crawl to the telephone and call his son Aníbal to bring him to the emergency room. Patient states he felt that he had a UTI as he felt similar to symptoms he has had in the past. Patient with sinus congestion and postnasal drip over past 48 hours coupled with fever and chills. In ED SPO2 87% on room air, placed on 2 L return to 96%. Patient has a past medical history that includes history of spontaneous PE/DVT 2 years ago (On Coumadin, currently subtherapeutic), obstructive sleep apnea(follows with sleep medicine but is not compliant with a CPAP machine), gout, hypertension, hyperlipidemia, hypothyroidism, depression. Last echo 09/2021 EF 60 to 64% no abnormal wall motion, grade 1 diastolic dysfunction. Last cardiology appointment November 02, 2022. PFTs via EMR FEV1 76. In the ED chest x-ray unremarkable for pleural effusions or infiltrates, received Decadron 6 mg and Tylenol IV. Lactic acid 1.1, Pro-Markie negative, no leukocytosis, blood cultures pending. Need to keep recurrent DVT or PE in differentials while patient is on anticoagulation he is currently subtherapeutic. At bedside, patient AAOx4 and able to hold meaningful conversation and speak in complete sentences without dyspnea. Non-smoker, no alcohol or recreational drug use. Patient reports having a headache but otherwise ROS is negative. Patient denies dizziness, visual changes, auditory changes, chest pain, palpitations, shortness of breath, abdominal pain, appetite changes, recent falls or trauma. Patient is vaccinated and received boosters for COVID-19 and is vaccinated against influenza A. Patient will be admitted for further evaluation and management. Please see A/P for further details. Admission Exam Per Admitting Provider Neuro: AAOx4, PERRLA, no aphagia, memory changes, CNII-XII grossly intact HEENT: head normocephalic, moist mucus membranes CV: S1/S2, (-) M/G/R, (-) edema, cap refill < 3 seconds Resp: Lungs CTA in all faith. On RA GI: Abdomen S/NT/ND, Ax4 bowel sounds, (-) CVA tenderness Musculoskeletal: 5/5 B/L UE strength, 5/5 B/L LE strength. No gait disturbance Skin: (-) rashes , (-) erythema. Psych: euthymic mood Principal Dx & Hospital Course #1 = Principal Diagnosis (1) COVID-19: (2) Hypoxia: (3) Weakness: (4) Hypertension: (5) History of pulmonary embolism: (6) History of DVT (deep vein thrombosis): (7) HLD (hyperlipidemia): (8) BPH (benign prostatic hyperplasia): Plan 82-year-old presents with weakness and incidentally found COVID-positive with hypoxia. History of PE DVT on Coumadin's; Reports challenges with management of his EVA with regards to his machine. Follows with sleep medicine. COVID-19: Acute respiratory failure with hypoxia: Weakness: Symptoms started on ; vaccinated for COVID with boosters and vaccinated against influenza 87% on room air in ED; Initially on 2L NC but quickly weaned off oxygen on day of admission Chest x-ray did not show any acute process No leukocytosis, lactate, procalcitonin, troponin negative. Was treated with dexamethasone and remdesivir while inpatient 2 step today does not show any need for oxygen Continue antitussives and Loratadine on discharge Hypertension: Continue home losartan and monitor H/O PE: H/O DVT: Spontaneous PE/DVT 2 years ago On Coumadin, INR 1.8 on admission. It is 2.7 today EVA: Follows with sleep medicine to obtain adequate home regimen including CPAP Not compliant with CPAP due to some issues with the machine. He stated he had attempted to reach out to [employer] but has not gotten any response I discussed with CM who was able to reach company agent who stated they will call patient to get his machine looked at Patient reports he has sleep study scheduled with his [employer] Hyperlipidema: Continue simvastatin BPH: Continue terazosin Hypothyroidism: Takes levothyroxine; continue Discharge Exam Constitutional + well hydrated and + obese; no acute distress Eyes PERRL, conjunctivae normal, anicteric sclerae ENMT external ear and nose normal, oropharynx normal Respiratory normal respiratory effort, lungs clear to auscultation Cardiovascular Rate/Rhythm: regular rate and regular rhythm S1 S2 Gastrointestinal (Abdomen) normal bowel sounds, soft, nontender, no hepatosplenomegaly Musculoskeletal No pedal edema Neurologic PERRL, EOMI, accommodation nl, no face palsy, no dysarthria Psychiatric A+Ox3, euthymic affect Updated Medication List Medication Instructions Recorded Confirmed Type simvastatin 40 mg tablet 40 mg PO HS ##0 06/26/08 11/18/22 History timolol maleate 0.5 % eye drops 1 drp OPR QAM 10/15/20 11/18/22 History warfarin 5 mg tablet See Rx Instructions .Route .COMPLEX 10/15/20 11/18/22 History allopurinol 100 mg tablet 100 mg PO DAILY #90 tabs 01/19/22 11/18/22 Rx finasteride 5 mg tablet (Proscar) 5 mg PO DAILY #90 tabs 01/19/22 11/18/22 Rx fluticasone furoate 200 1 ea inhalation QAM 03/24/22 11/18/22 History mcg-vilanterol 25 mcg/dose inhalation powder (Breo Ellipta) furosemide 20 mg tablet 20 mg PO QAM 03/24/22 11/18/22 History levothyroxine 25 mcg tablet 25 mcg PO DAILYBB 03/24/22 11/18/22 History terazosin 5 mg capsule 5 mg PO HS 03/24/22 11/18/22 History losartan 100 mg tablet 50 mg PO HS #0 tabs 04/04/22 11/18/22 Rx benzonatate 100 mg capsule 100 mg PO TID PRN cough #14 caps 11/21/22 Rx guaifenesin 600 mg tablet, 1,200 mg PO Q12 5 days #20 tabs 11/21/22 Rx extended release 12 hr (Mucinex) loratadine 10 mg tablet (Wal-itin) 10 mg PO QAM #5 tabs 11/21/22 Rx Hospital Stay Data Consultations 11/18/22 11:33 ED Decision to Admit Stat Pending Results Patient Have Any Pending Studies at Discharge: No Discharge Instructions Given to Patient (Per Discharging Provider) Mr Chambers. You came to the hospital complaining of cough, shortness of breath and weakness You were evaluated and treated for the above listed diagnoses. Your symptoms improved and you were successfully weaned off oxygen. You are being discharged home. Please ensure follow up with your [employer] and your Primary Doctor. It was a pleasure taking care of you. Total Time Total Time Spent Total Time Spent (In Minutes): 45 Total Time Includes: Examination of the Patient, Discharge Planning, Medication Reconciliation and Other
[2022-11-22] MEDS ORDERED: dexAMETHasone 4 MG TAB PO SCH (09:00)
== END 2022-11-21 16:45 | disposition home or self-care (01) | DRG 177 ==
LOC: ED 06:37 → 2S 11:51

== ENCOUNTER 2025-01-14 20:48 | Observation (INO) ==
[2025-01-14 21:27] LABS: Basophils # (auto) 0.03 K/uL (0.00-0.20); Basophils % (auto) 0.4 %; Eosinophils # (auto) 0.02 K/uL (0.00-0.50); Eosinophils % (auto) 0.3 %; Hematocrit (blood only) 40.7 % (42.0-52.0); Hemoglobin 13.5 g/dl (14.0-18.0); Immature Granulocytes # (auto) 0.04 K/uL (0.01-0.20); Immature Granulocytes % (auto) 0.6 %; Lymphocytes # (auto) 1.55 K/uL (1.20-3.40); Lymphocytes % (auto) 21.8 %; Mean Corpuscular Hgb Conc 33.2 g/dL (32.0-36.0); Mean Corpuscular Volume 96.4 fL (80.0-100.0); Mean Platelet Volume 9.3 fL (9.4-12.4); Monocytes % (auto) 8.4 %; Neutrophils # (auto) 4.87 K/uL (1.40-6.50); Neutrophils % (auto) 68.5 %; Platelet Count 155 K/uL (130-400); RDW Coefficient of Variation 14.6 % (11.5-14.5); RDW Standard Deviation 51.8 fL (36.4-46.3); Red Blood Count 4.22 M/uL (4.70-6.10); White Blood Count 7.11 K/ul (4.8-10.8)
[2025-01-14 21:35] LABS: BUN Creatinine Ratio 14.2 (10-20); Calcium 8.8 mg/dl (8.6-10.3); Creatinine Clr Calc Pharmacy 56.6 ml/min
[2025-01-14 21:49] LABS: Partial Thromboplastin Ratio 1.3; Partial Thromboplastin Time 34 Seconds (21-31); Prothrombin Time 11.3 Seconds (9.0-12.0)
[2025-01-14] MEDS: OPTIRAY 320 100ml IV ONE (22:18)
--- NOTE | 2025-01-14 22:57 | CT Scan Report ---
Exam(s): CT C SPINE EXAM: CT Cervical Spine Without Intravenous Contrast CLINICAL HISTORY: Reason for exam: fall. TECHNIQUE: Axial computed tomography images of the cervical spine without intravenous contrast. CTDI is 26.2 mGy and DLP is 586.52 mGy-cm. Automated exposure control was utilized for the study. A dose lowering technique was utilized adhering to the principles of ALARA. COMPARISON: No relevant prior studies available. FINDINGS: Vertebrae: Advanced degenerative arthropathy of the facet joints. Mild anterior spondylolisthesis of C4 and C5, likely chronic and degenerative in nature. No other misalignment. No acute fracture. Discs/spinal canal/neural foramina: Advanced multilevel degenerative disc disease. No spinal canal stenosis. Soft tissues: Unremarkable. IMPRESSION: 1. No acute fracture. 2. Advanced degenerative changes. Electronically signed by: Mark Ramirez MD 01/14/25 22:56 PM
--- NOTE | 2025-01-14 23:01 | CT Scan Report ---
Exam(s): CT ABDOMEN + PELVIS With Contrast IV Amt: 93 ml opti 320 EXAM: CT Abdomen and Pelvis With Intravenous Contrast CLINICAL HISTORY: Reason for exam: fall. TECHNIQUE: Axial computed tomography images of the abdomen and pelvis with intravenous contrast. CTDI is 37.87 mGy and DLP is 624.41 mGy-cm. Automated exposure control was utilized for the study. A dose lowering technique was utilized adhering to the principles of ALARA. CONTRAST: Patient received 93 ml opti 320 of IV contrast COMPARISON: No relevant prior studies available. FINDINGS: Lung bases: Mild subsegmental atelectasis in both posterior lung bases. Heart: Coronary arterial calcification. ABDOMEN: Liver: Unremarkable. No mass. Gallbladder and bile ducts: Unremarkable. No calcified stones. No ductal dilation. Pancreas: Unremarkable. No mass. No ductal dilation. Spleen: Unremarkable. No splenomegaly. Adrenals: Unremarkable. No mass. Kidneys and ureters: Unremarkable. No solid mass. No hydronephrosis. Stomach and bowel: Diverticulosis without diverticulitis. No obstruction. PELVIS: Appendix: No findings to suggest acute appendicitis. Bladder: Unremarkable. No mass. ABDOMEN and PELVIS: Intraperitoneal space: Unremarkable. No free air. No significant fluid collection. Bones/joints: No acute findings. Soft tissues: Unremarkable. Vasculature: No evidence of abdominal aortic aneurysm. Lymph nodes: Unremarkable. No enlarged lymph nodes. IMPRESSION: 1. No acute findings. 2. Diverticulosis without diverticulitis. Electronically signed by: Mark Ramirez MD 01/14/25 23:00 PM
--- NOTE | 2025-01-14 23:02 | CT Scan Report ---
Exam(s): CT HEAD Without Contrast EXAM: CT Head Without Intravenous Contrast CLINICAL HISTORY: Reason for exam: fall. TECHNIQUE: Axial computed tomography images of the head/brain without intravenous contrast. CTDI is 28.1 mGy and DLP is 1427.22 mGy-cm. Automated exposure control was utilized for the study. A dose lowering technique was utilized adhering to the principles of ALARA. COMPARISON: Previous head CT March 24, 2022. FINDINGS: Brain: Chronic, small vessel ischemic changes in the white matter. No acute intracranial hemorrhage, edema or abnormal mass-effect. No extra- axial collection. Ventricles: Unremarkable. No ventriculomegaly. Bones/joints: Unremarkable. No acute fracture. Soft tissues: Unremarkable. Sinuses: Unremarkable as visualized. No acute sinusitis. Mastoid air cells: Unremarkable as visualized. No mastoid effusion. IMPRESSION: No acute intracranial abnormality. Electronically signed by: Mark Ramirez MD 01/14/25 23:00 PM
[2025-01-14] MEDS: ALBUT/IPRATROP 3MG/0.5MG NEB 3 ML VIAL NEB STA (23:23)
[2025-01-14] MEDS: SODIUM CHLORIDE 0.9% 1,000 ML IV SCH (23:25)
[2025-01-14 23:31] LABS: Bilirubin Direct 0.1 mg/dl (0-0.2); Bilirubin,Total 0.7 mg/dl (0.2-1.0); Total Protein 6.5 gm/dl (6.0-8.3)
[2025-01-14 23:38] LABS: Troponin I High Sensitivity 23.1 pg/ml (0-20)
--- NOTE | 2025-01-14 23:43 | XRay Report ---
Exam(s): XR CXR 1 VIEW EXAM: XR Chest, 1 View CLINICAL HISTORY: Reason for exam: cough. TECHNIQUE: Frontal view of the chest. COMPARISON: November 19, 2022. FINDINGS: Lungs: No acute infiltration, atelectasis or mass. Pleural space: Unremarkable. No pneumothorax or pleural fluid. Heart: Unremarkable. No cardiomegaly. Mediastinum: Unremarkable. Normal mediastinal contour. Bones/joints: No acute findings. Tubes, lines and devices: A stable epidural stimulator is seen in the lower thoracic spine. IMPRESSION: No acute findings in the chest. Electronically signed by: Mark Ramirez MD 01/14/25 23:41 PM
[2025-01-15 00:32] LABS: Adenovirus PCR Not Detected (NotDetected); Bordetella parapertussis PCR Not Detected (NotDetected); Bordetella pertussis PCR Not Detected (NotDetected); Chlamydia pneumoniae PCR Not Detected (NotDetected); Coronavirus 229E PCR Not Detected (NotDetected); Coronavirus CoV-2 (COVID19)PCR Not Detected (NotDetected); Coronavirus HKU1 PCR Not Detected (NotDetected); Coronavirus NL63 PCR Not Detected (NotDetected); Coronavirus OC43PCR Not Detected (NotDetected); Human Metapneumovirus PCR Not Detected (NotDetected); Influenza A (H1 2009) PCR DETECTED (NotDetected); Influenza B PCR Not Detected (NotDetected); Mycoplasma pneumoniae PCR Not Detected (NotDetected); Parainfluenza Virus 1 PCR Not Detected (NotDetected); Parainfluenza Virus 2 PCR Not Detected (NotDetected); Parainfluenza Virus 3 PCR Not Detected (NotDetected); Parainfluenza Virus 4 PCR Not Detected (NotDetected); Respiratory Syncytial VirusPCR Not Detected (NotDetected); Rhinovirus/Enterovirus PCR Not Detected (NotDetected)
--- NOTE | 2025-01-15 01:09 | Emergency Department Note ---
Impression & Plan Generalized weakness, Fall, Influenza, Acute exacerbation of chronic obstructive pulmonary disease (COPD) ED Provider Note ED Provider Note NAME: CARL JACKSON AGE:84 SEX: Male : 1940 ARRIVES VIA: EMS INFORMANT: Patient ED PROVIDER(s): Amy Drake DO CHIEF COMPLAINT: Weakness, fatigue, fall HPI: This is an 84-year-old male presents emergency room due to concern for increased weakness and fatigue. Patient states symptoms began on Sunday. He states he did have a fall where he fell backwards against the edge of a couch. He denies any concern for injury from this fall, denies head injury, neck or back pain. He states he will typically use a cane at home however had to upgrade to a walker to help support getting around. He states he was not had any other recent falls, no change in diet, no change in activity, no change in medications. He states he has had potential sick contacts recently with other family members. He states he did notice an increased cough and nasal congestion. He states he has had a decreased appetite and did not drink as much as usual and is also concerned for dehydration. He denies any vomiting or diarrhea. He states he has had a mild cough and congestion, no chest pain or difficulty breathing. No recent leg swelling. PAST MEDICAL HISTORY:See Below PAST SURGICAL HISTORY:See Below FAMILY HISTORY:See Below SOCIAL HISTORY:See Below HOME MEDICATIONS:See Below ALLERGIES:See Below VITALS:See Below PHYSICAL EXAMINATION: GENERAL: alert, well appearing, well nourished, no distress, non-toxic HEAD: nc/at EYE EXAM: normal conjunctiva, PERRL and EOM's grossly intact OROPHARYNX: no exudate, no erythema, lips, buccal mucosa, and tongue normal and mucous membranes are moist NECK: supple, no nuchal rigidity, no adenopathy, non-tender LUNGS: Clear to auscultation. Normal chest wall mechanics, no w/r/r HEART: no murmurs, S1 normal and S2 normal ABDOMEN: abdomen soft, non-tender, normo-active bowel sounds, no masses, no rebound or guarding. PELVIS: Stable to compression, nontender with palpation BACK: Back is symmetrical on inspection and there is no deformity, no midline tenderness, no CVA tenderness. SKIN: no rashes, petechiae, orbruising UPPER EXTREMITIES: upper extremities are grossly normal. FROM, nml pulses b/l. No evidence of trauma or deformity. LOWER EXTREMITIES: No pitting edema. FROM, nml pulses b/l. No evidence of trauma or deformity. NEURO EXAM: Normal sensorium, cranial nerves II-XII grossly intact, normal speech, no facial droop,nogross weakness of arms, no gross weakness of legs. Gross sensation intact. No ataxia. Vital Signs: reviewed and remarkable Differential Diagnosis: dehydration, stroke, anemia, hypoglycemia, hyponatremia, hypernatremia, urinary tract infection, pneumonia, bronchitis, sepsis, gastroenteritis, additional abdominal pathology, metabolic abnormalities, as well as others were considered MEDICAL DECISION MAKING: This is an 84-year-old male presents emergency department due to increased weakness, recent fall, decreased appetite, and mild URI symptoms. He was afebrile and hemodynamically stable on arrival. Labs drawn and sent, IV established, EKG and chest x-ray performed at bedside and interpreted by me and patient monitored on telemetry. A nasal swab was sent additionally for viral respiratory panel and patient given a DuoNeb. He was started on IV fluids to help with volume repletion given reported decreased intake. Patient's chest x- ray reassuring. CTs had been ordered prior to my arrival due to concern for possible trauma as he presented on day of high volume and acuity. CT of the head, C-spine, abdomen and pelvis were reassuring. There is no evidence of trauma on exam when I below suspicion for occult traumatic injury based on patient's description of the fall at home. Patient's nasal swab ultimately positive for influenza, and I suspect this explains his recent symptoms. Due to concern for generalized symptoms and difficulty getting around at home even with use of his walker, history of emphysema, age, and decreased intake, case discussed with the hospitalist for additional evaluation and management. I do not suspect other occult cardiac etiology. Patient states he has been taking his Eliquis as prescribed. He did report feeling improved following DuoNeb treatment here. Consultation(s): 0110: Discussed with Dr. Olivas, [facility] hospitalist team, for additional evaluation and mgmt. ER Treatment Provided: See below Diagnostics Interpreted By Me: -ECG: Sinus tachycardia at 104, leftward axis, normal intervals, nonspecific ST/T wave changes; axis change however no other significant morphology change compared to October 2022 -Cardiac Monitoring: An order was placed for continuous cardiac monitoring. The monitor shows a rate of 99 with normal sinus rhythm. -Laboratory studies: As stated above and show below. -Imaging studies: X-ray Chest: A single view study of the chest was reviewed and was negative for cardiomegaly, focal infiltrate, effusion, pulmonary edema, or wide mediastinum. Triage Nursing Note Reviewed Prior/Outside Records Reviewed Past Med/Surg History Problem List (Updated 01/15/25 @ 06:03 by Amy Drake DO) Acute exacerbation of chronic obstructive pulmonary disease (COPD) (Acute) COPD exacerbation Influenza (Acute) Fall (Acute) Generalized weakness (Acute) Pes anserine bursitis BPH (benign prostatic hyperplasia) HLD (hyperlipidemia) Hypoxia Generalized weakness (Acute) COVID-19 (Acute) Greater trochanteric bursitis of right hip NAVEED (acute kidney injury) Elevated troponin Nocturnal hypoxia Sepsis DVT prophylaxis Weakness (Acute) Falling (Acute) Acute head trauma (Acute) Slurred speech (Acute) Coagulopathy (Acute) Status post right knee replacement (~02/2021) Encounter for pre-operative examination Osteoarthritis of right hip Rotator cuff arthropathy BPH (benign prostatic hyperplasia) Uric acid kidney stone Rotator cuff tear Left shoulder pain History of nephrolithiasis (Acute) Hypertension (Acute) Glaucoma (Acute) Nocturia (Acute) Benign localized hyperplasia of prostate with urinary obstruction (Acute) Arthritis (Acute) Fall (Acute) Closed fracture of radial styloid (Acute) Multiple fractures of ribs of left side (Acute) Hemothorax on left 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 REASON FOR DVT Medical History BPH (benign prostatic hyperplasia) Degenerative disc disease Osteoarthritis History of kidney stones GERD (gastroesophageal reflux disease) Glaucoma Hx of fracture of rib Sleep apnea Dyslipidemia HTN (hypertension) Surgical History History of total shoulder replacement History of total hip arthroplasty History of total knee replacement History of esophagogastroduodenoscopy (EGD) History of colonoscopy Hx of cystoscopy History of tooth extraction H/O eye surgery History of heart artery stent S/P insertion of spinal cord stimulator Family History Other No family history of adverse response to anesthesia Social History Smoking Status: Former smoker Second Hand Exposure: No; Do You Dip or Chew Tobacco: No; Hx Alcohol Use: No Hx Substance Use: No Preferred Language: Belgian Communication Ability: Effective Director 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 latex Allergy Intermediate red rash, Verified 03/04/24 11:27 blisters ibuprofen AdvReac Mild NAUSEA Verified 03/04/24 11:27 oxycodone AdvReac Mild upset Verified 03/04/24 11:27 stomach Home Meds Home Medications Medication Instructions Recorded Confirmed simvastatin 40 mg tablet 40 mg PO HS ##0 06/26/08 01/15/25 furosemide 20 mg tablet 20 mg PO QAM 03/24/22 01/15/25 levothyroxine 25 mcg tablet 25 mcg PO DAILYBB 03/24/22 01/15/25 terazosin 5 mg capsule 5 mg PO DAILY 03/24/22 01/15/25 albuterol sulfate 90 mcg/actuation 2 puff inhalation Q6H PRN 01/15/25 01/15/25 aerosol inhaler Shortness Of Breath Or Wheezing allopurinol 100 mg tablet 100 mg PO QAM 01/15/25 01/15/25 apixaban 5 mg tablet (Eliquis) 5 mg PO BID 01/15/25 01/15/25 aspirin 81 mg tablet,delayed 81 mg PO DAILY 01/15/25 01/15/25 release azelastine 137 mcg (0.1 %) nasal 1 spray intranasal AMPM 01/15/25 01/15/25 spray dorzolamide 22.3 mg-timolol 6.8 1 drp OPB BID 01/15/25 01/15/25 mg/mL eye drops fluticasone furoate 200 1 inh inhalation QAM 01/15/25 01/15/25 mcg-vilanterol 25 mcg/dose inhalation powder (Breo Ellipta) fluticasone propionate 50 2 spray intranasal DAILY 01/15/25 01/15/25 mcg/actuation nasal spray,suspension latanoprost 0.005 % eye drops 1 drp OPL QPM 01/15/25 01/15/25 losartan 25 mg tablet (Cozaar) 25 mg PO DAILY 01/15/25 01/15/25 omeprazole 20 mg capsule,delayed 20 mg PO DAILY 01/15/25 01/15/25 release Previous Rx's Medication Instructions Recorded finasteride 5 mg tablet See Rx Instructions .Route 05/12/24 .COMPLEX #90 tabs Results & Data (ED) Vital Signs Vital Signs - 24 hr 01/14/25 20:48 01/14/25 20:48 01/14/25 20:48 Temperature 37.1 C Temperature Source Oral Pulse Rate 103 H Pulse Rate from SpO2 Sensor Pulse Rhythm Regular Pulse Strength Normal Respiratory Rate 21 Respiratory Effort / Characteristics Non-Labored Spontaneous Respiratory Depth Normal Respiratory Pattern Regular Blood Pressure 137/76 Blood Pressure Mean 96 Blood Pressure Position Sitting Pulse Oximetry 93 94 87 L Oxygen Delivery Method Room Air Nasal Cannula Room Air Oxygen Flow Rate 2 Sepsis Recent Fever Within 48 Hours No Sepsis New/Unexplained Change in Mental Status No Sepsis Action Taken by Nursing No Action Required 01/14/25 20:56 01/14/25 21:08 01/14/25 21:08 Temperature Temperature Source Pulse Rate 104 H Pulse Rate from SpO2 Sensor Pulse Rhythm Pulse Strength Respiratory Rate Respiratory Effort / Characteristics Respiratory Depth Respiratory Pattern Blood Pressure 137/76 Blood Pressure Mean 100 Blood Pressure Position Pulse Oximetry 94 Oxygen Delivery Method Nasal Cannula Oxygen Flow Rate 2 Sepsis Recent Fever Within 48 Hours Sepsis New/Unexplained Change in Mental Status Sepsis Action Taken by Nursing 01/14/25 21:12 01/14/25 21:42 01/14/25 22:03 Temperature Temperature Source Pulse Rate 109 H 103 H 114 H Pulse Rate from SpO2 Sensor 109 H 103 H 107 H Pulse Rhythm Pulse Strength Respiratory Rate 31 H 22 21 Respiratory Effort / Characteristics Respiratory Depth Respiratory Pattern Blood Pressure Blood Pressure Mean Blood Pressure Position Pulse Oximetry 96 97 94 Oxygen Delivery Method Oxygen Flow Rate 2 2 2 Sepsis Recent Fever Within 48 Hours Sepsis New/Unexplained Change in Mental Status Sepsis Action Taken by Nursing 01/14/25 22:31 01/14/25 22:54 01/14/25 23:09 Temperature Temperature Source Pulse Rate 107 H 99 H Pulse Rate from SpO2 Sensor 105 H 99 H Pulse Rhythm Pulse Strength Respiratory Rate 17 23 Respiratory Effort / Characteristics Respiratory Depth Respiratory Pattern Blood Pressure 155/93 H Blood Pressure Mean 124 Blood Pressure Position Pulse Oximetry 97 95 Oxygen Delivery Method Oxygen Flow Rate 2 2 Sepsis Recent Fever Within 48 Hours Sepsis New/Unexplained Change in Mental Status Sepsis Action Taken by Nursing 01/14/25 23:12 01/14/25 23:27 01/14/25 23:48 Temperature Temperature Source Pulse Rate 100 H 100 H 112 H Pulse Rate from SpO2 Sensor 101 H 109 H 105 H Pulse Rhythm Pulse Strength Respiratory Rate 22 18 26 H Respiratory Effort / Characteristics Respiratory Depth Respiratory Pattern Blood Pressure Blood Pressure Mean Blood Pressure Position Pulse Oximetry 93 96 91 Oxygen Delivery Method Oxygen Flow Rate 2 2 2 Sepsis Recent Fever Within 48 Hours Sepsis New/Unexplained Change in Mental Status Sepsis Action Taken by Nursing 01/14/25 23:57 01/15/25 00:27 01/15/25 00:36 Temperature Temperature Source Pulse Rate 103 H 100 H 100 H Pulse Rate from SpO2 Sensor 102 H 100 H 108 H Pulse Rhythm Pulse Strength Respiratory Rate 26 H 20 20 Respiratory Effort / Characteristics Respiratory Depth Respiratory Pattern Blood Pressure Blood Pressure Mean Blood Pressure Position Pulse Oximetry 94 94 93 Oxygen Delivery Method Oxygen Flow Rate 2 2 2 Sepsis Recent Fever Within 48 Hours Sepsis New/Unexplained Change in Mental Status Sepsis Action Taken by Nursing 01/15/25 00:42 01/15/25 01:11 Temperature Temperature Source Pulse Rate 105 H 104 H Pulse Rate from SpO2 Sensor 100 H Pulse Rhythm Pulse Strength Respiratory Rate 20 Respiratory Effort / Characteristics Respiratory Depth Respiratory Pattern Blood Pressure Blood Pressure Mean Blood Pressure Position Pulse Oximetry 94 Oxygen Delivery Method Oxygen Flow Rate 2 Sepsis Recent Fever Within 48 Hours Sepsis New/Unexplained Change in Mental Status Sepsis Action Taken by Nursing Laboratory Data 01/15/25 02:49 01/15/25 02:49 Lab Results 01/14/25 01/14/25 01/14/25 Range/Units 21:06 23:00 23:26 WBC 7.11 (4.8-10.8) K/ul RBC 4.22 L (4.70-6.10) M/uL Hgb 13.5 L (14.0-18.0) g/dl Hct 40.7 L (42.0-52.0) % MCV 96.4 (80.0-100.0) fL MCH 32.0 (25.0-34.0) pg MCHC 33.2 (32.0-36.0) g/dL RDW Std Deviation 51.8 H (36.4-46.3) fL RDW Coeff of Francesco 14.6 H (11.5-14.5) % Plt Count 155 (130-400) K/uL MPV 9.3 L (9.4-12.4) fL Immature Gran % (Auto) 0.6 % Neut % (Auto) 68.5 % Lymph % (Auto) 21.8 % Vernon % (Auto) 8.4 % Eos % (Auto) 0.3 % Baso % (Auto) 0.4 % Neut # (Auto) 4.87 (1.40-6.50) K/uL Lymph # (Auto) 1.55 (1.20-3.40) K/uL Vernon # (Auto) 0.60 H (0.11-0.59) K/uL Eos # (Auto) 0.02 (0.00-0.50) K/uL Baso # (Auto) 0.03 (0.00-0.20) K/uL Immature Gran # (Auto) 0.04 (0.01-0.20) K/uL PT 11.3 (9.0-12.0) Seconds INR 1.0 (0.9-1.1) APTT 34 H (21-31) Seconds PTT Ratio 1.3 Sodium 136 (136-145) mmol/L Potassium 4.0 (3.5-5.1) mmol/L Chloride 103 (98-107) mmol/L Carbon Dioxide 27 (21-32) mmol/L Anion Gap 6 (3-11) BUN 18 (6-23) mg/dl Creatinine 1.27 (0.6-1.4) mg/dl Est Cr Clr Drug Dosing 56.6 ml/min eGFR 55.36 BUN/Creatinine Ratio 14.2 (10-20) Glucose 113 H (70-99(Fasting)) mg/dl Calcium 8.8 (8.6-10.3) mg/dl Magnesium (1.7-2.4) mg/dl Total Bilirubin 0.7 (0.2-1.0) mg/dl Direct Bilirubin 0.1 (0-0.2) mg/dl AST 28 (13-39) U/L ALT 26 (7-52) U/L Alkaline Phosphatase 55 (34-104) U/L Total Creatine Kinase (30-223) U/L Troponin I High Sens 23.1 H (0-20) pg/ml B-Natriuretic Peptide 58 (0-100) pg/ml Total Protein 6.5 (6.0-8.3) gm/dl Albumin 4.0 (3.4-5.0) gm/dl Nasal Influ A H1 2008 PCR DETECTED A (NotDetected) Adenovirus (PCR) Not Detected (NotDetected) B. pertussis DNA (PCR) Not Detected (NotDetected) B.parapertussis DNA PCR Not Detected (NotDetected) C. pneumoniae DNA (PCR) Not Detected (NotDetected) Coronavirus OC43 (PCR) Not Detected (NotDetected) Coronavirus HKU1 (PCR) Not Detected (NotDetected) Coronavirus 229E (PCR) Not Detected (NotDetected) SARS-CoV-2 (PCR) Not Detected (NotDetected) Coronavirus NL63 (PCR) Not Detected (NotDetected) Human Metapneumovir PCR Not Detected (NotDetected) Influenza Type B (PCR) Not Detected (NotDetected) M. pneumoniae (PCR) Not Detected (NotDetected) Parainfluenza 1 (PCR) Not Detected (NotDetected) Parainfluenza 2 (PCR) Not Detected (NotDetected) Parainfluenza 3 (PCR) Not Detected (NotDetected) Parainfluenza 4 (PCR) Not Detected (NotDetected) RSV (PCR) Not Detected (NotDetected) Entero/Rhino (PCR) Not Detected (NotDetected) 01/14/25 Range/Units 23:37 WBC (4.8-10.8) K/ul RBC (4.70-6.10) M/uL Hgb (14.0-18.0) g/dl Hct (42.0-52.0) % MCV (80.0-100.0) fL MCH (25.0-34.0) pg MCHC (32.0-36.0) g/dL RDW Std Deviation (36.4-46.3) fL RDW Coeff of Francesco (11.5-14.5) % Plt Count (130-400) K/uL MPV (9.4-12.4) fL Immature Gran % (Auto) % Neut % (Auto) % Lymph % (Auto) % Vernon % (Auto) % Eos % (Auto) % Baso % (Auto) % Neut # (Auto) (1.40-6.50) K/uL Lymph # (Auto) (1.20-3.40) K/uL Vernon # (Auto) (0.11-0.59) K/uL Eos # (Auto) (0.00-0.50) K/uL Baso # (Auto) (0.00-0.20) K/uL Immature Gran # (Auto) (0.01-0.20) K/uL PT (9.0-12.0) Seconds INR (0.9-1.1) APTT (21-31) Seconds PTT Ratio Sodium (136-145) mmol/L Potassium (3.5-5.1) mmol/L Chloride (98-107) mmol/L Carbon Dioxide (21-32) mmol/L Anion Gap (3-11) BUN (6-23) mg/dl Creatinine (0.6-1.4) mg/dl Est Cr Clr Drug Dosing ml/min eGFR BUN/Creatinine Ratio (10-20) Glucose (70-99(Fasting)) mg/dl Calcium (8.6-10.3) mg/dl Magnesium 1.6 L (1.7-2.4) mg/dl Total Bilirubin (0.2-1.0) mg/dl Direct Bilirubin (0-0.2) mg/dl AST (13-39) U/L ALT (7-52) U/L Alkaline Phosphatase (34-104) U/L Total Creatine Kinase 169 (30-223) U/L Troponin I High Sens (0-20) pg/ml B-Natriuretic Peptide (0-100) pg/ml Total Protein (6.0-8.3) gm/dl Albumin (3.4-5.0) gm/dl Nasal Influ A H1 2008 PCR (NotDetected) Adenovirus (PCR) (NotDetected) B. pertussis DNA (PCR) (NotDetected) B.parapertussis DNA PCR (NotDetected) C. pneumoniae DNA (PCR) (NotDetected) Coronavirus OC43 (PCR) (NotDetected) Coronavirus HKU1 (PCR) (NotDetected) Coronavirus 229E (PCR) (NotDetected) SARS-CoV-2 (PCR) (NotDetected) Coronavirus NL63 (PCR) (NotDetected) Human Metapneumovir PCR (NotDetected) Influenza Type B (PCR) (NotDetected) M. pneumoniae (PCR) (NotDetected) Parainfluenza 1 (PCR) (NotDetected) Parainfluenza 2 (PCR) (NotDetected) Parainfluenza 3 (PCR) (NotDetected) Parainfluenza 4 (PCR) (NotDetected) RSV (PCR) (NotDetected) Entero/Rhino (PCR) (NotDetected) Administered Medications Sodium Chloride (Nss) 1,000 mls @ 80 mls/hr IV .[id number] ONE Stop: 01/15/25 14:10 Last Admin: 01/15/25 01:50 Dose: 80 mls/hr Documented By: RIGO Magnesium Sulfate/Dextrose (Magnesium Sulfate / D5w) 1 gm in 100 mls @ 50 mls/hr IV Q2H [facility] Stop: 01/15/25 06:59 Last Admin: 01/15/25 05:43 Dose: 50 mls/hr Documented By: Infusion: 01/15/25 05:13 Dose: Infused Documented By: Admin: 01/15/25 02:55 Dose: 50 mls/hr Documented By: RIGO Discontinued Medications Albuterol (Albut/Ipratrop 3mg/0.5mg Neb 3 Ml Vial) 3 ml NEB NOW STA; Protocol Stop: 01/14/25 23:05 Last Admin: 01/14/25 23:23 Dose: 3 ml Documented By: RIGO Sodium Chloride (Nss) 1,000 mls @ 125 mls/hr IV .Q8H [facility] Stop: 01/15/25 23:14 Last Infusion: 01/15/25 01:49 Dose: Infused Documented By: Admin: 01/14/25 23:25 Dose: 125 mls/hr Documented By: RIGO Doxycycline Hyclate 100 mg/ (Dextrose) 100 mls @ 50 mls/hr IV NOW STA Stop: 01/15/25 04:12 Last Infusion: 01/15/25 05:35 Dose: Infused Documented By: Admin: 01/15/25 03:12 Dose: 50 mls/hr Documented By: RIGO Ioversol (Optiray 320 100ml) 93 ml IV ONCE ONE Stop: 01/14/25 22:19 Last Admin: 01/14/25 22:18 Dose: 93 ml Documented By: TAN Ipratropium [place] (Ipratropium [place] Neb Soln 0.02% 0.5mg/2.5ml Vial) 0.5 mg INH NOW STA Stop: 01/15/25 02:14 Last Admin: 01/15/25 03:02 Dose: 0.5 mg Documented By: MANFRED Levalbuterol HCl (Levalbuterol 1.25 Mg/3 Ml Neb) 1.25 mg NEB NOW STA Stop: 01/15/25 02:14 Last Admin: 01/15/25 03:02 Dose: 1.25 mg Documented By: MANFRED Methylprednisolone (Methylprednisolone 125 Mg/2 Ml Vial) 20 mg IV NOW STA Stop: 01/15/25 02:36 Last Admin: 01/15/25 02:51 Dose: 20 mg Documented By: RIGO Oseltamivir Phosphate (Oseltamivir Phosphate 75 Mg Cap) 75 mg PO NOW STA; Protocol Stop: 01/15/25 01:18 Last Admin: 01/15/25 01:57 Dose: 75 mg Documented By: RIGO Terazosin HCl (Terazosin Hcl 5 Mg Cap) 5 mg PO NOW STA Stop: 01/15/25 01:37 Last Admin: 01/15/25 02:51 Dose: Not Given Documented By: RIGO Imaging Data Radiologist's Impression: Abdomen/Pelvis CT 01/14/25 21:04 Exam(s): CT ABDOMEN + PELVIS With Contrast IV Amt: 93 ml opti 320 EXAM: CT Abdomen and Pelvis With Intravenous Contrast CLINICAL HISTORY: Reason for exam: fall. TECHNIQUE: Axial computed tomography images of the abdomen and pelvis with intravenous contrast. CTDI is 37.87 mGy and DLP is 624.41 mGy-cm. Automated exposure control was utilized for the study. A dose lowering technique was utilized adhering to the principles of ALARA. CONTRAST: Patient received 93 ml opti 320 of IV contrast COMPARISON: No relevant prior studies available. FINDINGS: Lung bases: Mild subsegmental atelectasis in both posterior lung bases. Heart: Coronary arterial calcification. ABDOMEN: Liver: Unremarkable. No mass. Gallbladder and bile ducts: Unremarkable. No calcified stones. No ductal dilation. Pancreas: Unremarkable. No mass. No ductal dilation. Spleen: Unremarkable. No splenomegaly. Adrenals: Unremarkable. No mass. Kidneys and ureters: Unremarkable. No solid mass. No hydronephrosis. Stomach and bowel: Diverticulosis without diverticulitis. No obstruction. PELVIS: Appendix: No findings to suggest acute appendicitis. Bladder: Unremarkable. No mass. ABDOMEN and PELVIS: Intraperitoneal space: Unremarkable. No free air. No significant fluid collection. Bones/joints: No acute findings. Soft tissues: Unremarkable. Vasculature: No evidence of abdominal aortic aneurysm. Lymph nodes: Unremarkable. No enlarged lymph nodes. IMPRESSION: 1. No acute findings. 2. Diverticulosis without diverticulitis. Electronically signed by: Mark Ramirez MD 01/14/25 23:[address] 01/14/25 21:04 Exam(s): CT C SPINE EXAM: CT Cervical Spine Without Intravenous Contrast CLINICAL HISTORY: Reason for exam: fall. TECHNIQUE: Axial computed tomography images of the cervical spine without intravenous contrast. CTDI is 26.2 mGy and DLP is 586.52 mGy-cm. Automated exposure control was utilized for the study. A dose lowering technique was utilized adhering to the principles of ALARA. COMPARISON: No relevant prior studies available. FINDINGS: Vertebrae: Advanced degenerative arthropathy of the facet joints. Mild anterior spondylolisthesis of C4 and C5, likely chronic and degenerative in nature. No other misalignment. No acute fracture. Discs/spinal canal/neural foramina: Advanced multilevel degenerative disc disease. No spinal canal stenosis. Soft tissues: Unremarkable. IMPRESSION: 1. No acute fracture. 2. Advanced degenerative changes. Electronically signed by: Mark Ramirez MD 01/14/25 22:[address] 01/14/25 21:04 Exam(s): CT HEAD Without Contrast EXAM: CT Head Without Intravenous Contrast CLINICAL HISTORY: Reason for exam: fall. TECHNIQUE: Axial computed tomography images of the head/brain without intravenous contrast. CTDI is 28.1 mGy and DLP is 1427.22 mGy-cm. Automated exposure control was utilized for the study. A dose lowering technique was utilized adhering to the principles of ALARA. COMPARISON: Previous head CT March 24, 2022. FINDINGS: Brain: Chronic, small vessel ischemic changes in the white matter. No acute intracranial hemorrhage, edema or abnormal mass-effect. No extra- axial collection. Ventricles: Unremarkable. No ventriculomegaly. Bones/joints: Unremarkable. No acute fracture. Soft tissues: Unremarkable. Sinuses: Unremarkable as visualized. No acute sinusitis. Mastoid air cells: Unremarkable as visualized. No mastoid effusion. IMPRESSION: No acute intracranial abnormality. Electronically signed by: Mark Ramirez MD 01/14/25 23:00 PM Chest X-Ray 01/14/25 22:45 Exam(s): XR CXR 1 VIEW EXAM: XR Chest, 1 View CLINICAL HISTORY: Reason for exam: cough. TECHNIQUE: Frontal view of the chest. COMPARISON: November 19, 2022. FINDINGS: Lungs: No acute infiltration, atelectasis or mass. Pleural space: Unremarkable. No pneumothorax or pleural fluid. Heart: Unremarkable. No cardiomegaly. Mediastinum: Unremarkable. Normal mediastinal contour. Bones/joints: No acute findings. Tubes, lines and devices: A stable epidural stimulator is seen in the lower thoracic spine. IMPRESSION: No acute findings in the chest. Electronically signed by: Mark Ramirez MD 01/14/25 23:41 PM Discharge Plan Visit Data Chief Complaint: Fall Stated Complaint: fall ED Provider: Amy Drake Discharge Problem: Generalized weakness, Fall, Influenza, Acute exacerbation of chronic obstructive pulmonary disease (COPD) Discharge Instructions Interventions: ED Discharge Assessment Last Done: 01/15/25 02:16
--- NOTE | 2025-01-15 01:37 | History & Physical Report ---
Date of Service January 15, 2025 Assessment & Plan (1) COPD exacerbation: Plan: COPD exacerbation Complicated bronchitis in the setting of influenza illness No sepsis for now Troponin elevation secondary to illness saddle PE on Eliquis chronic diastolic heart failure (EF 60 to 64%, TTE 2022), patient on the dry side hx CAD status post stent/PVD as per records EVA on home O2 at night (CPAP intolerance) hypertension, slightly elevated hyperlipidemia, on statin Rx Chronic anemia, hemoglobin at baseline Hypothyroidism, euthyroid as of today's TSH Hyperglycemia likely prediabetes, hemoglobin A1c of 5.06 July 2024 past tobacco abuse. OBS Admit to medical telemetry Doxycycline, nebs RTC, prednisone course Tamiflu Pulmonary consulted without improvement Follow troponin, TTE if with significant elevation PT OT eval DVT prophylaxis. Eliquis DNR Text document was generated using [employer] voice recognition software. It may contain grammatical or spelling errors. Kindly contact undersigned for clarification of any documentation item in q uestion. History of Present Illness Chief Complaint: Weakness Primary Care Provider: Maday Arzate DO History obtained from patient and records. Medical history significant for saddle PE on Eliquis, chronic diastolic heart failure (EF 60 to 64%, TTE 2022), CAD status post stent, PVD as per records, EVA on home O2 at night (CPAP intolerance), hypertension, hyperlipidemia, GERD, chronic anemia (baseline hemoglobin of 13), Sjogren syndrome, inflammatory polyarthritis as per records, hypothyroidism, BPH, past tobacco abuse. Last confinement October 2022 for COVID-19 illness and hypoxia. Few days history of increased cough symptoms productive of yellow sputum. No SOB but increasing weakness. Denies chest pain. Denies aspiration. Sick contacts at home. Legs felt like rubber. Patient fell from his recliner chair upon attempting to stand up. No headache, no syncope. Family checked on patient. Transient O2 sats noted to be 80s. Increasing weakness and fatigue noted today. Patient brought to ER for evaluation. 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 latex Allergy Intermediate red rash, Verified 03/04/24 11:27 blisters ibuprofen AdvReac Mild NAUSEA Verified 03/04/24 11:27 oxycodone AdvReac Mild upset Verified 03/04/24 11:27 stomach Home Medications Medication Instructions Recorded Confirmed Type simvastatin 40 mg tablet 40 mg PO HS ##0 06/26/08 01/15/25 History furosemide 20 mg tablet 20 mg PO QAM 03/24/22 01/15/25 History levothyroxine 25 mcg tablet 25 mcg PO DAILYBB 03/24/22 01/15/25 History terazosin 5 mg capsule 5 mg PO DAILY 03/24/22 01/15/25 History finasteride 5 mg tablet See Rx Instructions .Route 05/12/24 01/15/25 Rx .COMPLEX #90 tabs albuterol sulfate 90 mcg/actuation 2 puff inhalation Q6H PRN 01/15/25 01/15/25 History aerosol inhaler Shortness Of Breath Or Wheezing allopurinol 100 mg tablet 100 mg PO QAM 01/15/25 01/15/25 History apixaban 5 mg tablet (Eliquis) 5 mg PO BID 01/15/25 01/15/25 History aspirin 81 mg tablet,delayed 81 mg PO DAILY 01/15/25 01/15/25 History release azelastine 137 mcg (0.1 %) nasal 1 spray intranasal AMPM 01/15/25 01/15/25 History spray dorzolamide 22.3 mg-timolol 6.8 1 drp OPB BID 01/15/25 01/15/25 History mg/mL eye drops fluticasone furoate 200 1 inh inhalation QAM 01/15/25 01/15/25 History mcg-vilanterol 25 mcg/dose inhalation powder (Breo Ellipta) fluticasone propionate 50 2 spray intranasal DAILY 01/15/25 01/15/25 History mcg/actuation nasal spray,suspension latanoprost 0.005 % eye drops 1 drp OPL QPM 01/15/25 01/15/25 History losartan 25 mg tablet (Cozaar) 25 mg PO DAILY 01/15/25 01/15/25 History omeprazole 20 mg capsule,delayed 20 mg PO DAILY 01/15/25 01/15/25 History release Past Med/Surg History Problem List (Updated 01/15/25 @ 06:03 by Amy Drake DO) Acute exacerbation of chronic obstructive pulmonary disease (COPD) (Acute) COPD exacerbation Influenza (Acute) Fall (Acute) Generalized weakness (Acute) Pes anserine bursitis BPH (benign prostatic hyperplasia) HLD (hyperlipidemia) Hypoxia Generalized weakness (Acute) COVID-19 (Acute) Greater trochanteric bursitis of right hip NAVEED (acute kidney injury) Elevated troponin Nocturnal hypoxia Sepsis DVT prophylaxis Weakness (Acute) Falling (Acute) Acute head trauma (Acute) Slurred speech (Acute) Coagulopathy (Acute) Status post right knee replacement (~02/2021) Encounter for pre-operative examination Osteoarthritis of right hip Rotator cuff arthropathy BPH (benign prostatic hyperplasia) Uric acid kidney stone Rotator cuff tear Left shoulder pain History of nephrolithiasis (Acute) Hypertension (Acute) Glaucoma (Acute) Nocturia (Acute) Benign localized hyperplasia of prostate with urinary obstruction (Acute) Arthritis (Acute) Fall (Acute) Closed fracture of radial styloid (Acute) Multiple fractures of ribs of left side (Acute) Hemothorax on left 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 REASON FOR DVT Medical History BPH (benign prostatic hyperplasia) Degenerative disc disease Osteoarthritis History of kidney stones GERD (gastroesophageal reflux disease) Glaucoma Hx of fracture of rib Sleep apnea Dyslipidemia HTN (hypertension) Surgical History History of total shoulder replacement History of total hip arthroplasty History of total knee replacement History of esophagogastroduodenoscopy (EGD) History of colonoscopy Hx of cystoscopy History of tooth extraction H/O eye surgery History of heart artery stent S/P insertion of spinal cord stimulator Family History Other No family history of adverse response to anesthesia Social History Smoking Status: Former smoker Second Hand Exposure: No; Do You Dip or Chew Tobacco: No; Hx Alcohol Use: No Hx Substance Use: No Preferred Language: Hungarian Communication Ability: Effective 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 Operator Required: No Beliefs That Will Affect Care: None marital status: / Current Living Situation: Alone Current Living Situation Comment: apartment current occupational status: retired Other Information That Helps Us Care for You: No Feels Safe at Home: Yes Safety Concerns: Feels Safe At This Time Assistive Devices: Denture - Upper, Denture - Lower and Oxygen - at Night Review of Systems Review of Systems: As per HPI, all other systems reviewed and negative Physical Exam Physical Exam: GENERAL: pleasant, obese, no respiratory distress SKIN: Normal color, warm, ecchymosis upper extremities (chronic as per patient) HEENT: [place] palpebral conjunctivae, no ptosis, dry buccal mucosa, nasal cannula in place NECK : Supple, short neck, no tenderness CHEST : Decreased breath sounds, scattered expiratory wheezes, no chest wall tenderness HEART : Tachycardic, no obvious murmurs ABDOMEN: Some distention, nontender EXTREMITIES : Bilateral LE swelling without tenderness, no other conspicuous deformities noted NEUROLOGIC : Coherent, no facial asymmetry, no other gross focality Results & Data Results & Data Vital Signs (Past 12 Hours) Vital Signs Temp Pulse Resp BP Pulse Ox O2 Del Method O2 Flow Rate 01/15/25 01:11 104 H 01/15/25 00:42 105 H 20 94 2 01/15/25 00:36 100 H 20 93 2 01/15/25 00:27 100 H 20 94 2 01/14/25 23:57 103 H 26 H 94 2 01/14/25 23:48 112 H 26 H 91 2 01/14/25 23:27 100 H 18 96 2 01/14/25 23:12 100 H 22 93 2 01/14/25 23:09 99 H 23 95 2 01/14/25 22:54 107 H 17 97 2 01/14/25 22:31 155/93 H 01/14/25 22:03 114 H 21 94 2 01/14/25 21:42 103 H 22 97 2 01/14/25 21:12 109 H 31 H 96 2 01/14/25 21:08 104 H 01/14/25 21:08 94 Nasal Cannula 2 01/14/25 20:56 137/76 01/14/25 20:48 87 L Room Air 01/14/25 20:48 94 Nasal Cannula 2 01/14/25 20:48 37.1 C 103 H 21 137/76 93 Room Air Laboratory Results Laboratory Results WBC 7.11 K/ul (4.8-10.8) 01/14/25 21:06 RBC 4.22 M/uL (4.70-6.10) L 01/14/25 21:06 Hgb 13.5 g/dl (14.0-18.0) L 01/14/25 21:06 Hct 40.7 % (42.0-52.0) L 01/14/25 21:06 MCV 96.4 fL (80.0-100.0) 01/14/25 21:06 MCH 32.0 pg (25.0-34.0) 01/14/25 21:06 MCHC 33.2 g/dL (32.0-36.0) 01/14/25 21:06 RDW Std Deviation 51.8 fL (36.4-46.3) H 01/14/25 21:06 RDW Coeff of Francesco 14.6 % (11.5-14.5) H 01/14/25 21:06 Plt Count 155 K/uL (130-400) 01/14/25 21:06 MPV 9.3 fL (9.4-12.4) L 01/14/25 21:06 Immature Gran % (Auto) 0.6 % 01/14/25 21:06 Neut % (Auto) 68.5 % 01/14/25 21:06 Lymph % (Auto) 21.8 % 01/14/25 21:06 [place] % (Auto) 8.4 % 01/14/25 21:06 Eos % (Auto) 0.3 % 01/14/25 21:06 Baso % (Auto) 0.4 % 01/14/25 21:06 Neut # (Auto) 4.87 K/uL (1.40-6.50) 01/14/25 21:06 Lymph # (Auto) 1.55 K/uL (1.20-3.40) 01/14/25 21:06 [place] # (Auto) 0.60 K/uL (0.11-0.59) H 01/14/25 21:06 Eos # (Auto) 0.02 K/uL (0.00-0.50) 01/14/25 21:06 Baso # (Auto) 0.03 K/uL (0.00-0.20) 01/14/25 21:06 Immature Gran # (Auto) 0.04 K/uL (0.01-0.20) 01/14/25 21:06 PT 11.3 Seconds (9.0-12.0) 01/14/25 21:06 INR 1.0 (0.9-1.1) 01/14/25 21:06 APTT 34 Seconds (21-31) H 01/14/25 21:06 PTT Ratio 1.3 01/14/25 21:06 Sodium 136 mmol/L (136-145) 01/14/25 21:06 Potassium 4.0 mmol/L (3.5-5.1) 01/14/25 21:06 Chloride 103 mmol/L (98-107) 01/14/25 21:06 Carbon Dioxide 27 mmol/L (21-32) 01/14/25 21:06 Anion Gap 6 (3-11) 01/14/25 21:06 BUN 18 mg/dl (6-23) 01/14/25 21:06 Creatinine 1.27 mg/dl (0.6-1.4) 01/14/25 21:06 Est Cr Clr Drug Dosing 56.6 ml/min 01/14/25 21:06 eGFR 55.36 01/14/25 21:06 BUN/Creatinine Ratio 14.2 (10-20) 01/14/25 21:06 Glucose 113 mg/dl (70-99(Fasting)) H 01/14/25 21:06 Calcium 8.8 mg/dl (8.6-10.3) 01/14/25 21:06 Total Bilirubin 0.7 mg/dl (0.2-1.0) 01/14/25 21:06 Direct Bilirubin 0.1 mg/dl (0-0.2) 01/14/25 21:06 AST 28 U/L (13-39) 01/14/25 21:06 ALT 26 U/L (7-52) 01/14/25 21:06 Alkaline Phosphatase 55 U/L (34-104) 01/14/25 21:06 Troponin I High Sens 23.1 pg/ml (0-20) H 01/14/25 21:06 B-Natriuretic Peptide 58 pg/ml (0-100) 01/14/25 23:00 Total Protein 6.5 gm/dl (6.0-8.3) 01/14/25 21:06 Albumin 4.0 gm/dl (3.4-5.0) 01/14/25 21:06 Nasal Influ A H1 2009 PCR DETECTED (NotDetected) A 01/14/25 23:26 Adenovirus (PCR) Not Detected (NotDetected) 01/14/25 23:26 B. pertussis DNA (PCR) Not Detected (NotDetected) 01/14/25 23:26 B.parapertussis DNA PCR Not Detected (NotDetected) 01/14/25 23:26 C. pneumoniae DNA (PCR) Not Detected (NotDetected) 01/14/25 23:26 Coronavirus OC43 (PCR) Not Detected (NotDetected) 01/14/25 23:26 Coronavirus HKU1 (PCR) Not Detected (NotDetected) 01/14/25 23:26 Coronavirus 229E (PCR) Not Detected (NotDetected) 01/14/25 23:26 SARS-CoV-2 (PCR) Not Detected (NotDetected) 01/14/25 23:26 Coronavirus NL63 (PCR) Not Detected (NotDetected) 01/14/25 23:26 Human Metapneumovir PCR Not Detected (NotDetected) 01/14/25 23:26 Influenza Type B (PCR) Not Detected (NotDetected) 01/14/25 23:26 M. pneumoniae (PCR) Not Detected (NotDetected) 01/14/25 23:26 Parainfluenza 1 (PCR) Not Detected (NotDetected) 01/14/25 23:26 Parainfluenza 2 (PCR) Not Detected (NotDetected) 01/14/25 23:26 Parainfluenza 3 (PCR) Not Detected (NotDetected) 01/14/25 23:26 Parainfluenza 4 (PCR) Not Detected (NotDetected) 01/14/25 23:26 RSV (PCR) Not Detected (NotDetected) 01/14/25 23:26 Entero/Rhino (PCR) Not Detected (NotDetected) 01/14/25 23:26 Impressions Abdomen/Pelvis CT 01/14/25 21:04 Exam(s): CT ABDOMEN + PELVIS With Contrast IV Amt: 93 ml opti 320 EXAM: CT Abdomen and Pelvis With Intravenous Contrast CLINICAL HISTORY: Reason for exam: fall. TECHNIQUE: Axial computed tomography images of the abdomen and pelvis with intravenous contrast. CTDI is 37.87 mGy and DLP is 624.41 mGy-cm. Automated exposure control was utilized for the study. A dose lowering technique was utilized adhering to the principles of ALARA. CONTRAST: Patient received 93 ml opti 320 of IV contrast COMPARISON: No relevant prior studies available. FINDINGS: Lung bases: Mild subsegmental atelectasis in both posterior lung bases. Heart: Coronary arterial calcification. ABDOMEN: Liver: Unremarkable. No mass. Gallbladder and bile ducts: Unremarkable. No calcified stones. No ductal dilation. Pancreas: Unremarkable. No mass. No ductal dilation. Spleen: Unremarkable. No splenomegaly. Adrenals: Unremarkable. No mass. Kidneys and ureters: Unremarkable. No solid mass. No hydronephrosis. Stomach and bowel: Diverticulosis without diverticulitis. No obstruction. PELVIS: Appendix: No findings to suggest acute appendicitis. Bladder: Unremarkable. No mass. ABDOMEN and PELVIS: Intraperitoneal space: Unremarkable. No free air. No significant fluid collection. Bones/joints: No acute findings. Soft tissues: Unremarkable. Vasculature: No evidence of abdominal aortic aneurysm. Lymph nodes: Unremarkable. No enlarged lymph nodes. IMPRESSION: 1. No acute findings. 2. Diverticulosis without diverticulitis. Electronically signed by: Mark Ramirez MD 01/14/25 23:[address] 01/14/25 21:04 Exam(s): CT C SPINE EXAM: CT Cervical Spine Without Intravenous Contrast CLINICAL HISTORY: Reason for exam: fall. TECHNIQUE: Axial computed tomography images of the cervical spine without intravenous contrast. CTDI is 26.2 mGy and DLP is 586.52 mGy-cm. Automated exposure control was utilized for the study. A dose lowering technique was utilized adhering to the principles of ALARA. COMPARISON: No relevant prior studies available. FINDINGS: Vertebrae: Advanced degenerative arthropathy of the facet joints. Mild anterior spondylolisthesis of C4 and C5, likely chronic and degenerative in nature. No other misalignment. No acute fracture. Discs/spinal canal/neural foramina: Advanced multilevel degenerative disc disease. No spinal canal stenosis. Soft tissues: Unremarkable. IMPRESSION: 1. No acute fracture. 2. Advanced degenerative changes. Electronically signed by: Mark Ramirez MD 01/14/25 22:[address] 01/14/25 21:04 Exam(s): CT HEAD Without Contrast EXAM: CT Head Without Intravenous Contrast CLINICAL HISTORY: Reason for exam: fall. TECHNIQUE: Axial computed tomography images of the head/brain without intravenous contrast. CTDI is 28.1 mGy and DLP is 1427.22 mGy-cm. Automated exposure control was utilized for the study. A dose lowering technique was utilized adhering to the principles of ALARA. COMPARISON: Previous head CT March 24, 2022. FINDINGS: Brain: Chronic, small vessel ischemic changes in the white matter. No acute intracranial hemorrhage, edema or abnormal mass-effect. No extra- axial collection. Ventricles: Unremarkable. No ventriculomegaly. Bones/joints: Unremarkable. No acute fracture. Soft tissues: Unremarkable. Sinuses: Unremarkable as visualized. No acute sinusitis. Mastoid air cells: Unremarkable as visualized. No mastoid effusion. IMPRESSION: No acute intracranial abnormality. Electronically signed by: Mark Ramirez MD 01/14/25 23:00 PM Chest X-Ray 01/14/25 22:45 Exam(s): XR CXR 1 VIEW EXAM: XR Chest, 1 View CLINICAL HISTORY: Reason for exam: cough. TECHNIQUE: Frontal view of the chest. COMPARISON: November 19, 2022. FINDINGS: Lungs: No acute infiltration, atelectasis or mass. Pleural space: Unremarkable. No pneumothorax or pleural fluid. Heart: Unremarkable. No cardiomegaly. Mediastinum: Unremarkable. Normal mediastinal contour. Bones/joints: No acute findings. Tubes, lines and devices: A stable epidural stimulator is seen in the lower thoracic spine. IMPRESSION: No acute findings in the chest. Electronically signed by: Mark Ramirez MD 01/14/25 23:41 PM Diagnostic Findings EKG as per my interpretation :Rate 105, sinus tachycardia, LAD, LAFB, LVH, no ischemia
[2025-01-15] MEDS: SODIUM CHLORIDE 0.9% 1,000 ML IV ONE (01:50)
[2025-01-15] MEDS: OSELTAMIVIR PHOSPHATE 75 MG CAP PO STA (01:57)
[2025-01-15] MEDS ORDERED: methylPREDNISolone 20 MG in SYRINGE 0 ML IV ONE (02:15)
[2025-01-15] MEDS ORDERED: PROMETHAZINE 6.25 MG/50.25 ML BAG IV PRN (02:17)
[2025-01-15] MEDS ORDERED: ACETAMINOPHEN 325 MG TAB PO PRN (02:17)
[2025-01-15] MEDS ORDERED: traMADol HCL 50 MG TABLET PO PRN (02:18)
[2025-01-15 02:25] LABS: Magnesium 1.6 mg/dl (1.7-2.4)
[2025-01-15] MEDS: methylPREDNISolone 125 MG/2 ML VIAL IV STA (02:51)
[2025-01-15] MEDS: TERAZOSIN HCL 5 MG CAP PO STA (02:51)
[2025-01-15] MEDS: MAGNESIUM SULFATE / D5W 1 GM/100 ML BAG IV SCH (02:55)
[2025-01-15] MEDS: IPRATROPIUM BROMIDE NEB SOLN 0.02% 0.5MG/2.5ML VIAL INH STA (03:02)
[2025-01-15] MEDS: LEVALBUTEROL 1.25 MG/3 ML NEB NEB STA (03:02)
[2025-01-15 03:06] LABS: Basophils # (auto) 0.02 K/uL (0.00-0.20); Basophils % (auto) 0.3 %; Eosinophils # (auto) 0.02 K/uL (0.00-0.50); Eosinophils % (auto) 0.3 %; Hematocrit (blood only) 37.1 % (42.0-52.0); Hemoglobin 12.2 g/dl (14.0-18.0); Immature Granulocytes # (auto) 0.02 K/uL (0.01-0.20); Immature Granulocytes % (auto) 0.3 %; Lymphocytes % (auto) 24.4 %; Mean Corpuscular Hemoglobin 31.7 pg (25.0-34.0); Mean Corpuscular Hgb Conc 32.9 g/dL (32.0-36.0); Mean Corpuscular Volume 96.4 fL (80.0-100.0); Monocytes # (auto) 0.65 K/uL (0.11-0.59); Monocytes % (auto) 8.3 %; Neutrophils # (auto) 5.19 K/uL (1.40-6.50); Neutrophils % (auto) 66.4 %; Platelet Count 144 K/uL (130-400); RDW Coefficient of Variation 14.6 % (11.5-14.5); RDW Standard Deviation 51.5 fL (36.4-46.3); Red Blood Count 3.85 M/uL (4.70-6.10)
[2025-01-15] MEDS: DOXYCYCLINE HYCLATE 100 MG in DEXTROSE 5% MINI-B 100 ML IV STA (03:12)
[2025-01-15 03:24] LABS: BUN Creatinine Ratio 12.6 (10-20); Calcium 8.4 mg/dl (8.6-10.3); Creatinine Clr Calc Pharmacy 60.5 ml/min; Potassium 3.7 mmol/L (3.5-5.1)
[2025-01-15 03:30] LABS: Troponin I High Sensitivity 24.5 pg/ml (0-20)
[2025-01-15 03:40] LABS: Thyroid Stimulating Hormone 2.086 uIu/ml (0.300-4.500)
--- OUTSIDE RECORDS SUMMARY | 2025-01-15 06:23 | External Medical Summary | Summary of Care ---
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 Name Role Phone Maday Arzate DO Primary Care Provider [phone] Reason for Visit * Reason Comments Follow Up Skin check- pt would like to focus on his face today, post MOHS follow up Encounter Details Date Type Department Care Team (Late st Contact Info) Description 12/23/2024 9:20 AM EST Office [facility] [address] [facility] [place] [phone] Ginger Cook PA-C [address] [place] [address] [place] [id number] Hx of nonmelanoma skin cancer*; Scar condition and fibrosis of skin; Actinic keratosis Allergies Active Allergy Reactions Criticality Noted Date Comments Ibuprofen 05/10/1999 ulcer "I don't ever want to take that stuff again." Latex Rash 10/10/2018 Oxycodone High 03/22/2020 Adhesive Tape Hives High 06/21/2017 documented as of this encounter (statuses as of 12/23/2024) Medications ALLOPURINOL 100 MG PO TABSIndications:Hy peruricemia TAKE 2 TABLETS DAILY 60 Tab 11 01/30/20 14 Active Additional Information Patient taking differently: 100 mgOralDaily(AM), Informant: Patient, Reported on 12/23/2024 Nitroglycerin 0.4 MG Sublingual Tablet Sublingual (NITROSTAT)Indicat ions:ASCVD (arteriosclerotic cardiovascular disease) Place 1 Tab under the tongue as needed for Pain, Chest. Maximum 3 doses. 25 Tab 5 10/20/20 20 Active Timolol Maleate 0.5 % Ophthalmic Solution (Timoptic) 08/09/20 21 Active Aspirin EC 81 MG Oral Tablet Delayed Release Take by mouth 1 Tablet in the morning. 01/12/20 22 Active Finasteride 5 MG Oral Tablet (Proscar)Indicatio ns:BPH with obstruction/lower urinary tract symptoms Take 1 Tablet by mouth in the morning. 30 Tablet 2 06/19/20 22 Active Omeprazole 20 MG Oral Capsule Delayed Release (PriLOSEC)Indicati ons:Gastroesophage al reflux disease without esophagitis TAKE 1 CAPSULE BY MOUTH ONCE DAILY 1 HOUR BEFORE THE FIRST MEAL OF THE DAY FOR STOMACH 90 Capsule 3 12/13/19 23 Active Azelastine HCl 0.1 % Nasal Solution (Astelin) Administer 1 Calhoun into nostril in the morning and 1 Calhoun before bedtime. 30 mL 12 01/02/20 24 Active Additional Information Patient not taking.Reported on 11/04/2024 Furosemide 20 MG Oral Tablet (Lasix)Indications :HTN, goal below 140/90 Take 1 Tablet by mouth in the morning. Take an additional tablet as needed for swelling. 100 Tablet 3 01/18/20 24 Active Albuterol Sulfate HFA 108 (90 Base) MCG/ACT Inhalation Aerosol SolutionIndication s:Moderate persistent asthma with exacerbation Inhale 2 Puffs by mouth every 6 hours as needed for Dyspnea or Wheezing. 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 180 Tablet 3 03/28/20 24 Active Nystatin 004416 UNIT/ML Mouth/Throat Suspension SWISH AND SWALLOW 5ML IN THE MORNING, 5ML AT NOON, 5ML IN THE EVENING AND 5ML BEFORE BEDTIME FOR THRUSH 240 mL 04/30/20 24 Active Breo Ellipta 200-25 MCG/ACT Inhalation Aerosol Powder Breath ActivatedIndicatio ns:Moderate persistent asthma without complication INHALE 1 PUFF BY MOUTH IN THE MORNING 60 Each 10 07/10/20 24 Active Terazosin HCl 5 MG Oral Capsule (Hytrin)Indication s:HTN, goal below 140/90,Coronary artery disease involving [place] coronary artery of [place] heart without angina pectoris,S/P angioplasty with stent Take 1 capsule by mouth once daily 90 Capsule 3 07/22/20 24 Active Levothyroxine Sodium 25 MCG Oral Tablet (Levoxyl) TAKE 1 TABLET BY MOUTH ONCE DAILY IN THE MORNING AT LEAST 30 MINUTES PRIOR TO BREAKFAST OR OTHER MEDS 90 Tablet 3 07/29/20 24 Active Simvastatin 40 MG Oral Tablet (Zocor) TAKE 1 TABLET BY MOUTH AT BEDTIME FOR CHOLESTEROL 90 Tablet 1 08/12/20 24 Active Losartan Potassium 25 MG Oral Tablet (Cozaar)Indication s:HTN, goal below 140/90 Take 1 Tablet by mouth in the morning. 90 Tablet 3 10/15/20 24 Active Fluticasone Propionate 50 MCG/ACT Nasal Suspension (Flonase) Administer 2 Sprays into each nostril in the morning. 1 Each 3 10/15/20 24 Active Full Kit Nebulizer Set Use with Nebulizer Medication EVERY SIX HOURS WHILE AWAKE as directed. Dx Code: J45.4 1 Each 3 11/04/19 25 Active Clindamycin Phosphate 1 % gelIndications:H/O folliculitis Apply 2-3x daily to new and resolving bumps on scalp 30 g 1 04/28/20 20 025 Discontin ued(Medic ation List Clean Up) Triamcinolone Acetonide 0.1 % External Ointment (Aristocort)Indica tions:Brachioradia l pruritus Apply 2x daily (or more if needed) to itch on arm until resolved along with entire hydrating regimen (printed on checkout sheet) 454 g 10/18/20 21 025 Discontin ued(Medic ation List Clean Up) guaiFENesin ER 600 MG Oral Tablet Extended Release 12 Hour (Humibid LA) Take 2 Tablets by mouth in the morning and 2 Tablets before bedtime. 025 Discontin ued(Medic ation List Clean Up) BiPAP every night at bedtime. 025 Discontin ued(Medic ation List Clean Up) Benzonatate 100 MG Oral CapsuleIndications :Acute cough Take 2 Capsules by mouth 3 times a day as needed for Cough. 30 Capsule 1 10/07/20 24 025 Discontin ued(Medic ation List Clean Up) documented as of this encounter (statuses as of 12/23/2024) Active Problems Problem Noted Date Diagnosed Date Hypertensive kidney disease with stage 3b chronic kidney disease 12/28/2023 Inflammatory polyarthritis 01/12/2023 Stage 3a chronic kidney disease 11/24/2022 Primary osteoarthritis of both hands 03/10/2022 Moderate persistent asthma without complication 01/19/2022 Chronic diastolic heart failure due to valvular disease 01/19/2022 Carotid artery plaque, bilateral 11/19/2019 Actinic keratosis 11/18/2019 Coronary artery disease invo lving [place] coronary artery of [place] heart without angina pectoris 07/28/2019 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 05/12/2019 Hypertensive kidney disease with chronic kidney disease stage III 10/07/2018 S/P insertion of spinal cord stimulator 06/21/20 GERD (gastroesophageal reflux disease) 4 Deviated nasal septum 09/19/2013 EVA (obstructive sleep apnea) 07/30/2012 Overview (10/08/2012): 10/08/12 -- CPAP 9 cwp PSG 06/28/12 -- AHI 8.3, significant nocturnal hypoxemia [facility] KIDNEY DISEASE, CHRONIC, STAGE III (GFR 30-59 ML /MIN) 03/18/2012 Overview (03/21/2012): Per CKD protocol #1 Dyslipidemia, goal LDL below 70 10/14/2009 Overview (10/14/2009): Per Lipid Taxonomy. 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 OBESITY, BMI= 32.82 03/10/09 03/10/2009 04/18/2017 Acute HI, subendocardial, new bsequent episode of care 07/07/2008 03/10/2009 Diaphragmatic hernia 07/07/2008 011 Acute coronary syndrome 06/27/200802/26 History of tobacco use 06/22/200804/18 ATROPHY OF TESTIS, LEFT 06/22/200803/30 Need for prophylactic vaccin ation with tetanus-diphtheria (TD) 06/22/2008 04/18/2017 Herpes zoster 05/25/2008 04/18/2017 Headache 05/25/2008 06/22/2008 Overview (01/19/2016): ICD-10 update of inactive term Pruritic disorder 01/31/2008 06/22/2008 Dermatitis 01/31/2008 06/22/2008 Dysphagia 09/13/2007 09/18/2011 Overview (01/20/2016): ICD-10 update of inactive term CHEST DISCOMFORT 09/13/2007 06/22/2008 Acute URI 09/13/2007 06/22/2008 S/P SURGERY FOR LEFT CARPAL TUNNEL SYNDROME 06/13/2007 05/24/2018 BPH with obstruction/lower u rinary tract symptoms 06/13/2007 04/18/2017 ACUTE SINUSITIS NOS 11/24/2005 06/13/20 07 ACUTE URI NOS 11/24/2005 06/13/2007 Chronic rhinitis 11/24/2005 09/18/2011 Chest pain 11/24/2005 06/13/2007 Overview (11/24/2005): IMPROVED SOB (shortness of breath) 11/24/2005 Overview (11/24/2005): IMPROVED ADVANCE DIRECTIVE INFORMATION 05/03/2005 09/01/2024 Overview (05/03/2005): brochure given FOOT PAIN 05/03/2005 06/13/2007 OPEN WND KNEE-LEFT 07/06/2004 5 Special screening for malign ant neoplasms, colon 12/16/2003 01/06/2009 Overview (01/06/2009): Resolved per Screening Diagnosis Protocol #6 ACUTE SINUSITIS NOS 12/02/2003 05/03/20 05 "BUG-IN-EAR" SENSATION 08/20/200309/18 Need for influenza vaccination 08/20/2003 09/18/2011 FRACTURE ONE RIB-CLOSED 06/16/2003 07/0 03/2005 LACRIML PUNCTUM STENOSIS 01/06/200303/2005 Screening for prostate cancer 12/26/2002 01/06/2009 Overview (01/06/2009): Resolved per Screening Diagnosis Protocol #6 FOOT PAIN WITH LATERAL TOE D EVIATION, LEFT FOOT 06/06/2002 04/18/2017 DERMATITIS FOOT 06/06/2002 06/13/2007 ROTATOR CUFF SYNDROME/TEAR, RIGHT SHOULDER 05/23/2002 06/13/2007 BURSITIS, HIP 05/09/2002 05/03/2005 Arthritis of hip 03/18/2002 05/03/2005 CORNEAL EROSION 10/08/2001 03/10/2009 Esophageal reflux 11/27/2000 05/24/2018 ROUTINE MEDICAL EXAM 11/27/2000 017 HYPERLIPIDEMIA NEC-NOS 11/27/200010/14 Overview (10/14/2009): Per Lipid Taxonomy. ALLERGIES WITH DIFFUSE MANIFESTATIONS 03/16/2000 05/03/2005 Allergic rhinitis 08/10/1999 03/10/2009 Other specified disorder of penis 04/18/2017 Calculus of ureter 7 ASCVD (arteriosclerotic card iovascular disease) 07/07/2008 Old myocardial infarct 03/10 documented as of this encounter (statuses as of 12/23/2024) Immunizations Name Administration Dates Next Due COVID-19 mRNA, LNP-s, No Pre serve, 2-Dose Series (Pfizer) 05/16/2022,08/31/2021,01/08/2021,11/29 COVID-19, LNP-s, No Preserve , Silvio-sucrose, Ages 12+ (Pfizer) 05/16/2022 Covid-19, Mrna, Lnp-s, Pf, B ivalent, 30 Mcg, IM, 12 yrs and above (Pfizer) 08/14/2022 Diptheria/Tetanus (Adult) 11/29/1997 Pneumococcal Conjugate Vacc, 13 Valent (Prevnar) 10/20/2018,11/26/2015 Pneumococcal Polysaccharide PPV23 (Pneumovax) 08/31/2006 RSV Vac., Recomb, Adjuvant, PF,0.5 Ml (Arexvy) 10/08/2023 Season Influenza, Quad, PF, Adjuvanted, 65+ Yrs, IM (FLUAD) 08/13/2020 Seasonal Influenza Vac., MDV , IM, 0.5 mL (Fluzone) 07/02/2014,07/29/2013,09/05/2012,02/2011,07/21/2010,10/07/2009,08/04/20 08,08/31/2006,09/05/2005,09/19/2002,1 12/02/2000 Seasonal Influenza Virus Vac cine, Unspecified Formulation 08/13/2020,07/28/2019,07/29/2018,06/29,09/11/2016,09/06/2015,07/02/20 14,07/29/2013,09/05/2012,08/02/2011,0 07/21/2010,10/07/2009,08/04/2008,08/31,09/05/2005,09/19/2002, 1 Seasonal Influenza, High Dos e, Trivalent, PF, IM (Fluzone HD) 07/10/2024 Seasonal Influenza, PF, 6 M & above, IM , (FluLaval or Fluzone) 07/28/2019 Seasonal Influenza, Quadriva lent Hd (Fluzone Hd) 06/29/2023,08/02/2022,09/14/2021 Seasonal Influenza, Quadriva lent, No Preserve, IM 07/29/2018,07/09/2017,09/11/2016,06/2015 TD, Preservative Free 06/22/2008,11/29/199705/30 Varicella Zoster Vaccine (Adult) 05/14/2009 Zoster Vaccine Recombinant (Shingrix) 10/18/2018 ,06/17/2018 documented as of this encounter Social History Tobacco Use Types Packs/Day Years Used Date Smoking Tobacco: Former Cigarettes 0.5 10 0 10/29/1958 - 10/29/1968 Passive Smoke Exposure: Past Smokeless Tobacco: Former Quit: 04/06/1970 Alcohol Use Standard Drinks/Week Comments Never 0 (1 standard drink = 0.6 oz pur e alcohol) PHQ-2 Answer Date Recorded PHQ Adult Total Score 0 03/13/2022 Hunger Vital Sign Answer Date Recorded Worried About Running Out of Food in the Last Ye ar Never true 07/28/2019 Ran Out of Food in the Last Year Never true 07/28/2019 Sex and Gender Information Value Date Recorded Sex Assigned at Male 03/07/2019 10:12 AM EDT Legal Sex Male 7:15 AM EST Gender Identity Male 03/07/2019 10:12 AM EDT Sexual Orientation Straight 03/07/2019 10 :12 AM EDT 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 The best protection is sun avoidance. Seek shade if you can, especially between 10am to 4pm (peak sun hours). 2. Use sunscreen with an SPF (Sun Protection Factor - the number on most sunscreen bottles) of 30 or more that protects from Ultraviolet A (UVA) and Ultraviolet B (UVB) wavelength light (strongly recommend SPF 50). This is referred to as broad spectrum sun protection because it protects from most wa velengths in both spectrums of UVA and UVB light. Unfortunately, even though the protection is broad it is not complete, therefore making sun avoidance the best protection. UVB and UVA have both beenimplicated in causing skin cancers. Older sunscreens only protected from UVB and sunscreens with added UVA protection should contain Titanium dioxide, Zinc oxide, or Avobenzone. Other oil free, non-comedogenic lotion with SPF 30 or greater is fine. 3. Use sun protection if outside for 15 minutes or more. Apply 20-30 minutes before going out and reapply every 1-2 hours. No sunscreen is truly water ''proof'' and it will wash away with sweat, swimming and rubbing. 4. Wear tightly woven, loose fitting (cooler) long sleeved clothing, UV-blocking sun glasses (eyes need protection as well) and wide-brimmed hatwear (no straw hats with holes because light still getsthrough). Strongly recommended *Neutrogena Pure and Free Baby SPF 60 (have separate face and body lotions) orCeraVe AM facial lotion (with SPF 30). If looking for non toxic alternatives-look for non-renzo particle zinc. Product examples; Think sport, Think baby, [employer], [employer], [employer], [place] baby. "Baby" products can be used for all ages. Skin Cryosurgery (FREEZING) Instructions Most areas treated by freezing will need very little care. You may wash normally with soap and water and leave any small crusts in place. Vaseline to treated areas 2-3 times per day is a good idea, you do not need to keep them covered with bandages. If a large blister forms and breaks, you will want to apply a light dressing to the area. CHANGE DRESSING ONCE DAILY 1. Wash hands and remove the original dressing(s) in 12-24 hours. 2. Gently clean wound(s) with soap and water. Rinse with water and pat the wound dry. 3. Apply a thin layer of Vaseline ointment with a Q-tip. 4. Cover with a bandage if area(s) is not on the face or scalp. A dressing is not required on the face or scalp. Use non-adherent dressing and paper tape if you are sensitive to band-aid adhesive sensitive. 5. If you have any concerns about the healing wound, please either or our main Dermatology office in [place] at [phone]. If an emergency, please go to your nearest Emergency Department. documented in this encounter Progress Notes * Boris Pederson MD - 12/23/2024 11:49 AM EST I have seen and examined the patient via teledermatology review of chart note and photos with Ginger Cook PA-C. I have reviewed and agree with the assessment and plan. * Ginger Cook PA-C - 12/23/2024 9:20 AM EST SUBJECTIVE: History of Present Illness: Leonel Chambers is a 84 year old male seen today for facial skin exam. Previous appointment date: 12/18/2023 Last attempted treatments include: Mohs for BCC Pt declined skin exam entirely, only wants to focus on face today. Plans on doing full skin exam 06/22 appointment. Some lesions on face to evaluated and to check Mohs scar. REVIEW OF SYSTEMS: SKIN: No other new or changing moles. HEME/LYMPH: No new or enlarging lumps or bumps. CONSTITUTIONAL: No nausea, vomiting, fevers, chills, diarrhea. No recent unintended weight loss, night sweats, appetite or malaise. RESP: negative MSK/EXT: Negative or as per HPI GI: negative CV: Negative or as per HPI Rest of systems are negative or as per HPI SKIN CANCER HX: infiltrating basal cell carcinoma (L infraorbital cheek 07/22), actinic keratoses Reviewed, same day as visit, 0 [facility] Dermatology lab work(s)/pathology report(s) as well as those sent by referring provider prior to seeing pt. MEDICA TIONS: Current Outpatient Medications Medication Sig Dispense Refill ALLOPURINOL 100 MG PO TABS TAKE 2 TABLETS DAILY (Patient taking differently: Take 1 Tablet by mouthin the morning.) 60 Tab 11 Nitroglycerin 0.4 MG Sublingual Tablet Sublingual (NITROSTAT) Place 1 Tab under the tongue as needed for Pain, Chest. Maximum 3 doses. 25 Tab 5 Timolol Maleate 0.5 % Ophthalmic Solution (Timoptic) Aspirin EC 81 MG Oral Tablet Delayed Release Take by mouth 1 Tablet in the morning. Finasteride 5 MG Oral Tablet (Proscar) Take 1 Tablet by mouth in the morning. 30 Tablet 2 Omeprazole 20 MG Oral Capsule Delayed Release (PriLOSEC) TAKE 1 CAPSULE BY MOUTH ONCE DAILY 1 HOUR BEFORE THE FIRST MEAL OF THE DAY FOR STOMACH 90 Capsule 3 Furosemide 20 MG Oral Tablet (Lasix) Take 1 Tablet by mouth in the morning. Take an additional tablet as needed for swelling. 100 Tablet 3 Albuterol Sulfate HFA 108 (90 Base) MCG/ACT Inhalation Aerosol Solution Inhale 2 Puffs by mouth every 6 hours as needed for Dyspnea or Wheezing. 18 g 11 Apixaban 5 MG Oral Tablet (Eliquis) Take 1 Tablet by mouth in the morning and 1 Tablet before bedtime. 180 Tablet 3 Nystatin 300359 UNIT/ML Mouth/Throat Suspension SWISH AND SWALLOW 5ML IN THE MORNING, 5ML AT NOON, 5ML IN THE EVENING AND 5ML BEFORE BEDTIME FOR THRUSH 240 mL 0 Breo Ellipta 200-25 MCG/ACT Inhalation Aerosol Powder Breath Activated INHALE 1 PUFF BY MOUTH IN THE MORNING 60 Each 10 Terazosin HCl 5 MG Oral Capsule (Hytrin) Take 1 capsule by mouth once daily 90 Capsule 3 Levothyroxine Sodium 25 MCG Oral Tablet (Levoxyl) TAKE 1 TABLET BY MOUTH ONCE DAILY IN THE MORNING AT LEAST 30 MINUTES PRIOR TO BREAKFAST OR OTHER MEDS 90 Tablet 3 Simvastatin 40 MG Oral Tablet (Zocor) TAKE 1 TABLET BY MOUTH AT BEDTIME FOR CHOLESTEROL 90 Tablet 1 Losartan Potassium 25 MG Oral Tablet (Cozaar) Take 1 Tablet by mouth in the morning. 90 Tablet 3 Fluticasone Propionate 50 MCG/ACT Nasal Suspension (Flonase) Administer 2 Sprays into each nostril in the morning. 1 Each 3 Full Kit Nebulizer Set Use with Nebulizer Medication EVERY SIX HOURS WHILE AWAKE as directed. Dx Code: J45.4 1 Each 3 Azelastine HCl 0.1 % Nasal Solution (Astelin) Administer 1 Calhoun into nostril in the morning and 1 Calhoun before bedtime. (Patient not taking: Reported on 07/23/2024) 30 mL 12 No current facility-administered medications for this visit. ALLERG IES: Oxycodone, Tape [adhesive tape], Ibuprofen, and Latex OBJECT AGNIESZKA: GEN: alert, no distress, appears oriented, pleasant, and cooperative. SKIN: Detailed exam of face including lids and lips completed: L infraorbital cheek-post inflammatory erythematous/white linear atrophic scar. 2. Face/ears-10 pink/brown scaly papules. ASSESS MENT/PLAN: Scar s/p infiltrating basal cell carcinoma on L infraorbital cheek-No sign of recurrence. 2. Actinic keratosis on face/ears (x10)-Cryosurgery explained to the patient. Discussed risk of blistering, crusting, infection, scarring, reoccurrence of lesions, hypopigmentation, post inflammatoryhyperpigmentation with pt prior to procedure. Verbal consent obtained. Time out called immediately prior to procedure and patient identification and site verified. Cryo therapy performed with Liquid Nitrogen via cryo spray unit to lesion (s) noted above. Location noted in physical exam. Post op course explained. Patient alone today. Photo(s) of #1-2 taken, pt verbally consented to having photo(s) taken. Follow-up: 06/21 for full skin exam and AKs Applicable photos (if any) and chart reviewed by Dr. Boris Pederson. Presumed diagnoses, expected natural histories, and management options discussed with the patient at length. Questions were addressed and anticipatory guidance provided. They were instructed to contact me if additional questions, concerns, or problems develop in the interim. -There were no barriers to learning and no other pain was related to today's visit. The patient and/or person accompanying patient demonstrates understanding of the visit and treatment. Ginger Cook PA-C 12/23/2024 9:21 AM Dermatology, [facility] [place] [phone] documented in this encounter Nursing Notes * Cecilia Sevilla LPN - 12/23/2024 8:59 AM EST Patient identified by name and date of . Do you have any concerns about pain management for today's visit? No Living Will or Advance Directive for Health Care as noted on problem list. [facility] is a way you can talk to your provider online through e-mail. Would you like to sign up? I can activate it for you? No Chief Complaint Patient presents with Follow Up Skin check- pt would like to focus on his face today, post MOHS follow up documented in this encounter Miscellaneous Notes * Addendum Note - Priscila Garcia LPN - 12/23/2024 10:07 AM ESTAddended by: PRISCILA GARCIA on: 12/23/2024 10:07 AM Modules accepted: Orders documented in this encounter Plan of Treatment Upcoming Encounters Date Type Department Care Team (Late st Contact Info) Description 01/21/2025 9:50 AM EDT Office Visit Family Practice, [facility] [place] [phone] Maday Arzate DO [address] [place] [address] 02/23/2025 10:00 AM EDT Office Visit Pulmonary Medicine, [facility] [address] [facility] [place] [phone] Holden Allne MD [address] [place] [phone] 06/15/2025 10:20 AM EDT Office Visit Dermatology [address] [place] [phone] Ginger Cook PA-C [address] [place] [address] [place] [id number] Scheduled Procedures Name Priority Associated Diagnoses Date/Ti me COLONOSCOPY FLEXIBLE PROXIMAL DIAGNOSTIC Recall History of colon polyps Health Maintenance Due Date Last Done Comments Adult Wellness Visit 04/09/2019 04/09/2018 Depression Screening 03/13/2023 03/13/2022 TSH 07/10/2025 07/10/2024, 04/29, 09/13/2022, Additional history exists Zoster Vaccines Completed 10/18/2018, 05/30, 05/14/2009 COVID-19 Vaccine Discontinued 08/14/2022, , 05/16/2022, Additional history exists Influenza Vaccine (FLU shot) Completed 07/10/2024, 06/29/2023, 08/02/2022, Additional history exists Meningitis B Vaccine (Bexsero/Trumemba) Aged Out No longer eligible based on patient's age to complete this topic documented as of this encounter Medical Devices Not on filedocumented as of this encounter Procedures Procedure Name Priority Date/Time Associated Diagnosis Comments DERM EXAM - DERM (IMAGES ONLY, NO REPORT) Routine 12/23/2024 10:07 AM EST Hx of nonmelanoma skin cancer documented in this encounter Results * DERM EXAM - DERM (IMAGES ONLY, NO REPORT) (12/23/2024 10:07 AM EST) Narrative Scheduling, Silent - 12/23/2024 10:07 AM EST This is an imaging study not interpreted or resulted by a [facility] or [facility] contracted radiologist. 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
--- OUTSIDE RECORDS SUMMARY | 2025-01-15 06:23 | External Medical Summary | Summary of Care ---
Author Name Unknown Organization [facility] Address [address] [facility] [place] [address] Phone [phone] Care Team Providers Care Cnc Operator Name Role Phone Maday Arzate DO Primary Care Provider [phone] Reason for Visit * Reason Comments Follow Up Skin check- pt would like to focus on his face today, post MOHS follow up Encounter Details Date Type Department Care Team (Late st Contact Info) Description 12/23/2024 9:20 AM EST [facility] [address] [facility] [place] [phone] Ginger Cook PA-C [address] [place] [address] [place] [address] Hx of nonmelanoma skin [...] 0.1 % Nasal Solution (Astelin) Administer 1 [place] into nostril in the morning and 1 [place] before bedtime. 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 Product examples; Think sport, Think baby, dooub, Carnival, gestigon, [place] baby. "Baby" products can be used [...] either or our main Dermatology office in [place] at [phone]. If an emergency, please go to your [...] keratoses Reviewed, same day as visit, 0 [facility] Dermatology lab work(s)/pathology report(s) as well as [...] Tablet before bedtime. 180 Tablet 3 Nystatin 698975 UNIT/ML Mouth/Throat Suspension SWISH AND SWALLOW 5ML [...] 0.1 % Nasal Solution (Astelin) Administer 1 [place] into nostril in the morning and 1 [place] before bedtime. (Patient not taking: Reported on [...] 9:21 AM Dermatology, [facility] [address] documented in this encounter Nursing Notes * Cecilia Sevilla LPN - 12/23/2024 8:59 AM EST Patient identified by name and date of . Do you have any concerns about pain management for today's visit? No Living Will or Advance Directive for Health Care as noted on problem list. [facility] is a way you can talk to [...] Family Practice, [facility] [place] [phone] Maday Arzate DO [address] [place] [address] 02/23/2025 10:00 AM EDT Office Visit Pulmonary Medicine, [facility] [address] [facility] [place] [phone] Holden Allen MD [address] [place] [address] 06/15/2025 10:20 AM EDT Office Visit Dermatology [address] [place] [address] Ginger Cook PA-C [address] [place] [address] [place] [address] Scheduled Procedures Name Priority Associated Diagnoses Date/Ti [...] interpreted or resulted by a [facility] or [facility] contracted radiologist. us Ginger Cook PA-C RADIOLOGY [...] 6:56 PM 06/30/2008 11:56 PM Care Teams Cnc Operator Relationship Specialty Start Date End Date Maday Arzate DO [address] [place] [address] PCP - General Family Medicine 07/10/24 documented as of this encounter
--- OUTSIDE RECORDS SUMMARY | 2025-01-15 06:23 | External Medical Summary | Summary of Care ---
Author Name Unknown Organization [facility] Address [address] [facility] [place] [address] Phone [phone] Care Team Providers Care Customer Service Operator Name Role Phone Sami Arzate DO Primary Care Provider [phone] Reason for Visit * Reason Comments eRx-Medication Refill Encounter Details Date Type Department Care Team (Late st Contact Info) Description 12/24/2024 Refill [facility] Navya Jimenez [address] [place] [phone] Pierce Martin MD [address] [place] [address] HTN, goal below 140/90 Allergies Active Allergy Reactions Criticality Noted Date Comments Ibuprofen 05/10/1999 ulcer "I don't ever want to take that stuff again." Latex Rash 10/10/2018 Oxycodone High 03/22/2020 Adhesive Tape Hives High 06/21/2017 documented as of this encounter (statuses as of 12/25/2024) Medications ALLOPURINOL 100 MG PO TABSIndications:H yperuricemia TAKE 2 TABLETS DAILY 60 Tab 11 014 Active Additional Information Patient taking differently: 100 mgOralDaily(AM), Informant: Patient, Reported on 12/23/2024 Nitroglycerin 0.4 MG Sublingual Tablet Sublingual (NITROSTAT)Indica tions:ASCVD (arteriosclerotic cardiovascular disease) Place 1 Tab under the tongue as needed for Pain, Chest. Maximum 3 doses. 25 Tab 5 Active Timolol Maleate 0.5 % Ophthalmic Solution (Timoptic) Active Aspirin EC 81 MG Oral Tablet Delayed Release Take by mouth 1 Tablet in the morning. 022 Active Finasteride 5 MG Oral Tablet (Proscar)Indicati ons:BPH with obstruction/lower urinary tract symptoms Take 1 Tablet by mouth in the morning. 30 Tablet 2 022 Active Omeprazole 20 MG Oral Capsule Delayed Release (PriLOSEC)Indicat ions:Gastroesopha geal reflux disease without esophagitis TAKE 1 CAPSULE BY MOUTH ONCE DAILY 1 HOUR BEFORE THE FIRST MEAL OF THE DAY FOR STOMACH 90 Capsule 3 023 Active Azelastine HCl 0.1 % Nasal Solution (Astelin) Administer 1 [place] into nostril in the morning and 1 [place] before bedtime. 30 mL 12 024 Active Additional Information Patient not taking.Reported on 11/04/2024 Furosemide 20 MG Oral Tablet (Lasix)Indication s:HTN, goal below 140/90 Take 1 Tablet by mouth in the morning. Take an additional tablet as needed for swelling. 100 Tablet 3 024 Active Albuterol Sulfate HFA 108 (90 Base) MCG/ACT Inhalation Aerosol SolutionIndicatio ns:Moderate persistent asthma with exacerbation Inhale 2 Puffs by mouth every 6 hours as needed for Dyspnea or Wheezing. 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 180 Tablet 3 024 Active Nystatin 644016 UNIT/ML Mouth/Throat Suspension SWISH AND SWALLOW 5ML IN THE MORNING, 5ML AT NOON, 5ML IN THE EVENING AND 5ML BEFORE BEDTIME FOR THRUSH 240 mL 024 Active Breo Ellipta 200-25 MCG/ACT Inhalation Aerosol Powder Breath ActivatedIndicati ons:Moderate persistent asthma without complication INHALE 1 PUFF BY MOUTH IN THE MORNING 60 Each 10 024 Active Terazosin HCl 5 MG Oral Capsule (Hytrin)Indicatio ns:HTN, goal below 140/90,Coronary artery disease involving [place] coronary artery of [place] heart without angina pectoris,S/P angioplasty with stent Take 1 capsule by mouth once daily 90 Capsule 3 024 Active Levothyroxine Sodium 25 MCG Oral Tablet (Levoxyl) TAKE 1 TABLET BY MOUTH ONCE DAILY IN THE MORNING AT LEAST 30 MINUTES PRIOR TO BREAKFAST OR OTHER MEDS 90 Tablet 3 024 Active Simvastatin 40 MG Oral Tablet (Zocor) TAKE 1 TABLET BY MOUTH AT BEDTIME FOR CHOLESTEROL 90 Tablet 1 024 Active Fluticasone Propionate 50 MCG/ACT Nasal Suspension (Flonase) Administer 2 Sprays into each nostril in the morning. 1 Each 3 024 Active Full Kit Nebulizer Set Use with Nebulizer Medication EVERY SIX HOURS WHILE AWAKE as directed. Dx Code: J45.4 1 Each 3 025 Active Losartan Potassium 25 MG Oral Tablet (Cozaar)Indicatio ns:HTN, goal below 140/90 TAKE 1 TABLET BY MOUTH IN THE MORNING 90 Tablet 2 025 Active Losartan Potassium 25 MG Oral Tablet (Cozaar)Indicatio ns:HTN, goal below 140/90 Take 1 Tablet by mouth in the morning. 90 Tablet 3 024 2024 Discontinued documented as of this encounter (statuses as of 12/25/2024) Active Problems Problem Noted Date Diagnosed Date Hypertensive kidney disease with stage 3b chronic kidney disease 12/28/2023 Inflammatory polyarthritis 01/12/2023 Stage 3a chronic kidney disease 11/24/2022 Primary osteoarthritis of both hands 03/10/2022 Moderate persistent asthma without complication 01/19/2022 Chronic diastolic heart failure due to valvular disease 01/19/2022 Carotid artery plaque, bilateral 11/19/2019 Actinic keratosis 11/18/2019 Coronary artery disease invo lving [place] coronary artery of [place] heart without angina pectoris 07/28/2019 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 05/12/2019 Hypertensive kidney disease with chronic kidney disease stage III 10/07/2018 S/P insertion of spinal cord stimulator 06/21/20 17 GERD (gastroesophageal reflux disease) 4 Deviated nasal [...] as of this encounter (statuses as of 12/25/2024) Resolved Problems Problem Noted Date Diagnosed Date [...] OBESITY, BMI= 32.82 03/10/09 03/10/2009 04/18/2017 Acute [place], subendocardial, new bsequent episode of care 07/07/2008 [...] vaccination 08/20/2003 09/18/2011 FRACTURE ONE RIB-CLOSED 06/16/2003 07/03/2005 LACRIML PUNCTUM STENOSIS 01/06/200303/2005 Screening for prostate [...] as of this encounter (statuses as of 12/25/2024) Immunizations Name Administration Dates Next Due COVID-19 mRNA, LNP-s, No Pre serve, 2-Dose Series (PublicRelay) 05/16/2022,08/31/2021,01/08/2021,11/29 COVID-19, LNP-s, No Preserve , Silvio-sucrose, Ages 12+ (Pfizer) 05/16/2022 Covid-19, Mrna, Lnp-s, Pf, B ivalent, 30 Mcg, IM, 12 yrs and above (PublicRelay) 08/14/2022 Pneumococcal Conjugate Vacc, 13 Valent (Prevnar) 10/20/2018,11/26/2015 Pneumococcal Polysaccharide PPV23 (Pneumovax) 08/31/2006 RSV Vac., Recomb, Adjuvant, PF,0.5 Ml (Arexvy) 10/08/2023 Season Influenza, Quad, PF, Adjuvanted, 65+ Yrs, IM (FLUAD) 08/13/2020 Seasonal Influenza Vac., MDV , IM, 0.5 mL (Fluzone) 07/02/2014,07/29/2013,09/05/2012,0 02/2011,07/21/2010,10/07/2009,08/04/20 08,08/31/2006 Seasonal Influenza Virus Vac cine, Unspecified Formulation [...] on file documented as of this encounter Miscellaneous Notes * Telephone Encounter - Lucrecia Bailey [facility] - 12/25/2024 2:43 PM EST Signed Prescriptions: Disp Refills Losartan Potassium 25 MG Oral Tablet (Coza*90 Tab*2 Sig: TAKE 1 TABLET BY MOUTH IN THE MORNINGAuthorizing Provider: SAMI ARZATE User: LUCRECIA BAILEY documented in this encounter Plan of Treatment Upcoming Encounters Date Type Department Care Team (Late st Contact Info) Description 01/21/2025 9:50 AM EDT [facility] [phone] Sami Arzate DO 226 [facility] [place] [address] 02/23/2025 10:00 AM EDT Office Visit Pulmonary Medicine, [facility] [address] [place] [address] Holden Allen MD [address] [place] [address] 06/15/2025 10:20 AM EDT Office Visit Dermatology [address] [place] [address] Ginger Cook PA-C [address] [place] [address] [place] [address] Scheduled Procedures Name Priority Associated Diagnoses Date/Ti [...] Not on filedocumented as of this encounter Visit Diagnoses Diagnosis HTN, goal below 140/90 Unspecified essential hypertension documented in this encounter Advance Directives * Full Code (Latest Code Status on File) Date Activated Date Inactivated Comments 06/27/2008 6:56 PM 06/30/2008 11:56 PM Care Teams Customer Service Operator Relationship Specialty Start Date End Date Sami Arzate DO [address] [place] [address] PCP - General Family Medicine 07/10/24 documented as of this encounter
--- OUTSIDE RECORDS SUMMARY | 2025-01-15 06:23 | External Medical Summary | Summary of Care ---
Author Name Unknown Organization [facility] Address [address] [facility] [place] [address] Phone [phone] Care Team Providers Care Park Guard Name Role Phone Maday Arzate DO Primary Care Provider [phone] Reason for Visit * Reason Onset Date Comments Test Results 10/08/2024 Encounter Details Date Type Department Care Team (Late st Contact Info) Description 10/08/2024 Telephone [facility] [place] [phone] Maday Arzate DO 226 [facility] [place] [address] Test Results Allergies Active Allergy Reactions Criticality Noted Date Comments Ibuprofen 05/10/1999 ulcer "I don't ever want to take that stuff again." Latex Rash 10/10/2018 Oxycodone High 03/22/2020 Adhesive Tape Hives High 06/21/2017 documented as of this encounter (statuses as of 01/08/2025) Medications ALLOPURINOL 100 MG PO TABSIndications:Hy peruricemia [...] 0.1 % Nasal Solution (Astelin) Administer 1 [place] into nostril in the morning and 1 [place] before bedtime. 30 mL 12 01/02/20 24 [...] 180 Tablet 3 03/28/20 24 Active Nystatin 597285 UNIT/ML Mouth/Throat Suspension SWISH AND SWALLOW 5ML [...] s:HTN, goal below 140/90,Coronary artery disease involving [place] coronary artery of [place] heart without angina pectoris,S/P angioplasty with stent Take 1 capsule by mouth once daily 90 Capsule 3 07/22/20 Active Levothyroxine Sodium 25 MCG Oral Tablet (Levoxyl) TAKE 1 TABLET BY MOUTH ONCE DAILY IN THE MORNING AT LEAST 30 MINUTES PRIOR TO BREAKFAST OR OTHER MEDS 90 Tablet 3 07/29/20 Active Simvastatin 40 MG Oral Tablet (Zocor) TAKE 1 TABLET BY MOUTH AT BEDTIME FOR CHOLESTEROL 90 Tablet 1 08/12/20 24 Active documented as of this encounter (statuses as of 01/08/2025) Active Problems Problem Noted Date Diagnosed Date Hypertensive kidney disease with stage 3b chronic kidney disease 12/28/2023 Inflammatory polyarthritis 01/12/2023 Stage 3a chronic kidney disease 11/24/2022 Primary osteoarthritis of both hands 03/10/2022 Moderate persistent asthma without complication 01/19/2022 Chronic diastolic heart failure due to valvular disease 01/19/2022 Carotid artery plaque, bilateral 11/19/2019 Actinic keratosis 11/18/2019 Coronary artery disease invo lving [place] coronary artery of [place] heart without angina pectoris 07/28/2019 Chronic saddle [...] as of this encounter (statuses as of 01/08/2025) Resolved Problems Problem Noted Date Diagnosed Date [...] OBESITY, BMI= 32.82 03/10/09 03/10/2009 04/18/2017 Acute [place], subendocardial, new bsequent episode of care 07/07/2008 [...] as of this encounter (statuses as of 01/08/2025) Immunizations Name Administration Dates Next Due COVID-19 mRNA, LNP-s, No Pre serve, 2-Dose Series (GAMINSIDE) 05/16/2022,08/31/2021,01/08/2021,11/29 COVID-19, LNP-s, No Preserve , Silvio-sucrose, Ages 12+ (GAMINSIDE) 05/16/2022 Covid-19, Mrna, Lnp-s, Pf, B ivalent, 30 Mcg, IM, 12 yrs and above (GAMINSIDE) 08/14/2022 Pneumococcal Conjugate Vacc, 13 Valent (Prevnar) 10/20/2018,11/26/2015 Pneumococcal Polysaccharide PPV23 (Pneumovax) 08/31/2006 RSV Vac., Recomb, Adjuvant, PF,0.5 Ml (Arexvy) 10/08/2023 Season Influenza, Quad, PF, Adjuvanted, 65+ Yrs, IM (FLUAD) 08/13/2020 Seasonal Influenza Vac., MDV , IM, 0.5 mL (Fluzone) 07/02/2014,07/29/2013,09/05/2012,02/2011,07/21/2010,10/07/2009,08/04/20 08,08/31/2006 Seasonal Influenza Virus Vac cine, Unspecified [...] 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 Informed of message. Verbalized understanding. Will complete the antibiotics. * Telephone Encounter - Natalee Gallo LPN - 10/08/2024 9:39 AM EST ----- Message from Jesús Benitez MD sent at 10/07/2024 5:54 PM EST ----- No evidence of pneumonia. Complete antibiotics as prescribed at office visit 10/07/2024. Jesús Benitez MD documented in this encounter Plan of Treatment Upcoming Encounters Date Type Department Care Team (Late st Contact Info) Description 02/09/2025 12:00 PM EDT Office Visit [facility] [phone] Isaias Almendarez PA-C [address] [place] [address] 02/23/2025 10:00 AM EDT Office Visit Pulmonary Medicine, [facility] [address] [place] [address] Holden Allen MD [address] [facility] [place] [address] 06/15/2025 10:20 AM EDT Office Visit Dermatology [address] [place] [address] Ginger Cook PA-C [address] [place] [address] [place] [address] Scheduled Procedures Name Priority Associated Diagnoses Date/Ti [...] Not on filedocumented as of this encounter Advance Directives * Full Code (Latest Code Status on File) Date Activated Date Inactivated Comments 06/27/2008 6:56 PM 06/30/2008 11:56 PM Care Teams Park Guard Relationship Specialty Start Date End Date Maday Arzate DO [address] [place] [address] PCP - General Family Medicine 07/10/24 documented as of this encounter
--- OUTSIDE RECORDS SUMMARY | 2025-01-15 06:23 | External Medical Summary | Summary of Care ---
Author Name Unknown Organization [facility] Address [address] [place] [address] Phone [phone] Care Team Providers Care Filter Tank Tender Name Role Phone ChasityMaday zheng Tio CHUA Primary Care Provider Encounter Details Date Type Department Care Team (Latest Contact Info) Description 12/23/2024 10:07 AM EST - 12/23/2024 11:59 PM EST Hospital Encounter Radiology Film File [address] [place] [address] Arrived Discharge Disposition: Home - Self Care Allergies Active Allergy Reactions Criticality Noted Date Comments Ibuprofen 05/10/1999 ulcer "I don't ever want to take that stuff again." Latex Rash 10/10/2018 Oxycodone High 03/22/2020 Adhesive Tape Hives High 06/21/2017 documented as of this encounter (statuses as of 12/24/2024) Medications ALLOPURINOL 100 MG PO TABSIndications:Hy peruricemia [...] 0.1 % Nasal Solution (Astelin) Administer 1 [place] into nostril in the morning and 1 [place] before bedtime. 30 mL 12 01/02/20 24 [...] 180 Tablet 3 03/28/20 24 Active Nystatin 669124 UNIT/ML Mouth/Throat Suspension SWISH AND SWALLOW 5ML [...] s:HTN, goal below 140/90,Coronary artery disease involving [place] coronary artery of [place] heart without angina pectoris,S/P angioplasty with stent [...] J45.4 1 Each 3 11/04/19 25 Active documented as of this encounter (statuses as of 12/24/2024) Active Problems Problem Noted Date Diagnosed Date Hypertensive kidney disease with stage 3b chronic kidney disease 12/28/2023 Inflammatory polyarthritis 01/12/2023 Stage 3a chronic kidney disease 11/24/2022 Primary osteoarthritis of both hands 03/10/2022 Moderate persistent asthma without complication 01/19/2022 Chronic diastolic heart failure due to valvular disease 01/19/2022 Carotid artery plaque, bilateral 11/19/2019 Actinic keratosis 11/18/2019 Coronary artery disease invo lving [place] coronary artery of [place] heart without angina pectoris 07/28/2019 Chronic saddle [...] as of this encounter (statuses as of 12/24/2024) Resolved Problems Problem Noted Date Diagnosed Date [...] OBESITY, BMI= 32.82 03/10/09 03/10/2009 04/18/2017 Acute [place], subendocardial, new bsequent episode of care 07/07/2008 [...] as of this encounter (statuses as of 12/24/2024) Immunizations Name Administration Dates Next Due COVID-19 mRNA, LNP-s, No Pre serve, 2-Dose Series (Oxtex) 05/16/2022,08/31/2021,01/08/2021,11/29 COVID-19, LNP-s, No Preserve , Silvio-sucrose, Ages 12+ (Pfizer) 05/16/2022 Covid-19, Mrna, Lnp-s, Pf, B ivalent, 30 Mcg, IM, 12 yrs and above (Oxtex) 08/14/2022 Pneumococcal Conjugate Vacc, 13 Valent (Prevnar) [...] 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 Not on file Not on file documented as of this encounter Plan of Treatment Upcoming Encounters Date Type Department Care Team (Late st Contact Info) Description 01/21/2025 9:50 AM EDT Office Visit [facility] [place] [phone] Maday Arzate DO [address] [place] [address] 02/23/2025 10:00 AM EDT Office Visit Pulmonary Medicine, [facility] [address] [place] [address] Holden Allen MD [address] [facility] [place] [address] 06/15/2025 10:20 AM EDT Office Visit Dermatology [address] [place] [address] Ginger Cook PA-C [address] [place] [address] [place] [address] Scheduled Procedures Name Priority Associated Diagnoses Date/Ti [...] interpreted or resulted by a [facility] or [facility] contracted radiologist. Ginger Cook PA-C RADIOLOGY (RAD GENERAL ) Final Result documented in this encounter Advance Directives * Full Code (Latest Code Status on File) Date Activated Date Inactivated Comments 06/27/2008 6:56 PM 06/30/2008 11:56 PM Care Teams Filter Tank Tender Relationship Specialty Start Date End Date Maday Arzate DO [address] [place] [address] PCP - General Family Medicine 07/10/24 documented as of this encounter
--- OUTSIDE RECORDS SUMMARY | 2025-01-15 06:23 | External Medical Summary | Summary of Care ---
Author Name Unknown Organization [facility] Address [address] [facility] [place] [address] Phone [phone] Care Team Providers Care Hide And Skin Processing Worker Name Role Phone Maday Arzate DO Primary Care Provider [phone] Reason for Visit * Reason Comments Follow Up Skin check- pt would like to focus on his face today, post MOHS follow up Encounter Details Date Type Department Care Team (Late st Contact Info) Description 12/23/2024 9:20 AM EST Office Visit [facility] [address] [facility] [place] [phone] Ginger Cook PA-C [address] [place] [address] [place] [address] Hx of nonmelanoma skin [...] 0.1 % Nasal Solution (Astelin) Administer 1 [place] into nostril in the morning and 1 [place] before bedtime. 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 Product examples; [employer], [employer] baby, [employer], [employer], [employer], [place] baby. "Baby" products can be used [...] either or our main Dermatology office in [place] at [phone]. If an emergency, please go to your [...] keratoses Reviewed, same day as visit, 0 [facility] Dermatology lab work(s)/pathology report(s) as well as [...] Tablet before bedtime. 180 Tablet 3 Nystatin 708060 UNIT/ML Mouth/Throat Suspension SWISH AND SWALLOW 5ML [...] 0.1 % Nasal Solution (Astelin) Administer 1 [place] into nostril in the morning and 1 [place] before bedtime. (Patient not taking: Reported on [...] 9:21 AM Dermatology, [place] [place] [address] documented in this encounter Nursing Notes * Cecilia Sevilla LPN - 12/23/2024 8:59 AM EST Patient identified by name and date of . Do you have any concerns about pain management for today's visit? No Living Will or Advance Directive for Health Care as noted on problem list. [facility] is a way you can talk to [...] Family Practice, [facility] [place] [place] [phone] Maday Arzate DO [address] [place] [address] 02/23/2025 10:00 AM EDT Office Visit Pulmonary Medicine, [facility] [address] [facility] [place] [id number] Holden Allen MD [address] [place] [address] 06/15/2025 10:20 AM EDT Office Visit Dermatology [address] [place] [address] Ginger Cook PA-C [address] [place] [address] [place] [address] Scheduled Procedures Name Priority Associated Diagnoses Date/Ti [...] interpreted or resulted by a [facility] or [facility] contracted radiologist. us Ginger Cook PA-C RADIOLOGY [...] 6:56 PM 06/30/2008 11:56 PM Care Teams Hide And Skin Processing Worker Relationship Specialty Start Date End Date Maday Arzate DO [address] [place] [address] PCP - General Family Medicine 07/10/24 documented as of this encounter
[2025-01-15] MEDS: LEVOTHYROXINE SODIUM 25 MCG TABLET PO SCH (07:05)
[2025-01-15] MEDS: LEVALBUTEROL 1.25 MG/3 ML NEB NEB SCH (07:22)
[2025-01-15] MEDS: IPRATROPIUM BROMIDE NEB SOLN 0.02% 0.5MG/2.5ML VIAL INH SCH (07:23)
[2025-01-15] MEDS: LOSARTAN POTASSIUM 25 MG TAB PO SCH (08:47)
[2025-01-15] MEDS: allopurinoL 100 MG TAB PO SCH (08:47)
[2025-01-15] MEDS: ASPIRIN 81 MG ECTAB PO SCH (08:47)
[2025-01-15] MEDS: PANTOprazole 40 MG TAB PO SCH (08:47)
[2025-01-15] MEDS: APIXABAN 5 MG TABLET PO SCH (08:47)
[2025-01-15 09:04] LABS: Magnesium 1.7 mg/dl (1.7-2.4)
[2025-01-15] MEDS: DORZOLAMIDE/TIMOLOL 22.3/6.8MG/ML 10 ML BTL OPB SCH (09:47)
[2025-01-15] MEDS: AZELASTINE HCL 0.1% NASAL 200 SPRAYS/27,400 MCG BTL SCH (09:47)
[2025-01-15] MEDS: FINASTERIDE 5 MG TAB PO SCH (09:48)
[2025-01-15] MEDS: FLUTICASONE PROPIONATE NA SPR 16 GM BTL SCH (09:48)
[2025-01-15] MEDS: OSELTAMIVIR PHOSPHATE SUSP 30 MG/5 ML UDP PO SCH (10:12)
--- NOTE | 2025-01-15 17:50 | Electrocardiogram Report ---
Test Reason : Blood Pressure : */* mmHG Vent. Rate : 104 BPM Atrial Rate : 104 BPM P-R Int : 158 ms QRS Dur : 84 ms QT Int : 350 ms P-R-T Axes : 36 -30 65 degrees QTcB Int : 460 ms Sinus tachycardia with Premature atrial complexes Left axis deviation Minimal voltage criteria for LVH, may be normal variant Abnormal ECG When compared with ECG of 20-Nov-2022 04:46, Premature atrial complexes are now Present Vent. rate has increased by 37 bpm Confirmed by Alonso Krause ([id number]) on 01/15/2025 5:50:07 PM Referred By: REFERRED SELF Confirmed By: Alonso Krause
[2025-01-15] MEDS: DOXYCYCLINE HYCLATE 100 MG CAP PO SCH (21:19)
[2025-01-15] MEDS: SIMVASTATIN 40 MG TAB PO SCH (21:19)
[2025-01-15] MEDS: TERAZOSIN HCL 5 MG CAP PO SCH (21:21)
[2025-01-15] MEDS: LATANOPROST 0.005% OP SOLN 2.5 ML BTL OPL SCH (21:21)
[2025-01-16 08:39] VITALS: TEMP 97.7
[2025-01-16] MEDS: predniSONE 20 MG TAB PO SCH (08:39)
[2025-01-16] MEDS ORDERED: Nursing to Pharmacy Communication SCH (09:00)
[2025-01-16 09:09] LABS: Hematocrit (blood only) 38.1 % (42.0-52.0); Hemoglobin 12.7 g/dl (14.0-18.0); Mean Corpuscular Hemoglobin 32.2 pg (25.0-34.0); Mean Corpuscular Hgb Conc 33.3 g/dL (32.0-36.0); Mean Corpuscular Volume 96.7 fL (80.0-100.0); Mean Platelet Volume 9.4 fL (9.4-12.4); Platelet Count 161 K/uL (130-400); RDW Coefficient of Variation 14.4 % (11.5-14.5); RDW Standard Deviation 51.5 fL (36.4-46.3); Red Blood Count 3.94 M/uL (4.70-6.10); White Blood Count 6.35 K/ul (4.8-10.8)
[2025-01-16 09:26] LABS: BUN Creatinine Ratio 15.1 (10-20); Calcium 8.6 mg/dl (8.6-10.3); Creatinine Clr Calc Pharmacy 59.9 ml/min; Magnesium 2.1 mg/dl (1.7-2.4); Phosphorus 2.7 mg/dl (2.5-4.9)
[2025-01-16 12:01] VITALS: BP 144/78
--- NOTE | 2025-01-16 14:24 | Discharge Summary ---
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 Found to have an Influenza infection and treated for a COPD exacerbation in this setting. Uses oxygen at nighttime. Chest XRAY noting no acute findings Treated influenza with tamiflu, supportive care. COPD exacerbation with steroids and doxycycline, breathing treatments His hs-troponin was slightly elevated but flat in the 20s, likely demand ischemia. EKG noting sinus tachycardia. Pt on Eliquis with Hx of PE. Was not septic PT OT eval recommending return home Two step completed before discharge, no need for oxygen Pt discharged with doxycycline 100mg BID x 4 days, prednisone 40mg daily for 4 days, Tamiflu 30mg BID x 3.5 days (dose adjusted for renal function) Close PCP followup after discharge. Consider further evaluation by outpatient pulmonology. Notes For Next Care Provider As above Medication Changes From Visit tamiflu 30mg BID for 7 more doses (renally adjusted) doxycycline 100mg BID x 4 days prednisone 40mg daily x 4 days Admission HPI Per Admitting Provider History obtained from patient and records. 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 Last confinement October 2022 for COVID-19 illness and hypoxia. Few days history of increased cough symptoms productive of yellow sputum. No SOB but increasing weakness. Denies chest pain. Denies aspiration. Sick contacts at home. Legs felt like rubber. Patient fell from his recliner chair upon attempting to stand up. No headache, no syncope. Family checked on patient. Transient O2 sats noted to be 80s. Increasing weakness and fatigue noted today. Patient brought to ER for evaluation. 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 Admission Exam Per Admitting Provider GENERAL: pleasant, obese, no respiratory distress SKIN: Normal color, warm, ecchymosis upper extremities (chronic as per patient) HEENT: [place] palpebral conjunctivae, no ptosis, dry buccal mucosa, nasal cannula in place NECK : Supple, short neck, no tenderness CHEST : Decreased breath sounds, scattered expiratory wheezes, no chest wall tenderness HEART : Tachycardic, no obvious murmurs ABDOMEN: Some distention, nontender EXTREMITIES : Bilateral LE swelling without tenderness, no other conspicuous deformities noted NEUROLOGIC : Coherent, no facial asymmetry, no other gross focality Discharge Exam General: Alert, oriented. No acute distress HEENT: NC/AT CV: RRR Resp: Breath sounds clear bilaterally, no increased effort of breathing Abdomen: Soft, nontender Extremities: Trace edema in lower extremities bilaterally. Updated Medication List Medication Instructions Recorded Confirmed Type simvastatin 40 mg tablet 40 mg PO HS ##0 06/26/08 01/15/25 History furosemide 20 mg tablet 20 mg PO QAM 03/24/22 01/15/25 History levothyroxine 25 mcg tablet 25 mcg PO DAILYBB 03/24/22 01/15/25 History terazosin 5 mg capsule 5 mg PO DAILY 03/24/22 01/15/25 History finasteride 5 mg tablet See Rx Instructions .Route 05/12/24 01/15/25 Rx .COMPLEX #90 tabs albuterol sulfate 90 mcg/actuation 2 puff inhalation Q6H PRN 01/15/25 01/15/25 History aerosol inhaler Shortness Of Breath Or Wheezing allopurinol 100 mg tablet 100 mg PO QAM 01/15/25 01/15/25 History apixaban 5 mg tablet (Eliquis) 5 mg PO BID 01/15/25 01/15/25 History aspirin 81 mg tablet,delayed 81 mg PO DAILY 01/15/25 01/15/25 History release azelastine 137 mcg (0.1 %) nasal 1 spray intranasal AMPM 01/15/25 01/15/25 History spray dorzolamide 22.3 mg-timolol 6.8 1 drp OPB BID 01/15/25 01/15/25 History mg/mL eye drops fluticasone furoate 200 1 inh inhalation QAM 01/15/25 01/15/25 History mcg-vilanterol 25 mcg/dose inhalation powder (Breo Ellipta) fluticasone propionate 50 2 spray intranasal DAILY 01/15/25 01/15/25 History mcg/actuation nasal spray,suspension latanoprost 0.005 % eye drops 1 drp OPL QPM 01/15/25 01/15/25 History losartan 25 mg tablet (Cozaar) 25 mg PO DAILY 01/15/25 01/15/25 History omeprazole 20 mg capsule,delayed 20 mg PO DAILY 01/15/25 01/15/25 History release doxycycline hyclate 100 mg tablet 100 mg PO BID #8 tabs 01/16/25 Rx oseltamivir 30 mg capsule (Tamiflu) 30 mg PO BID #7 caps 01/16/25 Rx prednisone 20 mg tablet 40 mg (2 x 20 mg) PO DAILY #8 tabs 01/16/25 Rx Hospital Stay Data Consultations 01/15/25 01:10 ED Decision to Admit Stat Diagnostic Imagining Performed 01/14/25 21:04 CT abd pelvis IV con only Stat CT cervical spine wo con Stat CT head/brain wo con Stat Abdomen/Pelvis CT 01/14/25 21:04 Exam(s): CT ABDOMEN + PELVIS With Contrast IV Amt: 93 ml opti 320 EXAM: CT Abdomen and Pelvis With Intravenous Contrast CLINICAL HISTORY: Reason for exam: fall. TECHNIQUE: Axial computed tomography images of the abdomen and pelvis with intravenous contrast. CTDI is 37.87 mGy and DLP is 624.41 mGy-cm. Automated exposure control was utilized for the study. A dose lowering technique was utilized adhering to the principles of ALARA. CONTRAST: Patient received 93 ml opti 320 of IV contrast COMPARISON: No relevant prior studies available. FINDINGS: Lung bases: Mild subsegmental atelectasis in both posterior lung bases. Heart: Coronary arterial calcification. ABDOMEN: Liver: Unremarkable. No mass. Gallbladder and bile ducts: Unremarkable. No calcified stones. No ductal dilation. Pancreas: Unremarkable. No mass. No ductal dilation. Spleen: Unremarkable. No splenomegaly. Adrenals: Unremarkable. No mass. Kidneys and ureters: Unremarkable. No solid mass. No hydronephrosis. Stomach and bowel: Diverticulosis without diverticulitis. No obstruction. PELVIS: Appendix: No findings to suggest acute appendicitis. Bladder: Unremarkable. No mass. ABDOMEN and PELVIS: Intraperitoneal space: Unremarkable. No free air. No significant fluid collection. Bones/joints: No acute findings. Soft tissues: Unremarkable. Vasculature: No evidence of abdominal aortic aneurysm. Lymph nodes: Unremarkable. No enlarged lymph nodes. IMPRESSION: 1. No acute findings. 2. Diverticulosis without diverticulitis. Electronically signed by: Mark Ramirez MD 01/14/25 23:[address] 01/14/25 21:04 Exam(s): CT C SPINE EXAM: CT Cervical Spine Without Intravenous Contrast CLINICAL HISTORY: Reason for exam: fall. TECHNIQUE: Axial computed tomography images of the cervical spine without intravenous contrast. CTDI is 26.2 mGy and DLP is 586.52 mGy-cm. Automated exposure control was utilized for the study. A dose lowering technique was utilized adhering to the principles of ALARA. COMPARISON: No relevant prior studies available. FINDINGS: Vertebrae: Advanced degenerative arthropathy of the facet joints. Mild anterior spondylolisthesis of C4 and C5, likely chronic and degenerative in nature. No other misalignment. No acute fracture. Discs/spinal canal/neural foramina: Advanced multilevel degenerative disc disease. No spinal canal stenosis. Soft tissues: Unremarkable. IMPRESSION: 1. No acute fracture. 2. Advanced degenerative changes. Electronically signed by: Mark Ramirez MD 01/14/25 22:[address] 01/14/25 21:04 Exam(s): CT HEAD Without Contrast EXAM: CT Head Without Intravenous Contrast CLINICAL HISTORY: Reason for exam: fall. TECHNIQUE: Axial computed tomography images of the head/brain without intravenous contrast. CTDI is 28.1 mGy and DLP is 1427.22 mGy-cm. Automated exposure control was utilized for the study. A dose lowering technique was utilized adhering to the principles of ALARA. COMPARISON: Previous head CT March 24, 2022. FINDINGS: Brain: Chronic, small vessel ischemic changes in the white matter. No acute intracranial hemorrhage, edema or abnormal mass-effect. No extra- axial collection. Ventricles: Unremarkable. No ventriculomegaly. Bones/joints: Unremarkable. No acute fracture. Soft tissues: Unremarkable. Sinuses: Unremarkable as visualized. No acute sinusitis. Mastoid air cells: Unremarkable as visualized. No mastoid effusion. IMPRESSION: No acute intracranial abnormality. Electronically signed by: Mark Ramirez MD 01/14/25 23:00 PM Chest X-Ray 01/14/25 22:45 Exam(s): XR CXR 1 VIEW EXAM: XR Chest, 1 View CLINICAL HISTORY: Reason for exam: cough. TECHNIQUE: Frontal view of the chest. COMPARISON: November 19, 2022. FINDINGS: Lungs: No acute infiltration, atelectasis or mass. Pleural space: Unremarkable. No pneumothorax or pleural fluid. Heart: Unremarkable. No cardiomegaly. Mediastinum: Unremarkable. Normal mediastinal contour. Bones/joints: No acute findings. Tubes, lines and devices: A stable epidural stimulator is seen in the lower thoracic spine. IMPRESSION: No acute findings in the chest. Electronically signed by: Mark Ramirez MD 01/14/25 23:41 PM Pending Results Patient Have Any Pending Studies at Discharge: No Discharge Instructions Given to Patient (Per Discharging Provider) Leonel, You were admitted and treated for an exacerbation of your COPD in the setting of an influenza infection. We are discharging you home with about four more days of the steroid prednisone, tamiflu for your flu infection and the antibiotic doxycycline. Please continue to use your oxygen at home. Please keep close follow up with your primary care provider after discharge. Please do not hesitate to come back to the emergency room if your symptoms worsen or return. It was a pleasure taking care of you while you were here. Total Time Total Time Spent Total Time Spent (In Minutes): 60
[2025-01-16 14:28] VITALS: RESP 16
[2025-01-16 15:07] VITALS: O2SAT 95
[2025-01-16 15:40] VITALS: PULSE 84
[2025-01-16] MEDS ORDERED: LOSARTAN POTASSIUM 25 MG TAB PO SCH (21:00)
== END 2025-01-16 16:18 | disposition home or self-care (01) ==
LOC: ED 20:48 → EDINP 20:48 → SUATTDRO 01-15 01:38 → 2N 01-15 02:16